=== PATIENT | male | born 1975 | race Caucasian/White ===

== ENCOUNTER 2019-04-21 10:05 | Inpatient (IN) | payer BC, OTHER ==
[~2019-04-21] VITALS: Ht 190.5 cm; Wt 83.3 kg
[2019-04-21] MEDS ORDERED: OLANZapine 5 MG ODT (ZyPREXA ZYDIS) PO ONE (11:30)
--- NOTE | 2019-04-21 11:30 | ED General ---
General Stated Complaint: ANXIETY;PSYCH EVAL Source of Information: Patient Exam Limitations: No Limitations History of Present Illness Date Seen by Provider: Apr 21, 2019 Time Seen by Provider: 11:28 Initial Comments To ER reports of anxiety. He states that he's only slept about 2 or 3 hours in the past 3 days. He is currently living in [place] staying with his mother. Primary care is Dr. Sheldon. He has been having dreams at night that are very real, he sees people, and he holds up his bilateral and crossed until them to go away and they vanish. He also saw a missed coming from the ceiling and landed only on him and did not land on his mother. History of ADHD, takes Prozac and Keppra for a seizure disorder. Denies drug use. States he feels very anxious right now. Timing/Duration: 1-2 Days Severity: Moderate Associated Systoms: Denies Symptoms Allergies and Home Medications Allergies Coded Allergies: No Known Drug Allergies (Unverified , 04/21/19) Patient Home Medication List Home Medication List Reviewed: Yes Review of Systems Review of Systems Constitutional: see HPI EENTM: see HPI Respiratory: no symptoms reported Cardiovascular: no symptoms reported Genitourinary: no symptoms reported Musculoskeletal: no symptoms reported Psychiatric/Neurological: See HPI, Anxiety Hematologic/Lymphatic: No Symptoms Reported Immunological/Allergic: no symptoms reported Past Nwvwvqj-Vadzap-Rtyqza Hx Patient Social History Recent Foreign Travel: No Contact w/Someone Who Travel: No Physical Exam Vital Signs Vital Signs - First Documented 04/21/19 11:11 Temp 37.1 Pulse 114 Resp 18 B/P (MAP) 168/98 (121) Pulse Ox 100 O2 Delivery Room Air Capillary Refill : Height, Weight, BMI Height: '" Weight: lbs. oz. kg; BMI Method: General Appearance: No Apparent Distress, WD/WN, Anxious, Other (hyperactive, high rate of speech) Eyes: Bilateral Eye Normal Inspection, Bilateral Eye PERRL, Bilateral Eye EOMI HEENT: PERRL/EOMI, TMs Normal Neck: Full Range of Motion, Normal Inspection Respiratory: No Accessory Muscle Use, No Respiratory Distress Gastrointestinal: Normal Bowel Sounds, Non Tender, Soft Extremity: Normal Capillary Refill, Normal Inspection Neurologic/Psychiatric: Alert, Oriented x3 Skin: Normal Color, Warm/Dry Progress/Results/Core Measures Suspected Sepsis SIRS Temperature: Pulse: Respiratory Rate: Laboratory Tests 3/11/20 11:30: White Blood Count 9.6 Blood Pressure / Mean: Laboratory Tests 04/21/19 11:30: Creatinine 0.83, Platelet Count 105L, Total Bilirubin 1.4H Results/Orders Lab Results Laboratory Tests Test 04/21/19 11:30 04/21/19 11:35 Range/Units White Blood Count 9.6 4.3-11.0 10^3/uL Red Blood Count 4.82 4.35-5.85 10^6/uL Hemoglobin 14.8 13.3-17.7 G/DL Hematocrit 44 40-54 % Mean Corpuscular Volume 92 80-99 FL Mean Corpuscular Hemoglobin 31 25-34 PG Mean Corpuscular Hemoglobin Concent 34 32-36 G/DL Red Cell Distribution Width 12.8 10.0-14.5 % Platelet Count 105 L 130-400 10^3/uL Mean Platelet Volume 12.5 H 7.4-10.4 FL Neutrophils (%) (Auto) 81 H 42-75 % Lymphocytes (%) (Auto) 12 12-44 % Monocytes (%) (Auto) 7 0-12 % Eosinophils (%) (Auto) 0 0-10 % Basophils (%) (Auto) 0 0-10 % Neutrophils # (Auto) 7.8 1.8-7.8 X 10^3 Lymphocytes # (Auto) 1.2 1.0-4.0 X 10^3 Monocytes # (Auto) 0.6 0.0-1.0 X 10^3 Eosinophils # (Auto) 0.0 0.0-0.3 10^3/uL Basophils # (Auto) 0.0 0.0-0.1 10^3/uL Sodium Level 134 L 135-145 MMOL/L Potassium Level 3.6 3.6-5.0 MMOL/L Chloride Level 99 98-107 MMOL/L Carbon Dioxide Level 22 21-32 MMOL/L Anion Gap 13 5-14 MMOL/L Blood Urea Nitrogen 11 7-18 MG/DL Creatinine 0.83 0.60-1.30 MG/DL Estimat Glomerular Filtration Rate > 60 BUN/Creatinine Ratio 13 Glucose Level 112 H 70-105 MG/DL Calcium Level 10.3 H 8.5-10.1 MG/DL Corrected Calcium 9.9 8.5-10.1 MG/DL Total Bilirubin 1.4 H 0.1-1.0 MG/DL Aspartate Amino Transf (AST/SGOT) 82 H 5-34 U/L Alanine Aminotransferase (ALT/SGPT) 36 0-55 U/L Alkaline Phosphatase 186 H 40-136 U/L Total Protein 8.2 6.4-8.2 GM/DL Albumin 4.5 3.2-4.5 GM/DL Salicylates Level < 5.0 L 5.0-20.0 MG/DL Acetaminophen Level < 10 L 10-30 UG/ML Serum Alcohol < 10 <10 MG/DL Urine Color YELLOW Urine Clarity CLEAR Urine pH 6.0 5-9 Urine Specific [place] 1.015 L 1.016-1.022 Urine Protein NEGATIVE NEGATIVE Urine Glucose (UA) NEGATIVE NEGATIVE Urine Ketones NEGATIVE NEGATIVE Urine Nitrite NEGATIVE NEGATIVE Urine Bilirubin 1+ H NEGATIVE Urine Urobilinogen 4.0 < = 1.0 MG/DL Urine Leukocyte Esterase NEGATIVE NEGATIVE Urine RBC (Auto) NEGATIVE NEGATIVE Urine RBC NONE /HPF Urine WBC NONE /HPF Urine Squamous Epithelial Cells NONE /HPF Urine Crystals NONE /LPF Urine Bacteria TRACE /HPF Urine Casts NONE /LPF Urine Mucus SMALL H /LPF Urine Culture Indicated NO Urine Opiates Screen NEGATIVE NEGATIVE Urine Oxycodone Screen NEGATIVE NEGATIVE Urine Methadone Screen NEGATIVE NEGATIVE Urine Propoxyphene Screen NEGATIVE NEGATIVE Urine Barbiturates Screen NEGATIVE NEGATIVE Ur Tricyclic Antidepressants Screen POSITIVE H NEGATIVE Urine Phencyclidine Screen NEGATIVE NEGATIVE Urine Amphetamines Screen NEGATIVE NEGATIVE Urine Methamphetamines Screen NEGATIVE NEGATIVE Urine Benzodiazepines Screen POSITIVE H NEGATIVE Urine Cocaine Screen NEGATIVE NEGATIVE Urine Cannabinoids Screen NEGATIVE NEGATIVE My Orders Orders - SCOTT LAGUNA APRN Olanzapine Orally Dissolve Tab (Zyprexa (04/21/19 11:30) Cbc With Automated Diff (04/21/19 11:27) Comprehensive Metabolic Panel (04/21/19 11:27) Ua Culture If Indicated (04/21/19 11:27) Drug Screen Stat (Urine) (04/21/19 11:27) Salicylate (04/21/19 11:27) Acetaminophen (04/21/19 11:27) Alcohol (04/21/19 11:27) Ekg Tracing (04/21/19 11:55) Alprazolam Tablet (Xanax Tablet) (04/21/19 12:15) Lorazepam Injection (Ativan Injection) (04/21/19 13:00) Medications Given in ED Current Medications Medications Dose Ordered Sig/Eduard Route Start Time Stop Time Status Last Admin Dose Admin Lorazepam 1 mg ONCE ONCE IVP 04/21/19 13:00 04/21/19 13:01 DC 04/21/19 13:05 1 MG Olanzapine 10 mg ONCE ONCE PO 04/21/19 11:30 04/21/19 11:31 DC 04/21/19 11:40 10 MG Vital Signs/I&O 04/21/19 11:11 Temp 37.1 Pulse 114 Resp 18 B/P (MAP) 168/98 (121) Pulse Ox 100 O2 Delivery Room Air Capillary Refill : Departure Communication (Admissions) Time/Spoke to Admitting Phy: 13:[address] Sanchez, will admit [facility] has no inpatient psychiatric beds, [facility] no inpatient psychiatric beds. Mother informs me that he is an alcoholic, he was treated at a facility inpatient towards the end of March, he came home to live with her after discharge at the end of March, resumed drinking heavily vodka again and stopped that on Friday the . Since then he's been unable to sleep with increasing hallucination, she states "he's just running around the house chasing ghosts". This may be more of an alcohol withdrawal delirium given this i nformation. 0.5 mg of Xanax has been given, this fails to improve symptoms we'll give IV lorazepam. I did get an appointment for him with [facility] for May 02 at 1 PM. [facility] mental health side cannot see him until middle of May. Impression Primary Impression: Alcohol withdrawal delirium Disposition: HOME, SELF-CARE Condition: Stable Admissions Decision to Admit Reason: Admit from ER (General) Decision to Admit/Date: Apr 21, 2019 Time/Decision to Admit Time: 12:23 Departure-Patient Inst. Referrals: NO,LOCAL PHYSICIAN (PCP) Primary Care Physician SCOTT LAGUNA APRN Apr 21, 2019 11:30
[2019-04-21 11:38] LABS: CLARITY,URINE CLEAR; COLOR,URINE YELLOW; GLUCOSE, URINE (UA) NEGATIVE (NEGATIVE); KETONES,URINE NEGATIVE (NEGATIVE); LEUKOCYTE ESTERASE ,URINE NEGATIVE (NEGATIVE); NITRITE,URINE NEGATIVE (NEGATIVE); PROTEIN,URINE NEGATIVE (NEGATIVE)
[2019-04-21 11:41] LABS: BASOPHILS % (AUTO) 0 % (0-10); EOSINOPHILS % (AUTO) 0 % (0-10); HEMATOCRIT 44 % (40-54); HEMOGLOBIN 14.8 G/DL (13.3-17.7); LYMPHOCYTES # (AUTO) 1.2 X 10^3 (1.0-4.0); LYMPHOCYTES % (AUTO) 12 % (12-44); MEAN CORPUSCULAR HEMOGLOBIN 31 PG (25-34); MEAN CORPUSCULAR HGB CONC 34 G/DL (32-36); MEAN CORPUSCULAR VOLUME 92 FL (80-99); MEAN PLATELET VOLUME 12.5 FL (7.4-10.4); MONOCYTES # (AUTO) 0.6 X 10^3 (0.0-1.0); MONOCYTES % (AUTO) 7 % (0-12); NEUTROPHILS # (AUTO) 7.8 X 10^3 (1.8-7.8); NEUTROPHILS % (AUTO) 81 % (42-75); PLATELET COUNT 105 10^3/uL (130-400); RED CELL DISTRIBUTION WIDTH 12.8 % (10.0-14.5); WHITE BLOOD COUNT 9.6 10^3/uL (4.3-11.0)
[2019-04-21 11:47] LABS: BACTERIA,URINE TRACE /HPF; BILIRUBIN,URINE 1+ (NEGATIVE)
[2019-04-21 11:50] LABS: AMPHETAMINE SCREEN, URINE NEGATIVE (NEGATIVE); BARBITURATE SCREEN URINE NEGATIVE (NEGATIVE); BENZODIAZEPINES SCREEN URINE POSITIVE (NEGATIVE); CANNABINOID SCREEN, URINE NEGATIVE (NEGATIVE); COCAINE SCREEN URINE NEGATIVE (NEGATIVE); METHADONE STAT NEGATIVE (NEGATIVE); METHAMPHETAMINE SCREEN URINE S NEGATIVE (NEGATIVE); OPIATE SCREEN URINE NEGATIVE (NEGATIVE); OXYCODONE STAT NEGATIVE (NEGATIVE); PROPOXYPHENE STAT NEGATIVE (NEGATIVE); TRICYCLIC ANTIDEPRESSANTS SCRE POSITIVE (NEGATIVE)
[2019-04-21 11:58] LABS: ALANINE AMINOTRANSFERASE 36 U/L (0-55); ALBUMIN 4.5 GM/DL (3.2-4.5); ALKALINE PHOSPHATASE 186 U/L (40-136); BILIRUBIN,TOTAL 1.4 MG/DL (0.1-1.0); BUN/CREATININE RATIO 13; CALCIUM 10.3 MG/DL (8.5-10.1); CARBON DIOXIDE 22 MMOL/L (21-32); CHLORIDE 99 MMOL/L (98-107); CREATININE SERUM 0.83 MG/DL (0.60-1.30); GFR ESTIMATED > 60; GLUCOSE 112 MG/DL (70-105); POTASSIUM 3.6 MMOL/L (3.6-5.0); SALICYLATE < 5.0 MG/DL (5.0-20.0); SODIUM 134 MMOL/L (135-145); TOTAL PROTEIN 8.2 GM/DL (6.4-8.2)
[2019-04-21 11:59] LABS: ACETAMINOPHEN < 10 UG/ML (10-30)
[2019-04-21] MEDS ORDERED: ALPRAZolam 0.5 MG (XANAX) TAB PO SCH (12:15)
[2019-04-21] MEDS ORDERED: LORazepam INJ 2 MG/ML (ATIVAN) VIAL IVP ONE (13:00)
--- NOTE | 2019-04-21 14:10 | NUR ---
GIULIANA VACA admitted to room 405-1, with an admitting diagnosis of ETOH WITHDRAWAL, DELIRIUM, on 04/21/19 from ED via WHEELCHAIR, accompanied by MOTHER, AUNT AND ED STAFF. LIOGIULIANA Marilyn introduced to surroundings, call light, bed controls, phone, TV, temperature control, lights, meal times, smoking policy, visitor policy, side rail policy, bathrooms and showers. Patient Rights given to patient in the handbook. GIULIANA VACA Marilyn verbalizes understanding that [facility] is not responsible for the loss or damage to any personal effects or valuables that are kept in the patients possession during their hospitalization. The following Patient Care Plans were discussed with the PATIENT: Discharge Planning, SUBSTANCE ABUSE, ALCOHOL WITHDRAWAL, and KNOWLEDGE DEFICIT. GIULIANA VACA Marilyn verbalizes understanding of Interdisciplinary Patient Education. Patient and/or family were informed about the Rapid Response Team and its purpose.
[2019-04-21 14:12] VITALS: BP 133/84
[2019-04-21] MEDS ORDERED: THIAMINE INJECTION 100 MG, FOLIC ACID INJECTION 1 MG, MAGNESIUM SULFATE 2 GM, VITAMIN M... IV SCH ×5 (14:36)
[2019-04-21] MEDS ORDERED: ONDANSETRON 4 MG/2 ML (SDV) Z0FRAN IV PRN (14:45)
[2019-04-21] MEDS ORDERED: SENNA W/DOCUSATE (SENOKOT S) TABLET PO PRN (14:45)
[2019-04-21] MEDS ORDERED: ONDANSETRON 4 MG (ZOFRAN) ORAL DISSOLVE TAB SL PRN (14:45)
[2019-04-21] MEDS ORDERED: ANTACID SUSP 30 ML UDC (MYLANTA) PO PRN (14:45)
[2019-04-21] MEDS ORDERED: D5 1/2 NS 1000 ML IV SOLUTION 1,000 ML IV PRN (14:45)
[2019-04-21] MEDS ORDERED: LORazepam 1 MG (ATIVAN) TAB PO PRN (14:45)
[2019-04-21] MEDS ORDERED: FLU QUADRIvalent (5+ YOA) 2019-2020 (AFLURIA) 0.5 ML IM ONE (15:00)
[2019-04-21 15:14] LABS: ALANINE AMINOTRANSFERASE 33 U/L (0-55); ALBUMIN 4.3 GM/DL (3.2-4.5); ALKALINE PHOSPHATASE 169 U/L (40-136); BILIRUBIN,TOTAL 1.4 MG/DL (0.1-1.0); BUN/CREATININE RATIO 15; CARBON DIOXIDE 21 MMOL/L (21-32); CHLORIDE 101 MMOL/L (98-107); CREATININE SERUM 0.75 MG/DL (0.60-1.30); GFR ESTIMATED > 60; GLUCOSE 100 MG/DL (70-105); POTASSIUM 3.7 MMOL/L (3.6-5.0); PROTHROMBIN TIME PATIENT 13.8 SEC (12.2-14.7); SODIUM 134 MMOL/L (135-145); TOTAL PROTEIN 7.7 GM/DL (6.4-8.2)
[2019-04-21] MEDS: D5 1/2 NS W/KCL 20 MEQ/L 1,000 ML IV SCH (15:15)
--- NOTE | 2019-04-21 15:33 | NUR ---
SPOKE WITH PT- HE IS UNSURE OF THE MEDS AND HIS MOTHER WAS GOING BACK HOME TO GET THEM IN [place]. I WILL UPDATE THE MED REC AND NOTES WHEN I GET TO SPEAK WITH HER
[2019-04-21] MEDS: THIAMINE INJECTION 100 MG, FOLIC ACID INJECTION 1 MG, MAGNESIUM SULFATE 2 GM, VITAMIN M... IV SCH ×5 (15:50)
--- NOTE | 2019-04-21 16:08 | History & Physical-Hospitalist ---
History of Present Illness HPI/Chief Complaint Pt is a 43yoCM with a PMH of alcohol abuse who presented the ER due to hallucinations. He gives a varied history about dreams vs reality and I am unsure the exact details but it seems that sometime over the past 5 days he started hallucinating. At first it was that there were bikes everywhere he thought that he was dreaming. He then said that his dreams/hallucinations became more erotic. He tells a story of walking from his kitchen through glass panel and ending up in his mother's kitchen. He also thought that he was about had a seizure. He is unsure of what day that occurred. Today he states that he saw people in his house again and the only way to make them go away was to hold up his Cross and his bible. He reports that he drinks 5-6 PB per day and that his last drink was last night. This varies from the history that his mother gave to the emergency room stating that he was in rehabilitation for alcohol at the end of March but relapsed shortly after discharge. She reported to the ER that his last drink was on April 16. Source: patient Date Seen 04/21/19 Time Seen by a Provider: 16:03 Attending Physician Michelle García MD PCP Alanis Sheldon MD Referring Physician Date of Admission Apr 21, 2019 at 12:36 Home Medications & Allergies Home Medications Reviewed patient Home Medication Reconciliation performed by pharmacy medication reconciliations civilian technician and/or nursing. Patients Allergies have been reviewed. Allergies Allergies Coded Allergies No Known Drug Allergies (Unverified04/21/19) Past Launzhf-Qxegkj-Mhzsos Hx Past Med/Social Hx: Reviewed Nursing Past Med/Soc Hx Patient Social History Alcohol Use: Regular Use Number of Drinks Today: 0 Alcohol Beverage of Choice: Beer, Whiskey Recreational Drug Use: No Type Used: Smokeless Tobacco 2nd Hand Smoke Exposure: No Recent Foreign Travel: Yes Contact w/other who traveled: Yes Recent Infectious Disease Expo: No Past Medical History Surgeries: Eye Surgery Neurological: Seizure Disorder Psychosocial: ADD/ADHD, Anxiety, Depression Family History Reviewed Nursing Family Hx Patient reports no known family medical history. Review of Systems ROS-Unable to Obtain: limited by AMS Constitutional: see HPI Physical Exam Physical Exam Vital Signs Vital Signs - First Documented 04/21/19 11:11 Temp 37.1 Pulse 114 Resp 18 B/P (MAP) 168/98 (121) Pulse Ox 100 O2 Delivery Room Air Capillary Refill : Less Than 3 Seconds Height, Weight, BMI Height: '" Weight: lbs. oz. kg; 23.72 BMI Method: General Appearance: No Apparent Distress, WD/WN, Thin HEENT: PERRL/EOMI, Moist Mucous Membranes; No Scleral Icterus (L), No Scleral Icterus (R) Neck: Normal Inspection, Supple Respiratory: Lungs Clear, No Respiratory Distress Cardiovascular: Regular Rate, Rhythm, No Murmur Gastrointestinal: Normal Bowel Sounds, Non Tender, Soft Extremity: No Calf Tenderness, No Pedal Edema, Other (3+ DTRS) Neurologic/Psychiatric: Alert, Other (oriented to person and place and denies hallucinations but unable to provide any other accurate details) Results Results/Procedures Labs Laboratory Tests 04/21/19 11:30 04/21/19 14:30 Patient resulted labs reviewed. 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
[2019-04-21 16:10] VITALS: BP 114/66
[2019-04-21] MEDS: SINEMET 25/100 (CARBIDOPA/LEVODOPA) TAB PO SCH (17:46)
--- NOTE | 2019-04-21 19:20 | NUR ---
HOME MEDICATIONS LOCKED IN PLASTIC STRAIGHTENING ROLL OPERATOR ROOM
[2019-04-21 20:30] VITALS: BP 117/75
[2019-04-21] MEDS: traZODone 50 MG (DESYREL) TAB PO SCH (20:56)
[2019-04-21] MEDS ORDERED: LEVETIRACETAM 500 MG (KEPPRA) TAB PO SCH (21:00)
[2019-04-21] MEDS: LORazepam INJ 2 MG/ML (ATIVAN) VIAL IV PRN ×3 (21:03→23:55)
[2019-04-22] VITALS (27 sets, daily range): BP systolic 100–142; BP diastolic 74–104
[2019-04-22] MEDS: LORazepam INJ 2 MG/ML (ATIVAN) VIAL IV PRN ×5 (00:57→11:34)
[2019-04-22] MEDS ORDERED: DexMEDEtomidine 250 ML DRIP 250 ML IV ONE (01:27)
--- NOTE | 2019-04-22 01:34 | NUR ---
2048 - CIWA score 9 - received 1mg of Ativan per protocol. Recheck in 1 hour 2209 - CIWA score 18 - received 2mg of Ativan per protocol. Ordered End tidal CO2 per protocol and recheck in 1 hour 0 - Pt was walking down the hallway while this RN was attending another pt in distress. Pt's IV was out and pt was anxious and confused. Got pt back in room and IV was restarted by GASTON [place]. Notified house sup that pt is showing signs of withdrawal and may need to be moved to ICU per protocol. 2344 - CIWA score 20 - received 2mg of Ativan per protocol. Recheck in 1 hour 0030 - House sup informed this RN that there is a bed available for the pt should he be transferred. 0040 - Notified Dr. Paige of plan to move to ICU since pt is starting to get aggressive and scoring greater than 20 on CIWA scale. 0055 - CIWA score 26 - ordered 4mg of Ativan per protocol. Gave 2mg and will give additional 2mg once patient is ready to be transferred to ICU. 0133 - Administered 2mg of Ativan 0140 - Transferring pt to ICU 11
--- NOTE | 2019-04-22 01:59 | NUR ---
PT ARRIVES TO ICU 11 WITH HEAD AT FOOT OF BED. PT MUMBLING AND ATTEMPTING TO GET OUT OF BED. PT COMBATIVE TOWARDS STAFF. E-ICU NOTIFIED. SEE ORDER HISTORY
[2019-04-22] MEDS: DexMEDEtomidine 250 ML DRIP 250 ML IV SCH ×3 (02:16→23:30)
[2019-04-22] MEDS: D5 1/2 NS W/KCL 20 MEQ/L 1,000 ML IV SCH ×2 (03:29→05:42)
[2019-04-22] MEDS ORDERED: PROPOFOL DRIP (ICU) 100 ML IV ONE (04:29)
[2019-04-22] MEDS ORDERED: NS IV 1000 ML 1,000 ML ONE (04:31)
--- NOTE | 2019-04-22 04:56 | Pulmonary Procedures ---
Pulmonary Procedures Date of Procedure Date of Service: Apr 22, 2019 Reason for Intubation: Acute respiratory failure Time of Intubation: 04:52 Intubation Method: orotracheal Tube Size: 8 Medications: Propofol Positive End Tide CO2: Yes Breath Sounds after Intubation: bilateral-equal Intubation Complications: no complications Post Intubation Xray: Yes KATHLEEN COLEMAN DO Apr 22, 2019 04:56
--- NOTE | 2019-04-22 05:02 | Pulmonary Consultation ---
History of Present Illness History of Present Illness Date Seen by Provider: Apr 22, 2019 Time Seen by Provider: 04:57 Date of Admission History of Present Illness 43yo with hx of alcohol dependance presented to ED with hallucinations. He was admitted to 4th floor however transferred up to ICU secondary to withdrawal symptoms. Pt was combative and agitated. Since admission he has received around 21mg of Ativan. This morning pt is unresponsive to sternal rub. Allergies and Home Medications Allergies Coded Allergies: No Known Drug Allergies (Unverified , 04/21/19) Past Xpksbsq-Ofrtrh-Fmispr Hx Past Med/Social Hx: Reviewed Nursing Past Med/Soc Hx Patient Social History Alcohol Use: Regular Use Number of Drinks Today: 0 Alcohol Beverage of Choice: Beer, Whiskey Recreational Drug Use: No Type Used: Smokeless Tobacco 2nd Hand Smoke Exposure: No Recent Foreign Travel: Yes Contact w/Someone Who Travel: Yes Recent Infectious Disease Expo: No Physical Abuse: No Sexual Abuse: No Past Medical History Surgeries: No (Denies surgical hx. ) Eye Surgery Neurological: Yes (Dystonia ) Seizure Disorder Psychosocial: Yes ADD/ADHD, Anxiety, Depression Family Medical History Reviewed Nursing Family Hx Patient reports no known family medical history. Sepsis Event Evaluation Height, Weight, BMI Height: '" Weight: lbs. oz. kg; 23.72 BMI Method: Exam Exam Vital Signs Date Time Temp Pulse Resp B/P (MAP) Pulse Ox O2 Delivery O2 Flow Rate FiO2 04/22/19 04:00 Nasal Cannula 2.00 04/22/19 03:00 62 04/22/19 02:45 Nasal Cannula 2.00 04/22/19 02:16 87 04/22/19 02:00 Room Air 04/22/19 01:59 93 20 123/83 (96) 98 Room Air 04/22/19 00:00 37.1 99 17 119/77 (91) 99 Room Air 04/21/19 23:04 95 Room Air 04/21/19 20:30 36.4 96 20 117/75 (89) 100 Room Air 04/21/19 20:00 Room Air 04/21/19 19:00 100 04/21/19 16:24 89 04/21/19 16:10 36.5 86 20 114/66 (82) 95 Room Air 04/21/19 14:31 Room Air 04/21/19 14:12 36.8 94 18 133/84 98 Room Air 04/21/19 14:05 36.6 106 18 116/93 (121) 98 Room Air 04/21/19 11:11 37.1 114 18 168/98 (121) 100 Room Air I & O 04/22/19 07:00 Intake Total 1855.2 ml Balance 1855.2 ml Height & Weight Height: '" Weight: lbs. oz. kg; 23.72 BMI Method: General Appearance: No Apparent Distress, WD/WN, Thin HEENT: PERRL/EOMI, Moist Mucous Membranes; No Scleral Icterus (L), No Scleral Icterus (R) Neck: Normal Inspection, Supple Respiratory: Lungs Clear, No Respiratory Distress Cardiovascular: Regular Rate, Rhythm, No Murmur Capillary Refill: Less Than 3 Seconds Extremity: No Calf Tenderness, No Pedal Edema, Other (3+ DTRS) Neurologic/Psychiatric: Alert, Other (oriented to person and place and denies hallucinations but unable to provide any other accurate details) Skin: Normal Color, Warm/Dry Results Lab Laboratory Tests 04/21/19 11:30 04/21/19 14:30 Assessment/Plan Assessment/Plan Alcohol withdrawal -Pt is unresponsive to sternal rub secondary to Ativan -will proceed with intubation -Continue CIID protocol Alcoholic liver disease Thrombocytopenia Hyperbilirubinemia No baseline available trend Hyponatremia likely beer potomania IVF KATHLEEN COLEMAN DO Apr 22, 2019 05:02
[2019-04-22 05:07] LABS: BASOPHILS % (AUTO) 0 % (0-10); EOSINOPHILS # (AUTO) 0.1 10^3/uL (0.0-0.3); EOSINOPHILS % (AUTO) 1 % (0-10); HEMATOCRIT 39 % (40-54); HEMOGLOBIN 12.9 G/DL (13.3-17.7); LYMPHOCYTES % (AUTO) 17 % (12-44); MEAN CORPUSCULAR HEMOGLOBIN 31 PG (25-34); MEAN CORPUSCULAR HGB CONC 33 G/DL (32-36); MEAN CORPUSCULAR VOLUME 93 FL (80-99); MEAN PLATELET VOLUME 12.3 FL (7.4-10.4); MONOCYTES # (AUTO) 0.5 X 10^3 (0.0-1.0); MONOCYTES % (AUTO) 8 % (0-12); NEUTROPHILS % (AUTO) 73 % (42-75); PLATELET COUNT 85 10^3/uL (130-400); RED CELL DISTRIBUTION WIDTH 12.9 % (10.0-14.5); WHITE BLOOD COUNT 5.5 10^3/uL (4.3-11.0)
[2019-04-22] MEDS ORDERED: LACTATED RINGERS 2,000 ML IV ONE (05:21)
[2019-04-22] MEDS: PROPOFOL DRIP (ICU) 100 ML IV SCH ×3 (05:25→23:31)
[2019-04-22 05:27] LABS: BUN/CREATININE RATIO 10; CALCIUM 8.6 MG/DL (8.5-10.1); CARBON DIOXIDE 21 MMOL/L (21-32); CHLORIDE 106 MMOL/L (98-107); CREATININE SERUM 0.79 MG/DL (0.60-1.30); GFR ESTIMATED > 60; GLUCOSE 172 MG/DL (70-105); MAGNESIUM 1.9 MG/DL (1.6-2.4); PHOSPHORUS 3.6 MG/DL (2.3-4.7); POTASSIUM 3.9 MMOL/L (3.6-5.0); SODIUM 135 MMOL/L (135-145)
[2019-04-22] MEDS ORDERED: LORazepam INJ 2 MG/ML (ATIVAN) VIAL IVP ONE (05:30)
[2019-04-22] MEDS ORDERED: LACTATED RINGERS 1,000 ML IV SCH (05:45)
[2019-04-22] MEDS ORDERED: NS IV 1000 ML 1,000 ML IV SCH (05:45)
--- NOTE | 2019-04-22 05:45 | Diagnostic Imaging Report ---
Indication: Shortness of breath Portable chest 4:06 AM Heart size and pulmonary vascularity are normal. There may be some interstitial infiltrate in the right upper lobe. Left lung is clear. There are no effusions or pneumothoraces. IMPRESSION: Possible right upper lobe interstitial infiltrate. Dictated by: Dictated on workstation # [id number]
[2019-04-22] MEDS: LACTATED RINGERS 1,000 ML IV SCH ×3 (05:53→23:31)
[2019-04-22] MEDS: POTASSIUM CL 10MEQ/50ML IVPB 50 ML IV SCH (05:58)
[2019-04-22] MEDS: KCL 20 MEQ TAB (K-DUR) PO SCH (05:58)
[2019-04-22] MEDS: MAGNESIUM 1 GM/100 ML IVPB 100 ML IV SCH (05:58)
[2019-04-22 07:10] LABS: ABG BASE EXCESS -3.7 MMOL/L (-2.5-2.5); ABG OXYGEN SATURATION 98 % (94-100); ABG PCO2 34 MMHG (35-45); ABG PH 7.39 (7.37-7.43); ABG PO2 90 MMHG (79-93); ABG TCO2 21.7 MMOL/L (21.0-31.0)
[2019-04-22 07:14] LABS: ALLENS TEST YES-POS; PATIENT TEMP 35.8; VENTILATOR YES
--- NOTE | 2019-04-22 07:19 | NUR ---
TIMELINE NOTE 0435-DR COLEMAN AT BEDSIDE-FLUID BOLUS STARTED PER [place] 0443-5CC PROPOFOL ADMIN PER DR COLEMAN 0445-50 OF DARIN ADMIN PER DR COLEMAN 0457-PT INTUBATED WITH SIZE 8 ETT, 24 AT THE LIP COLOR CHANGE, BILAT BREATH SOUNDS AUSCULTATED. VENT SETTINGS ARE-TV 450, PEEP 5, RR 22, FIO2 25 0500-LR BOLUS STARTED, 0521-[place] TO PLACE CENTRAL LINE-PT BEGINS TO SEIZE, 4MG ATIVAN GIVEN PER DR COLEMAN, 100 MCG OF FENTANYL ADMIN 0600-UPDATED PT MOTHER
--- NOTE | 2019-04-22 07:32 | Diagnostic Imaging Report ---
INDICATION: Status post intubation, central line placement EXAMINATION: Single view chest dated 04/22/2019 Comparison to the same day at 4:04 a.m. FINDINGS: There has been interval placement of an ET tube with the tip unremarkable in appearance. A right jugular line tip is in the SVC. The heart is prominent. Pulmonary vasculature is congested. Findings of edema throughout both lungs. No effusions, no pneumothorax. IMPRESSION: 1. Tubes and lines as described. 2. Worsening pulmonary edema. Dictated by: Dictated on workstation # [id number]
[2019-04-22] MEDS: ENOXAPARIN 40 MG/0.4 ML (LOVENOX) SYR SC SCH (08:11)
[2019-04-22] MEDS ORDERED: LEVETIRACETAM INJECTION 1,000 MG in NS (IVPB) 100 ML IV ONE (08:15)
[2019-04-22] MEDS: THIAMINE INJECTION 100 MG, FOLIC ACID INJECTION 1 MG, MAGNESIUM SULFATE 2 GM, VITAMIN M... IV SCH ×5 (08:16)
[2019-04-22] MEDS: PANTOPRAZOLE 40 MG (PROTONIX) VIAL IV SCH (08:17)
[2019-04-22] MEDS: FLUoxetine HCL 20 MG (PROzac) CAP PO SCH (08:17)
[2019-04-22] MEDS ORDERED: ROCURONIUM 10 MG/ML 5 ML SYRINGE IV ONE (08:25)
[2019-04-22] MEDS ORDERED: fentaNYL INJECTION 100 MCG/2 ML AMP INJ ONE (08:25)
--- NOTE | 2019-04-22 09:37 | Physical Therapy Progress Note ---
Therapy Progress Note Patient currently sedated on ventilator. PT will continue to monitor patient status and initiate treatment when patient is medically stable and able to actively participate with skilled therapy. BISI DAILEY PT Apr 22, 2019 09:37
[2019-04-22] MEDS: SINEMET 25/100 (CARBIDOPA/LEVODOPA) TAB PO SCH ×3 (09:53→18:26)
--- NOTE | 2019-04-22 10:05 | Progress Note - Hospitalist ---
Subjective HPI/CC On Admission Date Seen by Provider: Apr 22, 2019 Time Seen by Provider: 09:59 Pt is a 43yoCM with a PMH of alcohol abuse who presented the ER due to hallucinations. He gives a varied history about dreams vs reality and I am unsure the exact details but it seems that sometime over the past 5 days he started hallucinating. At first it was that there were bikes everywhere he thought that he was dreaming. He then said that his dreams/hallucinations became more erotic. He tells a story of walking from his kitchen through glass panel and ending up in his mother's kitchen. He also thought that he was about had a seizure. He is unsure of what day that occurred. Today he states that he saw people in his house again and the only way to make them go away was to hold up his Cross and his bible. He reports that he drinks 5-6 PB per day and that his last drink was last night. This varies from the history that his mother gave to the emergency room stating that he was in rehabilitation for alcohol at the end of March but relapsed shortly after discharge. She reported to the ER that his last drink was on April 16. Subjective/Events-last exam Pt acutely worsened overnight. Was intubated this AM due to agitation. Objective Exam Vital Signs Vital Signs Date Time Temp Pulse Resp B/P (MAP) Pulse Ox O2 Delivery O2 Flow Rate FiO2 04/22/19 08:00 46 21 104/83 (90) 99 Mechanical Ventilator 25.00 04/22/19 08:00 36.0 04/22/19 05:49 25 Capillary Refill : Less Than 3 Seconds General Appearance: Other (sedated and intubated) Respiratory: Lungs Clear, No Accessory Muscle Use, No Respiratory Distress Cardiovascular: No Murmur, Bradycardia Gastrointestinal: Normal Bowel Sounds, Soft Extremity: No Calf Tenderness, No Pedal Edema Neurologic/Psychiatric: Other (sedated, appears comfortable) Skin: Tattoos/Piercings, Other (abrasion on left nation) Results/Procedures Lab Laboratory Tests 04/21/19 11:30 04/21/19 14:30 04/22/19 04:18 Patient resulted labs reviewed. Assessment/Plan Assessment and Plan Assess & Plan/Chief Complaint Alcohol withdrawal Acute Respiratory Failure Intubated 04/21 Sedation with propofol and precedex CIWA protocol Banana bag Seizure Keppra load and then IV keppra scheduled Alcoholic liver disease Thrombocytopenia Hyperbilirubinemia Plts 85 today Trend Hyponatremia Improved DVT ppx: Lovenox Diagnosis/Problems Diagnosis/Problems (1) Alcohol withdrawal delirium Status: Acute (2) Acute respiratory failure Status: Acute Qualifiers: Respiratory failure complication: unspecified whether with hypoxia or hypercapnia Qualified Codes: J96.00 - Acute respiratory failure, unspecified whether with hypoxia or hypercapnia (3) Alcoholic liver disease Status: Chronic (4) Thrombocytopenia Status: Chronic (5) Hyponatremia Status: Resolved Resolution Date/Time: 04/22/19 @ 10:05 Clinical Quality Measures DVT/VTE Risk/Contraindication: Risk Factor Score Per Nursin RFS Level Per Nursing on Admit: 1=Low/No VTE PPX MICHELLE DRAKE MD Apr 22, 2019 10:05
--- NOTE | 2019-04-22 10:17 | Pulmonary Procedures ---
Pulmonary Procedures Date of Procedure Date of Service: Apr 22, 2019 Lumen: triple Central Line Procedure: betadine prep, sterile drapes applied, sterile dressing applied Position: internal jugular (R) Anesthesia: Lidocaine Volume Anesthetic (ccs): 5 Complications: none Post Position: sutured, good blood return, position confirmed w/ CXR KATHLEEN COLEMAN DO Apr 22, 2019 10:17
--- NOTE | 2019-04-22 10:23 | Occ Therapy Progress Note ---
Therapy Progress Note Pt is currently sedated and on the ventilator. OT will continue to monitor pt and initiate tx when pt is more medically stable and able to actively participate in skilled therapies. MIKE LU OT Apr 22, 2019 10:23
--- NOTE | 2019-04-22 12:00 | NUR ---
"Received dietary consult regarding pt's vent status. Est. kcal needs: 8808-2112 kcal | 25-30 kcal/kg Est. Pro needs: 86-103 g Pro | 1.0-1.2 g Pro/kg If pt is to remain NPO more than 3d, would recommend the following TF: Jevity 1.5 at goal rate of 60ml/hr. Begin at 10ml/hr and increase by 10ml q6h as tolerated. Monitor gastric residuals for tolerance. At goal rate, provides 2160 kcal (25 kcal/kg); 91 g Pro (1.1 g Pro/kg); and 1094ml free water. Flush with 75ml H2O q4h for hydration status. With flushes, provides 1544ml free water. Will continue to follow and reassess as pt needs, intake, and status change. Ly Cedillo, MS, RD, LD"
[2019-04-22] MEDS ORDERED: MIDAZOLAM INJECTION FOR DRIPS 50 MG in NS (IVPB) 90 ML IV SCH (14:45)
[2019-04-22] MEDS ORDERED: FUROSEMIDE 40 MG/4 ML INJ (LASIX) IVP ONE (16:45)
[2019-04-22] MEDS ORDERED: hydrALAZINE (APESOLINE) 20 MG/ML VIAL IV PRN (16:45)
[2019-04-22] MEDS: traZODone 50 MG (DESYREL) TAB PO SCH (20:48)
[2019-04-22] MEDS ORDERED: LEVETIRACETAM INJECTION 500 MG in NS (IVPB) 100 ML IV SCH (21:00)
[2019-04-22] MEDS: LORazepam INJ 2 MG/ML (ATIVAN) VIAL IM/IV PRN (22:51)
[2019-04-23] VITALS (30 sets, daily range): BP systolic 88–122; BP diastolic 55–86
[2019-04-23] MEDS: LORazepam INJ 2 MG/ML (ATIVAN) VIAL IM/IV PRN ×2 (00:58→06:59)
[2019-04-23 03:26] LABS: ABG BASE EXCESS -0.8 MMOL/L (-2.5-2.5); ABG OXYGEN SATURATION 94 % (94-100); ABG PCO2 33 MMHG (35-45); ABG PH 7.46 (7.37-7.43); ABG PO2 63 MMHG (79-93); ABG TCO2 23.4 MMOL/L (21.0-31.0)
[2019-04-23 03:26] LABS: BASOPHILS % (AUTO) 0 % (0-10); EOSINOPHILS # (AUTO) 0.1 10^3/uL (0.0-0.3); EOSINOPHILS % (AUTO) 1 % (0-10); HEMATOCRIT 40 % (40-54); HEMOGLOBIN 13.7 G/DL (13.3-17.7); LYMPHOCYTES # (AUTO) 0.5 X 10^3 (1.0-4.0); LYMPHOCYTES % (AUTO) 7 % (12-44); MEAN CORPUSCULAR HEMOGLOBIN 31 PG (25-34); MEAN CORPUSCULAR HGB CONC 34 G/DL (32-36); MEAN CORPUSCULAR VOLUME 92 FL (80-99); MEAN PLATELET VOLUME 12.6 FL (7.4-10.4); MONOCYTES # (AUTO) 0.4 X 10^3 (0.0-1.0); MONOCYTES % (AUTO) 5 % (0-12); NEUTROPHILS % (AUTO) 87 % (42-75); PLATELET COUNT 89 10^3/uL (130-400); RED CELL DISTRIBUTION WIDTH 12.9 % (10.0-14.5)
[2019-04-23 03:27] LABS: ALLENS TEST POSITIVE; INSPIRED O2 25; PATIENT TEMP 37.8; VENTILATOR YES
--- NOTE | 2019-04-23 03:40 | Pulmonary Progress Note ---
Subjective Time Seen by a Provider: 03:33 Subjective/Events-last exam Sedated on vent Sepsis Event Evaluation Height, Weight, BMI Height: '" Weight: lbs. oz. kg; 23.72 BMI Method: Exam Exam Vital Signs Date Time Temp Pulse Resp B/P (MAP) Pulse Ox O2 Delivery O2 Flow Rate FiO2 04/23/19 02:37 70 25 92 21 04/23/19 01:00 68 04/22/19 23:59 Mechanical Ventilator 21.00 04/22/19 23:31 64 99/71 04/22/19 23:30 64 04/22/19 23:00 35.9 63 22 100/74 (83) 92 Mechanical Ventilator 21.00 04/22/19 22:44 65 22 92 21 04/22/19 22:00 35.1 60 21 102/79 (87) 96 Mechanical Ventilator 21.00 04/22/19 21:00 34.6 56 22 106/81 (89) 94 Mechanical Ventilator 21.00 04/22/19 21:00 Mechanical Ventilator 21.00 04/22/19 20:47 34.5 04/22/19 20:00 34.4 51 21 112/85 (94) 94 Mechanical Ventilator 25.00 04/22/19 20:00 Mechanical Ventilator 21.00 04/22/19 19:09 48 22 96 21 04/22/19 19:08 34.4 04/22/19 19:00 50 04/22/19 19:00 51 21 117/87 (97) 96 Mechanical Ventilator 25.00 04/22/19 18:27 50 109/84 04/22/19 18:00 52 21 109/84 (92) 97 Mechanical Ventilator 25.00 04/22/19 17:00 48 22 110/84 (93) 100 Mechanical Ventilator 25.00 04/22/19 16:00 Mechanical Ventilator 25.00 04/22/19 16:00 47 22 133/99 (110) 100 Mechanical Ventilator 25.00 04/22/19 15:17 46 142/102 04/22/19 15:16 47 22 100 21 04/22/19 15:12 35.4 04/22/19 15:09 47 21 143/101 04/22/19 15:00 47 22 141/102 (115) 100 Mechanical Ventilator 25.00 04/22/19 14:00 48 21 141/103 (116) 100 Mechanical Ventilator 25.00 04/22/19 13:00 51 21 135/101 (112) 100 Mechanical Ventilator 25.00 04/22/19 12:49 54 04/22/19 12:13 35.5 04/22/19 12:00 54 21 119/91 (100) 100 Mechanical Ventilator 25.00 04/22/19 12:00 Mechanical Ventilator 25.00 04/22/19 11:00 56 21 141/98 (112) 100 Mechanical Ventilator 25.00 04/22/19 10:15 47 22 100 25 04/22/19 10:00 43 21 138/104 (115) 100 Mechanical Ventilator 25.00 04/22/19 09:00 48 21 134/94 (107) 100 Mechanical Ventilator 25.00 04/22/19 08:00 Mechanical Ventilator 25.00 04/22/19 08:00 46 21 104/83 (90) 99 Mechanical Ventilator 25.00 04/22/19 08:00 36.0 04/22/19 07:00 48 04/22/19 07:00 53 21 121/91 (101) 99 Mechanical Ventilator 25.00 04/22/19 06:00 80 25 112/93 (99) 96 Mechanical Ventilator 25.00 04/22/19 05:49 88 22 96 25 04/22/19 05:25 57 04/22/19 05:00 85 21 131/97 (108) 100 Mechanical Ventilator 25.00 04/22/19 04:00 Nasal Cannula 2.00 04/22/19 04:00 57 15 116/88 (97) 98 Nasal Cannula 2.00 I & O 04/23/19 07:00 Intake Total 3405.2 ml Output Total 4850 ml Balance -1444.8 ml Height & Weight Height: '" Weight: lbs. oz. kg; 23.72 BMI Method: General Appearance: Other (sedated and intubated) HEENT: PERRL/EOMI, Moist Mucous Membranes; No Scleral Icterus (L), No Scleral Icterus (R) Neck: Normal Inspection, Supple Respiratory: Lungs Clear, No Accessory Muscle Use, No Respiratory Distress Cardiovascular: No Murmur, Bradycardia Capillary Refill: Less Than 3 Seconds Extremity: No Calf Tenderness, No Pedal Edema Neurologic/Psychiatric: Other (sedated, appears comfortable) Skin: Tattoos/Piercings, Other (abrasion on left nation) Results Lab Laboratory Tests 04/21/19 11:30 04/21/19 14:30 04/22/19 04:18 04/23/19 03:12 Assessment/Plan Assessment/Plan Acute respiratory failure -Continue vent therapy -Continue precedex propofol Alcohol withdrawal -Change Versed gtt to Ativan gtt. -Continue CIWA protocol Seizures -Ativan gtt -Keppra -- increase to 1000mg BID Alcoholic liver disease Thrombocytopenia Hyperbilirubinemia No baseline available trend Hyponatremia likely beer potomania IVF KATHLEEN COLEMAN DO Apr 23, 2019 03:40
[2019-04-23 03:43] LABS: BUN/CREATININE RATIO 8; CALCIUM 8.5 MG/DL (8.5-10.1); CARBON DIOXIDE 20 MMOL/L (21-32); CHLORIDE 104 MMOL/L (98-107); CREATININE SERUM 0.65 MG/DL (0.60-1.30); EOSINOPHILS % (MANUAL) 2 %; GFR ESTIMATED > 60; GLUCOSE 112 MG/DL (70-105); LYMPHOCYTES % (MANUAL) 9 %; MAGNESIUM 1.5 MG/DL (1.6-2.4); MONOCYTES % (MANUAL) 4 %; NEUTROPHILS % (MANUAL) 85 %; POTASSIUM 3.5 MMOL/L (3.6-5.0); RBC MORPH NORMAL; SODIUM 135 MMOL/L (135-145)
[2019-04-23] MEDS: MAGNESIUM 1 GM/100 ML IVPB 100 ML IV SCH ×3 (04:07→05:45)
[2019-04-23] MEDS: POTASSIUM CL 10MEQ/50ML IVPB 50 ML IV SCH ×3 (04:07→05:45)
[2019-04-23] MEDS: KCL 20 MEQ TAB (K-DUR) PO SCH (04:07)
[2019-04-23] MEDS ORDERED: LACTATED RINGERS 1,000 ML IV SCH (04:15)
[2019-04-23] MEDS ORDERED: LORazepam INJ 2 MG/ML (ATIVAN) VIAL IVP ONE (04:15)
[2019-04-23] MEDS: PROPOFOL DRIP (ICU) 100 ML IV SCH ×4 (06:30→20:54)
[2019-04-23] MEDS: DexMEDEtomidine 250 ML DRIP 250 ML IV SCH ×3 (07:04→22:06)
--- NOTE | 2019-04-23 07:21 | Diagnostic Imaging Report ---
INDICATION: Mechanical ventilation. TECHNIQUE: Single view chest 3:59 AM. CORRELATION STUDY: 04/22/2019 FINDINGS: Endotracheal tube, gastric tube and right IJ central line all remain in place. Heart size and mediastinum stable. Vasculature is improved. Minimal infiltrate at the right lung base with remaining lung smith otherwise improved in aeration. IMPRESSION: 1. Stable support lines and tubes. 2. Generalized improvement aeration of lung smith. Some residual infiltrate at the right lung base does persist. Dictated by: Dictated on workstation # [id number]
[2019-04-23] MEDS: LORazepam INJECTION FOR DRIP 20 MG in D5W 100 ML IVPB 90 ML IV SCH ×3 (07:26→23:25)
--- NOTE | 2019-04-23 07:56 | NUR ---
PT WAKING UP, BECOMING AGGITATED, ATTEMPTING TO GET OUT OF BED AND PULL AT TUBES. O2 SATS 88-89% ON 30%FIO2, INCREASED TO 40% (SATS NOW 90-92%). DR COLEMAN NOTIFIED OF THE ABOVE, NEW ORDERS RECEIVED.
[2019-04-23] MEDS: LEVETIRACETAM INJECTION 1,000 MG in NS (IVPB) 100 ML IV SCH ×2 (07:57→20:53)
[2019-04-23] MEDS: PANTOPRAZOLE 40 MG (PROTONIX) VIAL IV SCH (07:57)
[2019-04-23] MEDS: SINEMET 25/100 (CARBIDOPA/LEVODOPA) TAB PO SCH ×3 (07:58→17:24)
[2019-04-23] MEDS: FLUoxetine HCL 20 MG (PROzac) CAP PO SCH (07:58)
[2019-04-23] MEDS: ENOXAPARIN 40 MG/0.4 ML (LOVENOX) SYR SC SCH (07:58)
--- NOTE | 2019-04-23 07:58 | NUR ---
CHEPE MEDS HELD PER DR DRAKE R/T POSS ASPIRATION EARLY THIS AM. CHEPE TO [facility].
--- NOTE | 2019-04-23 08:01 | Progress Note - Hospitalist ---
Subjective HPI/CC On Admission Date Seen by Provider: Apr 23, 2019 Time Seen by Provider: 07:54 Pt is a 43yoCM with a PMH of alcohol abuse who presented the ER due to hallucinations. He gives a varied history about dreams vs reality and I am unsure the exact details but it seems that sometime over the past 5 days he started hallucinating. At first it was that there were bikes everywhere he thought that he was dreaming. He then said that his dreams/hallucinations became more erotic. He tells a story of walking from his kitchen through glass panel and ending up in his mother's kitchen. He also thought that he was about had a seizure. He is unsure of what day that occurred. Today he states that he saw people in his house again and the only way to make them go away was to hold up his Cross and his bible. He reports that he drinks 5-6 PB per day and that his last drink was last night. This varies from the history that his mother gave to the emergency room stating that he was in rehabilitation for alcohol at the end of March but relapsed shortly after discharge. She reported to the ER that his last drink was on April 16. Subjective/Events-last exam Pt remains intubated and sedated. Discussed with RN. Was very agitated on the vent so ativan added. Resting comfortably now. Objective Exam Vital Signs Vital Signs Date Time Temp Pulse Resp B/P (MAP) Pulse Ox O2 Delivery O2 Flow Rate FiO2 04/23/19 07:26 77 111/80 04/23/19 07:00 37.5 24 95 Mechanical Ventilator 30.00 04/23/19 02:37 21 Capillary Refill : Less Than 3 Seconds General Appearance: No Apparent Distress, Other (sedated, intubated) Respiratory: Other (decreased breath sounds, crackles in bases, ) Cardiovascular: Regular Rate, Rhythm, No Murmur Gastrointestinal: Normal Bowel Sounds, Soft Neurologic/Psychiatric: Other (sedated) Results/Procedures Lab Laboratory Tests 04/23/19 03:12 Patient resulted labs reviewed. Assessment/Plan Assessment and Plan Assess & Plan/Chief Complaint Alcohol withdrawal Acute Respiratory Failure Intubated 04/21 Sedation with propofol and precedex- ativan added this AM [facility] protocol Banana bag ?Aspiration RN concerned overnight that patient aspirated On 30% FiO2 and PEEP of 5 CXR shows improved aeration Seizure Continue Keppra Alcoholic liver disease Thrombocytopenia Hyperbilirubinemia Plts 89 today Trend Hyponatremia Resolved DVT ppx: Lovenox Diagnosis/Problems Diagnosis/Problems (1) Alcohol withdrawal delirium Status: Acute (2) Acute respiratory failure Status: Acute Qualifiers: Respiratory failure complication: unspecified whether with hypoxia or hypercapnia Qualified Codes: J96.00 - Acute respiratory failure, unspecified whether with hypoxia or hypercapnia (3) Alcoholic liver disease Status: Chronic (4) Thrombocytopenia Status: Chronic (5) Hyponatremia Status: Resolved Resolution Date/Time: 04/22/19 @ 10:05 Clinical Quality Measures DVT/VTE Risk/Contraindication: Risk Factor Score Per Nursin RFS Level Per Nursing on Admit: 1=Low/No VTE PPX MICHELLE DRAKE MD Apr 23, 2019 08:00
--- NOTE | 2019-04-23 08:02 | Occ Therapy Progress Note ---
Therapy Progress Note Pt continues on mechanical ventilation, OT to hold tx on this date and eval/ treat when medically stable and able to participate in skilled therapy sessions. NADIR GUTIERRES OTR Apr 23, 2019 08:02
--- NOTE | 2019-04-23 08:10 | Physical Therapy Progress Note ---
Therapy Progress Note Patient is currently sedated and on ventilator. PT will continue to monitor patient status and initiate treatment when patient is medically stable and able to actively participate with skilled therapy. BISI DAILEY PT Apr 23, 2019 08:10
[2019-04-23] MEDS: morphine INJ 4 MG/ML 1 ML (VIAL/SYRINGE) IVP PRN (08:33)
[2019-04-23] MEDS: LACTATED RINGERS 1,000 ML IV SCH ×3 (09:08→22:07)
[2019-04-23] MEDS: THIAMINE INJECTION 100 MG, FOLIC ACID INJECTION 1 MG, MAGNESIUM SULFATE 2 GM, VITAMIN M... IV SCH ×5 (09:17)
[2019-04-23] MEDS ORDERED: CARB1TAB41 PO (11:52)
[2019-04-23] MEDS ORDERED: OMEP20CA18 PO (11:52)
[2019-04-23] MEDS ORDERED: CYCL10TA9 PO (11:52)
[2019-04-23] MEDS ORDERED: TRZ50T PO (11:52)
[2019-04-23] MEDS ORDERED: LEVE500T6 PO (11:52)
[2019-04-23] MEDS ORDERED: NALT50TA PO (11:52)
[2019-04-23] MEDS ORDERED: FLUO20CA46 PO (11:52)
--- NOTE | 2019-04-23 12:24 | NUR ---
UNABLE TO SPEAK WITH THE PT AT THIS TIME- HE DOES HAVE HOME MEDS LOCKED IN THE CABINET OUTSIDE HIS ROOM AND I USED THOSE ALONG WITH THE EXT MED HISTORY TO COMPLETE THE MED REC. SOME BOTTLE STILL HAD QUITE A FEW TABS STILL LEFT IN THEM AND THEY ARE DUE FOR REFILLS- NALOXONE LAST FILLED ON 03-25-2019 #30 AND THERE ARE BETWEEN 15-20 TABS STILL LEFT IN THE BOTTLE. FLUOXETINE LAST FILLED 03-20-2019 #30 HAS APPROXIMATELY 10 TABS LEFT.
[2019-04-23] MEDS: traZODone 50 MG (DESYREL) TAB PO SCH (21:01)
[2019-04-24] VITALS (28 sets, daily range): BP systolic 98–138; BP diastolic 65–94
[2019-04-24 03:23] LABS: ABG BASE EXCESS -0.8 MMOL/L (-2.5-2.5); ABG OXYGEN SATURATION 92 % (94-100); ABG PCO2 34 MMHG (35-45); ABG PH 7.45 (7.37-7.43); ABG PO2 54 MMHG (79-93); ABG TCO2 23.7 MMOL/L (21.0-31.0); BASOPHILS % (AUTO) 0 % (0-10); EOSINOPHILS # (AUTO) 0.1 10^3/uL (0.0-0.3); EOSINOPHILS % (AUTO) 1 % (0-10); HEMATOCRIT 39 % (40-54); HEMOGLOBIN 12.9 G/DL (13.3-17.7); LYMPHOCYTES # (AUTO) 1.1 X 10^3 (1.0-4.0); LYMPHOCYTES % (AUTO) 15 % (12-44); MEAN CORPUSCULAR HEMOGLOBIN 31 PG (25-34); MEAN CORPUSCULAR HGB CONC 33 G/DL (32-36); MEAN CORPUSCULAR VOLUME 94 FL (80-99); MEAN PLATELET VOLUME 12.6 FL (7.4-10.4); MONOCYTES # (AUTO) 0.7 X 10^3 (0.0-1.0); MONOCYTES % (AUTO) 9 % (0-12); NEUTROPHILS # (AUTO) 5.6 X 10^3 (1.8-7.8); NEUTROPHILS % (AUTO) 75 % (42-75); PLATELET COUNT 83 10^3/uL (130-400); RED CELL DISTRIBUTION WIDTH 12.9 % (10.0-14.5); WHITE BLOOD COUNT 7.5 10^3/uL (4.3-11.0)
[2019-04-24 03:26] LABS: ALLENS TEST POSITIVE; INSPIRED O2 25; PATIENT TEMP 37.6; VENTILATOR YES
[2019-04-24 03:45] LABS: BUN/CREATININE RATIO 4; CALCIUM 8.3 MG/DL (8.5-10.1); CARBON DIOXIDE 21 MMOL/L (21-32); CHLORIDE 103 MMOL/L (98-107); CREATININE SERUM 0.67 MG/DL (0.60-1.30); GFR ESTIMATED > 60; GLUCOSE 117 MG/DL (70-105); MAGNESIUM 1.7 MG/DL (1.6-2.4); PHOSPHORUS 2.6 MG/DL (2.3-4.7); POTASSIUM 3.6 MMOL/L (3.6-5.0); SODIUM 132 MMOL/L (135-145); TRIGLYCERIDES 87 MG/DL (<150)
[2019-04-24] MEDS: POTASSIUM CL 10MEQ/50ML IVPB 50 ML IV SCH ×3 (03:59→04:30)
[2019-04-24] MEDS: KCL 20 MEQ TAB (K-DUR) PO SCH (04:00)
[2019-04-24] MEDS: MAGNESIUM 1 GM/100 ML IVPB 100 ML IV SCH ×3 (04:00→04:30)
[2019-04-24] MEDS: LACTATED RINGERS 1,000 ML IV SCH ×3 (04:28→17:55)
[2019-04-24] MEDS: PROPOFOL DRIP (ICU) 100 ML IV SCH ×5 (04:29→21:44)
--- NOTE | 2019-04-24 05:04 | Pulmonary Progress Note ---
Subjective Time Seen by a Provider: 04:59 Subjective/Events-last exam Pt is sedated on vent. Sepsis Event Evaluation Height, Weight, BMI Height: '" Weight: lbs. oz. kg; 23.72 BMI Method: Exam Exam Vital Signs Date Time Temp Pulse Resp B/P (MAP) Pulse Ox O2 Delivery O2 Flow Rate FiO2 04/24/19 04:29 61 04/24/19 04:00 37.6 61 26 116/76 (89) 94 Mechanical Ventilator 30.00 04/24/19 03:00 37.6 61 24 108/79 (89) 93 Mechanical Ventilator 30.00 04/24/19 02:00 37.8 61 25 109/78 (88) 94 Mechanical Ventilator 30.00 04/24/19 01:00 37.9 61 22 109/80 (90) 95 Mechanical Ventilator 30.00 04/24/19 01:00 62 04/24/19 00:00 38.0 63 25 109/77 (88) 94 Mechanical Ventilator 30.00 04/23/19 23:59 Mechanical Ventilator 30.00 04/23/19 23:25 66 107/74 04/23/19 23:00 37.9 64 25 106/74 (85) 93 Mechanical Ventilator 30.00 04/23/19 22:19 64 25 94 30 04/23/19 22:06 63 107/74 04/23/19 22:00 37.8 63 20 107/74 (85) 94 Mechanical Ventilator 30.00 04/23/19 21:00 37.7 63 13 104/72 (83) 94 Mechanical Ventilator 30.00 04/23/19 20:54 62 104/69 04/23/19 20:00 37.6 64 14 102/68 (79) 93 Mechanical Ventilator 30.00 04/23/19 20:00 Mechanical Ventilator 30.00 04/23/19 19:03 63 26 94 30 04/23/19 19:00 37.6 63 25 101/70 (80) 94 Mechanical Ventilator 30.00 04/23/19 19:00 63 04/23/19 18:00 37.5 62 24 99/66 (77) 95 Mechanical Ventilator 30.00 04/23/19 17:00 37.4 61 24 96/65 (75) 94 Mechanical Ventilator 30.00 04/23/19 16:00 37.2 61 34 88/55 (66) 95 Mechanical Ventilator 30.00 04/23/19 15:11 Mechanical Ventilator 30.00 04/23/19 15:00 37.3 61 92/56 (68) 94 Mechanical Ventilator 30.00 04/23/19 14:46 61 91/55 04/23/19 14:46 61 91/55 04/23/19 14:31 62 22 94 40 04/23/19 14:00 37.2 60 22 91/55 (67) 95 Mechanical Ventilator 30.00 04/23/19 13:48 61 23 103/66 04/23/19 13:00 37.3 61 22 103/66 (78) 95 Mechanical Ventilator 30.00 04/23/19 13:00 59 04/23/19 12:35 Mechanical Ventilator 30.00 04/23/19 12:27 Mechanical Ventilator 40.00 04/23/19 12:00 37.3 63 31 100/62 (75) 98 Mechanical Ventilator 40.00 04/23/19 11:06 62 104/70 04/23/19 11:00 37.3 63 24 103/66 (78) 98 Mechanical Ventilator 40.00 04/23/19 10:24 63 22 97 40 04/23/19 10:00 37.4 64 22 103/70 (81) 96 Mechanical Ventilator 40.00 04/23/19 09:00 37.4 64 25 107/71 (83) 96 Mechanical Ventilator 40.00 04/23/19 08:24 Mechanical Ventilator 40.00 04/23/19 08:18 64 27 93 40 04/23/19 08:00 37.5 68 29 106/75 (85) 91 Mechanical Ventilator 30.00 04/23/19 08:00 Mechanical Ventilator 40.00 04/23/19 07:26 77 111/80 04/23/19 07:04 66 04/23/19 07:00 37.5 65 24 109/81 (90) 95 Mechanical Ventilator 30.00 04/23/19 07:00 80 04/23/19 06:30 122/86 04/23/19 06:00 37.7 66 25 122/86 (98) 95 Mechanical Ventilator 30.00 04/23/19 05:21 Mechanical Ventilator 30.00 04/23/19 05:00 38.1 69 27 115/77 (90) 96 Mechanical Ventilator 50.00 I & O 04/24/19 06:59 Intake Total 4290.2 ml Output Total 2325 ml Balance 1965.2 ml Height & Weight Height: '" Weight: lbs. oz. kg; 23.72 BMI Method: General Appearance: No Apparent Distress, Other (sedated, intubated) HEENT: PERRL/EOMI, Moist Mucous Membranes; No Scleral Icterus (L), No Scleral Icterus (R) Neck: Normal Inspection, Supple Respiratory: Other (decreased breath sounds, crackles in bases, ) Cardiovascular: Regular Rate, Rhythm, No Murmur Capillary Refill: Less Than 3 Seconds Extremity: No Calf Tenderness, No Pedal Edema Neurologic/Psychiatric: Other (sedated) Skin: Tattoos/Piercings, Other (abrasion on left nation) Results Lab Laboratory Tests 04/23/19 03:12 04/24/19 03:15 Assessment/Plan Assessment/Plan Acute respiratory failure -Continue vent therapy -Continue precedex propofol Alcohol withdrawal -Ativan gtt. -Continue CIWA protocol Seizures -Ativan gtt -Kecinthiara -- increase to 1000mg BID Alcoholic liver disease Thrombocytopenia Hyponatremia KATHLEEN COLEMAN DO Apr 24, 2019 05:04
--- NOTE | 2019-04-24 05:30 | NUR ---
RT CALLED TO ROOM, SPO2 IN LOW 80'S, FOUND PT ON RR 16, LAVALGE AND SUCTION X 3 PINK SALINE BULLETS, DR COLEMAN CALLED BACK TO ROOM, HE INCRESED FIO2 TO 70%, PEEP TO 10. Addendum: 04/24/19 at 0532 by BISI DAVIS RT Amended: Links added.
[2019-04-24] MEDS: DexMEDEtomidine 250 ML DRIP 250 ML IV SCH ×3 (05:53→21:44)
[2019-04-24] MEDS: LORazepam INJECTION FOR DRIP 20 MG in D5W 100 ML IVPB 90 ML IV SCH ×3 (06:16→19:59)
--- NOTE | 2019-04-24 06:45 | Diagnostic Imaging Report ---
INDICATION: Dyspnea. COMPARISON: Earlier same day. DISCUSSION: Single portable upright view of the chest was obtained. Endotracheal tube remains in good position within the mid trachea. Enteric tube is present. Right IJ central venous catheter is stable. Infiltrates within the right mid to lower lung are stable. No pleural fluid or pneumothorax. Normal heart size. No osseous abnormality. IMPRESSION: 1. Stable chest. Dictated by: Dictated on workstation # [id number]
--- NOTE | 2019-04-24 07:30 | Diagnostic Imaging Report ---
Portable erect AP chest at 330 hours. INDICATION: Respiratory distress. FINDINGS: There is shallow inspiration when compared to the prior exam of 04/23/2019. Allowing for this technical factor, the heart is stable in size. However, since the prior study, the density in the right lung base has increased. This does suggest greater involvement of this portion lung by pneumonia/atelectasis. The right upper lung and left lung are generally clear. The mediastinum is not widened. The osseous structures are intact. The long-standing deformity of the distal left clavicle seen previously is again evident. The supportive tubes and lines seem unchanged in position. IMPRESSION: The appearance of the chest has worsened since the prior study as there is greater involvement of the right lung base by pneumonia/atelectasis. Dictated by: Dictated on workstation # [id number]
[2019-04-24] MEDS: RT-ALBUTEROL/IPRATROPIUM 3 ML (DUONEB) VIAL INH SCH ×5 (07:43→22:21)
[2019-04-24] MEDS: LORazepam INJ 2 MG/ML (ATIVAN) VIAL IV PRN (08:38)
--- NOTE | 2019-04-24 08:44 | Progress Note - Hospitalist ---
Subjective HPI/CC On Admission Date Seen by Provider: Apr 24, 2019 Time Seen by Provider: 08:42 Pt is a 43yoCM with a PMH of alcohol abuse who presented the ER due to hallucinations. He gives a varied history about dreams vs reality and I am unsure the exact details but it seems that sometime over the past 5 days he started hallucinating. At first it was that there were bikes everywhere he thought that he was dreaming. He then said that his dreams/hallucinations became more erotic. He tells a story of walking from his kitchen through glass panel and ending up in his mother's kitchen. He also thought that he was about had a seizure. He is unsure of what day that occurred. Today he states that he saw people in his house again and the only way to make them go away was to hold up his Cross and his bible. He reports that he drinks 5-6 PB per day and that his last drink was last night. This varies from the history that his mother gave to the emergency room stating that he was in rehabilitation for alcohol at the end of March but relapsed shortly after discharge. She reported to the ER that his last drink was on April 16. Subjective/Events-last exam Pt remains intubated and sedated. No ROS possible. No family at bedside. Objective Exam Vital Signs Vital Signs Date Time Temp Pulse Resp B/P (MAP) Pulse Ox O2 Delivery O2 Flow Rate FiO2 04/24/19 08:19 Mechanical Ventilator 50.00 04/24/19 08:00 36.9 73 24 103/70 (81) 98 04/24/19 07:46 70 Capillary Refill : Less Than 3 Seconds General Appearance: Other (sedated on vent) Respiratory: Decreased Breath Sounds, Other (on vent) Cardiovascular: Regular Rate, Rhythm, No Murmur Gastrointestinal: Normal Bowel Sounds, Non Tender, Soft Genital/Rectal: Other (thacker in place) Neurologic/Psychiatric: Other (sedated, appears comfortable) Results/Procedures Lab Laboratory Tests 04/24/19 03:15 Patient resulted labs reviewed. Assessment/Plan Assessment and Plan Assess & Plan/Chief Complaint Alcohol withdrawal Acute Respiratory Failure Intubated 04/21 [facility] protocol Banana bag Ativan gtt ?Aspiration RN concerned overnight that patient aspirated On 50% FiO2 and PEEP of 10 Hold tube feeds for now Seizure Continue Keppra Alcoholic liver disease Thrombocytopenia Hyperbilirubinemia Plts stable Trend HIV negative Hyponatremia Resolved DVT ppx: Lovenox Diagnosis/Problems Diagnosis/Problems (1) Alcohol withdrawal delirium Status: Acute (2) Acute respiratory failure Status: Acute Qualifiers: Respiratory failure complication: unspecified whether with hypoxia or hypercapnia Qualified Codes: J96.00 - Acute respiratory failure, unspecified whether with hypoxia or hypercapnia (3) Alcoholic liver disease Status: Chronic (4) Thrombocytopenia Status: Chronic (5) Hyponatremia Status: Resolved Resolution Date/Time: 04/22/19 @ 10:05 Clinical Quality Measures DVT/VTE Risk/Contraindication: Risk Factor Score Per Nursin RFS Level Per Nursing on Admit: 1=Low/No VTE PPX MICHELLE DRAKE MD Apr 24, 2019 08:44
[2019-04-24] MEDS: ENOXAPARIN 40 MG/0.4 ML (LOVENOX) SYR SC SCH (08:46)
[2019-04-24] MEDS: PANTOPRAZOLE 40 MG (PROTONIX) VIAL IV SCH (08:46)
[2019-04-24] MEDS: FLUoxetine HCL 20 MG (PROzac) CAP PO SCH (08:47)
[2019-04-24] MEDS: SINEMET 25/100 (CARBIDOPA/LEVODOPA) TAB PO SCH ×3 (08:47→17:56)
[2019-04-24] MEDS: LEVETIRACETAM INJECTION 1,000 MG in NS (IVPB) 100 ML IV SCH ×2 (09:00→21:44)
--- NOTE | 2019-04-24 10:55 | Physical Therapy Progress Note ---
Therapy Progress Note Pt. continues to be intubated and sedated, we will re-check patient status 04/26/19. MARYANNE HARDEN PT Apr 24, 2019 10:55
[2019-04-24] MEDS: traZODone 50 MG (DESYREL) TAB PO SCH (21:44)
[2019-04-25] VITALS (31 sets, daily range): BP systolic 82–134; BP diastolic 42–92
[2019-04-25] MEDS: LACTATED RINGERS 1,000 ML IV SCH ×4 (00:22→18:48)
[2019-04-25] MEDS: PROPOFOL DRIP (ICU) 100 ML IV SCH ×5 (01:40→18:48)
[2019-04-25] MEDS: RT-ALBUTEROL/IPRATROPIUM 3 ML (DUONEB) VIAL INH SCH ×6 (02:17→22:26)
[2019-04-25] MEDS: LORazepam INJECTION FOR DRIP 20 MG in D5W 100 ML IVPB 90 ML IV SCH ×5 (02:44→20:46)
[2019-04-25 04:16] LABS: ABG BASE EXCESS -1.2 MMOL/L (-2.5-2.5); ABG OXYGEN SATURATION 94 % (94-100); ABG PCO2 37 MMHG (35-45); ABG PH 7.41 (7.37-7.43); ABG PO2 68 MMHG (79-93)
[2019-04-25 04:17] LABS: BASOPHILS % (AUTO) 0 % (0-10); EOSINOPHILS % (AUTO) 0 % (0-10); HEMATOCRIT 40 % (40-54); HEMOGLOBIN 13.1 G/DL (13.3-17.7); LYMPHOCYTES # (AUTO) 0.5 X 10^3 (1.0-4.0); LYMPHOCYTES % (AUTO) 7 % (12-44); MEAN CORPUSCULAR HEMOGLOBIN 31 PG (25-34); MEAN CORPUSCULAR HGB CONC 33 G/DL (32-36); MEAN CORPUSCULAR VOLUME 93 FL (80-99); MEAN PLATELET VOLUME 12.9 FL (7.4-10.4); MONOCYTES # (AUTO) 0.9 X 10^3 (0.0-1.0); MONOCYTES % (AUTO) 14 % (0-12); NEUTROPHILS # (AUTO) 5.2 X 10^3 (1.8-7.8); NEUTROPHILS % (AUTO) 78 % (42-75); PLATELET COUNT 96 10^3/uL (130-400); RED CELL DISTRIBUTION WIDTH 12.9 % (10.0-14.5); WHITE BLOOD COUNT 6.6 10^3/uL (4.3-11.0)
[2019-04-25 04:17] LABS: ALLENS TEST POSITIVE; INSPIRED O2 20; PATIENT TEMP 36.8; VENTILATOR YES
[2019-04-25 04:36] LABS: BUN/CREATININE RATIO 4; CALCIUM 8.7 MG/DL (8.5-10.1); CARBON DIOXIDE 21 MMOL/L (21-32); CHLORIDE 104 MMOL/L (98-107); CREATININE SERUM 0.67 MG/DL (0.60-1.30); GFR ESTIMATED > 60; GLUCOSE 113 MG/DL (70-105); MAGNESIUM 1.6 MG/DL (1.6-2.4); PHOSPHORUS 3.9 MG/DL (2.3-4.7); POTASSIUM 3.8 MMOL/L (3.6-5.0); SODIUM 137 MMOL/L (135-145)
--- NOTE | 2019-04-25 05:11 | Pulmonary Progress Note ---
Subjective Time Seen by a Provider: 05:09 Subjective/Events-last exam Sedated on vent Sepsis Event Evaluation Height, Weight, BMI Height: '" Weight: lbs. oz. kg; 23.72 BMI Method: Exam Exam Vital Signs Date Time Temp Pulse Resp B/P (MAP) Pulse Ox O2 Delivery O2 Flow Rate FiO2 04/25/19 04:00 86 26 114/78 (90) 92 Mechanical Ventilator 30.00 04/25/19 04:00 36.8 04/25/19 04:00 Mechanical Ventilator 30.00 04/25/19 03:00 91 23 115/73 (87) 93 Mechanical Ventilator 30.00 04/25/19 02:44 92 120/80 04/25/19 02:21 93 Mechanical Ventilator 30 04/25/19 02:21 84 23 93 30 04/25/19 02:00 84 25 117/82 (94) 94 Mechanical Ventilator 30.00 04/25/19 01:40 80 119/85 04/25/19 01:00 79 04/25/19 01:00 78 21 120/84 (96) 95 Mechanical Ventilator 30.00 04/25/19 00:00 77 22 121/85 (97) 95 Mechanical Ventilator 30.00 04/25/19 00:00 36.1 04/24/19 23:59 Mechanical Ventilator 30.00 04/24/19 23:00 80 20 117/77 (90) 93 Mechanical Ventilator 30.00 04/24/19 22:22 91 Mechanical Ventilator 30 04/24/19 22:22 70 21 91 30 04/24/19 22:00 71 22 123/85 (98) 90 Mechanical Ventilator 30.00 04/24/19 21:44 70 128/88 04/24/19 21:44 72 04/24/19 21:00 70 21 124/89 (101) 91 Mechanical Ventilator 30.00 04/24/19 20:00 70 22 128/92 (104) 93 Mechanical Ventilator 30.00 04/24/19 20:00 Mechanical Ventilator 30.00 04/24/19 19:59 69 128/90 04/24/19 19:45 36.2 04/24/19 19:00 60 21 128/86 (100) 94 Mechanical Ventilator 30.00 04/24/19 19:00 60 04/24/19 18:52 58 21 95 30 04/24/19 18:52 95 Mechanical Ventilator 30 04/24/19 18:00 58 23 138/94 (109) 92 Mechanical Ventilator 30.00 04/24/19 17:55 59 133/86 04/24/19 17:00 57 20 132/88 (103) 92 Mechanical Ventilator 21.00 04/24/19 16:28 Mechanical Ventilator 30.00 04/24/19 16:00 59 20 124/91 (102) 93 Mechanical Ventilator 21.00 04/24/19 15:57 34.0 04/24/19 15:00 66 21 125/86 (99) 94 Mechanical Ventilator 21.00 04/24/19 14:55 Mechanical Ventilator 21.00 04/24/19 14:23 66 26 95 21 04/24/19 14:00 59 15 115/85 (95) 97 Mechanical Ventilator 70.00 04/24/19 13:44 58 04/24/19 13:44 58 111/81 04/24/19 13:43 58 20 111/81 04/24/19 13:00 59 21 113/82 (92) 96 Mechanical Ventilator 70.00 04/24/19 12:43 59 04/24/19 12:00 36.2 60 22 114/82 (93) 95 Mechanical Ventilator 70.00 04/24/19 12:00 Mechanical Ventilator 30.00 04/24/19 11:45 36.2 04/24/19 11:00 36.2 61 22 120/83 (95) 98 Mechanical Ventilator 70.00 04/24/19 10:00 36.3 65 22 112/78 (89) 97 Mechanical Ventilator 70.00 04/24/19 09:00 36.5 73 24 114/79 (91) 98 Mechanical Ventilator 70.00 04/24/19 08:46 75 112/80 04/24/19 08:19 Mechanical Ventilator 50.00 04/24/19 08:00 36.9 73 24 103/70 (81) 98 Mechanical Ventilator 70.00 04/24/19 07:46 59 24 98 70 04/24/19 07:37 37.1 04/24/19 07:00 37.0 58 24 102/73 (83) 97 Mechanical Ventilator 70.00 04/24/19 07:00 58 04/24/19 06:16 63 04/24/19 06:00 37.2 62 26 98/65 (76) 95 Mechanical Ventilator 70.00 04/24/19 05:53 63 04/24/19 05:29 Mechanical Ventilator 70.00 I & O 04/25/19 07:00 Intake Total 2060 ml Output Total 4745 ml Balance -2685 ml Height & Weight Height: '" Weight: lbs. oz. kg; 23.72 BMI Method: General Appearance: Other (sedated on vent) HEENT: PERRL/EOMI, Moist Mucous Membranes; No Scleral Icterus (L), No Scleral Icterus (R) Neck: Normal Inspection, Supple Respiratory: Decreased Breath Sounds, Other (on vent) Cardiovascular: Regular Rate, Rhythm, No Murmur Capillary Refill: Less Than 3 Seconds Extremity: No Calf Tenderness, No Pedal Edema Neurologic/Psychiatric: Other (sedated, appears comfortable) Skin: Tattoos/Piercings, Other (abrasion on left nation) Results Lab Laboratory Tests 04/24/19 03:15 04/25/19 03:45 Assessment/Plan Assessment/Plan Acute respiratory failure -Continue vent therapy -Continue precedex propofol, ativan -Start jevity at 15cc/hr advance to 30cc/hr RLL atelectasis vs pneumonia -Add mucomyst to duoneb -Check procalcitonin -Start zosyn for now Alcohol withdrawal -Ativan gtt. -Continue CIWA protocol Seizures -Ativan gtt -Keppra -- increase to 1000mg BID Alcoholic liver disease Thrombocytopenia Hyponatremia KATHLEEN COLEMAN DO Apr 25, 2019 05:11
[2019-04-25] MEDS ORDERED: PIPERACILLIN/TAZO 4.5 GM VIAL (ZOSYN) IV ONE (05:13)
[2019-04-25] MEDS ORDERED: NS (IVPB) 100 ML ONE (05:13)
[2019-04-25] MEDS: DexMEDEtomidine 250 ML DRIP 250 ML IV SCH ×3 (06:12→22:27)
[2019-04-25] MEDS: MAGNESIUM 1 GM/100 ML IVPB 100 ML IV SCH ×3 (06:13→06:50)
[2019-04-25] MEDS: PIPERACILLIN/TAZOBACTAM (BULK) 4.5 GM in NS (IVPB) 100 ML IV SCH ×3 (06:16→20:07)
[2019-04-25] MEDS: POTASSIUM CL 10MEQ/50ML IVPB 50 ML IV SCH (06:50)
[2019-04-25] MEDS: KCL 20 MEQ TAB (K-DUR) PO SCH (06:50)
[2019-04-25] MEDS: aCETylcysteine 20% (MUCOMYST) 30ML SOLN VIAL INH SCH ×3 (07:13→18:58)
--- NOTE | 2019-04-25 07:23 | Diagnostic Imaging Report ---
INDICATION: Ventilator support and dyspnea. TIME OF EXAM: 3:34 AM CORRELATION is made with prior chest one day earlier. ET tube, NG tube and right-sided line remain in place. There continues to be some atelectasis or infiltrate in the right base and, to lesser degree, the left base. Mid and upper lung smith are clear. No effusion or pneumothorax. IMPRESSION: Bibasilar infiltrates or atelectasis, similar to examination one day earlier. Dictated by: Dictated on workstation # [id number]
[2019-04-25] MEDS: FLUoxetine HCL 20 MG (PROzac) CAP PO SCH (08:14)
[2019-04-25] MEDS: LEVETIRACETAM INJECTION 1,000 MG in NS (IVPB) 100 ML IV SCH ×2 (08:14→20:07)
[2019-04-25] MEDS: ENOXAPARIN 40 MG/0.4 ML (LOVENOX) SYR SC SCH (08:14)
[2019-04-25] MEDS: SINEMET 25/100 (CARBIDOPA/LEVODOPA) TAB PO SCH ×3 (08:14→17:21)
[2019-04-25] MEDS: PANTOPRAZOLE 40 MG (PROTONIX) VIAL IV SCH (08:15)
--- NOTE | 2019-04-25 08:29 | Progress Note - Hospitalist ---
Subjective HPI/CC On Admission Date Seen by Provider: Apr 25, 2019 Time Seen by Provider: 08:27 Pt is a 43yoCM with a PMH of alcohol abuse who presented the ER due to hallucinations. He gives a varied history about dreams vs reality and I am unsure the exact details but it seems that sometime over the past 5 days he started hallucinating. At first it was that there were bikes everywhere he thought that he was dreaming. He then said that his dreams/hallucinations became more erotic. He tells a story of walking from his kitchen through glass panel and ending up in his mother's kitchen. He also thought that he was about had a seizure. He is unsure of what day that occurred. Today he states that he saw people in his house again and the only way to make them go away was to hold up his Cross and his bible. He reports that he drinks 5-6 PB per day and that his last drink was last night. This varies from the history that his mother gave to the emergency room stating that he was in rehabilitation for alcohol at the end of March but relapsed shortly after discharge. She reported to the ER that his last drink was on April 16. Subjective/Events-last exam Remains intubated and sedated. No ROS possible. No family at bedside. No concerns per RN. Discussed with Dr Gama, will attempt to wean tomorrow. Objective Exam Vital Signs Vital Signs Date Time Temp Pulse Resp B/P (MAP) Pulse Ox O2 Delivery O2 Flow Rate FiO2 04/25/19 08:15 83 25 127/82 04/25/19 07:13 94 30 04/25/19 06:00 Mechanical Ventilator 30.00 04/25/19 04:00 36.8 Capillary Refill : Less Than 3 Seconds General Appearance: Other (intubated, sedated) Respiratory: Decreased Breath Sounds, Other (on vent) Cardiovascular: Regular Rate, Rhythm, No Murmur Gastrointestinal: Normal Bowel Sounds, Soft Extremity: No Calf Tenderness, No Pedal Edema Neurologic/Psychiatric: Other (sedated, appear comfortable) Results/Procedures Lab Laboratory Tests 04/25/19 03:45 Patient resulted labs reviewed. Assessment/Plan Assessment and Plan Assess & Plan/Chief Complaint Alcohol withdrawal Acute Respiratory Failure Intubated 04/21 [facility] protocol Banana bag Ativan gtt Plan to attempt wean tomorrow ?Aspiration RN concerned overnight that patient aspirated On 30% FiO2 and PEEP of 10 still Seizure Continue Keppra Alcoholic liver disease Thrombocytopenia Hyperbilirubinemia Plts stable Trend HIV negative Hyponatremia Resolved DVT ppx: Lovenox Diagnosis/Problems Diagnosis/Problems (1) Alcohol withdrawal delirium Status: Acute (2) Acute respiratory failure Status: Acute Qualifiers: Respiratory failure complication: unspecified whether with hypoxia or hypercapnia Qualified Codes: J96.00 - Acute respiratory failure, unspecified whether with hypoxia or hypercapnia (3) Alcoholic liver disease Status: Chronic (4) Thrombocytopenia Status: Chronic (5) Hyponatremia Status: Resolved Resolution Date/Time: 04/22/19 @ 10:05 Clinical Quality Measures DVT/VTE Risk/Contraindication: Risk Factor Score Per Nursin RFS Level Per Nursing on Admit: 1=Low/No VTE PPX MICHELLE DRAKE MD Apr 25, 2019 08:29
[2019-04-25] MEDS: traZODone 50 MG (DESYREL) TAB PO SCH (20:07)
[2019-04-25] MEDS: LORazepam INJ 2 MG/ML (ATIVAN) VIAL IM/IV PRN (22:50)
[2019-04-25] MEDS ORDERED: LACTATED RINGERS 1,000 ML IV ONE (23:30)
[2019-04-25 23:32] LABS: BASOPHILS % (AUTO) 0 % (0-10); EOSINOPHILS # (AUTO) 0.1 10^3/uL (0.0-0.3); EOSINOPHILS % (AUTO) 2 % (0-10); HEMATOCRIT 37 % (40-54); HEMOGLOBIN 12.1 G/DL (13.3-17.7); LYMPHOCYTES % (AUTO) 27 % (12-44); MEAN CORPUSCULAR HEMOGLOBIN 30 PG (25-34); MEAN CORPUSCULAR HGB CONC 32 G/DL (32-36); MEAN CORPUSCULAR VOLUME 94 FL (80-99); MEAN PLATELET VOLUME 12.3 FL (7.4-10.4); MONOCYTES # (AUTO) 1.3 X 10^3 (0.0-1.0); MONOCYTES % (AUTO) 18 % (0-12); NEUTROPHILS # (AUTO) 4.1 X 10^3 (1.8-7.8); NEUTROPHILS % (AUTO) 54 % (42-75); PLATELET COUNT 156 10^3/uL (130-400); RED CELL DISTRIBUTION WIDTH 12.9 % (10.0-14.5); WHITE BLOOD COUNT 7.6 10^3/uL (4.3-11.0)
[2019-04-25 23:39] LABS: ABG BASE EXCESS -2.5 MMOL/L (-2.5-2.5); ABG OXYGEN SATURATION 97 % (94-100); ABG PCO2 46 MMHG (35-45); ABG PO2 99 MMHG (79-93); ABG TCO2 23.8 MMOL/L (21.0-31.0)
[2019-04-25 23:40] LABS: ABG PH 7.32 (7.37-7.43); ALLENS TEST POSITIVE; INSPIRED O2 37; PATIENT TEMP 38.3; VENTILATOR YES
--- NOTE | 2019-04-25 23:59 | NUR ---
TIMELINE NOTE 2250-PT OVERBREATHING VENT. RR 35-40'S IRREGULAR, HEART RATE 140'S, BP 80S/40S. SPO2 89%ON 100% FIO2. ETCO2 39 1MG ATIVAN ADMIN. EICU NOTIFIED 2306-CHEST XRAY TAKEN 2315-ABG, CMP, CBC, LA,AMMONIA, MAG, PHOS AND PT/INR DRAWN 2320-E-ICU SAAVEDRA'D IN -LR BOLUS ADMIN PER E-ICU 2334 INCREASE TV TO 500 2336-FI02 DECREASED TO 60%. 2340-E-ICU NOTIFIED OF CRITICAL LA
[2019-04-26] VITALS (32 sets, daily range): BP systolic 102–151; BP diastolic 57–112
[2019-04-26] LABS: ALANINE AMINOTRANSFERASE 10 U/L (0-55); ALBUMIN 2.7 GM/DL (3.2-4.5); ALKALINE PHOSPHATASE 139 U/L (40-136); AMMONIA 35 UMOL/L (11-32); BILIRUBIN,TOTAL 1.1 MG/DL (0.1-1.0); BUN/CREATININE RATIO 5; CALCIUM 8.3 MG/DL (8.5-10.1); CARBON DIOXIDE 21 MMOL/L (21-32); CHLORIDE 102 MMOL/L (98-107); CREATININE SERUM 0.91 MG/DL (0.60-1.30); GFR ESTIMATED > 60; GLUCOSE 137 MG/DL (70-105); MAGNESIUM 1.6 MG/DL (1.6-2.4); PHOSPHORUS 3.5 MG/DL (2.3-4.7); POTASSIUM 3.3 MMOL/L (3.6-5.0); SODIUM 134 MMOL/L (135-145); TOTAL PROTEIN 5.5 GM/DL (6.4-8.2)
[2019-04-26] MEDS ORDERED: fentaNYL INJECTION 100 MCG/2 ML AMP ONE (00:09)
[2019-04-26] MEDS: LORazepam INJ 2 MG/ML (ATIVAN) VIAL IV PRN (00:11)
[2019-04-26] MEDS ORDERED: LACTATED RINGERS 1,000 ML IV SCH ×2 (00:15→06:00)
[2019-04-26 00:16] LABS: INR 1.1 (0.8-1.4)
[2019-04-26] MEDS ORDERED: fentaNYL INJECTION 100 MCG/2 ML AMP IVP ONE (00:17)
[2019-04-26] MEDS: PROPOFOL DRIP (ICU) 100 ML IV SCH ×7 (00:18→23:48)
[2019-04-26] MEDS: LORazepam INJECTION FOR DRIP 20 MG in D5W 100 ML IVPB 90 ML IV SCH ×7 (00:28→21:56)
[2019-04-26 02:30] LABS: BASOPHILS % (AUTO) 0 % (0-10); EOSINOPHILS # (AUTO) 0.1 10^3/uL (0.0-0.3); EOSINOPHILS % (AUTO) 1 % (0-10); HEMATOCRIT 37 % (40-54); HEMOGLOBIN 12.3 G/DL (13.3-17.7); LYMPHOCYTES # (AUTO) 0.7 X 10^3 (1.0-4.0); LYMPHOCYTES % (AUTO) 8 % (12-44); MEAN CORPUSCULAR HEMOGLOBIN 31 PG (25-34); MEAN CORPUSCULAR HGB CONC 33 G/DL (32-36); MEAN CORPUSCULAR VOLUME 94 FL (80-99); MEAN PLATELET VOLUME 12.4 FL (7.4-10.4); MONOCYTES # (AUTO) 1.6 X 10^3 (0.0-1.0); MONOCYTES % (AUTO) 18 % (0-12); NEUTROPHILS # (AUTO) 6.7 X 10^3 (1.8-7.8); NEUTROPHILS % (AUTO) 74 % (42-75); PLATELET COUNT 161 10^3/uL (130-400); WHITE BLOOD COUNT 9.1 10^3/uL (4.3-11.0)
[2019-04-26] MEDS: RT-ALBUTEROL/IPRATROPIUM 3 ML (DUONEB) VIAL INH SCH ×6 (02:33→22:13)
[2019-04-26] MEDS: aCETylcysteine 20% (MUCOMYST) 30ML SOLN VIAL INH SCH ×4 (02:33→22:13)
[2019-04-26 02:41] LABS: BUN/CREATININE RATIO 7; CALCIUM 8.3 MG/DL (8.5-10.1); CARBON DIOXIDE 21 MMOL/L (21-32); CHLORIDE 100 MMOL/L (98-107); CREATININE SERUM 0.83 MG/DL (0.60-1.30); GFR ESTIMATED > 60; GLUCOSE 135 MG/DL (70-105); MAGNESIUM 1.6 MG/DL (1.6-2.4); PHOSPHORUS 3.8 MG/DL (2.3-4.7); POTASSIUM 3.4 MMOL/L (3.6-5.0); SODIUM 133 MMOL/L (135-145); TRIGLYCERIDES 75 MG/DL (<150)
[2019-04-26] MEDS: LACTATED RINGERS 1,000 ML IV SCH ×4 (03:12→20:28)
[2019-04-26] MEDS: POTASSIUM CL 10MEQ/50ML IVPB 50 ML IV SCH ×7 (03:13→06:00)
[2019-04-26] MEDS: MAGNESIUM 1 GM/100 ML IVPB 100 ML IV SCH ×3 (03:13→04:10)
[2019-04-26 03:18] LABS: ABG BASE EXCESS -1.1 MMOL/L (-2.5-2.5); ABG OXYGEN SATURATION 97 % (94-100); ABG PCO2 44 MMHG (35-45); ABG PH 7.35 (7.37-7.43); ABG PO2 92 MMHG (79-93); ABG TCO2 24.9 MMOL/L (21.0-31.0)
[2019-04-26 03:22] LABS: ALLENS TEST POSITIVE; INSPIRED O2 21; PATIENT TEMP 37.7; VENTILATOR YES
[2019-04-26] MEDS: fentaNYL INJECTION 100 MCG/2 ML AMP IVP PRN ×2 (03:59→16:36)
[2019-04-26] MEDS: KCL 20 MEQ TAB (K-DUR) PO SCH (04:01)
--- NOTE | 2019-04-26 04:28 | Pulmonary Progress Note ---
Subjective Time Seen by a Provider: 04:24 Sepsis Event Evaluation Height, Weight, BMI Height: '" Weight: lbs. oz. kg; 23.72 BMI Method: Focused Exam Lactate Level 04/25/19 23:16: Lactic Acid Level 5.15*H 04/26/19 02:08: Lactic Acid Level 3.74*H Lactic Acid Level Laboratory Tests Test 04/26/19 02:08 Lactic Acid Level 3.74 MMOL/L (0.50-2.00) *H Exam Exam Vital Signs Date Time Temp Pulse Resp B/P (MAP) Pulse Ox O2 Delivery O2 Flow Rate FiO2 04/26/19 04:12 37.7 04/26/19 04:10 103/63 04/26/19 04:00 95 Mechanical Ventilator 35.00 04/26/19 03:59 108/68 04/26/19 03:00 96 21 117/70 (86) 95 Mechanical Ventilator 30.00 04/26/19 02:33 93 21 95 30 04/26/19 02:00 93 24 122/61 (81) 93 Mechanical Ventilator 30.00 04/26/19 01:15 101 24 115/61 (79) 96 Mechanical Ventilator 30.00 04/26/19 01:00 103 24 115/73 (87) 96 Mechanical Ventilator 30.00 04/26/19 01:00 103 04/26/19 00:28 96/61 04/26/19 00:18 100/56 04/26/19 00:00 37.4 04/26/19 00:00 117 32 102/57 (72) 94 Mechanical Ventilator 30.00 04/25/19 23:59 95 Mechanical Ventilator 35.00 04/25/19 23:00 138 82/42 (55) 90 Mechanical Ventilator 30.00 04/25/19 23:00 88 Mechanical Ventilator 100.00 04/25/19 22:58 137 36 93/51 (65) 91 Mechanical Ventilator 30.00 04/25/19 22:28 92 30 95 30 04/25/19 22:27 80 04/25/19 22:00 79 25 122/78 (93) 96 Mechanical Ventilator 30.00 04/25/19 21:00 84 24 116/72 (87) 96 Mechanical Ventilator 30.00 04/25/19 20:46 110/73 04/25/19 20:00 87 25 122/73 (89) 96 Mechanical Ventilator 30.00 04/25/19 19:47 95 Mechanical Ventilator 30.00 04/25/19 19:00 37.4 85 26 119/71 (87) 95 Mechanical Ventilator 30.00 04/25/19 19:00 82 04/25/19 18:58 82 26 97 30 04/25/19 18:48 81 119/77 04/25/19 18:00 82 25 110/67 (81) 96 Mechanical Ventilator 30.00 04/25/19 17:21 85 26 97/56 04/25/19 17:00 86 28 101/66 (78) 94 Mechanical Ventilator 30.00 04/25/19 17:00 Mechanical Ventilator 30.00 04/25/19 16:00 86 24 111/73 (86) 95 Mechanical Ventilator 30.00 04/25/19 15:00 92 27 111/73 (86) 94 Mechanical Ventilator 30.00 04/25/19 14:22 95 109/70 04/25/19 14:00 90 26 112/73 (86) 96 Mechanical Ventilator 30.00 04/25/19 13:36 100 29 93 30 04/25/19 13:00 86 23 115/78 (90) 95 Mechanical Ventilator 30.00 04/25/19 12:54 86 04/25/19 12:52 87 24 112/72 04/25/19 12:42 88 04/25/19 12:00 Mechanical Ventilator 30.00 04/25/19 12:00 90 26 111/71 (84) 97 Mechanical Ventilator 30.00 04/25/19 11:40 36.6 04/25/19 11:00 98 25 101/62 (75) 94 Mechanical Ventilator 30.00 04/25/19 10:44 100 100/59 04/25/19 10:00 101 30 93/56 (68) 93 Mechanical Ventilator 30.00 04/25/19 09:58 100 29 93 30 04/25/19 09:00 82 23 124/85 (98) 96 Mechanical Ventilator 30.00 04/25/19 08:15 83 25 127/82 04/25/19 08:00 87 25 127/82 (97) 95 Mechanical Ventilator 30.00 04/25/19 07:45 Mechanical Ventilator 30.00 04/25/19 07:13 85 27 94 30 04/25/19 07:00 85 22 131/90 (104) 93 Mechanical Ventilator 30.00 04/25/19 06:44 84 04/25/19 06:12 86 134/90 04/25/19 06:12 85 134/90 04/25/19 06:00 85 23 134/90 (105) 93 Mechanical Ventilator 30.00 04/25/19 05:00 86 23 134/92 (106) 92 Mechanical Ventilator 30.00 I & O 04/26/19 07:00 Intake Total 5550 ml Output Total 3100 ml Balance 2450 ml Height & Weight Height: '" Weight: lbs. oz. kg; 23.72 BMI Method: General Appearance: Other (intubated, sedated) HEENT: PERRL/EOMI, Moist Mucous Membranes; No Scleral Icterus (L), No Scleral Icterus (R) Neck: Normal Inspection, Supple Respiratory: Decreased Breath Sounds, Other (on vent) Cardiovascular: Regular Rate, Rhythm, No Murmur Capillary Refill: Less Than 3 Seconds Extremity: No Calf Tenderness, No Pedal Edema Neurologic/Psychiatric: Other (sedated, appear comfortable) Skin: Tattoos/Piercings, Other (abrasion on left nation) Results Lab Laboratory Tests 04/25/19 03:45 04/25/19 23:16 04/26/19 02:08 Assessment/Plan Assessment/Plan Acute respiratory failure -Continue vent therapy -Continue precedex propofol, ativan -Start jevity at 15cc/hr advance to 30cc/hr RLL atelectasis vs pneumonia -mucomyst to duoneb -Check procalcitonin -Start zosyn for now Alcohol withdrawal -Ativan gtt. -Continue CIWA protocol Seizures -Ativan gtt -Keppra -- increase to 1000mg BID Alcoholic liver disease Thrombocytopenia Hyponatremia KATHLEEN COLEMAN DO Apr 26, 2019 04:28
[2019-04-26] MEDS: DexMEDEtomidine 250 ML DRIP 250 ML IV SCH ×3 (05:56→22:28)
[2019-04-26] MEDS: PIPERACILLIN/TAZOBACTAM (BULK) 4.5 GM in NS (IVPB) 100 ML IV SCH ×3 (05:56→20:21)
--- NOTE | 2019-04-26 07:10 | Diagnostic Imaging Report ---
EXAM: CHEST 1 VIEW, AP/PA ONLY INDICATION: Respiratory failure. COMPARISON: 04/25/2019 at 3:29 AM. FINDINGS: ETT tip at the level of the clavicles. NG tube tip within the stomach. Right IJ CVC tip mid SVC. Persistent airspace consolidation in the right lung base. No definite pleural effusion or pneumothorax. No acute osseous findings. IMPRESSION: 1. Support lines in the expected positions. 2. Persistent airspace consolidation in the right lung base. Dictated by: Dictated on workstation # [id number]
--- NOTE | 2019-04-26 07:35 | Diagnostic Imaging Report ---
EXAM: CHEST 1 VIEW, AP/PA ONLY INDICATION: Respiratory failure. COMPARISON: 04/25/2019. FINDINGS: ETT tip at the level of clavicles. NG tube tip below the [id number]-mlav. Right IJ CVC tip mid SVC. Persistent interstitial and airspace opacities scattered throughout both lungs, greatest in the right lung base. No pleural effusion or pneumothorax. No acute osseous findings. IMPRESSION: 1. Persistent diffuse infiltrates, greatest in the right lung base. 2. Support lines in the expected positions. Dictated by: Dictated on workstation # [id number]
--- NOTE | 2019-04-26 07:58 | Occ Therapy Progress Note ---
Therapy Progress Note Pt intubated/ sedated. OT to hold eval/ treat on this date and check tomorrow, will check tomorrow and treat when medically stable and able to participate. NADIR GUTIERRES OTR Apr 26, 2019 07:58
--- NOTE | 2019-04-26 08:16 | Physical Therapy Progress Note ---
Therapy Progress Note Patient currently sedated and on mechanical ventilator. PT will continue to monitor patient status and initiate treatment when patient is medically stable and able to actively participate with skilled therapy. BISI DAILEY PT Apr 26, 2019 08:16
--- NOTE | 2019-04-26 08:30 | NUR ---
NEW ORDER RECEIVED FROM DR COLEMAN TO RECHECK LACTIC ACID IN 6 HRS.
[2019-04-26] MEDS: SINEMET 25/100 (CARBIDOPA/LEVODOPA) TAB PO SCH ×3 (08:43→18:12)
[2019-04-26] MEDS: PANTOPRAZOLE 40 MG (PROTONIX) VIAL IV SCH (08:43)
[2019-04-26] MEDS: FLUoxetine HCL 20 MG (PROzac) CAP PO SCH (08:43)
[2019-04-26] MEDS: ENOXAPARIN 40 MG/0.4 ML (LOVENOX) SYR SC SCH (08:43)
[2019-04-26] MEDS: LEVETIRACETAM INJECTION 1,000 MG in NS (IVPB) 100 ML IV SCH ×2 (08:57→20:21)
--- NOTE | 2019-04-26 11:33 | NUR ---
"RD FOLLOW-UP Est. kcal needs: 5091-5719 kcal | 25-30 kcal/kg Est. Pro needs: 86-103 g Pro | 1.0-1.2 g Pro/kg Pt is currently NPO for 4day, per chart review. Pt currently receiving following TF: Jevity 1.5 at rate of 30ml/hr, flush with 100ml q6h. Pt appears to be tolerating TF. Would recommend the following changes: Continue to increase by 10ml q6h as tolerated. Monitor gastric residuals for tolerance. Flush with 75ml H2O q4h for hydration status. Goal rate is 60ml/hr. At goal rate, provides 2160 kcal (25 kcal/kg); 91 g Pro (1.1 g Pro/kg); and 1094ml free water. With flushes, provides 1544ml free water. Will continue to follow and reassess as pt needs, intake, and status change. Ly Cedillo, MS, RD, LD"
--- NOTE | 2019-04-26 14:34 | Progress Note - Hospitalist ---
Subjective HPI/CC On Admission Date Seen by Provider: Apr 26, 2019 Time Seen by Provider: 09:05 Pt is a 43yoCM with a PMH of alcohol abuse who presented the ER due to hallucinations. He gives a varied history about dreams vs reality and I am unsure the exact details but it seems that sometime over the past 5 days he started hallucinating. At first it was that there were bikes everywhere he thought that he was dreaming. He then said that his dreams/hallucinations became more erotic. He tells a story of walking from his kitchen through glass panel and ending up in his mother's kitchen. He also thought that he was about had a seizure. He is unsure of what day that occurred. Today he states that he saw people in his house again and the only way to make them go away was to hold up his Cross and his bible. He reports that he drinks 5-6 PB per day and that his last drink was last night. This varies from the history that his mother gave to the emergency room stating that he was in rehabilitation for alcohol at the end of March but relapsed shortly after discharge. She reported to the ER that his last drink was on April 16. Subjective/Events-last exam he remains intubated and sedated. There is no family at the bedside. Focused Exam Lactate Level 04/26/19 04:45: Lactic Acid Level 4.21*H 04/26/19 07:30: Lactic Acid Level 3.60*H 04/26/19 13:00: Lactic Acid Level 4.04*H Lactic Acid Level Laboratory Tests Test 04/26/19 13:00 Lactic Acid Level 4.04 MMOL/L (0.50-2.00) *H Objective Exam Vital Signs Vital Signs Date Time Temp Pulse Resp B/P (MAP) Pulse Ox O2 Delivery O2 Flow Rate FiO2 04/26/19 14:00 88 15 128/80 (96) 95 Mechanical Ventilator 25.00 04/26/19 11:46 30 04/26/19 11:11 36.0 Capillary Refill : Less Than 3 Seconds General Appearance: No Apparent Distress, Other (intubated and sedated) HEENT: PERRL/EOMI, Pharynx Normal Respiratory: Lungs Clear, Normal Breath Sounds, No Respiratory Distress, Other (intubated and mechanically ventilated) Cardiovascular: Regular Rate, Rhythm, No Edema, No Murmur Gastrointestinal: Normal Bowel Sounds, Soft Extremity: Normal Inspection, No Pedal Edema Neurologic/Psychiatric: Other (and sedated) Skin: Normal Color, Warm/Dry Results/Procedures Lab Laboratory Tests 04/25/19 23:16 04/26/19 02:08 Patient resulted labs reviewed. Assessment/Plan Assessment and Plan Assess & Plan/Chief Complaint Alcohol withdrawal Acute Respiratory Failure with hypoxia likely Aspiration Intubated 04/21 [facility] protocol Banana bag Ativan gtt Pulmonology following, appreciate assistance lactic acidosis Continue IV fluids Seizure Continue Keppra Alcoholic liver disease Hyperbilirubinemia continue to monitor DVT prophylaxis: Lovenox Thrombocytopenia, resolved Hyponatremia, resolved Diagnosis/Problems Diagnosis/Problems (1) Alcohol withdrawal delirium Status: Acute (2) Acute respiratory failure Status: Acute Qualifiers: Respiratory failure complication: unspecified whether with hypoxia or hypercapnia Qualified Codes: J96.00 - Acute respiratory failure, unspecified whether with hypoxia or hypercapnia Clinical Quality Measures DVT/VTE Risk/Contraindication: Risk Factor Score Per Nursin RFS Level Per Nursing on Admit: 1=Low/No VTE PPX AMBAR LAY MD Apr 26, 2019 14:34
[2019-04-26] MEDS ORDERED: LACTATED RINGERS 1,000 ML IV ONE ×2 (15:15→17:45)
[2019-04-26] MEDS: traZODone 50 MG (DESYREL) TAB PO SCH (20:21)
[2019-04-27] VITALS (31 sets, daily range): BP systolic 115–153; BP diastolic 68–100
--- NOTE | 2019-04-27 00:20 | NUR ---
TUBE FEEDING RESIDUAL FOUND TO BE 325ML. TUBE FEEDING HELD AT THIS TIME.
[2019-04-27] MEDS: LACTATED RINGERS 1,000 ML IV SCH ×7 (00:29→23:59)
[2019-04-27] MEDS: fentaNYL INJECTION 100 MCG/2 ML AMP IVP PRN ×2 (00:33→05:37)
[2019-04-27] MEDS: LORazepam INJECTION FOR DRIP 20 MG in D5W 100 ML IVPB 90 ML IV SCH ×7 (01:34→22:10)
[2019-04-27] MEDS: RT-ALBUTEROL/IPRATROPIUM 3 ML (DUONEB) VIAL INH SCH ×6 (02:13→21:33)
[2019-04-27] MEDS: aCETylcysteine 20% (MUCOMYST) 30ML SOLN VIAL INH SCH ×6 (02:13→21:33)
[2019-04-27 03:57] LABS: ABG BASE EXCESS 4.1 MMOL/L (-2.5-2.5); ABG OXYGEN SATURATION 98 % (94-100); ABG PCO2 43 MMHG (35-45); ABG PH 7.43 (7.37-7.43); ABG PO2 90 MMHG (79-93); ABG TCO2 29.6 MMOL/L (21.0-31.0)
[2019-04-27 04:02] LABS: ALLENS TEST POS; INSPIRED O2 30; VENTILATOR YES
[2019-04-27 04:03] LABS: PATIENT TEMP 36.6
[2019-04-27 04:32] LABS: BASOPHILS % (AUTO) 0 % (0-10); EOSINOPHILS # (AUTO) 0.2 10^3/uL (0.0-0.3); EOSINOPHILS % (AUTO) 2 % (0-10); HEMATOCRIT 37 % (40-54); HEMOGLOBIN 11.9 G/DL (13.3-17.7); LYMPHOCYTES # (AUTO) 0.8 X 10^3 (1.0-4.0); LYMPHOCYTES % (AUTO) 11 % (12-44); MEAN CORPUSCULAR HEMOGLOBIN 31 PG (25-34); MEAN CORPUSCULAR HGB CONC 33 G/DL (32-36); MEAN CORPUSCULAR VOLUME 95 FL (80-99); MEAN PLATELET VOLUME 11.3 FL (7.4-10.4); MONOCYTES # (AUTO) 1.4 X 10^3 (0.0-1.0); MONOCYTES % (AUTO) 18 % (0-12); NEUTROPHILS # (AUTO) 5.4 X 10^3 (1.8-7.8); NEUTROPHILS % (AUTO) 69 % (42-75); PLATELET COUNT 197 10^3/uL (130-400); RED CELL DISTRIBUTION WIDTH 13.5 % (10.0-14.5); WHITE BLOOD COUNT 7.8 10^3/uL (4.3-11.0)
[2019-04-27 04:39] LABS: BUN/CREATININE RATIO 6; CALCIUM 8.6 MG/DL (8.5-10.1); CARBON DIOXIDE 25 MMOL/L (21-32); CHLORIDE 104 MMOL/L (98-107); CREATININE SERUM 0.65 MG/DL (0.60-1.30); GFR ESTIMATED > 60; GLUCOSE 122 MG/DL (70-105); MAGNESIUM 1.6 MG/DL (1.6-2.4); PHOSPHORUS 3.3 MG/DL (2.3-4.7); POTASSIUM 3.4 MMOL/L (3.6-5.0); SODIUM 139 MMOL/L (135-145)
[2019-04-27] MEDS: POTASSIUM CL 10MEQ/50ML IVPB 50 ML IV SCH ×7 (04:43→10:15)
[2019-04-27] MEDS: MAGNESIUM 1 GM/100 ML IVPB 100 ML IV SCH ×3 (04:43→07:18)
[2019-04-27] MEDS: KCL 20 MEQ TAB (K-DUR) PO SCH (04:43)
[2019-04-27] MEDS: PIPERACILLIN/TAZOBACTAM (BULK) 4.5 GM in NS (IVPB) 100 ML IV SCH ×3 (05:17→21:21)
--- NOTE | 2019-04-27 05:53 | Diagnostic Imaging Report ---
Indication: Shortness of breath Portable chest 5:07 AM ET tube projects over the trachea. NG tube appears to enter the stomach. Right IJ central line tip projects over the SVC. There is dense consolidation at the right lung base. There is minimal left basilar atelectasis or infiltrate. IMPRESSION: Bilateral basilar infiltrates worse on the right than on the left. There is diminished lung volume compared to the previous day. Dictated by: Dictated on workstation # [id number]
--- NOTE | 2019-04-27 06:23 | Pulmonary Progress Note ---
Subjective Time Seen by a Provider: 06:18 Subjective/Events-last exam Sedated on vent Sepsis Event Evaluation Height, Weight, BMI Height: '" Weight: lbs. oz. kg; 23.72 BMI Method: Focused Exam Lactate Level 04/26/19 16:55: Lactic Acid Level 4.10*H 04/27/19 03:25: Lactic Acid Level 2.05*H 04/27/19 05:45: Lactic Acid Level Laboratory Tests Test 04/27/19 03:25 04/27/19 05:45 Lactic Acid Level 2.05 MMOL/L (0.50-2.00) *H Exam Exam Vital Signs Date Time Temp Pulse Resp B/P (MAP) Pulse Ox O2 Delivery O2 Flow Rate FiO2 04/27/19 05:16 107 20 125/65 04/27/19 05:00 71 15 153/100 (117) 98 Mechanical Ventilator 30.00 04/27/19 04:00 76 15 150/99 (116) 98 Mechanical Ventilator 30.00 04/27/19 04:00 98 Mechanical Ventilator 30.00 04/27/19 03:00 81 16 150/97 (114) 97 Mechanical Ventilator 30.00 04/27/19 02:27 83 142/113 04/27/19 02:14 88 19 96 30 04/27/19 02:00 91 17 140/92 (108) 96 Mechanical Ventilator 30.00 04/27/19 01:34 96 20 139/75 04/27/19 01:09 103 115/72 04/27/19 01:00 103 04/27/19 01:00 103 16 115/72 (86) 93 Mechanical Ventilator 30.00 04/27/19 00:00 36.4 04/27/19 00:00 75 16 143/94 (110) 98 Mechanical Ventilator 30.00 04/26/19 23:59 Mechanical Ventilator 30.00 04/26/19 23:48 76 144/92 04/26/19 23:00 81 15 140/92 (108) 97 Mechanical Ventilator 30.00 04/26/19 22:28 81 140/97 04/26/19 22:14 79 16 98 30 04/26/19 22:00 79 16 145/99 (114) 98 Mechanical Ventilator 30.00 04/26/19 21:56 80 14 147/97 04/26/19 21:00 85 16 144/94 (111) 97 Mechanical Ventilator 30.00 04/26/19 20:25 86 151/97 04/26/19 20:23 86 16 151/97 (115) 97 Mechanical Ventilator 30.00 04/26/19 20:00 88 14 143/112 (122) 97 Mechanical Ventilator 30.00 04/26/19 20:00 Mechanical Ventilator 30.00 04/26/19 20:00 36.2 04/26/19 19:00 92 04/26/19 19:00 92 15 144/94 (111) 96 Mechanical Ventilator 30.00 04/26/19 18:32 85 18 97 30 04/26/19 18:09 88 16 136/94 04/26/19 18:00 90 17 140/92 (108) 96 Mechanical Ventilator 25.00 04/26/19 17:00 101 20 110/68 (82) 93 Mechanical Ventilator 25.00 04/26/19 16:16 82 18 95 30 04/26/19 16:00 36.2 04/26/19 16:00 77 16 145/96 (112) 96 Mechanical Ventilator 25.00 04/26/19 15:35 Mechanical Ventilator 30.00 04/26/19 15:00 84 15 136/91 (106) 96 Mechanical Ventilator 25.00 04/26/19 14:59 84 16 129/89 04/26/19 14:31 86 129/86 04/26/19 14:31 86 129/86 04/26/19 14:00 88 15 128/80 (96) 95 Mechanical Ventilator 25.00 04/26/19 13:00 92 16 131/85 (100) 95 Mechanical Ventilator 25.00 04/26/19 12:06 84 04/26/19 12:00 86 16 127/83 (98) 95 Mechanical Ventilator 25.00 04/26/19 12:00 Mechanical Ventilator 30.00 04/26/19 11:52 Mechanical Ventilator 25.00 04/26/19 11:46 83 16 97 30 04/26/19 11:31 84 127/83 04/26/19 11:27 85 16 122/80 04/26/19 11:11 36.0 04/26/19 11:00 87 17 122/83 (96) 96 Mechanical Ventilator 30.00 04/26/19 10:00 95 17 118/73 (88) 95 Mechanical Ventilator 30.00 04/26/19 09:00 98 21 118/76 (90) 95 Mechanical Ventilator 30.00 04/26/19 08:00 96 21 123/76 (92) 94 Mechanical Ventilator 30.00 04/26/19 08:00 Mechanical Ventilator 30.00 04/26/19 07:48 92 21 115/79 04/26/19 07:48 92 115/79 04/26/19 07:08 36.6 04/26/19 07:05 90 26 95 30 04/26/19 07:00 91 04/26/19 07:00 90 22 125/82 (96) 95 Mechanical Ventilator 30.00 I & O 04/27/19 07:00 Intake Total 9541 ml Output Total 7000 ml Balance 2541 ml Height & Weight Height: '" Weight: lbs. oz. kg; 23.72 BMI Method: General Appearance: No Apparent Distress, Other (intubated and sedated) HEENT: PERRL/EOMI, Pharynx Normal Neck: Normal Inspection, Supple Respiratory: Lungs Clear, Normal Breath Sounds, No Respiratory Distress, Other (intubated and mechanically ventilated) Cardiovascular: Regular Rate, Rhythm, No Edema, No Murmur Capillary Refill: Less Than 3 Seconds Extremity: Normal Inspection, No Pedal Edema Neurologic/Psychiatric: Other (and sedated) Skin: Normal Color, Warm/Dry Results Lab Laboratory Tests 04/25/19 23:16 04/26/19 02:08 04/27/19 03:25 Assessment/Plan Assessment/Plan Acute respiratory failure -Continue vent therapy -d/c Tube feeds. I suspect pt has aspirated on TF. -CXR appears worse. Will plan for bronchoscopy tomorrow morning -Check BNP -Continue precedex propofol, ativan RLL atelectasis vs pneumonia -mucomyst to duoneb -Repeat procalcitonin -zosyn Alcohol withdrawal -Ativan gtt. -Continue CIWA protocol Seizures -Ativan gtt -Keppra -- increase to 1000mg BID Alcoholic liver disease Thrombocytopenia Hyponatremia KATHLEEN COLEMAN DO Apr 27, 2019 06:23
[2019-04-27] MEDS: DexMEDEtomidine 250 ML DRIP 250 ML IV SCH ×3 (06:50→23:20)
--- NOTE | 2019-04-27 07:54 | Physical Therapy Progress Note ---
Therapy Progress Note Patient is currently sedated and on ventilator. PT will continue to monitor patient medical status and initiate treatment when medically stable and able to actively participate with skilled therapy. BISI DAILEY PT Apr 27, 2019 07:53
--- NOTE | 2019-04-27 07:57 | Occ Therapy Progress Note ---
Therapy Progress Note Pt currently under sedation/ on mechanical ventilation. OT to hold on this date and initiate eval/ treat when pt medically stable and able to participate in skilled treatment. NADIR GUTIERRES OTR Apr 27, 2019 07:57
[2019-04-27] MEDS ORDERED: LACTATED RINGERS 1,000 ML IV ONE (08:15)
[2019-04-27] MEDS: ENOXAPARIN 40 MG/0.4 ML (LOVENOX) SYR SC SCH (08:32)
[2019-04-27] MEDS: FLUoxetine HCL 20 MG (PROzac) CAP PO SCH (08:32)
[2019-04-27] MEDS: SINEMET 25/100 (CARBIDOPA/LEVODOPA) TAB PO SCH ×3 (08:32→17:48)
[2019-04-27] MEDS: PANTOPRAZOLE 40 MG (PROTONIX) VIAL IV SCH (08:32)
[2019-04-27] MEDS: LEVETIRACETAM INJECTION 1,000 MG in NS (IVPB) 100 ML IV SCH ×2 (09:12→21:21)
--- NOTE | 2019-04-27 09:23 | Progress Note - Hospitalist ---
Subjective HPI/CC On Admission Date Seen by Provider: Apr 27, 2019 Time Seen by Provider: 08:10 Pt is a 43yoCM with a PMH of alcohol abuse who presented the ER due to hallucinations. He gives a varied history about dreams vs reality and I am unsure the exact details but it seems that sometime over the past 5 days he started hallucinating. At first it was that there were bikes everywhere he thought that he was dreaming. He then said that his dreams/hallucinations became more erotic. He tells a story of walking from his kitchen through glass panel and ending up in his mother's kitchen. He also thought that he was about had a seizure. He is unsure of what day that occurred. Today he states that he saw people in his house again and the only way to make them go away was to hold up his Cross and his bible. He reports that he drinks 5-6 PB per day and that his last drink was last night. This varies from the history that his mother gave to the emergency room stating that he was in rehabilitation for alcohol at the end of March but relapsed shortly after discharge. She reported to the ER that his last drink was on April 16. Subjective/Events-last exam He remains intubated and sedated. There is no family at the bedside. Focused Exam Lactate Level 04/27/19 03:25: Lactic Acid Level 2.05*H 04/27/19 05:45: Lactic Acid Level 2.73*H 04/27/19 06:55: Lactic Acid Level 2.87*H Lactic Acid Level Laboratory Tests Test 04/27/19 05:45 04/27/19 06:55 Lactic Acid Level 2.73 MMOL/L (0.50-2.00) *H 2.87 MMOL/L (0.50-2.00) *H Objective Exam Vital Signs Vital Signs Date Time Temp Pulse Resp B/P (MAP) Pulse Ox O2 Delivery O2 Flow Rate FiO2 04/27/19 08:58 142/96 04/27/19 08:20 Mechanical Ventilator 35.00 04/27/19 08:00 99 17 95 04/27/19 07:33 35 04/27/19 00:00 36.4 Capillary Refill : Less Than 3 Seconds General Appearance: No Apparent Distress, Other (Intubated and sedated) Respiratory: Lungs Clear, Normal Breath Sounds, No Respiratory Distress, Other (And intubated and mechanically ventilated) Cardiovascular: Regular Rate, Rhythm, No Edema, No Murmur Gastrointestinal: Normal Bowel Sounds, Soft Extremity: Normal Inspection, No Pedal Edema Neurologic/Psychiatric: Other (And sedated) Skin: Normal Color, Warm/Dry Results/Procedures Lab Laboratory Tests 04/27/19 03:25 Patient resulted labs reviewed. Imaging: Reviewed Imaging Report Assessment/Plan Assessment and Plan Assess & Plan/Chief Complaint Alcohol withdrawal Seizures Acute Respiratory Failure with hypoxia likely Aspiration Intubated 04/21 [facility] Pulmonology following, appreciate assistance Planning for bronchoscopy tomorrow Continue Zosyn for possible aspiration pneumonia lactic acidosis Continue IV fluids Seizure Continue Keppra Alcoholic liver disease Hyperbilirubinemia continue to monitor DVT prophylaxis: Lovenox Thrombocytopenia, resolved Hyponatremia, resolved Diagnosis/Problems Diagnosis/Problems (1) Alcohol withdrawal delirium Status: Acute (2) Acute respiratory failure Status: Acute Qualifiers: Respiratory failure complication: unspecified whether with hypoxia or hypercapnia Qualified Codes: J96.00 - Acute respiratory failure, unspecified whether with hypoxia or hypercapnia (3) Aspiration pneumonia Status: Acute Clinical Quality Measures DVT/VTE Risk/Contraindication: Risk Factor Score Per Nursin RFS Level Per Nursing on Admit: 1=Low/No VTE PPX AMBAR LAY MD Apr 27, 2019 09:23
[2019-04-27] MEDS: PROPOFOL DRIP (ICU) 100 ML IV SCH ×4 (10:14→23:07)
[2019-04-27] MEDS: traZODone 50 MG (DESYREL) TAB PO SCH (21:21)
[2019-04-28] VITALS (30 sets, daily range): BP systolic 73–151; BP diastolic 43–104
[2019-04-28] MEDS: LORazepam INJECTION FOR DRIP 20 MG in D5W 100 ML IVPB 90 ML IV SCH ×2 (01:35→05:03)
[2019-04-28] MEDS: aCETylcysteine 20% (MUCOMYST) 30ML SOLN VIAL INH SCH ×6 (01:57→22:33)
[2019-04-28] MEDS: RT-ALBUTEROL/IPRATROPIUM 3 ML (DUONEB) VIAL INH SCH ×6 (01:57→22:33)
[2019-04-28 03:38] LABS: ABG BASE EXCESS 7.1 MMOL/L (-2.5-2.5); ABG OXYGEN SATURATION 98 % (94-100); ABG PCO2 49 MMHG (35-45); ABG PH 7.43 (7.37-7.43); ABG PO2 85 MMHG (79-93); ABG TCO2 32.9 MMOL/L (21.0-31.0)
[2019-04-28 03:39] LABS: BASOPHILS % (AUTO) 0 % (0-10); EOSINOPHILS # (AUTO) 0.3 10^3/uL (0.0-0.3); EOSINOPHILS % (AUTO) 3 % (0-10); HEMATOCRIT 37 % (40-54); HEMOGLOBIN 11.9 G/DL (13.3-17.7); LYMPHOCYTES # (AUTO) 1.1 X 10^3 (1.0-4.0); LYMPHOCYTES % (AUTO) 12 % (12-44); MEAN CORPUSCULAR HEMOGLOBIN 30 PG (25-34); MEAN CORPUSCULAR HGB CONC 32 G/DL (32-36); MEAN CORPUSCULAR VOLUME 95 FL (80-99); MEAN PLATELET VOLUME 10.9 FL (7.4-10.4); MONOCYTES # (AUTO) 1.4 X 10^3 (0.0-1.0); MONOCYTES % (AUTO) 15 % (0-12); NEUTROPHILS # (AUTO) 6.5 X 10^3 (1.8-7.8); NEUTROPHILS % (AUTO) 70 % (42-75); PLATELET COUNT 250 10^3/uL (130-400); RED CELL DISTRIBUTION WIDTH 13.8 % (10.0-14.5); WHITE BLOOD COUNT 9.3 10^3/uL (4.3-11.0)
[2019-04-28 03:43] LABS: ALLENS TEST POSITIVE; INSPIRED O2 35; PATIENT TEMP 37.5; VENTILATOR YES
[2019-04-28 03:48] LABS: BUN/CREATININE RATIO 3; CALCIUM 8.9 MG/DL (8.5-10.1); CARBON DIOXIDE 28 MMOL/L (21-32); CHLORIDE 99 MMOL/L (98-107); CREATININE SERUM 0.78 MG/DL (0.60-1.30); GFR ESTIMATED > 60; GLUCOSE 113 MG/DL (70-105); MAGNESIUM 1.6 MG/DL (1.6-2.4); PHOSPHORUS 5.3 MG/DL (2.3-4.7); POTASSIUM 4.1 MMOL/L (3.6-5.0); SODIUM 138 MMOL/L (135-145); TRIGLYCERIDES 154 MG/DL (<150)
[2019-04-28] MEDS: LACTATED RINGERS 1,000 ML IV SCH ×3 (03:52→23:05)
[2019-04-28] MEDS: PROPOFOL DRIP (ICU) 100 ML IV SCH (03:53)
[2019-04-28] MEDS: MAGNESIUM 1 GM/100 ML IVPB 100 ML IV SCH ×2 (04:42→06:11)
[2019-04-28] MEDS: PIPERACILLIN/TAZOBACTAM (BULK) 4.5 GM in NS (IVPB) 100 ML IV SCH ×3 (05:05→20:07)
[2019-04-28] MEDS ORDERED: FUROSEMIDE 40 MG/4 ML INJ (LASIX) IVP ONE (05:30)
[2019-04-28] MEDS ORDERED: FUROSEMIDE 40 MG/4 ML INJ (LASIX) ONE (05:32)
--- NOTE | 2019-04-28 05:33 | Pulmonary Progress Note ---
Subjective Time Seen by a Provider: 05:28 Subjective/Events-last exam Pt is sedated on vent Sepsis Event Evaluation Height, Weight, BMI Height: '" Weight: lbs. oz. kg; 23.72 BMI Method: Focused Exam Lactate Level 04/27/19 05:45: Lactic Acid Level 2.73*H 04/27/19 06:55: Lactic Acid Level 2.87*H 04/27/19 13:57: Lactic Acid Level 1.88 Exam Exam Vital Signs Date Time Temp Pulse Resp B/P (MAP) Pulse Ox O2 Delivery O2 Flow Rate FiO2 04/28/19 05:03 89 04/28/19 04:00 95 15 132/91 (105) 94 Mechanical Ventilator 35.00 04/28/19 04:00 37.5 04/28/19 04:00 Mechanical Ventilator 35.00 04/28/19 03:53 95 04/28/19 03:00 82 16 137/90 (106) 98 Mechanical Ventilator 35.00 04/28/19 02:00 82 15 138/91 (107) 98 Mechanical Ventilator 35.00 04/28/19 01:58 82 16 98 35 04/28/19 01:35 82 04/28/19 01:00 82 16 146/100 (115) 98 Mechanical Ventilator 35.00 04/28/19 01:00 82 04/28/19 00:00 89 17 130/104 (113) 97 Mechanical Ventilator 35.00 04/27/19 23:59 Mechanical Ventilator 35.00 04/27/19 23:45 37.2 04/27/19 23:20 97 04/27/19 23:07 98 04/27/19 23:00 99 18 137/89 (105) 95 Mechanical Ventilator 35.00 04/27/19 22:10 106 04/27/19 22:00 109 17 119/68 (85) 93 Mechanical Ventilator 35.00 04/27/19 21:34 83 16 95 35 04/27/19 21:33 101 16 116/70 (85) 91 Mechanical Ventilator 35.00 04/27/19 21:00 79 16 137/93 (108) 95 Mechanical Ventilator 25.00 04/27/19 20:00 36.6 04/27/19 20:00 Mechanical Ventilator 30.00 04/27/19 20:00 81 16 135/90 (105) 95 Mechanical Ventilator 25.00 04/27/19 19:00 85 04/27/19 19:00 85 16 135/88 (104) 95 Mechanical Ventilator 25.00 04/27/19 18:35 130/93 04/27/19 18:34 130/93 04/27/19 18:29 83 16 95 25 04/27/19 18:00 84 15 141/93 (109) 95 Mechanical Ventilator 25.00 04/27/19 17:00 89 17 132/91 (105) 94 Mechanical Ventilator 25.00 04/27/19 16:00 Mechanical Ventilator 30.00 04/27/19 16:00 36.5 04/27/19 16:00 93 17 136/91 (106) 93 Mechanical Ventilator 25.00 04/27/19 15:44 92 125/84 04/27/19 15:43 125/84 04/27/19 15:25 93 17 94 25 04/27/19 15:00 88 24 132/93 (106) 95 Mechanical Ventilator 25.00 04/27/19 14:21 138/89 04/27/19 14:00 88 16 136/91 (106) 94 Mechanical Ventilator 25.00 04/27/19 13:32 Mechanical Ventilator 25.00 04/27/19 13:00 89 17 139/84 (102) 96 Mechanical Ventilator 30.00 04/27/19 12:13 93 04/27/19 12:05 130/80 04/27/19 12:00 94 16 131/85 (100) 97 Mechanical Ventilator 30.00 04/27/19 12:00 Mechanical Ventilator 30.00 04/27/19 11:49 Mechanical Ventilator 30.00 04/27/19 11:38 93 17 95 30 04/27/19 11:00 96 16 136/86 (103) 97 Mechanical Ventilator 35.00 04/27/19 10:14 140/88 04/27/19 10:00 98 17 140/88 (105) 96 Mechanical Ventilator 35.00 04/27/19 09:00 90 17 143/99 (114) 98 Mechanical Ventilator 35.00 04/27/19 08:58 142/96 04/27/19 08:20 Mechanical Ventilator 35.00 04/27/19 08:00 Mechanical Ventilator 40.00 04/27/19 08:00 99 17 140/84 (102) 95 Mechanical Ventilator 40.00 04/27/19 08:00 37.1 04/27/19 07:33 99 19 95 35 04/27/19 07:00 100 04/27/19 07:00 103 19 127/79 (95) 95 Mechanical Ventilator 40.00 04/27/19 06:50 105 116/77 04/27/19 06:00 116 21 128/68 (88) 93 Mechanical Ventilator 40.00 I & O 04/28/19 07:00 Intake Total 1250 ml Output Total 9850 ml Balance -8600 ml Height & Weight Height: '" Weight: lbs. oz. kg; 23.72 BMI Method: General Appearance: No Apparent Distress, Other (Intubated and sedated) HEENT: PERRL/EOMI, Pharynx Normal Neck: Normal Inspection, Supple Respiratory: Lungs Clear, Normal Breath Sounds, No Respiratory Distress, Other (And intubated and mechanically ventilated) Cardiovascular: Regular Rate, Rhythm, No Edema, No Murmur Capillary Refill: Less Than 3 Seconds Extremity: Normal Inspection, No Pedal Edema Neurologic/Psychiatric: Other (And sedated) Skin: Normal Color, Warm/Dry Results Lab Laboratory Tests 04/27/19 03:25 04/28/19 03:15 Assessment/Plan Assessment/Plan Acute respiratory failure -Continue vent therapy -d/c Tube feeds. I suspect pt has aspirated on TF. -Will do bronchoscopy this AM -Will plan on weaning vent after bronchoscopy -CXR appears better this AM c/w yesterday. -D/C IVF - -Continue precedex propofol, ativan RLL atelectasis vs pneumonia -mucomyst to duoneb -Repeat procalcitonin -zosyn Alcohol withdrawal -Ativan gtt. -Continue CIWA protocol Metabolic lactic acidosis -Now resolved Seizures -Ativan gtt -Keppra -- increase to 1000mg BID Alcoholic liver disease Thrombocytopenia Hyponatremia KATHLEEN COLEMAN DO Apr 28, 2019 05:33
[2019-04-28] MEDS: POTASSIUM CL 10MEQ/50ML IVPB 50 ML IV SCH ×4 (05:56→09:26)
[2019-04-28 05:57] LABS: AMYLASE 33 U/L (25-125); LIPASE 32 U/L (8-78)
[2019-04-28] MEDS: KCL 20 MEQ TAB (K-DUR) PO SCH (06:12)
--- NOTE | 2019-04-28 06:35 | Pulmonary Procedures ---
Pulmonary Procedures Date of Procedure Date of Service: Apr 28, 2019 Bronch Bronchoscopy with bilateral bronchial washes. Preop DX PNA Postop DX: same No endobronchial mass Complications: none After informed consent obtained and formal time out pt was sedated using propofol and Ativan . Bronchoscope was advanced through the ET tube. 1% lidocaine was used to anesthetize alejandra, and left/right main stem bronchus. An anatomical tour was undertaken down to the segmental bronchi bilaterally. No endobronchial lesions noted. Bilateral bronchial washes were obtained. Pt tolerated procedure well. No complications noted. Stat CXR is pending. KATHLEEN COLEMAN DO Apr 28, 2019 06:35
--- NOTE | 2019-04-28 07:22 | Diagnostic Imaging Report ---
INDICATION: Ventilator followup for respiratory distress. COMPARISON: 04/27/2019. FINDINGS: ET tube, NG tube and right central line remain in good position. There continues to be dense infiltrate and/or atelectasis right lung base. Left lung shows a minimal infiltrate.. Heart is not enlarged. No pneumothorax. IMPRESSION: Persistent infiltrate quite dense right lung base with overall appearance unchanged. Dictated by: Dictated on workstation # [id number]
[2019-04-28] MEDS: DexMEDEtomidine 250 ML DRIP 250 ML IV SCH ×2 (07:36→22:31)
--- NOTE | 2019-04-28 07:48 | Physical Therapy Progress Note ---
Therapy Progress Note Patient currently sedated and intubated. PT will continue to monitor patient status and initiate treatment when medically stable and able to actively participate with skilled therapy. BISI DAILEY PT Apr 28, 2019 07:48
[2019-04-28] MEDS ORDERED: LIDOCAINE PF 1% 2 ML VIAL IJ ONE (07:50)
[2019-04-28] MEDS ORDERED: LIDOCAINE PF 2% 5 ML (XYLOCAINE) VIAL INJ ONE (07:50)
[2019-04-28] MEDS: PANTOPRAZOLE 40 MG (PROTONIX) VIAL IV SCH (08:08)
[2019-04-28] MEDS: FLUoxetine HCL 20 MG (PROzac) CAP PO SCH (08:08)
[2019-04-28] MEDS: ENOXAPARIN 40 MG/0.4 ML (LOVENOX) SYR SC SCH (08:08)
[2019-04-28] MEDS: SINEMET 25/100 (CARBIDOPA/LEVODOPA) TAB PO SCH ×3 (08:08→17:54)
--- NOTE | 2019-04-28 08:15 | Diagnostic Imaging Report ---
EXAM: CHEST 1 VIEW, AP/PA ONLY INDICATION: Post bronchoscopy. COMPARISON: 04/28/2019. FINDINGS: ETT tip between the level of the clavicles and alejandra. Right IJ CVC tip upper SVC. NG tube tip and side-port in the stomach. Persistent dense consolidation in the right lung base. Cardiomegaly. Mild pulmonary vascular congestion. Left costophrenic angle was not included on the [id number]. No pneumothorax is identified. IMPRESSION: 1. Support lines in the expected positions. 2. Dense consolidation in the right lung base is stable. Dictated by: Dictated on workstation # [id number]
[2019-04-28] MEDS: LEVETIRACETAM INJECTION 1,000 MG in NS (IVPB) 100 ML IV SCH ×2 (09:25→20:06)
--- NOTE | 2019-04-28 10:59 | NUR ---
CM/SS visited the patients room. The patient is currently on vent, family or visitors were not present in the room at that time. Will continue to follow for discharge planning needs.
--- NOTE | 2019-04-28 11:47 | Progress Note - Hospitalist ---
Subjective HPI/CC On Admission Date Seen by Provider: Apr 28, 2019 Time Seen by Provider: 08:20 Pt is a 43yoCM with a PMH of alcohol abuse who presented the ER due to hallucinations. He gives a varied history about dreams vs reality and I am unsure the exact details but it seems that sometime over the past 5 days he started hallucinating. At first it was that there were bikes everywhere he thought that he was dreaming. He then said that his dreams/hallucinations became more erotic. He tells a story of walking from his kitchen through glass panel and ending up in his mother's kitchen. He also thought that he was about had a seizure. He is unsure of what day that occurred. Today he states that he saw people in his house again and the only way to make them go away was to hold up his Cross and his bible. He reports that he drinks 5-6 PB per day and that his last drink was last night. This varies from the history that his mother gave to the emergency room stating that he was in rehabilitation for alcohol at the end of March but relapsed shortly after discharge. She reported to the ER that his last drink was on April 16. Subjective/Events-last exam He remains intubated and sedated. There is no family at the bedside. Focused Exam Lactate Level 04/27/19 05:45: Lactic Acid Level 2.73*H 04/27/19 06:55: Lactic Acid Level 2.87*H 04/27/19 13:57: Lactic Acid Level 1.88 Objective Exam Vital Signs Vital Signs Date Time Temp Pulse Resp B/P (MAP) Pulse Ox O2 Delivery O2 Flow Rate FiO2 04/28/19 10:40 90 28 93 30 04/28/19 08:30 111/78 (89) Mechanical Ventilator 35.00 04/28/19 04:00 37.5 Capillary Refill : Less Than 3 Seconds General Appearance: No Apparent Distress, Other (Intubated and sedated) Respiratory: Lungs Clear, Normal Breath Sounds, No Respiratory Distress, Other Cardiovascular: Regular Rate, Rhythm, No Murmur Gastrointestinal: Normal Bowel Sounds, Non Tender, Soft Extremity: Normal Inspection, Non Tender, Pedal Edema Neurologic/Psychiatric: Alert, Oriented x3, No Motor/Sensory Deficits, Normal Mood/Affect Skin: Normal Color, Warm/Dry Results/Procedures Lab Laboratory Tests 04/28/19 03:15 Patient resulted labs reviewed. Imaging: Reviewed Imaging Report Assessment/Plan Assessment and Plan Assess & Plan/Chief Complaint Alcohol withdrawal Seizures Acute Respiratory Failure with hypoxia Aspiration pneumonia Intubated 04/21 [facility] Pulmonology following, appreciate assistance Continue Zosyn for likely aspiration pneumonia Underwent bronchoscopy this morning Planning to attempt extubation today Stop IV fluids Continue Keppra Alcoholic liver disease Hyperbilirubinemia continue to monitor DVT prophylaxis: Lovenox Thrombocytopenia, resolved Hyponatremia, resolved Lactic acidosis, resolved Diagnosis/Problems Diagnosis/Problems (1) Alcohol withdrawal delirium Status: Acute (2) Acute respiratory failure Status: Acute Qualifiers: Respiratory failure complication: unspecified whether with hypoxia or hypercapnia Qualified Codes: J96.00 - Acute respiratory failure, unspecified whether with hypoxia or hypercapnia (3) Aspiration pneumonia Status: Acute Clinical Quality Measures DVT/VTE Risk/Contraindication: Risk Factor Score Per Nursin RFS Level Per Nursing on Admit: 1=Low/No VTE PPX AMBAR LAY MD Apr 28, 2019 11:47
[2019-04-28] MEDS ORDERED: LACTATED RINGERS 1,000 ML IV ONE (11:56)
[2019-04-28] MEDS ORDERED: LACTATED RINGERS 1,000 ML IV SCH (12:00)
--- NOTE | 2019-04-28 12:53 | Occ Therapy Progress Note ---
Therapy Progress Note Patient currently sedated/ intubated. OT will continue to monitor patient and initiate treatment when medically stable and able participate with skilled therapy treatments. NADIR GUTIERRES OTR Apr 28, 2019 12:53
[2019-04-28] MEDS ORDERED: ACETAMINOPHEN 325 MG TABLET PO PRN (13:00)
[2019-04-28] MEDS: IBUPROFEN 600 MG (MOTRIN) TAB PO PRN (14:22)
[2019-04-28] MEDS: LORazepam INJ 2 MG/ML (ATIVAN) VIAL IM/IV PRN (17:54)
[2019-04-28] MEDS ORDERED: IBUPROFEN 600 MG (MOTRIN) TAB PO SCH (18:00)
[2019-04-28] MEDS: traZODone 50 MG (DESYREL) TAB PO SCH (20:07)
[2019-04-28] MEDS: LORazepam INJ 2 MG/ML (ATIVAN) VIAL IVP PRN (21:05)
[2019-04-28] MEDS: morphine INJ 4 MG/ML 1 ML (VIAL/SYRINGE) IVP PRN (22:39)
[2019-04-29] VITALS (27 sets, daily range): BP systolic 101–162; BP diastolic 43–105
[2019-04-29] MEDS: LORazepam INJ 2 MG/ML (ATIVAN) VIAL IVP PRN (00:03)
[2019-04-29] MEDS: aCETylcysteine 20% (MUCOMYST) 30ML SOLN VIAL INH SCH ×6 (02:17→22:24)
[2019-04-29] MEDS: RT-ALBUTEROL/IPRATROPIUM 3 ML (DUONEB) VIAL INH SCH ×6 (02:17→22:23)
[2019-04-29 03:18] LABS: ABG BASE EXCESS 6.1 MMOL/L (-2.5-2.5); ABG OXYGEN SATURATION 99 % (94-100); ABG PCO2 38 MMHG (35-45); ABG PO2 103 MMHG (79-93)
[2019-04-29 03:18] LABS: BASOPHILS # (AUTO) 0.1 10^3/uL (0.0-0.1); BASOPHILS % (AUTO) 0 % (0-10); EOSINOPHILS # (AUTO) 0.2 10^3/uL (0.0-0.3); EOSINOPHILS % (AUTO) 2 % (0-10); HEMATOCRIT 36 % (40-54); HEMOGLOBIN 11.9 G/DL (13.3-17.7); LYMPHOCYTES # (AUTO) 1.8 X 10^3 (1.0-4.0); LYMPHOCYTES % (AUTO) 16 % (12-44); MEAN CORPUSCULAR HEMOGLOBIN 31 PG (25-34); MEAN CORPUSCULAR HGB CONC 33 G/DL (32-36); MEAN CORPUSCULAR VOLUME 93 FL (80-99); MEAN PLATELET VOLUME 10.3 FL (7.4-10.4); MONOCYTES # (AUTO) 1.3 X 10^3 (0.0-1.0); MONOCYTES % (AUTO) 11 % (0-12); NEUTROPHILS % (AUTO) 71 % (42-75); PLATELET COUNT 286 10^3/uL (130-400); WHITE BLOOD COUNT 11.4 10^3/uL (4.3-11.0)
[2019-04-29 03:19] LABS: ALLENS TEST POSITIVE; INSPIRED O2 35; PATIENT TEMP 36.1; VENTILATOR YES
[2019-04-29 03:42] LABS: BUN/CREATININE RATIO 12; CALCIUM 8.6 MG/DL (8.5-10.1); CARBON DIOXIDE 28 MMOL/L (21-32); CHLORIDE 99 MMOL/L (98-107); CREATININE SERUM 0.75 MG/DL (0.60-1.30); GFR ESTIMATED > 60; GLUCOSE 101 MG/DL (70-105); MAGNESIUM 1.8 MG/DL (1.6-2.4); PHOSPHORUS 3.7 MG/DL (2.3-4.7); POTASSIUM 3.4 MMOL/L (3.6-5.0); SODIUM 137 MMOL/L (135-145)
--- NOTE | 2019-04-29 05:32 | Pulmonary Progress Note ---
Subjective Time Seen by a Provider: 05:31 Sepsis Event Evaluation Height, Weight, BMI Height: '" Weight: lbs. oz. kg; 23.72 BMI Method: Focused Exam Lactate Level 04/27/19 05:45: Lactic Acid Level 2.73*H 04/27/19 06:55: Lactic Acid Level 2.87*H 04/27/19 13:57: Lactic Acid Level 1.88 Exam Exam Vital Signs Date Time Temp Pulse Resp B/P (MAP) Pulse Ox O2 Delivery O2 Flow Rate FiO2 04/29/19 05:00 81 26 142/90 (107) 96 Mechanical Ventilator 35.00 04/29/19 04:00 36.7 04/29/19 04:00 Mechanical Ventilator 35.00 04/29/19 04:00 62 15 148/97 (114) 98 Mechanical Ventilator 35.00 04/29/19 03:00 53 16 162/105 (124) 97 Mechanical Ventilator 35.00 04/29/19 02:18 79 20 97 35 04/29/19 02:00 53 15 159/102 (121) 98 Mechanical Ventilator 35.00 04/29/19 01:00 60 04/29/19 01:00 59 15 154/102 (119) 97 Mechanical Ventilator 35.00 04/29/19 00:02 36.4 04/29/19 00:00 71 16 154/101 (118) 97 Mechanical Ventilator 35.00 04/28/19 23:59 Mechanical Ventilator 35.00 04/28/19 23:00 75 14 151/97 (115) 97 Mechanical Ventilator 35.00 04/28/19 22:34 85 24 97 35 04/28/19 22:31 77 04/28/19 22:00 81 19 145/94 (111) 95 Mechanical Ventilator 35.00 04/28/19 21:00 67 16 133/85 (101) 96 Mechanical Ventilator 35.00 04/28/19 20:00 Mechanical Ventilator 35.00 04/28/19 20:00 89 27 132/88 (103) 97 Mechanical Ventilator 35.00 04/28/19 20:00 36.7 04/28/19 19:00 81 22 144/93 (110) 95 Mechanical Ventilator 35.00 04/28/19 19:00 81 04/28/19 18:32 81 22 95 35 04/28/19 18:32 95 Mechanical Ventilator 35 04/28/19 18:00 85 21 112/78 (89) 97 Mechanical Ventilator 35.00 04/28/19 17:00 98 24 121/75 (90) 98 Mechanical Ventilator 35.00 04/28/19 16:00 105 28 109/87 (94) 97 Mechanical Ventilator 35.00 04/28/19 16:00 Mechanical Ventilator 30.00 04/28/19 16:00 38.0 04/28/19 15:00 105 27 85/66 (72) 98 Mechanical Ventilator 35.00 04/28/19 14:22 38.0 04/28/19 14:08 102 27 96 30 04/28/19 14:00 102 25 108/68 (81) 95 Mechanical Ventilator 35.00 04/28/19 13:45 38.0 04/28/19 13:15 38.6 04/28/19 13:00 106 26 99/66 (77) 100 Mechanical Ventilator 35.00 04/28/19 12:43 109 04/28/19 12:22 04/28/19 12:00 104 29 96/63 (74) 91 Mechanical Ventilator 35.00 04/28/19 12:00 Mechanical Ventilator 30.00 04/28/19 12:00 37.9 04/28/19 11:00 98 26 73/43 (53) 92 Mechanical Ventilator 35.00 04/28/19 10:40 90 28 93 30 04/28/19 10:00 87 25 109/68 (82) 92 Mechanical Ventilator 35.00 04/28/19 08:30 92 22 111/78 (89) 93 Mechanical Ventilator 35.00 04/28/19 08:00 Mechanical Ventilator 30.00 04/28/19 07:52 90 18 93 30 04/28/19 07:36 107/69 04/28/19 07:30 92 18 107/69 (82) 93 Mechanical Ventilator 35.00 04/28/19 06:43 97 20 103/59 (74) Mechanical Ventilator 35.00 04/28/19 06:40 97 04/28/19 06:30 90 21 103/59 (74) 100 Mechanical Ventilator 35.00 04/28/19 06:20 18 04/28/19 05:49 96 Mechanical Ventilator 35 04/28/19 05:43 89 18 136/91 (106) 96 Mechanical Ventilator 35.00 I & O 04/29/19 07:00 Intake Total 200 ml Output Total 6275 ml Balance -6075 ml Height & Weight Height: '" Weight: lbs. oz. kg; 23.72 BMI Method: General Appearance: No Apparent Distress, Other (Intubated and sedated) HEENT: PERRL/EOMI, Pharynx Normal Neck: Normal Inspection, Supple Respiratory: Lungs Clear, Normal Breath Sounds, No Respiratory Distress, Other Cardiovascular: Regular Rate, Rhythm, No Murmur Capillary Refill: Less Than 3 Seconds Extremity: Normal Inspection, Non Tender, Pedal Edema Neurologic/Psychiatric: Alert, Oriented x3, No Motor/Sensory Deficits, Normal Mood/Affect Skin: Normal Color, Warm/Dry Results Lab Laboratory Tests 04/28/19 03:15 04/29/19 03:08 Assessment/Plan Assessment/Plan Acute respiratory failure -Continue vent therapy -Wake pt up and extubate once pt is awake/alert. -d/c Tube feeds. I suspect pt has aspirated on TF. -s/p bronchoscopy -CXR appears better this AM c/w yesterday. -Give Lasix 40mg x 1 -D/C IVF -Continue precedex propofol, ativan RLL atelectasis vs pneumonia -mucomyst to duoneb -Repeat procalcitonin -zosyn Alcohol withdrawal -Ativan gtt. -Continue CIWA protocol Metabolic lactic acidosis -Now resolved Seizures -Ativan gtt -Keppra -- increase to 1000mg BID Alcoholic liver disease Thrombocytopenia Hyponatremia KATHLEEN COLEMAN DO Apr 29, 2019 05:32
[2019-04-29] MEDS ORDERED: FUROSEMIDE 40 MG/4 ML INJ (LASIX) ONE (05:38)
[2019-04-29] MEDS ORDERED: FUROSEMIDE 40 MG/4 ML INJ (LASIX) IVP ONE (05:45)
--- NOTE | 2019-04-29 05:52 | NUR ---
PT EXTUBATED TO VAPOTHERM, 30L 45%. O2 SATS 95%
[2019-04-29] MEDS: PIPERACILLIN/TAZOBACTAM (BULK) 4.5 GM in NS (IVPB) 100 ML IV SCH ×3 (06:07→20:34)
[2019-04-29] MEDS: POTASSIUM CL 10MEQ/50ML IVPB 50 ML IV SCH ×9 (06:07→11:16)
[2019-04-29] MEDS: KCL 20 MEQ TAB (K-DUR) PO SCH (06:08)
[2019-04-29] MEDS: MAGNESIUM 1 GM/100 ML IVPB 100 ML IV SCH (06:08)
--- NOTE | 2019-04-29 07:49 | Diagnostic Imaging Report ---
INDICATION: Dyspnea. COMPARISON: 04/28/2019. TECHNIQUE: Single radiograph of the chest dated 04/29/2019. FINDINGS: Azygos lobe fissure is incidentally noted. Endotracheal tube, right IJ central venous catheter, and enteric catheter are again identified. The cardiac silhouette is stable. Low lung volumes with persistent though improved focal consolidation within the right lung base. Focal 1.6 cm rounded nodular density is identified overlying the left lung base with central lucency. No significant pleural effusion. No pneumothorax. No acute osseous abnormality. IMPRESSION: Improving though persistent right basilar consolidation. Rounded nodular density with central lucency within the left lung base. This could relate to a developing cavitary lesion/pulmonary nodule. A CT of the chest is recommended for further evaluation. Unchanged lines and tubes. Dictated by: Dictated on workstation # [id number]
[2019-04-29] MEDS: SINEMET 25/100 (CARBIDOPA/LEVODOPA) TAB PO SCH ×2 (08:33→13:25)
[2019-04-29] MEDS: LEVETIRACETAM INJECTION 1,000 MG in NS (IVPB) 100 ML IV SCH ×2 (08:44→20:35)
[2019-04-29] MEDS: PANTOPRAZOLE 40 MG (PROTONIX) VIAL IV SCH (08:44)
[2019-04-29] MEDS: ENOXAPARIN 40 MG/0.4 ML (LOVENOX) SYR SC SCH (08:44)
[2019-04-29] MEDS: FLUoxetine HCL 20 MG (PROzac) CAP PO SCH (08:44)
--- NOTE | 2019-04-29 10:13 | Progress Note - Hospitalist ---
Subjective HPI/CC On Admission Date Seen by Provider: Apr 29, 2019 Time Seen by Provider: 09:15 Pt is a 43yoCM with a PMH of alcohol abuse who presented the ER due to hallucinations. He gives a varied history about dreams vs reality and I am unsure the exact details but it seems that sometime over the past 5 days he started hallucinating. At first it was that there were bikes everywhere he thought that he was dreaming. He then said that his dreams/hallucinations became more erotic. He tells a story of walking from his kitchen through glass panel and ending up in his mother's kitchen. He also thought that he was about had a seizure. He is unsure of what day that occurred. Today he states that he saw people in his house again and the only way to make them go away was to hold up his Cross and his bible. He reports that he drinks 5-6 PB per day and that his last drink was last night. This varies from the history that his mother gave to the emergency room stating that he was in rehabilitation for alcohol at the end of March but relapsed shortly after discharge. She reported to the ER that his last drink was on April 16. Subjective/Events-last exam He was extubated this morning. He is unable to speak clearly. He appears disoriented. Focused Exam Lactate Level 04/27/19 05:45: Lactic Acid Level 2.73*H 04/27/19 06:55: Lactic Acid Level 2.87*H 04/27/19 13:57: Lactic Acid Level 1.88 Objective Exam Vital Signs Vital Signs Date Time Temp Pulse Resp B/P (MAP) Pulse Ox O2 Delivery O2 Flow Rate FiO2 04/29/19 09:00 98 10 158/90 (112) 98 Vapotherm 30.00 45.00 04/29/19 07:17 45 04/29/19 04:00 36.7 Capillary Refill : Less Than 3 Seconds General Appearance: Anxious, Mild Distress, Thin Respiratory: Crackles, Respiratory Distress (mild, tachypnea) Cardiovascular: Regular Rate, Rhythm, Systolic Murmur Gastrointestinal: Normal Bowel Sounds, Non Tender, Soft Extremity: Normal Inspection, Non Tender, Pedal Edema Neurologic/Psychiatric: Alert, Disoriented Skin: Normal Color, Diaphoresis Results/Procedures Lab Laboratory Tests 04/29/19 03:08 Patient resulted labs reviewed. Imaging: Reviewed Imaging Report Assessment/Plan Assessment and Plan Assess & Plan/Chief Complaint Alcohol withdrawal Seizures Acute Respiratory Failure with hypoxia Aspiration pneumonia Intubated 04/21, extubated 04/28 Pulmonology following, appreciate assistance Continue Zosyn for likely aspiration pneumonia Continue Keppra Monitor closely, may require reintubation today Alcoholic liver disease clinically significant, no acute management needs DVT prophylaxis: Lovenox Hyperbilirubinemia, resolved Thrombocytopenia, resolved Hyponatremia, resolved Lactic acidosis, resolved Diagnosis/Problems Diagnosis/Problems (1) Alcohol withdrawal delirium Status: Acute (2) Acute respiratory failure Status: Acute Qualifiers: Respiratory failure complication: unspecified whether with hypoxia or hypercapnia Qualified Codes: J96.00 - Acute respiratory failure, unspecified whether with hypoxia or hypercapnia (3) Aspiration pneumonia Status: Acute Clinical Quality Measures DVT/VTE Risk/Contraindication: Risk Factor Score Per Nursin RFS Level Per Nursing on Admit: 1=Low/No VTE PPX AMBAR LAY MD Apr 29, 2019 10:13
[2019-04-29 10:35] LABS: ALBUMIN 2.6 GM/DL (3.2-4.5); BILIRUBIN,DIRECT 0.5 MG/DL (0.0-0.3); BILIRUBIN,INDIRECT 0.3 MG/DL; BILIRUBIN,TOTAL 0.8 MG/DL (0.1-1.0); TOTAL PROTEIN 5.8 GM/DL (6.4-8.2)
[2019-04-29] MEDS ORDERED: PROPOFOL DRIP (ICU) 0 ML IV ONE (10:49)
[2019-04-29] MEDS ORDERED: PROPOFOL DRIP (ICU) 100 ML IV ONE ×2 (10:52→16:02)
[2019-04-29] MEDS ORDERED: NS IV 1000 ML 1,000 ML ONE ×3 (10:53→22:33)
--- NOTE | 2019-04-29 10:54 | NUR ---
1054 Order received for Intubation from . 1108 said to hold off on intubation for now, will evaluate further after ABG
--- NOTE | 2019-04-29 11:18 | NUR ---
1028 this nurse attempted to call 1032 Donna patients mother called this nurse asking for an update on patient. Donna stated the patients password. This nurse updated Donna about patients oxygen requirements att. I also updated Donna that patient is confused and he is mumbling. Donna stated to this nurse that she is ok with patient being re-intubated if it is needed. I let Donna know that I will be speaking with a physician and that I will keep her updated. Donna verbalized that she is appreciative of the care her son has been receiving. 1038. this nurse spoke with on the phone updating him on patients oxygen requirements of 40 liters at 100% on vapotherm, sat is 87%, patient is drowsy and weak. 1050 this nurse phoned in [facility]. I spoke with on the phone updating her. 1108 Telephone order received from to obtain an ABG.
[2019-04-29 11:32] LABS: ABG BASE EXCESS 2.8 MMOL/L (-2.5-2.5); ABG OXYGEN SATURATION 97 % (94-100); ABG PCO2 32 MMHG (35-45); ABG PH 7.52 (7.37-7.43); ABG PO2 83 MMHG (79-93); ABG TCO2 26.6 MMOL/L (21.0-31.0)
[2019-04-29 11:34] LABS: ALLENS TEST YES-POS
[2019-04-29 11:35] LABS: INSPIRED O2 40; PATIENT TEMP 37.4; VENTILATOR NO
--- NOTE | 2019-04-29 11:49 | NUR ---
This nurse spoke with on the phone and updated him on 's progress note and her recommendations.
--- NOTE | 2019-04-29 11:52 | Physical Therapy Progress Note ---
Therapy Progress Note Patient on hold per RN due to declined in respiratory status. PT will attempt in BISI Romano PT Apr 29, 2019 11:52
--- NOTE | 2019-04-29 12:01 | Occ Therapy Progress Note ---
Therapy Progress Note Nursing questioned on pt's condition. Per nursing, OT to hold therapy on this day due to medical complexity. OT to check on pt tomorrow and initiate treatments if medically stable and able to participate in skilled therapy. NADIR GUTIERRES OTR Apr 29, 2019 12:01
--- NOTE | 2019-04-29 12:30 | NUR ---
Telephone order received from to give patient 1mg Ativan IV Q4H scheduled.
[2019-04-29] MEDS: LACTATED RINGERS 1,000 ML IV SCH (13:55)
[2019-04-29] MEDS ORDERED: LORazepam INJ 2 MG/ML (ATIVAN) VIAL IVP SCH (14:00)
--- NOTE | 2019-04-29 14:58 | NUR ---
This nurse notified about patients heart rate sustaining 130bpm, b/p 143/91. telephone order received to give patient 1mg Ativan IV now and to continue with Ativan as it is scheduled.
[2019-04-29] MEDS ORDERED: LORazepam INJ 2 MG/ML (ATIVAN) VIAL IVP NR (15:00)
--- NOTE | 2019-04-29 15:12 | NUR ---
CM/SS contacted the patients mother Donna to discuss discharge planning. Patient is not coherent enough for conversation. The patients mother Donna ([phone]) stated that she was concerned about the discharge plan because they need to get something figured out and they don't yet. Donna stated that the patient has had trouble with alcohol for many years and multiple other mental health issues such as anxiety and depression. Donna believes that his symptoms of hallucinations, aggression, manipulative/ attention seeking behavior. He used to see a psychiatrist who prescribed him Klonopin. Donna stated this really seemed to help him. The patient is currently living at home unemployed with his mother who reports she is paying for all of his bills, rent, and food at this time. She states she is going to stop this because she feels she is enabling him. The patient was released from [facility] about one month ago. He was there for about 20 days but insurance only covered 20 days. The patients mother did state she called [facility] in [place] and thought that might be a good option. CM/SS discussed that discharge planning will be dependent on the patients functioning levels. Will continue to follow.
--- NOTE | 2019-04-29 15:57 | NUR ---
1557 This nurse updated on patients increased labored breathing and he is tachypneic, HR remains elevated 120's-130's, patient O2 sat 86% on 40L O2 at 100% vapotherm. asked me to have teleICU Lisa camera in. This nurse pressed the button on the wall to have teleICU camera in. with teleICU called this nurse at 1602, she was watching patient via camera. This nurse updated on patients status. order received to intubate patient. This nurse notified steam locomotive firer/fireman and housekeeping department worker about intubation order housekeeping department worker, Michelle, called anesthesia to notify them of intubation.
--- NOTE | 2019-04-29 16:09 | NUR ---
this nurse notified RT about order to intubate
--- NOTE | 2019-04-29 16:40 | NUR ---
Anesthesia in room, [facility] Pacheco. 1645 anesthesia administered 5mg versed, 200mg propofol and 20mg succ. b/p 145/103, HR 116 1647 color change, equal rise and fall, 95% o2, HR 124, BP 165/102 8ETT 24 @ lip 1649- vent set at rate of 16, TV 500, PEEP 8 fio2 100% 1652- OG inserted. placement checked. Art line placed to right radial by anesthesia. verbal order for art line received from . monitored intubation.
--- NOTE | 2019-04-29 16:57 | Anesthesia-Procedure Note ---
Procedures/Interventions Procedure Start/Stop/Diagnosis Date of Procedure: Apr 29, 2019 Start Time: 16:45 Stop Time: 17:00 Intubation RSI: Yes 100% pre-Ox, [id number]: Yes Intubation Method: orotracheal Videoscope used: Yes Grade View: 1 Medications: Propofol (200 mg), Succinylcholine (100 mg), Versed (5mg) Mask Ventilation: positive Positive End Tide CO2: Yes Breath Sounds after Intubation: bilateral-equal ETT Securred @ (cm): 24 Intubated with ease: Yes Intubation Complications: no complications Arterial Line Arterial Line Catheter: 20G Type: Radial Location: Right Procedure: prepped, draped in sterile fashion, good wave-form was obtained, patient tolerated procedure well, no immediate complications, post procedure area cleaned, post procedure dressing applied HARMONY CASEY CRNA Apr 29, 2019 16:57
--- NOTE | 2019-04-29 17:05 | NUR ---
called this nurse to update me on his conversation with , stated that he would like to transfer patient to . gave this nurse fax number and documents requested. Will continue to closely monitor patient and keep in touch with physician. This nurse called Radiology and asked them to please cloud their information to .
--- NOTE | 2019-04-29 17:30 | NUR ---
called this nurse, telephone order received to d/c propofol and to start patient on precedex per protocol and fentanyl PRN to keep patient comfortable on ventilator, entered these orders.
--- NOTE | 2019-04-29 17:35 | Diagnostic Imaging Report ---
EXAM: CHEST 1 VIEW, AP/PA ONLY INDICATION: Intubation. COMPARISON: 04/29/2019. FINDINGS: ETT tip between the level of the clavicles and alejandra. NG tube tip and side-port within the stomach. Right IJ CVC tip in mid SVC. Normal heart size and central pulmonary vascularity. Persistent consolidation in the right lung base. No pleural effusion or pneumothorax. No acute osseous findings. IMPRESSION: 1. Support lines in the expected positions. 2. Stable consolidation in the right lung base. Dictated by: Dictated on workstation # [id number]
[2019-04-29] MEDS: DexMEDEtomidine 250 ML DRIP 250 ML IV SCH (18:01)
[2019-04-29] MEDS ORDERED: PROPOFOL DRIP (ICU) 100 ML IV SCH (18:15)
[2019-04-29] MEDS ORDERED: fentaNYL INJECTION 100 MCG/2 ML AMP INJ ONE (19:30)
[2019-04-29] MEDS ORDERED: MIDAZOLAM 5 MG/5 ML (VERSED) VIAL IJ ONE (19:30)
[2019-04-29] MEDS ORDERED: SUCCINYLCHOLINE INJ 100 MG/5 ML SYR INJ ONE (19:30)
--- NOTE | 2019-04-29 19:48 | NUR ---
RECEIVED CALL FROM ASKING FOR POST-INTUBATION ABG. ABG OBTAINED. 2013-RECEIVED CALL FROM TRANSFER TO INFORM THIS NURSE THAT THEY HAD DISCUSSED WITH THE DR. PINTO FROM E-ICU THAT THEY WOULD HOLD OFF ON TRANSFER TONIGHT AND RE-EVALUATE TOMORROW. 2029-SPOKE WITH DR. PINTO WHO GAVE ORDERS FOR AMMONIA LEVEL, RESTART PROPOFOL, AND CT-HEAD 2100-CALLED PT'S SISTER, CRISPIN, AND GAVE UPDATE ON TRANSFER AND PLAN OF CARE AT THIS TIME.
[2019-04-29 20:10] LABS: ABG BASE EXCESS 1.9 MMOL/L (-2.5-2.5); ABG OXYGEN SATURATION 99 % (94-100); ABG PCO2 33 MMHG (35-45); ABG PH 7.49 (7.37-7.43); ABG PO2 129 MMHG (79-93); ALLENS TEST ART LINE
[2019-04-29 20:11] LABS: INSPIRED O2 98%; PATIENT TEMP 37.2; VENTILATOR YES
--- NOTE | 2019-04-29 21:41 | Diagnostic Imaging Report ---
INDICATION: Intubation. EXAMINATION: Portable chest was obtained. FINDINGS: Normal heart size and vascularity. There is some right basilar atelectasis and infiltrate. An ET tube is present with the tip below the thoracic inlet and approximately 4 cm above the alejandra. IJ line tip is in the SVC. An OG tube is in the stomach. IMPRESSION: Support lines and tubes as described. There remains some right basilar atelectasis and/or infiltrate. Dictated by: Dictated on workstation # [id number]
--- NOTE | 2019-04-29 21:46 | Diagnostic Imaging Report ---
PROCEDURE: CT head without contrast. TECHNIQUE: Multiple contiguous axial images were obtained through the brain without the use of intravenous contrast. Auto Exposure Controls were utilized during the CT exam to meet ALARA standards for radiation dose reduction. INDICATION: Change in mental status. EtOH withdrawal. FINDINGS: There is some motion artifact and true axial was not obtained but no acute parenchymal hemorrhage, edema or mass is evident. There is no extra-axial mass or hemorrhage seen. Ventricles do not appear to be dilated. IMPRESSION: No acute abnormality is seen. Dictated by: Dictated on workstation # [id number]
[2019-04-29] MEDS: NS IV 500 ML 500 ML IV SCH (22:00)
--- NOTE | 2019-04-29 22:00 | NUR ---
CALLED E-ICU AND INFORMED THEM THAT PATIENT HAD JUST GOTTEN BACK FROM CT AND PATIENT WAS HYPOTENSIVE-70s/30s. PROPOFOL PLACED ON HOLD UNTIL PRESSURES RETURN TO ABOVE 100/50 AND ORDER RECEIVED FOR 500ML BOLUS OF NORMAL SALINE. 2229-PATIENT NO LONGER HYPOTENSIVE 110/52
--- NOTE | 2019-04-29 22:00 | NUR ---
ASKED E-ICU TO REVIEW ABG RESULTS TO DETERMINE ANY VENT CHANGES.
[2019-04-29] MEDS: traZODone 50 MG (DESYREL) TAB PO SCH (22:40)
[2019-04-29] MEDS: PROPOFOL DRIP (ICU) 100 ML IV SCH (22:50)
[2019-04-30] VITALS (31 sets, daily range): BP systolic 97–162; BP diastolic 44–99
[2019-04-30] MEDS: RT-ALBUTEROL/IPRATROPIUM 3 ML (DUONEB) VIAL INH SCH ×6 (02:17→22:43)
[2019-04-30] MEDS: aCETylcysteine 20% (MUCOMYST) 30ML SOLN VIAL INH SCH ×6 (02:17→22:43)
[2019-04-30 03:19] LABS: ABG BASE EXCESS 1.5 MMOL/L (-2.5-2.5); ABG OXYGEN SATURATION 98 % (94-100); ABG PCO2 33 MMHG (35-45); ABG PH 7.49 (7.37-7.43); ABG PO2 97 MMHG (79-93); ABG TCO2 25.6 MMOL/L (21.0-31.0)
[2019-04-30 03:20] LABS: ALLENS TEST YES-POS; INSPIRED O2 45%; PATIENT TEMP 37.2; VENTILATOR YES
[2019-04-30 03:25] LABS: BASOPHILS % (AUTO) 0 % (0-10); EOSINOPHILS % (AUTO) 0 % (0-10); HEMATOCRIT 36 % (40-54); HEMOGLOBIN 11.4 G/DL (13.3-17.7); LYMPHOCYTES # (AUTO) 1.9 X 10^3 (1.0-4.0); LYMPHOCYTES % (AUTO) 10 % (12-44); MEAN CORPUSCULAR HEMOGLOBIN 30 PG (25-34); MEAN CORPUSCULAR HGB CONC 32 G/DL (32-36); MEAN CORPUSCULAR VOLUME 95 FL (80-99); MEAN PLATELET VOLUME 10.7 FL (7.4-10.4); MONOCYTES # (AUTO) 1.3 X 10^3 (0.0-1.0); MONOCYTES % (AUTO) 7 % (0-12); NEUTROPHILS # (AUTO) 15.8 X 10^3 (1.8-7.8); NEUTROPHILS % (AUTO) 83 % (42-75); PLATELET COUNT 359 10^3/uL (130-400); RED CELL DISTRIBUTION WIDTH 14.1 % (10.0-14.5); WHITE BLOOD COUNT 19.1 10^3/uL (4.3-11.0)
[2019-04-30 03:44] LABS: BAND NEUTROPHILS 3 %; EOSINOPHILS % (MANUAL) 1 %; LYMPHOCYTES % (MANUAL) 13 %; MONOCYTES % (MANUAL) 7 %; NEUTROPHILS % (MANUAL) 76 %; RBC MORPH NORMAL
[2019-04-30 03:46] LABS: ALANINE AMINOTRANSFERASE 20 U/L (0-55); ALBUMIN 2.7 GM/DL (3.2-4.5); ALKALINE PHOSPHATASE 150 U/L (40-136); BILIRUBIN,DIRECT 0.6 MG/DL (0.0-0.3); BILIRUBIN,INDIRECT 0.3 MG/DL; BILIRUBIN,TOTAL 0.9 MG/DL (0.1-1.0); BUN/CREATININE RATIO 18; CALCIUM 8.1 MG/DL (8.5-10.1); CARBON DIOXIDE 22 MMOL/L (21-32); CHLORIDE 102 MMOL/L (98-107); CREATINE KINASE 375 U/L (30-200); CREATININE SERUM 0.77 MG/DL (0.60-1.30); GFR ESTIMATED > 60; GLUCOSE 103 MG/DL (70-105); MAGNESIUM 1.9 MG/DL (1.6-2.4); PHOSPHORUS 2.8 MG/DL (2.3-4.7); POTASSIUM 3.7 MMOL/L (3.6-5.0); SODIUM 139 MMOL/L (135-145); TRIGLYCERIDES 181 MG/DL (<150)
[2019-04-30] MEDS: MAGNESIUM 1 GM/100 ML IVPB 100 ML IV SCH (04:01)
[2019-04-30] MEDS: POTASSIUM CL 10MEQ/50ML IVPB 50 ML IV SCH (04:01)
[2019-04-30] MEDS: KCL 20 MEQ TAB (K-DUR) PO SCH (04:02)
[2019-04-30 04:10] LABS: FREE T4 (FREE THYROXINE) 0.84 NG/DL (0.70-1.48)
[2019-04-30] MEDS: morphine INJ 4 MG/ML 1 ML (VIAL/SYRINGE) IVP PRN (04:33)
--- NOTE | 2019-04-30 07:13 | Diagnostic Imaging Report ---
EXAMINATION: Portable erect AP chest at 212h. INDICATION: Dyspnea This exam is less than optimal as the patient is rotated. The right apex is also obscured by the patient's chin. The appearance of the chest however does seem somewhat better than noted on the prior exam of 04/29/2019. Specifically both lungs do seem better aerated and the heart is less prominent. There is still persistent involvement of the right lower lobe by pneumonia/atelectasis however. There may be a small amount of pneumonia/atelectasis in the left perihilar region as well. The mediastinum is not widened. The osseous structures are intact. The supportive tubes and lines seem to be in good position. IMPRESSION: The appearance of the chest has improved somewhat as the lungs do seem better aerated and the heart has decreased in size. A follow-up study would be recommended for continued evaluation. Dictated by: Dictated on workstation # [id number]
--- NOTE | 2019-04-30 07:43 | Physical Therapy Progress Note ---
Therapy Progress Note Patient currently sedated and intubates. PT will continue to monitor patient medical status and initiate treatment when patient is medically stable and able to actively participate with skilled therapy. BISI DAILEY PT Apr 30, 2019 07:43
--- NOTE | 2019-04-30 07:55 | Occ Therapy Progress Note ---
Therapy Progress Note Pt on mechanical ventilation/ sedated. OT to continue monitoring and eval/ treat when medically stable and able to participate in skilled therapy. NADIR GUTIERRES OTR Apr 30, 2019 07:55
--- NOTE | 2019-04-30 08:00 | NUR ---
This nurse spoke with on the telephone, I updated her on patients restlessness and coughing over the vent. stated that she would place orders for Robitussin and tylenol.
[2019-04-30] MEDS ORDERED: APAP 325 MG/10.15 ML LIQ (TYLENOL) UDC NG PRN (08:15)
[2019-04-30] MEDS: LEVETIRACETAM INJECTION 1,000 MG in NS (IVPB) 100 ML IV SCH ×2 (08:34→20:34)
[2019-04-30] MEDS: ENOXAPARIN 40 MG/0.4 ML (LOVENOX) SYR SC SCH (08:34)
[2019-04-30] MEDS: guaiFENesin/DM (ROBITUSSIN DM) 10 ML UDC PO PRN (08:34)
[2019-04-30] MEDS: PANTOPRAZOLE 40 MG (PROTONIX) VIAL IV SCH (08:34)
[2019-04-30] MEDS: DexMEDEtomidine 250 ML DRIP 250 ML IV SCH ×2 (08:45→18:48)
[2019-04-30] MEDS: LACTATED RINGERS 1,000 ML IV SCH (08:45)
[2019-04-30 09:38] LABS: ABG BASE EXCESS 2.4 MMOL/L (-2.5-2.5); ABG OXYGEN SATURATION 99 % (94-100); ABG PCO2 36 MMHG (35-45); ABG PH 7.47 (7.37-7.43); ABG PO2 111 MMHG (79-93); ABG TCO2 26.9 MMOL/L (21.0-31.0)
[2019-04-30 09:39] LABS: INSPIRED O2 80%; PATIENT TEMP 37.5; VENTILATOR NO
--- NOTE | 2019-04-30 09:42 | NUR ---
This nurse called updating her on patient being aggitated and restless. order received for 2mg Ativan. We discussed the plan for today and stated that she was going to put some other orders in. Will continue to closely monitor patient.
--- NOTE | 2019-04-30 09:42 | NUR ---
This nurse notified of patients ABG results and asked her to please review them. No new order received for Vent setting changes. told me to increase precedex to 1.5mcg/kg/hr.
[2019-04-30] MEDS ORDERED: LORazepam INJ 2 MG/ML (ATIVAN) VIAL IVP ONE (10:20)
--- NOTE | 2019-04-30 13:02 | NUR ---
"Received dietary consult regarding pt's vent status. Est. kcal needs: [id number] kcal | 20-25 kcal/kg Est. Pro needs: 73-92 g Pro | 0.8-1.0 g Pro/kg Given pt's current status, would recommend initiation of the following TF: Jevity 1.5 at goal rate of 60ml/hr. Begin at 20ml/hr and increase by 10ml q6h as tolerated. Monitor gastric residuals for tolerance. At goal rate, provides 2160 kcal (24 kcal/kg); 91 g Pro (1.0 g Pro/kg); and 1094ml free water. Flush with 75ml H2O q4h for hydration status. With flushes, provides 1544ml free water. Will continue to follow and reassess as pt needs, intake, and status change. Ly Cedillo, MS, RD, LD [phone]"
--- NOTE | 2019-04-30 13:14 | Progress Note - Hospitalist ---
Subjective HPI/CC On Admission Date Seen by Provider: Apr 30, 2019 Time Seen by Provider: 08:55 Pt is a 43yoCM with a PMH of alcohol abuse who presented the ER due to hallucinations. He gives a varied history about dreams vs reality and I am unsure the exact details but it seems that sometime over the past 5 days he started hallucinating. At first it was that there were bikes everywhere he thought that he was dreaming. He then said that his dreams/hallucinations became more erotic. He tells a story of walking from his kitchen through glass panel and ending up in his mother's kitchen. He also thought that he was about had a seizure. He is unsure of what day that occurred. Today he states that he saw people in his house again and the only way to make them go away was to hold up his Cross and his bible. He reports that he drinks 5-6 PB per day and that his last drink was last night. This varies from the history that his mother gave to the emergency room stating that he was in rehabilitation for alcohol at the end of March but relapsed shortly after discharge. She reported to the ER that his last drink was on April 16. Subjective/Events-last exam He remains intubated and sedated. There is no family at the bedside. Focused Exam Lactate Level 04/27/19 13:57: Lactic Acid Level 1.88 Objective Exam Vital Signs Vital Signs Date Time Temp Pulse Resp B/P (MAP) Pulse Ox O2 Delivery O2 Flow Rate FiO2 04/30/19 12:00 102 27 106/46 (66) 97 Mechanical Ventilator 60.00 04/30/19 11:01 60 04/30/19 10:47 37.7 Capillary Refill : Less Than 3 Seconds General Appearance: Anxious, Mild Distress (Restless), Other (Intubated and sedated) Respiratory: Crackles, Rhonci, Other (Intubated and mechanically ventilated) Cardiovascular: Regular Rate, Rhythm, No Murmur Gastrointestinal: Normal Bowel Sounds, Soft Extremity: Normal Inspection, Pedal Edema Neurologic/Psychiatric: Other (Sedated, restless) Skin: Normal Color, Warm/Dry Results/Procedures Lab Laboratory Tests 04/30/19 03:15 Patient resulted labs reviewed. Imaging: Reviewed Imaging Report Assessment/Plan Assessment and Plan Assess & Plan/Chief Complaint Alcohol withdrawal Seizures Acute Respiratory Failure with hypoxia Aspiration pneumonia Critical illness myopathy Intubated 04/21, extubated 04/28 then reintubated eICU following, appreciate assistance Continue Zosyn for likely aspiration pneumonia Continue Keppra Alcoholic liver disease clinically significant, no acute management needs DVT prophylaxis: Lovenox Hyperbilirubinemia, resolved Thrombocytopenia, resolved Hyponatremia, resolved Lactic acidosis, resolved Diagnosis/Problems Diagnosis/Problems (1) Alcohol withdrawal delirium Status: Acute (2) Acute respiratory failure Status: Acute Qualifiers: Respiratory failure complication: unspecified whether with hypoxia or hy percapnia Qualified Codes: J96.00 - Acute respiratory failure, unspecified wh ether with hypoxia or hypercapnia (3) Aspiration pneumonia Status: Acute Clinical Quality Measures DVT/VTE Risk/Contraindication: Risk Factor Score Per Nursin RFS Level Per Nursing on Admit: 1=Low/No VTE PPX AMBAR LAY MD Apr 30, 2019 13:14
[2019-04-30] MEDS ORDERED: PIPERACILLIN/TAZO 4.5 GM/NS 100 ML IV NR ×2 (13:30)
--- NOTE | 2019-04-30 13:40 | NUR ---
The patient is intubated and sedated. Could be a possible [place] referral if speaks with family and they agree. Will continue to follow.
[2019-04-30] MEDS ORDERED: GABAPENTIN 300 MG (NEURONTIN) CAP NG ONE (14:00)
--- NOTE | 2019-04-30 15:30 | NUR ---
TeleICU button pressed. patient is agitated. Order received from to do a CPAP trial and obtain an ABG after 30 minutes. CPAP trial done. This nurse called back at 1600 to update her on patients ABG and how he did on his CPAP trial. gave orders to keep patient on the ventilator att and change patient back to the vent settings he was on. Will continue to closely monitor.
[2019-04-30 15:56] LABS: ABG BASE EXCESS 2.2 MMOL/L (-2.5-2.5); ABG OXYGEN SATURATION 98 % (94-100); ABG PCO2 38 MMHG (35-45); ABG PH 7.45 (7.37-7.43); ABG PO2 104 MMHG (79-93)
[2019-04-30 15:58] LABS: ALLENS TEST POSITIVE; INSPIRED O2 60%; PATIENT TEMP 37.4; VENTILATOR YES
--- NOTE | 2019-04-30 17:04 | NUR ---
This nurse spoke with teleICU, we discussed that patient is not receiving nutrition att. stated that if patient does not get extubated tomorrow that feedings will be started.
[2019-04-30] MEDS: PROPOFOL DRIP (ICU) 100 ML IV SCH ×2 (18:47→23:28)
[2019-04-30] MEDS: NS IV 500 ML 500 ML IV SCH (19:46)
[2019-04-30] MEDS: PIPERACILLIN/TAZOBACTAM (BULK) 4.5 GM in NS (IVPB) 100 ML IV SCH (20:34)
[2019-04-30] MEDS: traZODone 50 MG (DESYREL) TAB PO SCH (20:34)
[2019-05-01] VITALS (30 sets, daily range): BP systolic 115–152; BP diastolic 58–95
[2019-05-01] MEDS: DexMEDEtomidine 250 ML DRIP 250 ML IV SCH ×4 (00:34→23:53)
[2019-05-01] MEDS: RT-ALBUTEROL/IPRATROPIUM 3 ML (DUONEB) VIAL INH SCH ×6 (02:02→21:29)
[2019-05-01] MEDS: KCL 20 MEQ TAB (K-DUR) PO SCH ×2 (02:41→23:21)
[2019-05-01] MEDS: POTASSIUM CL 10MEQ/50ML IVPB 50 ML IV SCH ×4 (02:41→23:21)
[2019-05-01] MEDS: MAGNESIUM 1 GM/100 ML IVPB 100 ML IV SCH ×2 (02:41→23:21)
[2019-05-01 03:58] LABS: BASOPHILS # (AUTO) 0.1 10^3/uL (0.0-0.1); BASOPHILS % (AUTO) 1 % (0-10); EOSINOPHILS # (AUTO) 0.2 10^3/uL (0.0-0.3); EOSINOPHILS % (AUTO) 2 % (0-10); HEMATOCRIT 35 % (40-54); HEMOGLOBIN 11.1 G/DL (13.3-17.7); LYMPHOCYTES # (AUTO) 1.8 X 10^3 (1.0-4.0); LYMPHOCYTES % (AUTO) 17 % (12-44); MEAN CORPUSCULAR HGB CONC 32 G/DL (32-36); MEAN CORPUSCULAR VOLUME 95 FL (80-99); MEAN PLATELET VOLUME 10.1 FL (7.4-10.4); MONOCYTES # (AUTO) 0.7 X 10^3 (0.0-1.0); MONOCYTES % (AUTO) 7 % (0-12); NEUTROPHILS # (AUTO) 7.7 X 10^3 (1.8-7.8); NEUTROPHILS % (AUTO) 74 % (42-75); PLATELET COUNT 309 10^3/uL (130-400); WHITE BLOOD COUNT 10.4 10^3/uL (4.3-11.0)
[2019-05-01] MEDS: PROPOFOL DRIP (ICU) 100 ML IV SCH ×6 (03:58→23:53)
[2019-05-01 03:59] LABS: ABG BASE EXCESS 3.3 MMOL/L (-2.5-2.5); ABG OXYGEN SATURATION 96 % (94-100); ABG PCO2 36 MMHG (35-45); ABG PH 7.48 (7.37-7.43); ABG PO2 70 MMHG (79-93)
[2019-05-01 04:00] LABS: ALLENS TEST ART LINE; INSPIRED O2 40%; VENTILATOR YES
[2019-05-01 04:01] LABS: PATIENT TEMP 36.1
[2019-05-01 04:01] LABS: MEAN CORPUSCULAR HEMOGLOBIN 30 PG (25-34)
[2019-05-01 04:23] LABS: AMYLASE 48 U/L (25-125); BUN/CREATININE RATIO 15; CALCIUM 8.4 MG/DL (8.5-10.1); CARBON DIOXIDE 24 MMOL/L (21-32); CHLORIDE 104 MMOL/L (98-107); CREATINE KINASE 202 U/L (30-200); CREATININE SERUM 0.68 MG/DL (0.60-1.30); GFR ESTIMATED > 60; GLUCOSE 111 MG/DL (70-105); MAGNESIUM 1.9 MG/DL (1.6-2.4); POTASSIUM 3.3 MMOL/L (3.6-5.0); SODIUM 140 MMOL/L (135-145); TRIGLYCERIDES 227 MG/DL (<150)
[2019-05-01] MEDS: PIPERACILLIN/TAZOBACTAM (BULK) 4.5 GM in NS (IVPB) 100 ML IV SCH ×3 (05:29→21:44)
[2019-05-01] MEDS: aCETylcysteine 20% (MUCOMYST) 30ML SOLN VIAL INH SCH ×6 (07:13→21:29)
[2019-05-01] MEDS: NS IV 500 ML 500 ML IV SCH ×2 (07:44→16:19)
--- NOTE | 2019-05-01 07:45 | Diagnostic Imaging Report ---
HISTORY: Dyspnea TECHNIQUE: Single frontal view of the chest COMPARISON: 04/30/2019 FINDINGS: The endotracheal tube is approximately 4.5 cm from the alejandra. An enteric tube tip projects over the stomach. Lung volumes are low. There are airspace opacities in the lung bases, right greater than left. The right jugular line tip projects over the SVC. No pleural effusion or pneumothorax is seen. IMPRESSION: 1. Bibasilar airspace opacities may represent atelectasis or infiltrate. Aeration appears mildly improved compared to the prior study. 2. Stable endotracheal tube. Dictated by: Dictated on workstation # [id number]
[2019-05-01] MEDS: LEVETIRACETAM INJECTION 1,000 MG in NS (IVPB) 100 ML IV SCH ×2 (07:46→21:44)
[2019-05-01] MEDS: PANTOPRAZOLE 40 MG (PROTONIX) VIAL IV SCH (07:47)
[2019-05-01] MEDS: ENOXAPARIN 40 MG/0.4 ML (LOVENOX) SYR SC SCH (07:47)
--- NOTE | 2019-05-01 11:03 | Progress Note - Hospitalist ---
Subjective HPI/CC On Admission Date Seen by Provider: May 01, 2019 Time Seen by Provider: 08:50 Pt is a 43yoCM with a PMH of alcohol abuse who presented the ER due to hallucinations. He gives a varied history about dreams vs reality and I am unsure the exact details but it seems that sometime over the past 5 days he started hallucinating. At first it was that there were bikes everywhere he thought that he was dreaming. He then said that his dreams/hallucinations became more erotic. He tells a story of walking from his kitchen through glass panel and ending up in his mother's kitchen. He also thought that he was about had a seizure. He is unsure of what day that occurred. Today he states that he saw people in his house again and the only way to make them go away was to hold up his Cross and his bible. He reports that he drinks 5-6 PB per day and that his last drink was last night. This varies from the history that his mother gave to the emergency room stating that he was in rehabilitation for alcohol at the end of March but relapsed shortly after discharge. She reported to the ER that his last drink was on April 16. Subjective/Events-last exam he remains intubated and sedated. There is no family at the bedside. Objective Exam Vital Signs Vital Signs Date Time Temp Pulse Resp B/P (MAP) Pulse Ox O2 Delivery O2 Flow Rate FiO2 05/01/19 10:45 Mechanical Ventilator 35.00 05/01/19 10:38 60 16 99 35 05/01/19 10:00 128/60 (82) 05/01/19 07:49 36.4 Capillary Refill : Less Than 3 Seconds General Appearance: No Apparent Distress, WD/WN, Other (intubated and sedated) Respiratory: Lungs Clear, Normal Breath Sounds, No Respiratory Distress, Other (intubated and mechanically ventilated) Cardiovascular: Regular Rate, Rhythm, No Murmur Gastrointestinal: Normal Bowel Sounds, Non Tender, Soft Extremity: Normal Inspection, Non Tender, Pedal Edema Neurologic/Psychiatric: Other (sedated) Skin: Normal Color, Warm/Dry Results/Procedures Lab Laboratory Tests 05/01/19 03:50 Patient resulted labs reviewed. Imaging: Reviewed Imaging Report Assessment/Plan Assessment and Plan Assess & Plan/Chief Complaint Alcohol withdrawal Seizures Acute Respiratory Failure with hypoxia Aspiration pneumonia Critical illness myopathy Intubated 04/21, extubated 04/28 then reintubated eICU following, appreciate assistance with ventilator management and weaning Continue Zosyn for likely aspiration pneumonia Continue Keppra Alcoholic liver disease clinically significant, no acute management needs DVT prophylaxis: Lovenox Hyperbilirubinemia, resolved Thrombocytopenia, resolved Hyponatremia, resolved Lactic acidosis, resolved Diagnosis/Problems Diagnosis/Problems (1) Alcohol withdrawal delirium Status: Acute (2) Acute respiratory failure Status: Acute Qualifiers: Respiratory failure complication: unspecified whether with hypoxia or hypercapnia Qualified Codes: J96.00 - Acute respiratory failure, unspecified whether with hypoxia or hypercapnia (3) Aspiration pneumonia Status: Acute Clinical Quality Measures DVT/VTE Risk/Contraindication: Risk Factor Score Per Nursin RFS Level Per Nursing on Admit: 1=Low/No VTE PPX AMBAR LAY MD May 01, 2019 11:03
--- NOTE | 2019-05-01 12:15 | Progress Note - Hospitalist ---
Subjective HPI/CC On Admission Date Seen by Provider: May 01, 2019 Time Seen by Provider: 10:30 Pt is a 43yoCM with a PMH of alcohol abuse who presented the ER due to hallucinations. He gives a varied history about dreams vs reality and I am unsure the exact details but it seems that sometime over the past 5 days he started hallucinating. At first it was that there were bikes everywhere he thought that he was dreaming. He then said that his dreams/hallucinations became more erotic. He tells a story of walking from his kitchen through glass panel and ending up in his mother's kitchen. He also thought that he was about had a seizure. He is unsure of what day that occurred. Today he states that he saw people in his house again and the only way to make them go away was to hold up his Cross and his bible. He reports that he drinks 5-6 PB per day and that his last drink was last night. This varies from the history that his mother gave to the emergency room stating that he was in rehabilitation for alcohol at the end of March but relapsed shortly after discharge. She reported to the ER that his last drink was on April 16. Subjective/Events-last exam Patient sedated on ventilator. Propofol was added last night as Precedex was not preventing intermittent patient agitation. Nursing staff report that at times even sternal rub does not arouse some then he was becoming quite agitated without any change in sedation medication. EICU initiated propofol and the patient has not been agitated since. He did undergo diagnostic and therapeutic bronchoscopy per Dr. Denney who suctioned a lot of thick nonpurulent nonbloody mucus washings for culture were obtained. Patient did not appear to be in acute distress with no response to verbal stimulation. Objective Exam Vital Signs Vital Signs Date Time Temp Pulse Resp B/P (MAP) Pulse Ox O2 Delivery O2 Flow Rate FiO2 05/01/19 11:31 Mechanical Ventilator 40 05/01/19 11:00 53 15 132/62 (85) 98 35.00 05/01/19 07:49 36.4 Capillary Refill : Less Than 3 Seconds General Appearance: No Apparent Distress Respiratory: Other (Patient vented scattered rhonchi noted diminished breath sounds in both bases no rhonchi appreciated mild expiratory wheeze bilaterally) Cardiovascular: Regular Rate, Rhythm, Other (Heart sounds difficult to appreciate over ventilator sounds no murmur noted) Extremity: Other (Extremities are warm all extremities have 3+ edema no erythema or sores are noted.) Skin: Normal Color Results/Procedures Lab Laboratory Tests 05/01/19 03:50 Patient resulted labs reviewed. Imaging: Reviewed Imaging Report Assessment/Plan Assessment and Plan Assess & Plan/Chief Complaint A/P 1. Severe alcohol withdrawal with delirium tremens refractory to benzodiazepine therapy requiring Precedex as well as Diprovan for patient safety as well as mechanical ventilation for airway protection. The patient's abdomen is soft but slightly distended and no bowel sounds were noted. Despite just 10 mL/h of tube feeding the nurse was still getting anywhere from 70-100 mL of what just look like tube feeding will hold for now. Risk of aspiration greater than any potential nutritional benefit at this point 2. Mild hypernatremia today IV fluids of been slightly increased if worse tomorrow despite edema we'll switch to quarter or half normal saline. 3. Prognosis poor definite potential for irreversible brain injury is a concern despite negative MRI. Critical Care Critically Ill Patient Clinical Quality Measures DVT/VTE Risk/Contraindication: Risk Factor Score Per Nursin RFS Level Per Nursing on Admit: 1=Low/No VTE PPX ANDREI JOSEPH MD May 01, 2019 12:15
[2019-05-01] MEDS: LORazepam INJ 2 MG/ML (ATIVAN) VIAL IVP PRN ×2 (13:07→22:03)
--- NOTE | 2019-05-01 13:47 | Physical Therapy Progress Note ---
Therapy Progress Note Patient remains sedated and intubated. PT will continue to monitor patient medical status and initiate treatment when patient is medically stable and able to actively participate with skilled therapy. NAYELY MCNULTY PT May 01, 2019 13:47
[2019-05-01] MEDS: LACTATED RINGERS 1,000 ML IV SCH (16:21)
[2019-05-01] MEDS: traZODone 50 MG (DESYREL) TAB PO SCH (19:57)
[2019-05-02] VITALS (28 sets, daily range): BP systolic 91–150; BP diastolic 64–109
[2019-05-02] MEDS: NS IV 500 ML 500 ML IV SCH (00:32)
[2019-05-02] MEDS: LORazepam INJ 2 MG/ML (ATIVAN) VIAL IVP PRN ×3 (01:25→12:27)
[2019-05-02] MEDS: aCETylcysteine 20% (MUCOMYST) 30ML SOLN VIAL INH SCH ×6 (02:45→22:40)
[2019-05-02] MEDS: RT-ALBUTEROL/IPRATROPIUM 3 ML (DUONEB) VIAL INH SCH ×6 (02:45→22:40)
[2019-05-02 03:29] LABS: BASOPHILS # (AUTO) 0.1 10^3/uL (0.0-0.1); BASOPHILS % (AUTO) 0 % (0-10); EOSINOPHILS # (AUTO) 0.2 10^3/uL (0.0-0.3); EOSINOPHILS % (AUTO) 2 % (0-10); HEMATOCRIT 35 % (40-54); HEMOGLOBIN 11.4 G/DL (13.3-17.7); LYMPHOCYTES # (AUTO) 1.5 X 10^3 (1.0-4.0); LYMPHOCYTES % (AUTO) 12 % (12-44); MEAN CORPUSCULAR HEMOGLOBIN 30 PG (25-34); MEAN CORPUSCULAR HGB CONC 32 G/DL (32-36); MEAN CORPUSCULAR VOLUME 94 FL (80-99); MEAN PLATELET VOLUME 10.7 FL (7.4-10.4); MONOCYTES # (AUTO) 0.5 X 10^3 (0.0-1.0); MONOCYTES % (AUTO) 4 % (0-12); NEUTROPHILS # (AUTO) 10.1 X 10^3 (1.8-7.8); NEUTROPHILS % (AUTO) 82 % (42-75); PLATELET COUNT 298 10^3/uL (130-400); RED CELL DISTRIBUTION WIDTH 13.6 % (10.0-14.5); WHITE BLOOD COUNT 12.3 10^3/uL (4.3-11.0)
[2019-05-02 03:30] LABS: ABG BASE EXCESS 1.7 MMOL/L (-2.5-2.5); ABG OXYGEN SATURATION 98 % (94-100); ABG PCO2 35 MMHG (35-45); ABG PH 7.47 (7.37-7.43); ABG PO2 74 MMHG (79-93); ABG TCO2 26.3 MMOL/L (21.0-31.0)
[2019-05-02] MEDS: PROPOFOL DRIP (ICU) 100 ML IV SCH (03:32)
[2019-05-02 03:35] LABS: ALLENS TEST ART LINE; INSPIRED O2 35%; PATIENT TEMP 36.1; VENTILATOR YES
[2019-05-02 03:45] LABS: BUN/CREATININE RATIO 13; CALCIUM 7.9 MG/DL (8.5-10.1); CARBON DIOXIDE 21 MMOL/L (21-32); CHLORIDE 103 MMOL/L (98-107); CREATININE SERUM 0.62 MG/DL (0.60-1.30); GFR ESTIMATED > 60; GLUCOSE 108 MG/DL (70-105); MAGNESIUM 1.6 MG/DL (1.6-2.4); PHOSPHORUS 3.6 MG/DL (2.3-4.7); POTASSIUM 3.2 MMOL/L (3.6-5.0); SODIUM 136 MMOL/L (135-145); TRIGLYCERIDES 230 MG/DL (<150)
[2019-05-02] MEDS: PIPERACILLIN/TAZOBACTAM (BULK) 4.5 GM in NS (IVPB) 100 ML IV SCH ×3 (05:20→20:21)
[2019-05-02] MEDS: ENOXAPARIN 40 MG/0.4 ML (LOVENOX) SYR SC SCH (07:50)
[2019-05-02] MEDS: PANTOPRAZOLE 40 MG (PROTONIX) VIAL IV SCH (07:50)
[2019-05-02] MEDS: LEVETIRACETAM INJECTION 1,000 MG in NS (IVPB) 100 ML IV SCH ×2 (07:50→20:25)
[2019-05-02] MEDS: POTASSIUM CL 10MEQ/50ML IVPB 50 ML IV SCH ×2 (07:51→09:49)
--- NOTE | 2019-05-02 07:55 | NUR ---
This RN talked to EICU who stated to turn down propofol and leave Precedex on at the current rate for the cpap trials that RT is about to perform. This RN ended up turning off propofol and pt sandy weaning trials well.
--- NOTE | 2019-05-02 07:55 | Diagnostic Imaging Report ---
INDICATION: Dyspnea AP view of the chest is obtained. Since examination of one day earlier, support tubes and catheter remain in stable position. Overall heart size and pulmonary vascularity are within normal limits with slight overall increase in right basilar atelectasis and/or pneumonitis. Minimal left basilar atelectasis has not changed. IMPRESSION: Bilateral basilar atelectasis and/or pneumonitis which is somewhat greater on the right compared to previous study. No new abnormality is detected. Dictated by: Dictated on workstation # [id number]
[2019-05-02 08:24] LABS: ABG BASE EXCESS 1.8 MMOL/L (-2.5-2.5); ABG OXYGEN SATURATION 94 % (94-100); ABG PCO2 35 MMHG (35-45); ABG PH 7.47 (7.37-7.43); ABG PO2 74 MMHG (79-93); ABG TCO2 26.2 MMOL/L (21.0-31.0)
--- NOTE | 2019-05-02 08:25 | NUR ---
Dr. Hector in room and gave verbal order to extubate pt after seeing ABG. RT and RN at bedside to perform extubation at this time.
[2019-05-02 08:30] LABS: ALLENS TEST YES-POS
[2019-05-02 08:31] LABS: INSPIRED O2 30% CPAP; PATIENT TEMP 37.7; VENTILATOR NO
--- NOTE | 2019-05-02 08:38 | NUR ---
Pt extubated and placed on Vapotherm via RT. Pt confused and hallucinating. Dr. Hector notified.
--- NOTE | 2019-05-02 09:15 | NUR ---
Pt trying to climb out of bed, this RN one on one with pt at this time for pt safety. Pt aware of year, president and where he is but continues to hallucinate.
--- NOTE | 2019-05-02 10:50 | NUR ---
Pt still extremely agitated and trying pull at lines, continuing to try to climb out of bed. This RN called Dr. Hector who gave this RN new orders for medication.
[2019-05-02] MEDS ORDERED: WATER (STERILE) FOR INJECTION 10 ML ONE (10:56)
--- NOTE | 2019-05-02 11:00 | NUR ---
Aide as a sitter at pt bedside.
[2019-05-02] MEDS: ZIPRASIDONE 20 MG INJ (GEODON) VIAL IM PRN ×2 (11:09→15:00)
--- NOTE | 2019-05-02 12:12 | Progress Note - Hospitalist ---
Subjective HPI/CC On Admission Date Seen by Provider: May 02, 2019 Time Seen by Provider: 08:40 Pt is a 43yoCM with a PMH of alcohol abuse who presented the ER due to hallucinations. He gives a varied history about dreams vs reality and I am unsure the exact details but it seems that sometime over the past 5 days he started hallucinating. At first it was that there were bikes everywhere he thought that he was dreaming. He then said that his dreams/hallucinations became more erotic. He tells a story of walking from his kitchen through glass panel and ending up in his mother's kitchen. He also thought that he was about had a seizure. He is unsure of what day that occurred. Today he states that he saw people in his house again and the only way to make them go away was to hold up his Cross and his bible. He reports that he drinks 5-6 PB per day and that his last drink was last night. This varies from the history that his mother gave to the emergency room stating that he was in rehabilitation for alcohol at the end of March but relapsed shortly after discharge. She reported to the ER that his last drink was on April 16. Subjective/Events-last exam His sedation has been weaned this morning and he was awake and alert. He was extubated. He denies any pain. He denies any shortness of breath. He reports acid reflux. He has agitated. Objective Exam Vital Signs Vital Signs Date Time Temp Pulse Resp B/P (MAP) Pulse Ox O2 Delivery O2 Flow Rate FiO2 05/02/19 11:05 93 Vapotherm 5.00 40 05/02/19 11:00 63 34 150/109 (123) 05/01/19 20:00 36.6 Capillary Refill : Less Than 3 Seconds General Appearance: WD/WN, Anxious Respiratory: Lungs Clear, Normal Breath Sounds, No Respiratory Distress Cardiovascular: Regular Rate, Rhythm, No Murmur Gastrointestinal: Normal Bowel Sounds, Non Tender, Soft Extremity: Normal Inspection, Non Tender, Pedal Edema Neurologic/Psychiatric: Alert, Other (agitated, disoriented) Skin: Normal Color, Warm/Dry Results/Procedures Lab Laboratory Tests 05/02/19 03:20 Patient resulted labs reviewed. Imaging: Reviewed Imaging Report Assessment/Plan Assessment and Plan Assess & Plan/Chief Complaint Alcohol withdrawal Seizures Acute Respiratory Failure with hypoxia Aspiration pneumonia Critical illness myopathy Intubated 3/12, extubated 04/28 then reintubated eICU following, appreciate assistance with ventilator management and weaning extubated this morning continue Precedex Ativan as needed for anxiety Geodon as needed for agitation Continue Zosyn for likely aspiration pneumonia Continue Keppra consult PT/OT give one-time Lasix dose hypertension Begin scheduled hydralazine IV hydralazine as needed hypokalemia Continue to monitor and replace as needed Alcoholic liver disease clinically significant, no acute management needs DVT prophylaxis: Lovenox Hyperbilirubinemia, resolved Thrombocytopenia, resolved Hyponatremia, resolved Lactic acidosis, resolved Critical Care Critically Ill Patient Diagnosis/Problems Diagnosis/Problems (1) Alcohol withdrawal delirium Status: Acute (2) Acute respiratory failure Status: Acute Qualifiers: Respiratory failure complication: unspecified whether with hypoxia or hypercapnia Qualified Codes: J96.00 - Acute respiratory failure, unspecified whether with hypoxia or hypercapnia (3) Aspiration pneumonia Status: Acute Clinical Quality Measures DVT/VTE Risk/Contraindication: Risk Factor Score Per Nursin RFS Level Per Nursing on Admit: 1=Low/No VTE PPX AMBAR LAY MD May 02, 2019 12:12
[2019-05-02] MEDS ORDERED: FUROSEMIDE 40 MG/4 ML INJ (LASIX) IVP ONE (12:15)
[2019-05-02] MEDS: hydrALAZINE (APRESOLINE) 25 MG TAB PO SCH ×2 (12:15→20:23)
[2019-05-02] MEDS: DexMEDEtomidine 250 ML DRIP 250 ML IV SCH (15:02)
[2019-05-02] MEDS: traZODone 50 MG (DESYREL) TAB PO SCH (20:24)
[2019-05-03] VITALS (22 sets, daily range): BP systolic 101–159; BP diastolic 69–107
[2019-05-03] MEDS: DexMEDEtomidine 250 ML DRIP 250 ML IV SCH (00:27)
[2019-05-03] MEDS: aCETylcysteine 20% (MUCOMYST) 30ML SOLN VIAL INH SCH ×2 (01:57→08:00)
[2019-05-03] MEDS: RT-ALBUTEROL/IPRATROPIUM 3 ML (DUONEB) VIAL INH SCH ×6 (01:57→22:08)
[2019-05-03 03:26] LABS: BASOPHILS # (AUTO) 0.1 10^3/uL (0.0-0.1); BASOPHILS % (AUTO) 1 % (0-10); EOSINOPHILS # (AUTO) 0.1 10^3/uL (0.0-0.3); EOSINOPHILS % (AUTO) 1 % (0-10); HEMATOCRIT 37 % (40-54); HEMOGLOBIN 12.3 G/DL (13.3-17.7); LYMPHOCYTES # (AUTO) 1.6 X 10^3 (1.0-4.0); LYMPHOCYTES % (AUTO) 11 % (12-44); MEAN CORPUSCULAR HEMOGLOBIN 31 PG (25-34); MEAN CORPUSCULAR HGB CONC 34 G/DL (32-36); MEAN CORPUSCULAR VOLUME 91 FL (80-99); MEAN PLATELET VOLUME 10.8 FL (7.4-10.4); MONOCYTES # (AUTO) 0.9 X 10^3 (0.0-1.0); MONOCYTES % (AUTO) 6 % (0-12); NEUTROPHILS # (AUTO) 11.4 X 10^3 (1.8-7.8); NEUTROPHILS % (AUTO) 81 % (42-75); PLATELET COUNT 469 10^3/uL (130-400); RED CELL DISTRIBUTION WIDTH 13.5 % (10.0-14.5); WHITE BLOOD COUNT 14.1 10^3/uL (4.3-11.0)
[2019-05-03 03:42] LABS: BUN/CREATININE RATIO 13; CALCIUM 8.7 MG/DL (8.5-10.1); CARBON DIOXIDE 20 MMOL/L (21-32); CHLORIDE 99 MMOL/L (98-107); CREATININE SERUM 0.75 MG/DL (0.60-1.30); GFR ESTIMATED > 60; GLUCOSE 84 MG/DL (70-105); MAGNESIUM 1.7 MG/DL (1.6-2.4); POTASSIUM 3.1 MMOL/L (3.6-5.0); SODIUM 137 MMOL/L (135-145)
[2019-05-03] MEDS: PIPERACILLIN/TAZOBACTAM (BULK) 4.5 GM in NS (IVPB) 100 ML IV SCH (04:15)
[2019-05-03] MEDS: MAGNESIUM 1 GM/100 ML IVPB 100 ML IV SCH ×3 (04:15→04:59)
[2019-05-03] MEDS: hydrALAZINE (APRESOLINE) 25 MG TAB PO SCH ×3 (04:15→20:58)
[2019-05-03] MEDS: POTASSIUM CL 10MEQ/50ML IVPB 50 ML IV SCH ×5 (04:16→07:07)
[2019-05-03] MEDS: KCL 20 MEQ TAB (K-DUR) PO SCH (04:21)
--- NOTE | 2019-05-03 06:13 | Diagnostic Imaging Report ---
INDICATION: Dyspnea. Single AP view of the chest is obtained. FINDINGS: Since the examination of one day earlier, endotracheal tube and nasogastric tube have been discontinued. Right jugular central venous catheter remains in stable position. There is unchanged right basilar airspace disease. There has been mild increase in left perihilar density. No pneumothorax is identified. IMPRESSION: Continued right basilar infiltrate with developing mild left perihilar atelectasis and/or pneumonitis. Dictated by: Dictated on workstation # [id number]
[2019-05-03] MEDS: IBUPROFEN 600 MG (MOTRIN) TAB PO PRN (06:30)
--- NOTE | 2019-05-03 09:38 | Progress Note - Hospitalist ---
Subjective HPI/CC On Admission Date Seen by Provider: May 03, 2019 Time Seen by Provider: 09:34 Pt is a 43yoCM with a PMH of alcohol abuse who presented the ER due to hallucinations. He gives a varied history about dreams vs reality and I am unsure the exact details but it seems that sometime over the past 5 days he started hallucinating. At first it was that there were bikes everywhere he thought that he was dreaming. He then said that his dreams/hallucinations became more erotic. He tells a story of walking from his kitchen through glass panel and ending up in his mother's kitchen. He also thought that he was about had a seizure. He is unsure of what day that occurred. Today he states that he saw people in his house again and the only way to make them go away was to hold up his Cross and his bible. He reports that he drinks 5-6 PB per day and that his last drink was last night. This varies from the history that his mother gave to the emergency room stating that he was in rehabilitation for alcohol at the end of March but relapsed shortly after discharge. She reported to the ER that his last drink was on April 16. Subjective/Events-last exam Pt reports doing well. Was extubated yesterday. Believes he has been here for 3 months though. I informed him that this likely was due to alcohol withdrawal and he states he wants to quit drinking completely now. Objective Exam Vital Signs Vital Signs Date Time Temp Pulse Resp B/P (MAP) Pulse Ox O2 Delivery O2 Flow Rate FiO2 05/03/19 08:00 93 Room Air 05/03/19 07:24 36.8 05/03/19 06:42 119 05/03/19 06:00 26 141/107 (118) 5.00 05/02/19 23:15 35 Capillary Refill : Less Than 3 Seconds General Appearance: No Apparent Distress, WD/WN Neck: Other (central line in place) Respiratory: Lungs Clear, No Respiratory Distress Cardiovascular: No Murmur, Tachycardia Gastrointestinal: Normal Bowel Sounds, Soft Genital/Rectal: Other (thacker in place) Extremity: No Calf Tenderness, No Pedal Edema Neurologic/Psychiatric: Other (alert and oriented to major details (person and place)) Results/Procedures Lab Laboratory Tests 05/03/19 03:10 Patient resulted labs reviewed. Imaging: Reviewed Imaging Report Assessment/Plan Assessment and Plan Assess & Plan/Chief Complaint Alcohol withdrawal Seizures Acute Respiratory Failure with hypoxia Aspiration pneumonia Critical illness myopathy Intubated 04/21, extubated 04/28 then reintubated, now extubated on 05/01 eICU following continue Precedex Ativan as needed for anxiety Geodon as needed for agitation Completed Zosyn for likely aspiration pneumonia Continue Keppra consult PT/OT - Mother would like referral sent to [facility], discussed with social work who will assist with this as is medically stable now hypertension Continue hydralazine hypokalemia Continue to monitor and replace as needed Alcoholic liver disease clinically significant, no acute management needs DVT prophylaxis: Lovenox Hyperbilirubinemia, resolved Thrombocytopenia, resolved Hyponatremia, resolved Lactic acidosis, resolved Critical Care Critically Ill Patient Diagnosis/Problems Diagnosis/Problems (1) Alcohol withdrawal delirium Status: Acute (2) Acute respiratory failure Status: Acute Qualifiers: Respiratory failure complication: unspecified whether with hypoxia or hyper capnia Qualified Codes: J96.00 - Acute respiratory failure, unspecified wheth er with hypoxia or hypercapnia (3) Alcoholic liver disease Status: Chronic (4) Thrombocytopenia Status: Chronic (5) Hyponatremia Status: Resolved Resolution Date/Time: 04/22/19 @ 10:05 Clinical Quality Measures DVT/VTE Risk/Contraindication: Risk Factor Score Per Nursin RFS Level Per Nursing on Admit: 1=Low/No VTE PPX MICHELLE DRAKE MD May 03, 2019 09:38
[2019-05-03] MEDS: LEVETIRACETAM INJECTION 1,000 MG in NS (IVPB) 100 ML IV SCH ×2 (11:02→20:58)
[2019-05-03] MEDS: ENOXAPARIN 40 MG/0.4 ML (LOVENOX) SYR SC SCH (11:02)
[2019-05-03] MEDS: guaiFENesin/DM (ROBITUSSIN DM) 10 ML UDC PO PRN ×4 (11:02→23:57)
[2019-05-03] MEDS: PANTOPRAZOLE 40 MG (PROTONIX) VIAL IV SCH (11:02)
[2019-05-03] MEDS ORDERED: meTOprolol 5 MG/5 ML (LOPRESSOR) VIAL ONE (11:42)
[2019-05-03] MEDS ORDERED: meTOprolol 5 MG/5 ML (LOPRESSOR) VIAL IV ONE (11:45)
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
--- NOTE | 2019-05-03 12:06 | Physical Therapy Evaluation ---
PT Evaluation-General Medical Diagnosis Admission Date Apr 21, 2019 at 12:36 Medical Diagnosis: ETOH withdrawl, delerium Onset Date: Apr 21, 2019 Therapy Diagnosis Therapy Diagnosis: impaired mobility Precautions Precautions/Isolations: Seizure, Fall Prevention, Standard Precautions, Pressure Ulcer Weight Bear Status Right Lower Extremity: Right Weight Bearing/Tolerated Left Lower Extremity: Left Weight Bearing/Tolerated Referral Physician: Raquel Reason for Referral: Evaluation/Treatment Medical History Pertinent Medical History: Parkinson's Additional Medical History Dystonia, add/adhd, anxiety, depression Current History Pt admitted for ETOH detox. Placed on vent and extubated this morning. Reviewed History: Yes Social History Home: Single Level Current Living Status: Other Family Entry Into Home: Stairs Without Railing Prior Prior Level of Function SCALE: Activities may be completed with or without assistive devices. 8-Uftnkgmepu-huunawa completes the activity by him/herself with no assistance from a helper. 5-Set-up or Clean-up Assistance-helper sets up or cleans up; patient completes activity. Bath assists only prior to or following the activity. 4-Supervision or Touching Assistance-helper provides verbal cues and/or touching/steadying and/or contact guard assistance as patient completes activity. Assistance may be provided throughout the activity or intermittently. 3-Partial/Moderate Assistance-helper does LESS THAN HALF the effort. Bath lifts, holds or supports trunk or limbs, but provides less than half the effort. 2-Substantial/Maximal Assistance-helper does MORE THAN HALF the effort. Bath lifts or holds trunk or limbs and provides more than half the effort. 4-Uxtuqigwt-zeimns does ALL the effort. Patient does none of the effort to complete the activity. Or, the assistance of 2 or more helpers is required for the patient to complete the activity. If activity was not attempted, code reason: 7-Patient Refused. 9-Not Applicable-not attempted and the patient did not perform the activity before the current illness, exacerbation or injury. 10-Not Attempted due to Environmental Limitations-(lack of equipment, weather restraints, etc.). 88-Not Attempted due to Medical Conditions or Safety Concerns. Bed Mobility: 6 Transfers (B,C,W/C): 6 Gait: 6 Stairs: 6 Indoor Mobility (Ambulation): Independent Stairs: Independent Prior Devices Use: None PT Evaluation-Current Subjective Pt is alert and oriented. He is eager to get up and return to normal function. Pt/Family Goals Return home. Objective Patient Orientation: Person, Place, Time, Situation Attachments: IV ROM/Strength ROM Upper Extremities WFL ROM Lower Extremities WFL Strength Upper Extremities WFL Strength Lower Extremities WFL Integumentary/Posture Bowel Incontinence: No Bladder Incontinence: No Neuromuscular (Tone, Coordination, Reflexes) Sensation and reflexes are intact for (B) UEs and LEs. Sensory Vision: Functional Hearing: Functional Sensation Right Upper Extremit: Intact Sensation Left Upper Extremity: Intact Sensation Right Lower Extremit: Intact Sensation Left Lower Extremity: Intact Transfers Roll Left to Right (QC): 6 Sit to Lying (QC): 6 Lying to Sitting/Side of Bed(Q: 6 Sit to Stand (QC): 5 Chair/Lqi-ol-Lnuli Xfer(QC): 88 Toilet Transfer (QC): 5 Car Transfer (QC): 88 Gait Does the Patient Walk?: Yes Mode of Locomotion: Walk Anticipated Mode of Locomotion: Walk Walk 10 feet (QC): 88 Walk 50 ft with 2 Turns(QC): 88 Walk 150 ft (QC): 88 Walking 10ft/uneven surface-QC: 88 Distance: 3ft Gait Assistive Device: Handheld Assist Comments/Gait Description Limited gait due to current attachments. Wheelchair Training Does the Pt Use a Wheelchair?: No Stairs 1 Step (curb) (QC): 88 4 Steps (QC): 88 12 Steps (QC): 88 Balance Sitting Static: Normal Sitting Dynamic: Good Standing Static: Good Standing Dynamic: Fair Special Test Comments Pt was unsteady and felt weak when standing. Pt has an underlying issue with dystonia/parkinson's which results in tremors. Assessment/Needs Pt to benefit from PT to improve his mobility and allow him to return to his prior level of independence. Rehab Potential: Good PT Short Term Goals Short Term Goals Time Frame: May 10, 2019 Roll Left & Right: 6 Sit to lyin Lying to sitting on side of be: 6 Sit to stand: 6 Chair/bit-dw-rudig transfer: 6 Toilet transfer: 6 Car transfer: 6 Walk 10 feet: 6 Walk 50 feet with two turns: 6 Walk 150 feet: 6 Walking 10ft on uneven surface: 6 1 step (curb): 6 4 steps: 6 12 steps: 6 Picking up objects: 6 Does pt use a wc or scooter: No PT Plan Problem List Problem List: Activity Tolerance, Functional Strength, Safety, Balance, Gait Treatment/Plan Treatment Plan: Continue Plan of Care Treatment Plan: Functional Activity Vaibhav, Functional Strength, Gait, Safety, Therapeutic Exercise, Transfers Treatment Duration: May 10, 2019 Frequency: 6 times per week Estimated Hrs Per Day: .25 hour per day Patient and/or Family Agrees t: Yes Time/GCodes Time In: 1115 Time Out: 1200 Total Billed Treatment Time: 45 Total Billed Treatment 1, [facility] 45 NAYELY MCNULTY PT May 03, 2019 12:06
--- NOTE | 2019-05-03 12:51 | ST Dysphagia Evaluation ---
Speech Evaluation-General Medical Diagnosis callie Arriaga Onset Date: Apr 21, 2019 Therapy Diagnosis Therapy Diagnosis: Oropharyngeal Dysphagia Referral Referring Physician: Dr. Navarrete Medical History Pertinent Medical History: Parkinson's Reviewed History: Yes Social History Current Living Status: Other Family Speech PLF/Current-Dysphagia Prior Level of Function Patient lived at home with family where he was able to eat what he wanted without difficulty. Subjective Patient was pleasant and cooperative with the BDE. Cognitive Status Patient Orientation: Person, Place Patient appears to be confused with some of his medical details. Oral Motor Skills Dentition: Natural Ability to Follow Directions: Good Patient was NPO pending BDE Oral Expression Ability: Mild Impairment Voice Voice Phonatory-Based Quality: Normal Voice Pitch: Normal Voice Loudness: Mildly Soft/Quiet Face Facial Symmetry: Symmetrical Oral-Facial Assessment Oral-Facial Dentition: Normal Labial Seal Description: Normal Puff Cheeks: Normal Lingual Protrusion: Normal Lingual ROM: Normal Lingual Strength: Normal Pharynx Velopharyngeal Move.: Normal Volitional Dry Swallow: Yes Voluntary Cough: Yes Can Clear Throat Volitionally: Yes Dysphagia Evaluation Consistencies Presented: Regular, Thin Liquid, Mechanical Soft, Pureed Oral phase is within normal functional range. Pharyngeal phase is within normal functional range. Dietary Recommendations: Regular Liquid Recommendations: Thin Swallowing Precautions: Alternate Liquids/Solids, Decreased Bolus 1/2 Tsp, Decreased Rate of Oral Intake, Liquids from Straw, Small Bites and Sips, Sitting Upright 90 Degrees, Sitting 90 Degrees 30 Post Intake Dysphagia Evaluation Summary Patient was pleasant and cooperative with the BDE. Patient was given small sips via straw and 1/2 tsp of water x2 without difficulty. Patient was also given puree, mechanical soft and regular at 1/2 bite size of each without difficulty. Patient is recommended for regular diet level and thin liquids. This information was provided for his nurse and written on the white board in his room. Barriers to Learning Patient's medical history Speech-Plan Patient/Family Goals Patient/Family Goals: Patient plans on returning to his prior level of function upon discharge. Treatment Plan Speech Therapy Treatment Plan: Discontinue ST Treatment Duration: May 03, 2019 Frequency: 1 time per week Estimated Hrs Per Day: .25 hour per day Rehab Potential: Good Barriers to Learning: Patient's medical history Pt/Family Agrees to Plan: Yes Safety Risks/Education Teaching Recipient: Patient Teaching Methods: Demonstration, Discussion Response to Teaching: Verbalize Understanding, Return Demonstration Education Topics Provided: Safety of oral intake and diet level Time Speech Therapy Time In: 09:45 Speech Therapy Time Out: 10:00 Total Billed Time: 15 Billed Treatment Time [address] May 03, 2019 12:51
--- NOTE | 2019-05-03 14:16 | Physical Therapy Daily Note ---
PT Daily Note-Current Subjective Patient in recliner pre tx, agrees to PT, has no complaints of pain. Patient doesn't want to ambulate at this time, refuses to do it. Patient does agree to stand and then perform seated exercises Appearance Patient in recliner post tx with nurse call, phone, tray, all needs met, sitter in room. Mental Status Patient Orientation: Person, Confused Transfers SCALE: Activities may be completed with or without assistive devices. 1-Otlbzorikw-bvkmxig completes the activity by him/herself with no assistance from a helper. 5-Set-up or Clean-up Assistance-helper sets up or cleans up; patient completes activity. [place] assists only prior to or following the activity. 4-Supervision or Touching Assistance-helper provides verbal cues and/or touching/steadying and/or contact guard assistance as patient completes activity. Assistance may be provided throughout the activity or intermittently. 3-Partial/Moderate Assistance-helper does LESS THAN HALF the effort. Dal[place] lifts, holds or supports trunk or limbs, but provides less than half the effort. 2-Substantial/Maximal Assistance-helper does MORE THAN HALF the effort. [place] lifts or holds trunk or limbs and provides more than half the effort. 5-Fdlrolruk-kobmcd does ALL the effort. Patient does none of the effort to complete the activity. Or, the assistance of 2 or more helpers is required for the patient to complete the activity. If activity was not attempted, code reason: 7-Patient Refused. 9-Not Applicable-not attempted and the patient did not perform the activity before the current illness, exacerbation or injury. 10-Not Attempted due to Environmental Limitations-(lack of equipment, weather restraints, etc.). 88-Not Attempted due to Medical Conditions or Safety Concerns. Sit to Stand (QC): 3 Min assist with STOCK TRACER, slightly retropulsive, patient performed sit to stand x3 Weight Bearing Right Lower Extremity: Right Weight Bearing/Tolerated Left Lower Extremity: Left Weight Bearing/Tolerated Exercises Seated Therapy Exercises: Ankle pumps, Long arc quads Seated Reps: 20 Treatments standing, LE exercise Assessment Current Status: Fair Progress Patient confused, refused ambulation PT Short Term Goals Short Term Goals Time Frame: May 10, 2019 Roll Left & Right: 6 Sit to lyin Lying to sitting on side of be: 6 Sit to stand: 6 Chair/rck-te-srdse transfer: 6 Toilet transfer: 6 Car transfer: 6 Walk 10 feet: 6 Walk 50 feet with two turns: 6 Walk 150 feet: 6 Walking 10ft on uneven surface: 6 1 step (curb): 6 4 steps: 6 12 steps: 6 Picking up objects: 6 Does pt use a wc or scooter: No PT Plan Problem List Problem List: Activity Tolerance, Functional Strength, Safety, Balance, Gait, Transfer Treatment/Plan Treatment Plan: Continue Plan of Care Treatment Plan: Education, Functional Activity Vaibhav, Functional Strength, Gait, Safety, Therapeutic Exercise, Transfers Treatment Duration: May 10, 2019 Frequency: 6 times per week Estimated Hrs Per Day: .25 hour per day Patient and/or Family Agrees t: Yes Safety Risks/Education Patient Education: Transfer Techniques, Correct Positioning, Safety Issues Teaching Recipient: Patient Teaching Methods: Demonstration, Discussion Response to Teaching: Reinforcement Needed Time/GCodes Time In: 1405 Time Out: 1415 Total Billed Treatment Time: 10 Total Billed Treatment 1 visit EX EVANGELINA PRUETT PT May 03, 2019 14:16
--- NOTE | 2019-05-03 14:28 | Occupational Therapy Eval ---
OT Evaluation-General/PLF Medical Diagnosis Admission Date Apr 21, 2019 at 12:36 Medical Diagnosis: ETOH withdrawl, delerium Onset Date: Apr 21, 2019 Therapy Diagnosis Therapy Diagnosis: Decreased ADL skills Precautions Precautions/Isolations: Seizure, Fall Prevention, Standard Precautions Safety Interventions: Bed Exit Alarm, Diversional Activity, Reorient-PRN Weight Bear Status Weight Bearing Restriction: Weight Bearing/Tolerated Referral Physician: Raquel Referral Reason: Activity Tolerance, Self Care, Evaluation/Treatment, Strengthening/ROM Medical History Pertinent Medical History: Parkinson's Additional Medical History ADD/ ADHD, anx/depression, seizure disorder, liver disease Current History Pt intubated 04/21 due to alcohol withdrawal, extubated 04/28 and reintubated, then extubated 05/02/19. Reviewed History: Yes Social History Home: Single Level Current Living Status: Other Family Entry Into Home: Stairs Without Railing Pt lived alone in 2 level home alone with walk in shower and steps to enter Pt plans to return to mother's home, has 3-4 steps to enter and tub/ shower. ADL-Prior Level of Function SCALE: Activities may be completed with or without assistive devices. 5-Upnzspzgvy-rdbjuyg completes the activity by him/herself with no assistance from a helper. 5-Set-up or Clean-up Assistance-helper sets up or cleans up; patient completes activity. Erwinna assists only prior to or following the activity. 4-Supervision or Touching Assistance-helper provides verbal cues and/or touching/steadying and/or contact guard assistance as patient completes activity. Assistance may be provided throughout the activity or intermittently. 3-Partial/Moderate Assistance-helper does LESS THAN HALF the effort. Erwinna lifts, holds or supports trunk or limbs, but provides less than half the effort. 2-Substantial/Maximal Assistance-helper does MORE THAN HALF the effort. Erwinna lifts or holds trunk or limbs and provides more than half the effort. 7-Dhqjdsdfr-qdhnva does ALL the effort. Patient does none of the effort to complete the activity. Or, the assistance of 2 or more helpers is required for the patient to complete the activity. If activity was not attempted, code reason: 7-Patient Refused. 9-Not Applicable-not attempted and the patient did not perform the activity before the current illness, exacerbation or injury. 10-Not Attempted due to Environmental Limitations-(lack of equipment, weather restraints, etc.). 88-Not Attempted due to Medical Conditions or Safety Concerns. 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 Pt agreeable to OT eval/ treat, requesting bathroom. basket hand braider present through session. Nursing notified of pt position and desire to utilize bathroom. Mental Status/Objective Patient Orientation: Person, Place, Situation Attachments: Telemetry Current Glasses/Contacts: Yes Hearing Aids: No Dentures/Partials: No Hand Dominance: Left Upper Extremity ROM WFL AROM/ PROM Upper Extremity Coordination WFL BUE Upper Extremity Sensation WFL per pt Upper Extremity Strength Decreased (3+/5) ADL-Treatment Eating (QC): 6 Oral Hygiene (QC): 6 On/Off Footwear (QC): 4 (CGA in sit/ bending over due to decreased sitting balance. ) Toileting Hygiene (QC): 3 (Pt able to wipe on toilet, requires assist in stance for thoroughness) Other Treatments Pt seen in bed. Pt agrees to OT, states need for bathroom. Pt oriented x3. basket hand braider present through session. Pt bed mob with SUP. Sits EOB with good balance. Pt sit to stand with HHAx2, ambulates to toilet. Pt completes BM/ urination with SBA, dons/ doffs sock. Pt expresses hx and his/ mother's environment at home. Pt sit to stand from toilet with min A x2 on either side, sits in recliner chair with all needs met, call light in reach, nursing educator present. Pt and OT discuss further tx, pt agreeable. Education OT Patient Education: Correct positioning, Modified ADL techniques, Safety issues, Transfer techniques Teaching Recipient: Patient Teaching Methods: Demonstration, Discussion Response to Teaching: Verbalize Understanding, Return Demonstration OT Mcc Goals Mcc Goals Time Frame: May 17, 2019 Eating (QC): 6 Oral Hygiene (QC): 6 Toileting Hygiene (QC): 6 Shower/Bathe Self (QC): 6 Upper Body Dressing (QC): 6 Lower Body Dressing (QC): 6 On/Off Footwear (QC): 6 Additional Goals: 1-Demonstrate ADL Tasks, 2-Verbalize Understanding, 3- ImproveStrength/Vaibhav 1=Demonstrate adherence to instructed precautions during ADL tasks. 2=Patient will verbalize/demonstrate understanding of assistive devices/modifications for ADL. 3=Patient will improve strength/tolerance for activity to enable patient to perform ADL's. OT Education/Plan Problem List/Assessment Assessment: Decreased Activ Tolerance, Decreased UE Strength, Dependent Transfers, Impaired Funct Balance, Impaired I ADL's, Impaired Self-Care Skills Discharge Recommendations Plan/Recommendations: Continue POC Therapy Discharge Recommendati: Home & Family Equpiment Recommendations-D/C: Rails on Tub/Shower, Bath Chair Comment in mother's home: Treatment Plan/Plan of Care Treatment,Training & Education: Yes Patient would benefit from OT for education, treatment and training to promote independence in ADL's, mobility, safety and/or upper extremity function for ADL's. Plan of Care: ADL Retraining, Caregiver Training, Functional Mobility, UE Funct Exercise/Act Treatment Duration: May 17, 2019 Frequency: 5 times per week Estimated Hrs Per Day: .25 hour per day Agreement: Yes Rehab Potential: Good Time/GCodes Start Time: 13:22 Stop Time: 13:53 Total Time Billed (hr/min): 31 Billed Treatment Time 1, KIMBERLY, JAZMYNE (31) NADIR GUTIERRES OTR May 03, 2019 14:28
[2019-05-03] MEDS: SINEMET 25/250 (CARBIDOPA/LEVODOPA) TAB PO SCH (20:57)
[2019-05-03] MEDS: traZODone 50 MG (DESYREL) TAB PO SCH (20:58)
[2019-05-04] VITALS (23 sets, daily range): BP systolic 116–148; BP diastolic 60–86
[2019-05-04] MEDS: RT-ALBUTEROL/IPRATROPIUM 3 ML (DUONEB) VIAL INH SCH ×2 (02:10→07:21)
[2019-05-04 03:52] LABS: BASOPHILS # (AUTO) 0.1 10^3/uL (0.0-0.1); BASOPHILS % (AUTO) 0 % (0-10); EOSINOPHILS # (AUTO) 0.3 10^3/uL (0.0-0.3); EOSINOPHILS % (AUTO) 2 % (0-10); HEMATOCRIT 37 % (40-54); HEMOGLOBIN 12.6 G/DL (13.3-17.7); LYMPHOCYTES # (AUTO) 1.6 X 10^3 (1.0-4.0); LYMPHOCYTES % (AUTO) 11 % (12-44); MEAN CORPUSCULAR HEMOGLOBIN 31 PG (25-34); MEAN CORPUSCULAR HGB CONC 34 G/DL (32-36); MEAN CORPUSCULAR VOLUME 92 FL (80-99); MONOCYTES % (AUTO) 6 % (0-12); NEUTROPHILS # (AUTO) 12.6 X 10^3 (1.8-7.8); NEUTROPHILS % (AUTO) 81 % (42-75); PLATELET COUNT 578 10^3/uL (130-400); RED CELL DISTRIBUTION WIDTH 14.1 % (10.0-14.5); WHITE BLOOD COUNT 15.6 10^3/uL (4.3-11.0)
[2019-05-04 04:07] LABS: CARBON DIOXIDE 18 MMOL/L (21-32); CHLORIDE 102 MMOL/L (98-107); POTASSIUM 2.7 MMOL/L (3.6-5.0); SODIUM 136 MMOL/L (135-145)
[2019-05-04 04:08] LABS: BUN/CREATININE RATIO 12; CALCIUM 8.7 MG/DL (8.5-10.1); CREATININE SERUM 0.68 MG/DL (0.60-1.30); GFR ESTIMATED > 60; GLUCOSE 103 MG/DL (70-105); MAGNESIUM 1.7 MG/DL (1.6-2.4); PHOSPHORUS 2.3 MG/DL (2.3-4.7)
[2019-05-04 04:22] LABS: BAND NEUTROPHILS 5 %; EOSINOPHILS % (MANUAL) 4 %; LYMPHOCYTES % (MANUAL) 22 %; MONOCYTES % (MANUAL) 6 %; NEUTROPHILS % (MANUAL) 63 %; RBC MORPH NORMAL
[2019-05-04] MEDS: hydrALAZINE (APRESOLINE) 25 MG TAB PO SCH (04:54)
[2019-05-04] MEDS: POTASSIUM CL 10MEQ/50ML IVPB 50 ML IV SCH (06:44)
[2019-05-04] MEDS: MAGNESIUM 1 GM/100 ML IVPB 100 ML IV SCH ×2 (06:44→12:14)
[2019-05-04] MEDS: KCL 20 MEQ TAB (K-DUR) PO SCH ×4 (06:44→12:09)
--- NOTE | 2019-05-04 06:51 | Diagnostic Imaging Report ---
INDICATION: Dyspnea. TECHNIQUE: Single view chest 3:14 AM. CORRELATION STUDY: 05/03/2019 FINDINGS: The heart size, mediastinal configuration and pulmonary vascularity are within normal limits. Minimal right basilar infiltrate and/or atelectasis does persist. Some improved aeration with resolution left basilar perihilar atelectasis. IMPRESSION: 1. Minimal atelectasis or infiltrate at the right lung base. Dictated by: Dictated on workstation # [id number]
--- NOTE | 2019-05-04 09:23 | Progress Note - Hospitalist ---
Subjective HPI/CC On Admission Date Seen by Provider: May 04, 2019 Time Seen by Provider: 09:16 Pt is a 43yoCM with a PMH of alcohol abuse who presented the ER due to hallucinations. He gives a varied history about dreams vs reality and I am unsure the exact details but it seems that sometime over the past 5 days he started hallucinating. At first it was that there were bikes everywhere he thought that he was dreaming. He then said that his dreams/hallucinations became more erotic. He tells a story of walking from his kitchen through glass panel and ending up in his mother's kitchen. He also thought that he was about had a seizure. He is unsure of what day that occurred. Today he states that he saw people in his house again and the only way to make them go away was to hold up his Cross and his bible. He reports that he drinks 5-6 PB per day and that his last drink was last night. This varies from the history that his mother gave to the emergency room stating that he was in rehabilitation for alcohol at the end of March but relapsed shortly after discharge. She reported to the ER that his last drink was on April 16. Subjective/Events-last exam Pt reports doing well. Currently shaving with OT at bedside. Requesting to restart his Prozac. Objective Exam Vital Signs Vital Signs Date Time Temp Pulse Resp B/P (MAP) Pulse Ox O2 Delivery O2 Flow Rate FiO2 05/04/19 08:09 98 Room Air 05/04/19 07:00 84 17 133/85 (101) 05/04/19 04:00 5.00 05/04/19 04:00 37.1 05/02/19 23:15 35 Capillary Refill : Less Than 3 Seconds General Appearance: No Apparent Distress, WD/WN Respiratory: Lungs Clear, No Respiratory Distress Cardiovascular: No Murmur, Tachycardia Gastrointestinal: Normal Bowel Sounds, Non Tender, Soft Neurologic/Psychiatric: Alert, Oriented x3 Results/Procedures Lab Laboratory Tests 05/04/19 03:25 Patient resulted labs reviewed. Imaging: Reviewed Imaging Report Assessment/Plan Assessment and Plan Assess & Plan/Chief Complaint Alcohol withdrawal Seizures Acute Respiratory Failure with hypoxia Aspiration pneumonia Critical illness myopathy Intubated 04/21, extubated 04/28 then reintubated, now extubated on 05/01 eICU following Ativan as needed for anxiety Geodon as needed for agitation Completed Zosyn for likely aspiration pneumonia Continue Keppra orally consult PT/OT - Mother would like referral sent to [facility], discussed with social work who will assist with this as is medically stable now hypertension Metoprolol started hypokalemia Replaced per protocol - Replace mag as well Alcoholic liver disease clinically significant, no acute management needs DVT prophylaxis: Lovenox Hyperbilirubinemia, resolved Thrombocytopenia, resolved Hyponatremia, resolved Lactic acidosis, resolved Critical Care Critically Ill Patient Diagnosis/Problems Diagnosis/Problems (1) Alcohol withdrawal delirium Status: Acute (2) Acute respiratory failure Status: Resolved Qualifiers: Respiratory failure complication: unspecified whether with hypoxia or hypercapnia Qualified Codes: J96.00 - Acute respiratory failure, unspecified whether with hypoxia or hypercapnia Resolution Date/Time: 05/04/19 @ 09:32 (3) Alcoholic liver disease Status: Chronic (4) Thrombocytopenia Status: Resolved Resolution Date/Time: 05/04/19 @ 09:32 (5) Hyponatremia Status: Resolved Resolution Date/Time: 04/22/19 @ 10:05 Clinical Quality Measures DVT/VTE Risk/Contraindication: Risk Factor Score Per Nursin RFS Level Per Nursing on Admit: 1=Low/No VTE PPX MICHELLE DRAKE MD May 04, 2019 09:23
--- NOTE | 2019-05-04 09:33 | Occupational Ther Daily Note ---
OT Current Status-Daily Note Subjective Pt seen in bed, nursing present. Pt expresses desire to get up/ shave this am. Nursing agrees shaving okay. Pt denies pain, states did not sleep well and desires sleeping aide. ADL-Treatment Therapy Code Descriptions/Definitions Functional [place] Measure: 0=Not Assessed/NA 4=Minimal Assistance 1=Total Assistance 5=Supervision or Setup 2=Maximal Assistance 6=Modified [place] 3=Moderate Assistance 7=Complete IndependenceSCALE: Activities may be completed with or without assistive devices. 4-Nwvamjmemm-yghhxji completes the activity by him/herself with no assistance fr om a helper. 5-Set-up or Clean-up Assistance-helper sets up or cleans up; patient completes activity. Pax assists only prior to or following the activity. 4-Supervision or Touching Assistance-helper provides verbal cues and/or touching/steadying and/or contact guard assistance as patient completes activity. Assistance may be provided throughout the activity or intermittently. 3-Partial/Moderate Assistance-helper does LESS THAN HALF the effort. Pax lifts, holds or supports trunk or limbs, but provides less than half the effort. 2-Substantial/Maximal Assistance-helper does MORE THAN HALF the effort. Pax lifts or holds trunk or limbs and provides more than half the effort. 6-Cmpxnixge-xpvgzd does ALL the effort. Patient does none of the effort to complete the activity. Or, the assistance of 2 or more helpers is required for the patient to complete the activity. If activity was not attempted, code reason: 7-Patient Refused. 9-Not Applicable-not attempted and the patient did not perform the activity before the current illness, exacerbation or injury. 10-Not Attempted due to Environmental Limitations-(lack of equipment, weather restraints, etc.). 88-Not Attempted due to Medical Conditions or Safety Concerns. Eating (QC): 6 Oral Hygiene (QC): 7 Bathing Location: L Arm, R Arm, L Upper Leg, R Upper Leg, Chest, Abdomen, Buttocks, Perineal Area Shower/Bathe Self (QC): 4 (SBA/ CGA in stance.) Upper Body Dressing (QC): 5 (s/u) Other Treatment Pt completes bed mob with SBA. Sit to stand without AE with CGA, ambulates 2 steps to recliner chair. Pt sits to complete bathing. pt s/u for shaving (nursing states okay). Pt converses throughout, jumping from subject to subject without full connections. Pt able to shave with s/u and min A for continuation of task as pt's UE/ abdominal endurance fair. Pt requires cues for relaxation techniques/ diaphragmatic breathing as pt's heart rate increases with activity throughout. Pt educated of OT exit in ~10 min prior to exit. Pt agrees to finish shaving tasks with clinical nursing instructor when transferred to 4th. Pt left in bed (bed mob SBA) with call light in reach, all needs met, pt states will take nap. Upon OT exit, OT order for treatment was cancelled. Nursing questioned. Nursing states will place new order in for continuation of services for 4th floor, OT to plan to see pt tomorrow. Education OT Patient Education: Correct positioning, Modified ADL techniques, Purpose of tx/functional activities, Safety issues Teaching Recipient: Patient Teaching Methods: Demonstration, Discussion Response to Teaching: Verbalize Understanding, Return Demonstration, Reinforcement Needed OT Fpc Goals Fpc Goals Time Frame: May 17, 2019 Eating (QC): 6 Oral Hygiene (QC): 6 Toileting Hygiene (QC): 6 Shower/Bathe Self (QC): 6 Upper Body Dressing (QC): 6 Lower Body Dressing (QC): 6 On/Off Footwear (QC): 6 Additional Goals: 1-Demonstrate ADL Tasks, 2-Verbalize Understanding, 3- ImproveStrength/Vaibhav 1=Demonstrate adherence to instructed precautions during ADL tasks. 2=Patient will verbalize/demonstrate understanding of assistive devices/modifications for ADL. 3=Patient will improve strength/tolerance for activity to enable patient to perform ADL's. OT Education/Plan Problem List/Assessment Assessment: Decreased Activ Tolerance, Decreased UE Strength, Dependent Transfers, Impaired I ADL's, Impaired Self-Care Skills Discharge Recommendations Plan/Recommendations: Continue POC Therapy Discharge Recommendati: Intermittent Supervision, Home & Family, Post Acute OT Treatment Plan/Plan of Care Treatment,Training & Education: Yes Patient would benefit from OT for education, treatment and training to promote independence in ADL's, mobility, safety and/or upper extremity function for ADL's. Plan of Care: ADL Retraining, Caregiver Training, Functional Mobility, UE Funct Exercise/Act Treatment Duration: May 17, 2019 Frequency: 5 times per week Estimated Hrs Per Day: .25 hour per day Agreement: Yes Rehab Potential: Good Time/GCodes Start Time: 08:08 Stop Time: 09:00 Total Time Billed (hr/min): 52 Billed Treatment Time 1, ADL 3 (52) NADIR GUTIERRES OTR May 04, 2019 09:33
[2019-05-04] MEDS: SINEMET 25/250 (CARBIDOPA/LEVODOPA) TAB PO SCH ×2 (09:53→20:07)
[2019-05-04] MEDS: PANTOPRAZOLE 20 MG TABLET (PROTONIX) PO SCH (09:54)
[2019-05-04] MEDS: LEVETIRACETAM 500 MG (KEPPRA) TAB PO SCH ×2 (09:54→20:07)
[2019-05-04] MEDS: FLUoxetine HCL 20 MG (PROzac) CAP PO SCH (09:55)
[2019-05-04] MEDS: ENOXAPARIN 40 MG/0.4 ML (LOVENOX) SYR SC SCH (09:56)
--- NOTE | 2019-05-04 09:56 | Physical Therapy Daily Note ---
PT Daily Note-Current Subjective Pt is in bed and ready to get up. Pain Numeric Pain Scale: 0-No Pain Mental Status Patient Orientation: Person, Place, Time, Situation Transfers SCALE: Activities may be completed with or without assistive devices. 1-Jojfmgpkvc-bwniesc completes the activity by him/herself with no assistance from a helper. 5-Set-up or Clean-up Assistance-helper sets up or cleans up; patient completes activity. Maple assists only prior to or following the activity. 4-Supervision or Touching Assistance-helper provides verbal cues and/or touching/steadying and/or contact guard assistance as patient completes activity. Assistance may be provided throughout the activity or intermittently. 3-Partial/Moderate Assistance-helper does LESS THAN HALF the effort. Maple lifts, holds or supports trunk or limbs, but provides less than half the effort. 2-Substantial/Maximal Assistance-helper does MORE THAN HALF the effort. Maple lifts or holds trunk or limbs and provides more than half the effort. 9-Qeyrdbqri-ohruql does ALL the effort. Patient does none of the effort to complete the activity. Or, the assistance of 2 or more helpers is required for the patient to complete the activity. If activity was not attempted, code reason: 7-Patient Refused. 9-Not Applicable-not attempted and the patient did not perform the activity before the current illness, exacerbation or injury. 10-Not Attempted due to Environmental Limitations-(lack of equipment, weather restraints, etc.). 88-Not Attempted due to Medical Conditions or Safety Concerns. Roll Left & Right (QC): 6 Sit to Lying (QC): 6 Lying to Sitting/Side of Bed(Q: 6 Sit to Stand (QC): 5 Chair/Pyp-dp-Pvgzm Xfer(QC): 5 Weight Bearing Right Lower Extremity: Right Weight Bearing/Tolerated Left Lower Extremity: Left Weight Bearing/Tolerated Gait Training Does the Patient Walk?: Yes Distance: 100ft Walk 10 feet (QC): 5 Walk 50 ft with 2 Turns(QC): 5 Gait Persons Needed: 1 Gait Assistive Device: Handheld Assist Wheelchair Training Does the Pt Use a Wheelchair?: No Exercises Supine Ex: LE Protocol Supine Reps: [address] Ex=Flex, Abd, Ext, Marching Standing Reps: 15 Assessment Current Status: Good Progress Pt fatigued rapidly with standing exercises and had to stop between sets to rest. He was moderately confused by the end of treatment and noted seeing Dr Inman in his room. PT Short Term Goals Short Term Goals Time Frame: May 10, 2019 Roll Left & Right: 6 Sit to lyin Lying to sitting on side of be: 6 Sit to stand: 6 Chair/rgp-vh-odkuo transfer: 6 Toilet transfer: 6 Car transfer: 6 Walk 10 feet: 6 Walk 50 feet with two turns: 6 Walk 150 feet: 6 Walking 10ft on uneven surface: 6 1 step (curb): 6 4 steps: 6 12 steps: 6 Picking up objects: 6 Does pt use a wc or scooter: No PT Plan Treatment/Plan Treatment Plan: Continue Plan of Care Treatment Plan: Education, Functional Activity Vaibhav, Functional Strength, Gait, Safety, Therapeutic Exercise, Transfers Treatment Duration: May 10, 2019 Frequency: 6 times per week Estimated Hrs Per Day: .25 hour per day Patient and/or Family Agrees t: Yes Time/GCodes Time In: 909 Time Out: 934 Total Billed Treatment Time: 25 Total Billed Treatment 1, gt 10, ex 15 NAYELY MCNULTY PT May 04, 2019 09:56
--- NOTE | 2019-05-04 10:56 | NUR ---
"RD ASSESSMENT PMHx: seizure disorder; ETOH use/abuse; HTN PT INTERACTION: Pt was awake and pleasant during nutrition assessment. Pt states current appetite is good. Note avg PO intake 50-75% x2meal, per chart review. Pt states following regular diet at home, and has no issues with chewing/swallowing food. Pt states no recent issues with nausea or diarrhea. Pt states some issues with constipation. Note last BM was 05/06, and pt not currently on bowel regimen per chart review. Pt states no recent wt changes. Note unable to determine recent wt hx, per chart review. ABNORMAL NUTRITION-RELATED LAB VALUES LOW: K 2.7 HIGH: Est. kcal needs: [id number] kcal | 20-25 kcal/kg Est. Pro needs: 73-91 g Pro | 0.8-1.0 g Pro/kg PES STATEMENT: Inadequate oral intake (NI-2.1) related to pt recently extubated | constipation | loss of appetite as evidenced by pt interview | chart review | avg PO intake 50-75% x2meal INTERVENTION: Continue with current diet order of Regular diet. Pt may benefit from nutrition supplementation if PO intake declines. Will continue to follow and reassess as pt needs, intake, and status change. MONITOR/EVALUATE: PO Intake; Plan of Care; Hydration Status; Weight Status; Lab Values Ly Cedillo, MS, RD, LD"
--- NOTE | 2019-05-04 11:36 | NUR ---
CM/SS follow up with the patient. CM/SS visited with the patient. He was sitting up in bed an appeared bright/alert. The patient appeared to understand and hold a conversation well today. He states he remembers our visit from yesterday and his confusion has improved a lot. This CM/SS talked with the patient about possible options for discharge. CM/SS asked if the patient was willing to go into an inpatient psych facility. The patient verbalized, yes. CM/SS also discussed with the patient that inpatient rehab was assessing him as well. He understands this is not an addictions rehab. CM/SS discussed with the patient if he wanted to go into an addictions treatment or inpatient psych. He verbalized he would be willing to go into inpatient psych. He did not want to go for alcohol treatment. He reports he has been to [facility] before and did not feel they were helpful. CM/SS called and faxed a referral to [facility] ([phone]) in [place]. They report they do not have any beds currently open but will look over referral pack to see if he is an appropriate candidate. Zaira from [facility], contacted this SS and stated he is not an appropriate candidate for them based on medical acuity. CM/SS faxed to ([phone]). CM/SS called and faxed a referral to [facility] ([phone]). They verbalized they have open beds currently. CM/SS faxed to ([phone]). They contacted this SS and confirmed they received fax and will inform me of the decision when available. CM/SS contacted [facility] who stated they are currently full but have 5 discharges today. However, Vickie stated he does not meet their criteria for admission. CM/SS contacted [facility] who verbalized they do not have any beds available. Will continue to follow. Addendum: 05/04/19 at 1350 by MEAGHAN KEARNS SSS [facility] denied patient based on "capability". CM/SS informed the patient. He verbalized understanding. CM/SS discussed with the patient that he may have to have outpatient follow up. He verbalized understanding.
--- NOTE | 2019-05-04 16:04 | NUR ---
IRF Evaluation Order received to evaluate patient for the ARU. 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 CM/SS notified. Will assess patient's progress with therapy, tomorrow. Thank you for this referral.
--- NOTE | 2019-05-04 16:56 | NUR ---
CM/SS visited with the patient's mother. She verbalized that she is frustrated due to the denials from inpatient psych placements. She does not understand the denials. The patients mother is going to call [facility] and get further information on why they denied. The patients mother also doesn't understand why he isn't accepted based on past suicidal ideation. She asked if [facility] would send a referral to [facility] in [place]. CM/SS called and faxed referral. CM/SS asked referral line if he would qualify based on past suicidal history. They stated no. The referral line stated he doesn't sound like he will meet criteria but they will look it over. MARY/SS spoke with high school social studies teacher at [facility] [employer] Jaz Hodges. She will attempt to help schedule a behavioral health appointment on the same day as discharge. He already has an appointment on May 26 at 2 p.m. for Medication Management. Tomorrow the available time at [facility] is 3:00 p.m. with
--- NOTE | 2019-05-04 17:42 | NUR ---
PT SEEN BY DR DRAKE THIS AM. ORDERS RECEIVED. THROUGHOUT DAY PT HAS BECOME INCREASINGLY CONFUSED WELL INCREASED HALLUCINATIONS. DR DRAKE NOTIFIED. PT CURRENTLY SITTING UP IN CHAIR WITH CHAIR ALARM IN PLACE. NO ACUTE CHANGES. NO NEW COMPLAINTS. VITALS HAVE REMAINED STABLE. WILL CONTINUE TO MONITOR.
[2019-05-04] MEDS ORDERED: RT-ALBUTEROL/IPRATROPIUM 3 ML (DUONEB) VIAL ONE (18:04)
[2019-05-04] MEDS: MELATONIN 3 MG TABLET PO SCH (20:07)
[2019-05-04] MEDS: traZODone 50 MG (DESYREL) TAB PO SCH (20:07)
[2019-05-04] MEDS ORDERED: KCL 20 MEQ TAB (K-DUR) PO ONE ×2 (21:15→23:15)
[2019-05-04] MEDS: LORazepam INJ 2 MG/ML (ATIVAN) VIAL IVP PRN (22:18)
[2019-05-05] VITALS (16 sets, daily range): BP systolic 100–150; BP diastolic 62–94
[2019-05-05] MEDS ORDERED: KCL 20 MEQ TAB (K-DUR) PO ONE ×2 (01:15→07:00)
[2019-05-05 03:25] LABS: BASOPHILS # (AUTO) 0.1 10^3/uL (0.0-0.1); BASOPHILS % (AUTO) 1 % (0-10); EOSINOPHILS # (AUTO) 0.4 10^3/uL (0.0-0.3); EOSINOPHILS % (AUTO) 3 % (0-10); HEMATOCRIT 37 % (40-54); HEMOGLOBIN 12.1 G/DL (13.3-17.7); LYMPHOCYTES # (AUTO) 1.9 X 10^3 (1.0-4.0); LYMPHOCYTES % (AUTO) 17 % (12-44); MEAN CORPUSCULAR HEMOGLOBIN 30 PG (25-34); MEAN CORPUSCULAR HGB CONC 33 G/DL (32-36); MEAN CORPUSCULAR VOLUME 91 FL (80-99); MEAN PLATELET VOLUME 10.5 FL (7.4-10.4); MONOCYTES # (AUTO) 0.9 X 10^3 (0.0-1.0); MONOCYTES % (AUTO) 8 % (0-12); NEUTROPHILS # (AUTO) 8.1 X 10^3 (1.8-7.8); NEUTROPHILS % (AUTO) 72 % (42-75); PLATELET COUNT 544 10^3/uL (130-400); RED CELL DISTRIBUTION WIDTH 14.3 % (10.0-14.5); WHITE BLOOD COUNT 11.4 10^3/uL (4.3-11.0)
[2019-05-05 03:46] LABS: BUN/CREATININE RATIO 14; CALCIUM 8.9 MG/DL (8.5-10.1); CARBON DIOXIDE 19 MMOL/L (21-32); CHLORIDE 105 MMOL/L (98-107); CREATININE SERUM 0.65 MG/DL (0.60-1.30); GFR ESTIMATED > 60; GLUCOSE 98 MG/DL (70-105); MAGNESIUM 1.7 MG/DL (1.6-2.4); PHOSPHORUS 2.6 MG/DL (2.3-4.7); POTASSIUM 3.6 MMOL/L (3.6-5.0); SODIUM 137 MMOL/L (135-145)
[2019-05-05] MEDS: POTASSIUM CL 10MEQ/50ML IVPB 50 ML IV SCH (03:55)
[2019-05-05] MEDS: MAGNESIUM 1 GM/100 ML IVPB 100 ML IV SCH ×3 (03:56→04:23)
[2019-05-05] MEDS: KCL 20 MEQ TAB (K-DUR) PO SCH (03:56)
[2019-05-05] MEDS: LORazepam INJ 2 MG/ML (ATIVAN) VIAL IVP PRN ×3 (05:19→18:25)
[2019-05-05] MEDS: RT-ALBUTEROL/IPRATROPIUM 3 ML (DUONEB) VIAL INH SCH ×3 (06:59→21:07)
[2019-05-05] MEDS ORDERED: WATER (STERILE) FOR INJECTION 10 ML ONE ×2 (07:28→15:32)
[2019-05-05] MEDS: ZIPRASIDONE 20 MG INJ (GEODON) VIAL IM PRN ×3 (07:38→21:52)
[2019-05-05] MEDS: LEVETIRACETAM 500 MG (KEPPRA) TAB PO SCH ×2 (07:39→20:42)
[2019-05-05] MEDS: PANTOPRAZOLE 20 MG TABLET (PROTONIX) PO SCH (07:39)
[2019-05-05] MEDS: FLUoxetine HCL 20 MG (PROzac) CAP PO SCH (07:39)
[2019-05-05] MEDS: SINEMET 25/250 (CARBIDOPA/LEVODOPA) TAB PO SCH ×2 (07:39→20:43)
[2019-05-05] MEDS: ENOXAPARIN 40 MG/0.4 ML (LOVENOX) SYR SC SCH (07:40)
--- NOTE | 2019-05-05 07:42 | Diagnostic Imaging Report ---
INDICATION: Alcohol withdrawal. Comparison with 05/04/2019. FINDINGS: Portable chest. Lungs are well-aerated. There has been clearing of basilar atelectasis. The heart is not enlarged. There are no infiltrates. No pulmonary edema. No pneumothorax or pleural effusion. IMPRESSION: Normal portable chest. Dictated by: Dictated on workstation # [id number]
--- NOTE | 2019-05-05 08:46 | Physical Therapy Daily Note ---
PT Daily Note-Current Subjective Patient in recliner pre tx, sitter in room, agrees to PT, has no complaints of pain. Appearance Patient in recliner post tx with nurse call, phone, tray, chair alarm on, sitter in room. Mental Status Patient Orientation: Person, Confused Transfers SCALE: Activities may be completed with or without assistive devices. 6-Vlhtbgvudv-fnvixsf completes the activity by him/herself with no assistance from a helper. 5-Set-up or Clean-up Assistance-helper sets up or cleans up; patient completes activity. [place] assists only prior to or following the activity. 4-Supervision or Touching Assistance-helper provides verbal cues and/or touching/steadying and/or contact guard assistance as patient completes activity. Assistance may be provided throughout the activity or intermittently. 3-Partial/Moderate Assistance-helper does LESS THAN HALF the effort. [place] lifts, holds or supports trunk or limbs, but provides less than half the effort. 2-Substantial/Maximal Assistance-helper does MORE THAN HALF the effort. [place] lifts or holds trunk or limbs and provides more than half the effort. 8-Moekqcmge-rencsl does ALL the effort. Patient does none of the effort to complete the activity. Or, the assistance of 2 or more helpers is required for the patient to complete the activity. If activity was not attempted, code reason: 7-Patient Refused. 9-Not Applicable-not attempted and the patient did not perform the activity before the current illness, exacerbation or injury. 10-Not Attempted due to Environmental Limitations-(lack of equipment, weather restraints, etc.). 88-Not Attempted due to Medical Conditions or Safety Concerns. Sit to Stand (QC): 3 Chair/Qir-uu-Huhal Xfer(QC): 3 Patient very unsteady with sit to stand, needs assist to maintain balance. Weight Bearing Right Lower Extremity: Right Weight Bearing/Tolerated Left Lower Extremity: Left Weight Bearing/Tolerated Gait Training Distance: 100' Walk 10 feet (QC): 3 Walk 50 ft with 2 Turns(QC): 3 Gait Persons Needed: 1 Gait Assistive Device: Handheld Assist Unsteady, slow ambulation, short steps, narrow CAROLNY, needs to try walker next time. Exercises Seated Therapy Exercises: Ankle pumps, Long arc quads Seated Reps: 20 Treatments transfers, ambulation, LE exercise Assessment Current Status: Poor Progress unsteady with transfers and ambulation PT Short Term Goals Short Term Goals Time Frame: May 10, 2019 Roll Left & Right: 6 Sit to lyin Lying to sitting on side of be: 6 Sit to stand: 6 Chair/pcp-nw-lurfx transfer: 6 Toilet transfer: 6 Car transfer: 6 Walk 10 feet: 6 Walk 50 feet with two turns: 6 Walk 150 feet: 6 Walking 10ft on uneven surface: 6 1 step (curb): 6 4 steps: 6 12 steps: 6 Picking up objects: 6 Does pt use a wc or scooter: No PT Plan Problem List Problem List: Activity Tolerance, Functional Strength, Safety, Balance, Gait, Transfer Treatment/Plan Treatment Plan: Continue Plan of Care Treatment Plan: Education, Functional Activity Vaibhav, Functional Strength, Gait, Safety, Therapeutic Exercise, Transfers Treatment Duration: May 10, 2019 Frequency: 6 times per week Estimated Hrs Per Day: .25 hour per day Patient and/or Family Agrees t: Yes Safety Risks/Education Patient Education: Gait Training, Transfer Techniques, Correct Positioning, Safety Issues Teaching Recipient: Patient Teaching Methods: Demonstration, Discussion Response to Teaching: Reinforcement Needed Time/GCodes Time In: 829 Time Out: 0843 Total Billed Treatment Time: 13 Total Billed Treatment 1 visit FA EVANGELINA POSADA PT May 05, 2019 08:46
--- NOTE | 2019-05-05 09:12 | Occupational Ther Daily Note ---
OT Current Status-Daily Note Subjective Pt sitting upright in recliner, sitter present. He was agreeable to OT tx on this date. He did not verbalize any pain. Nursing had cancelled pt's OT orders from 04/22/2019 due to transfer but pt was still supposed to be seen by OT. OT checked order history and there are still active OT orders from 05/03/2019. OT will continue to see pt for skilled OT services. ADL-Treatment Therapy Code Descriptions/Definitions Functional [place] Measure: 0=Not Assessed/NA 4=Minimal Assistance 1=Total Assistance 5=Supervision or Setup 2=Maximal Assistance 6=Modified [place] 3=Moderate Assistance 7=Complete IndependenceSCALE: Activities may be completed with or without assistive devices. 1-Fbnmiqlfgn-jjeusap completes the activity by him/herself with no assistance from a helper. 5-Set-up or Clean-up Assistance-helper sets up or cleans up; patient completes activity. [place] assists only prior to or following the activity. 4-Supervision or Touching Assistance-helper provides verbal cues and/or touching/steadying and/or contact guard assistance as patient completes activity. Assistance may be provided throughout the activity or intermittently. 3-Partial/Moderate Assistance-helper does LESS THAN HALF the effort. [place] lifts, holds or supports trunk or limbs, but provides less than half the effort. 2-Substantial/Maximal Assistance-helper does MORE THAN HALF the effort. [place] lifts or holds trunk or limbs and provides more than half the effort. 5-Girufcszk-zlnqkd does ALL the effort. Patient does none of the effort to complete the activity. Or, the assistance of 2 or more helpers is required for the patient to complete the activity. If activity was not attempted, code reason: 7-Patient Refused. 9-Not Applicable-not attempted and the patient did not perform the activity before the current illness, exacerbation or injury. 10-Not Attempted due to Environmental Limitations-(lack of equipment, weather restraints, etc.). 88-Not Attempted due to Medical Conditions or Safety Concerns. Other Treatment Pt seated in recliner with sitter present and chair alarm on. Pt given option between ADLs or UE exercises, and he chose UE exercises. OT educated pt on the purpose and benefits of UE exercises in order to increase strength and functional endurance. Pt completed x10 reps each of the following BUE exercises: shoulder flexion, elbow flexion/extension, and finger flexion/extension. Noted pt completed movements at a slow pace, requiring demo with each rep. Pt requires cues for relaxation techniques & diaphragmatic breathing as pt's heart rate increases with activity throughout session. Post OT session, pt seated in recliner, call light in reach and all needs met. Chair alarm on and sitter present. Education OT Patient Education: Correct positioning, Energy conservation, Exercise program, Progress toward Goal/Update tx plan, Purpose of tx/functional activities, Safety issues Teaching Recipient: Patient Teaching Methods: Discussion Response to Teaching: Verbalize Understanding, Reinforcement Needed OT Longterm Goals Longterm Goals Time Frame: May 17, 2019 Eating (QC): 6 Oral Hygiene (QC): 6 Toileting Hygiene (QC): 6 Shower/Bathe Self (QC): 6 Upper Body Dressing (QC): 6 Lower Body Dressing (QC): 6 On/Off Footwear (QC): 6 Additional Goals: 1-Demonstrate ADL Tasks, 2-Verbalize Understanding, 3- ImproveStrength/Vaibhav 1=Demonstrate adherence to instructed precautions during ADL tasks. 2=Patient will verbalize/demonstrate understanding of assistive devices/modifications for ADL. 3=Patient will improve strength/tolerance for activity to enable patient to perform ADL's. OT Education/Plan Problem List/Assessment Assessment: Decreased Activ Tolerance, Decreased Safety Aware, Decreased UE Strength, Impaired I ADL's, Impaired Self-Care Skills Discharge Recommendations Plan/Recommendations: Continue POC Treatment Plan/Plan of Care Patient would benefit from OT for education, treatment and training to promote independence in ADL's, mobility, safety and/or upper extremity function for ADL's. Plan of Care: ADL Retraining, Caregiver Training, Functional Mobility, UE Funct Exercise/Act Treatment Duration: May 17, 2019 Frequency: 5 times per week Estimated Hrs Per Day: .25 hour per day Agreement: Yes Rehab Potential: Good Time/GCodes Start Time: 08:45 Stop Time: 08:53 Total Time Billed (hr/min): 8 Billed Treatment Time 1, EX MIKE LU OT May 05, 2019 09:12
[2019-05-05] MEDS: busPIRone 5 MG (BUSPAR) TAB PO SCH ×2 (09:19→20:43)
--- NOTE | 2019-05-05 10:41 | NUR ---
Spoke to RN last evening about pt's declining PO intake. Added Ensure Enlive (vary) to meals BID to increase kcal intake. Provides 350 kcal and 13 g Pro per serving. Will continue to follow and reassess as pt needs, intake, and status change. Ly Cedillo, MS, RD, LD
--- NOTE | 2019-05-05 11:37 | Progress Note - Hospitalist ---
Subjective HPI/CC On Admission Date Seen by Provider: May 05, 2019 Time Seen by Provider: 11:31 Pt is a 43yoCM with a PMH of alcohol abuse who presented the ER due to hallucinations. He gives a varied history about dreams vs reality and I am unsure the exact details but it seems that sometime over the past 5 days he started hallucinating. At first it was that there were bikes everywhere he thought that he was dreaming. He then said that his dreams/hallucinations became more erotic. He tells a story of walking from his kitchen through glass panel and ending up in his mother's kitchen. He also thought that he was about had a seizure. He is unsure of what day that occurred. Today he states that he saw people in his house again and the only way to make them go away was to hold up his Cross and his bible. He reports that he drinks 5-6 PB per day and that his last drink was last night. This varies from the history that his mother gave to the emergency room stating that he was in rehabilitation for alcohol at the end of March but relapsed shortly after discharge. She reported to the ER that his last drink was on April 16. Subjective/Events-last exam Pt reports doing well today. No complaints. Objective Exam Vital Signs Vital Signs Date Time Temp Pulse Resp B/P (MAP) Pulse Ox O2 Delivery O2 Flow Rate FiO2 05/05/19 11:00 101 116/75 (89) Room Air 05/05/19 08:00 96 05/05/19 07:00 36.4 20 05/04/19 04:00 5.00 05/02/19 23:15 35 Capillary Refill : NONELess Than 3 Seconds General Appearance: No Apparent Distress, WD/WN Respiratory: Lungs Clear, No Respiratory Distress Cardiovascular: No Murmur, Tachycardia Gastrointestinal: Normal Bowel Sounds, Non Tender, Soft Neurologic/Psychiatric: Alert, Oriented x3, Normal Mood/Affect Results/Procedures Lab Laboratory Tests 05/04/19 19:41 05/05/19 03:14 Patient resulted labs reviewed. Imaging: Reviewed Imaging Report Assessment/Plan Assessment and Plan Assess & Plan/Chief Complaint Alcohol withdrawal Seizures Acute Respiratory Failure with hypoxia Aspiration pneumonia Critical illness myopathy Intubated 04/21, extubated 04/28 then reintubated, now extubated on 05/01 eICU following Ativan as needed for anxiety, but try to limit Geodon as needed for agitation Completed Zosyn for likely aspiration pneumonia Continue Keppra orally consult PT/OT - Pt declined at [facility]. Du contacted and full. Awaiting response from [facility] in [place] and [facility] - Discussed with mother than likely only option will be to discharge him with outpatient follow up but will exhaust measures first hypertension Metoprolol hypokalemia Replaced per protocol - Replace mag as well Alcoholic liver disease clinically significant, no acute management needs DVT prophylaxis: Lovenox Hyperbilirubinemia, resolved Thrombocytopenia, resolved Hyponatremia, resolved Lactic acidosis, resolved Critical Care Critically Ill Patient Diagnosis/Problems Diagnosis/Problems (1) Alcohol withdrawal delirium Status: Acute (2) Acute respiratory failure Status: Resolved Qualifiers: Respiratory failure complication: unspecified whether with hypoxia or hypercapnia Qualified Codes: J96.00 - Acute respiratory failure, unspecified whether with hypoxia or hypercapnia Resolution Date/Time: 05/04/19 @ 09:32 (3) Alcoholic liver disease Status: Chronic (4) Thrombocytopenia Status: Resolved Resolution Date/Time: 05/04/19 @ 09:32 (5) Hyponatremia Status: Resolved Resolution Date/Time: 04/22/19 @ 10:05 Clinical Quality Measures DVT/VTE Risk/Contraindication: Risk Factor Score Per Nursin RFS Level Per Nursing on Admit: 1=Low/No VTE PPX MICHELLE DRAKE MD May 05, 2019 11:37
--- NOTE | 2019-05-05 11:40 | NUR ---
pt ambulates with this nurse to room 410 introduced to room and call system. sitter present. bedside report given to Leroy FELDMAN.
--- NOTE | 2019-05-05 11:40 | NUR ---
PT ARRIVED TO UNIT (410) REPORT RECEIVED AT BEDSIDE FROM BISI FELDMAN. NIOCLA WALSH PRESENT, PT DENIES NEEDS AT THIS TIME, WILL CONTINUE TO MONITOR
--- NOTE | 2019-05-05 12:36 | NUR ---
[facility] Upon further review of today's therapy progress notes, it has been determined patient would benefit from further PT/OT. Insurance authorization process initiated and clinical information submitted to [facility]. Dr. García notified. Will continue to follow. Addendum: 05/05/19 at 1418 by MAY Xochitl ARIAS Received insurance authorization for patient to admit to [facility], 05/05. MARY/JUANA notified.
--- NOTE | 2019-05-05 12:41 | NUR ---
CM/SS follow up. CM/SS received a call back this morning from [facility] in [place], [place] they declined the referral based on not meeting criteria (not suicidal). They suggested an alcohol treatment facility for the patient. CM/SS called and sent a referral to [facility] in [place], [place]. They called this SS back and stated that they are declining the referral based on medical complexity. CM/SS called and sent a referral to Tess Bajwa who called this SS and stated that the patient did not meet criteria (not suicidal). CM/SS contacted Angel from [facility] to discuss the patients case and he verbalized that the patient would not be appropriate if he was not actively suicidal. CM/SS spoke with the patient and asked if he wanted to kill himself today. He stated "no". He also verbalized that anytime he made comments about killing himself was when he was "heavily" intoxicated. CM/SS contacted the patients mother Donna to give an update. She verbalized understanding; however, she stated if he doesn't get accepted for IRF then she would like this SS to continue sending inpatient psych referrals. May, from IRF verbalized to this SS that he was accepted for inpatient rehab for the duration of a week. May attempted to contact Donna and left a message about acceptance. The plan is to move down to second floor around 10-11 a.m. on .
--- NOTE | 2019-05-05 13:47 | Physical Therapy Daily Note ---
PT Daily Note-Current Subjective Patient in recliner pre tx, agrees to PT, no complaints of pain. Sitter in room. Appearance Patient in recliner post tx with nurse call, phone, tray, sitter in room, chair alarm on. Mental Status Patient Orientation: Person, Confused Transfers SCALE: Activities may be completed with or without assistive devices. 6-Pgpilsmyws-zfevdey completes the activity by him/herself with no assistance from a helper. 5-Set-up or Clean-up Assistance-helper sets up or cleans up; patient completes activity. [place] assists only prior to or following the activity. 4-Supervision or Touching Assistance-helper provides verbal cues and/or touching/steadying and/or contact guard assistance as patient completes activity. Assistance may be provided throughout the activity or intermittently. 3-Partial/Moderate Assistance-helper does LESS THAN HALF the effort. [place] li fts, holds or supports trunk or limbs, but provides less than half the effort. 2-Substantial/Maximal Assistance-helper does MORE THAN HALF the effort. [place] lifts or holds trunk or limbs and provides more than half the effort. 1-Bvqblhbyw-blwtlf does ALL the effort. Patient does none of the effort to complete the activity. Or, the assistance of 2 or more helpers is required for the patient to complete the activity. If activity was not attempted, code reason: 7-Patient Refused. 9-Not Applicable-not attempted and the patient did not perform the activity before the current illness, exacerbation or injury. 10-Not Attempted due to Environmental Limitations-(lack of equipment, weather restraints, etc.). 88-Not Attempted due to Medical Conditions or Safety Concerns. Sit to Stand (QC): 4 CGA Weight Bearing Right Lower Extremity: Right Weight Bearing/Tolerated Left Lower Extremity: Left Weight Bearing/Tolerated Gait Training Distance: 400' Walk 10 feet (QC): 4 Walk 50 ft with 2 Turns(QC): 4 Walk 150 ft (QC): 4 Gait Persons Needed: 1 Gait Assistive Device: FWW CGA, much more steady, used a rolling walker, ambulates with a slumped forward head, cues to keep head up. Treatments transfers, ambulation Assessment Current Status: Fair Progress much better ambulation using a rolling walker PT Short Term Goals Short Term Goals Time Frame: May 10, 2019 Roll Left & Right: 6 Sit to lyin Lying to sitting on side of be: 6 Sit to stand: 6 Chair/wgo-tu-ekkqs transfer: 6 Toilet transfer: 6 Car transfer: 6 Walk 10 feet: 6 Walk 50 feet with two turns: 6 Walk 150 feet: 6 Walking 10ft on uneven surface: 6 1 step (curb): 6 4 steps: 6 12 steps: 6 Picking up objects: 6 Does pt use a wc or scooter: No PT Plan Problem List Problem List: Activity Tolerance, Functional Strength, Safety, Balance, Gait, Transfer Treatment/Plan Treatment Plan: Continue Plan of Care Treatment Plan: Education, Functional Activity Vaibhav, Functional Strength, Gait, Safety, Therapeutic Exercise, Transfers Treatment Duration: May 10, 2019 Frequency: 6 times per week Estimated Hrs Per Day: .25 hour per day Patient and/or Family Agrees t: Yes Safety Risks/Education Patient Education: Gait Training, Transfer Techniques, Correct Positioning, Safety Issues Teaching Recipient: Patient Teaching Methods: Demonstration, Discussion Response to Teaching: Reinforcement Needed Time/GCodes Time In: 1330 Time Out: 1341 Total Billed Treatment Time: 11 Total Billed Treatment 1 visit GT 11' EVANGELINA DAVILA PT May 05, 2019 13:47
[2019-05-05] MEDS: MELATONIN 3 MG TABLET PO SCH (20:43)
[2019-05-05] MEDS: traZODone 50 MG (DESYREL) TAB PO SCH (20:43)
[2019-05-05] MEDS ORDERED: NALTREXONE 50 MG TABLET PO SCH (21:00)
[2019-05-06] MEDS: RT-ALBUTEROL/IPRATROPIUM 3 ML (DUONEB) VIAL INH SCH ×2 (02:39→08:05)
[2019-05-06 04:10] VITALS: BP 145/89
[2019-05-06 05:05] LABS: BASOPHILS # (AUTO) 0.1 10^3/uL (0.0-0.1); BASOPHILS % (AUTO) 1 % (0-10); EOSINOPHILS # (AUTO) 0.3 10^3/uL (0.0-0.3); EOSINOPHILS % (AUTO) 3 % (0-10); HEMATOCRIT 40 % (40-54); HEMOGLOBIN 13.1 G/DL (13.3-17.7); LYMPHOCYTES # (AUTO) 2.1 X 10^3 (1.0-4.0); LYMPHOCYTES % (AUTO) 21 % (12-44); MEAN CORPUSCULAR HEMOGLOBIN 30 PG (25-34); MEAN CORPUSCULAR HGB CONC 32 G/DL (32-36); MEAN CORPUSCULAR VOLUME 92 FL (80-99); MEAN PLATELET VOLUME 11.3 FL (7.4-10.4); MONOCYTES % (AUTO) 10 % (0-12); NEUTROPHILS # (AUTO) 6.5 X 10^3 (1.8-7.8); NEUTROPHILS % (AUTO) 66 % (42-75); PLATELET COUNT 686 10^3/uL (130-400); RED CELL DISTRIBUTION WIDTH 14.8 % (10.0-14.5); WHITE BLOOD COUNT 9.8 10^3/uL (4.3-11.0)
[2019-05-06 05:26] LABS: BUN/CREATININE RATIO 14; CALCIUM 9.4 MG/DL (8.5-10.1); CARBON DIOXIDE 21 MMOL/L (21-32); CHLORIDE 105 MMOL/L (98-107); CREATININE SERUM 0.74 MG/DL (0.60-1.30); GFR ESTIMATED > 60; GLUCOSE 105 MG/DL (70-105); MAGNESIUM 1.9 MG/DL (1.6-2.4); PHOSPHORUS 2.9 MG/DL (2.3-4.7); POTASSIUM 3.5 MMOL/L (3.6-5.0); SODIUM 139 MMOL/L (135-145)
[2019-05-06] MEDS: POTASSIUM CL 10MEQ/50ML IVPB 50 ML IV SCH ×3 (05:28→09:47)
[2019-05-06] MEDS: KCL 20 MEQ TAB (K-DUR) PO SCH (05:28)
[2019-05-06] MEDS: MAGNESIUM 1 GM/100 ML IVPB 100 ML IV SCH (05:28)
[2019-05-06] MEDS ORDERED: KCL 20 MEQ TAB (K-DUR) PO ONE (06:00)
[2019-05-06] MEDS ORDERED: NS IV 500 ML 500 ML ONE (07:52)
[2019-05-06 07:56] VITALS: BP 150/92
--- NOTE | 2019-05-06 08:05 | NUR ---
JUNIOR RAE REQUESTED FROM PHARMACY
[2019-05-06] MEDS: LEVETIRACETAM 500 MG (KEPPRA) TAB PO SCH (08:17)
[2019-05-06] MEDS: PANTOPRAZOLE 20 MG TABLET (PROTONIX) PO SCH (08:17)
[2019-05-06] MEDS: busPIRone 5 MG (BUSPAR) TAB PO SCH (08:17)
[2019-05-06] MEDS: FLUoxetine HCL 20 MG (PROzac) CAP PO SCH (08:17)
[2019-05-06] MEDS: ENOXAPARIN 40 MG/0.4 ML (LOVENOX) SYR SC SCH (08:18)
--- NOTE | 2019-05-06 08:29 | Discharge Summary ---
Diagnosis/Chief Complaint Date of Admission Apr 21, 2019 at 12:36 Date of Discharge Primary Care Alanis Sheldon MD Discharge Diagnosis (1) Alcohol withdrawal delirium Status: Acute (2) Acute respiratory failure Status: Resolved (3) Aspiration pneumonia Status: Acute Discharge Summary Procedures/Consulations Pulm- Dr Gama Discharge Physical Exam Allergies: Coded Allergies: No Known Drug Allergies (Unverified , 04/21/19) Vitals & I&Os Vital Signs Date Time Temp Pulse Resp B/P (MAP) Pulse Ox O2 Delivery O2 Flow Rate FiO2 05/06/19 08:05 94 Room Air 05/06/19 07:56 37.0 103 18 150/92 (111) 05/04/19 04:00 5.00 05/02/19 23:15 35 General Appearance: No Apparent Distress, WD/WN Respiratory: Lungs Clear, No Respiratory Distress Cardiovascular: Regular Rate, Rhythm, No Murmur Hospital Course Pt was admitted for alcohol withdrawal that ultimately required mechanical ventilation for airway protection. He recovered well but had significant debility following intubation. He was seen by PT/OT and was deemed an appropriate candidate for IRU. He was discharged there in stable condition to continue to work on strengthening. Labs (last 24 hrs) Laboratory Tests 05/06/19 04:40: White Blood Count 9.8, Red Blood Count 4.39, Hemoglobin 13.1L, Hematocrit 40, Mean Corpuscular Volume 92, Mean Corpuscular Hemoglobin 30, Mean Corpuscular Hemoglobin Concent 32, Red Cell Distribution Width 14.8H, Platelet Count 686H, Mean Platelet Volume 11.3H, Neutrophils (%) (Auto) 66, Lymphocytes (%) (Auto) 21, Monocytes (%) (Auto) 10, Eosinophils (%) (Auto) 3, Basophils (%) (Auto) 1, Neutrophils # (Auto) 6.5, Lymphocytes # (Auto) 2.1, Monocytes # (Auto) 1.0, Eosinophils # (Auto) 0.3, Basophils # (Auto) 0.1, Sodium Level 139, Potassium Level 3.5L, Chloride Level 105, Carbon Dioxide Level 21, Anion Gap 13, Blood Urea Nitrogen 10, Creatinine 0.74, Estimat Glomerular Filtration Rate > 60, BUN/Creatinine Ratio 14, Glucose Level 105, Calcium Level 9.4, Phosphorus Level 2.9, Magnesium Level 1.9 Microbiology 05/03/19 Catheter Tip Culture - Final, Complete Staphylococcus epidermidis 04/29/19 Gram Stain - Final, Complete 04/29/19 Sputum Culture - Final, Complete Usual upper respiratory katharine 04/28/19 Urine Culture - Final, Complete NO GROWTH Patient resulted labs reviewed. Pending Labs Imaging: Reviewed Imaging Report Discussion & Recommendations Discharge Planning: <30 minutes discharge planning Discharge Home Medications: Active Scripts Active Reported Carbidopa-Levo ER 50-200 Tab (Carbidopa/Levodopa) 1 Each Tablet.er 1 Each PO DAILY PRN Cyclobenzaprine HCl 10 Mg Tablet 5-10 Mg PO Q6H PRN Omeprazole 20 Mg Capsule.dr 20 Mg PO DAILY PRN Naltrexone HCl 50 Mg Tablet 50 Mg PO HS Fluoxetine HCl 20 Mg Capsule 20 Mg PO DAILY Trazodone HCl 50 Mg Tablet 50-100 Mg PO HS PRN Carbidopa-Levo ER 50-200 Tab (Carbidopa/Levodopa) 1 Each Tablet.er 1 Each PO BID Levetiracetam 500 Mg Tablet 500 Mg PO BID Instructions to patient/family Please see electronic discharge instructions given to patient. Clinical Quality Measures DVT/VTE Risk/Contraindication: Risk Factor Score Per Nursin RFS Level Per Nursing on Admit: 1=Low/No VTE PPX Problem Qualifiers (1) Acute respiratory failure: Respiratory failure complication: unspecified whether with hypoxia or hypercapnia Qualified Codes: J96.00 - Acute respiratory failure, unspecified whether with hypoxia or hypercapnia MICHELLE DRAKE MD May 06, 2019 08:29
[2019-05-06] MEDS: SINEMET 25/250 (CARBIDOPA/LEVODOPA) TAB PO SCH (08:37)
--- NOTE | 2019-05-06 10:10 | NUR ---
REPORT CALLED ALEKSANDR FELDMAN (IR[facility])
[2019-05-06] MEDS ORDERED: CARB1TAB41 PO (12:30)
== END 2019-05-06 10:15 | DRG 896 ==
LOC: ER 10:07 → 4TH 12:36 → ICU 04-22 01:43 → 4TH 05-05 11:40
PROVIDERS: ADMIT Family Medicine; ATTEND Family Medicine
PROC: 5A1955Z Respiratory Ventilation, Greater than 96 Consecutive Hours (ICD-10-PCS; principal; 2019-04-22)
PROC: 0BH17EZ Insertion of Endotracheal Airway into Trachea, Via Natural or Artificial Opening (ICD-10-PCS; 2019-04-22)
PROC: 0B938ZX Drainage of Right Main Bronchus, Via Natural or Artificial Opening Endoscopic, Diagnostic (ICD-10-PCS; 2019-04-28)
PROC: 0B978ZX Drainage of Left Main Bronchus, Via Natural or Artificial Opening Endoscopic, Diagnostic (ICD-10-PCS; 2019-04-28)
DX: F10.231 Alcohol dependence with withdrawal delirium (principal); J96.01 Acute respiratory failure with hypoxia; J69.0 Pneumonitis due to inhalation of food and vomit; E87.2 Acidosis; E87.1 Hypo-osmolality and hyponatremia; G72.81 Critical illness myopathy; G40.909 Epilepsy, unspecified, not intractable, without status epilepticus; K70.9 Alcoholic liver disease, unspecified; I10 Essential (primary) hypertension; E87.6 Hypokalemia; D69.6 Thrombocytopenia, unspecified; G24.9 Dystonia, unspecified; F41.9 Anxiety disorder, unspecified; F32.9 Major depressive disorder, single episode, unspecified; F90.9 Attention-deficit hyperactivity disorder, unspecified type; Z77.29 Contact with and (suspected) exposure to other hazardous substances
CPT/HCPCS: 36415; 36600; 70450; 71045; 80048; 80053; 80076; 80306; 80320; 80329; 81000; 82140; 82150; 82550; 82805; 82962; 83605; 83690; 83735; 83880; 84100; 84132; 84145; 84439; 84443; 84478; 84481; 85007; 85025; 85027; 85610; 85730; 86703; 87015; 87040; 87070; 87077; 87081; 87088; 87101; 87116; 87205; 87206; 87804; 93005; 93306; 94002; 94003; 94640; 94664; 94760; 94799; 96374

== ENCOUNTER 2019-09-07 14:35 | Inpatient (IN) | payer BC ==
[~2019-09-07] VITALS: Ht 193 cm; Wt 88.6 kg
[~2019-09-07 14:35] MED LIST: CARB1TAB41 PO; CYCL10TA9 PO; FLUO20CA46 PO; LEVE500T6 PO; LORA-405 PO; MTP25TSR PO; NALT50TA PO; OMEP20CA18 PO; TRZ50T PO
[2019-09-07] MEDS ORDERED: NS IV 1000 ML 1,000 ML IV SCH (14:56)
[2019-09-07 15:23] LABS: BASOPHILS % (AUTO) 1 % (0-10); EOSINOPHILS # (AUTO) 0.1 10^3/uL (0.0-0.3); EOSINOPHILS % (AUTO) 1 % (0-10); HEMATOCRIT 44 % (40-54); HEMOGLOBIN 15.1 G/DL (13.3-17.7); LYMPHOCYTES # (AUTO) 2.8 X 10^3 (1.0-4.0); LYMPHOCYTES % (AUTO) 61 % (12-44); MEAN CORPUSCULAR HEMOGLOBIN 30 PG (25-34); MEAN CORPUSCULAR HGB CONC 35 G/DL (32-36); MEAN CORPUSCULAR VOLUME 87 FL (80-99); MONOCYTES # (AUTO) 0.7 X 10^3 (0.0-1.0); MONOCYTES % (AUTO) 16 % (0-12); NEUTROPHILS # (AUTO) 0.9 X 10^3 (1.8-7.8); NEUTROPHILS % (AUTO) 21 % (42-75); PLATELET COUNT 254 10^3/uL (130-400); RED CELL DISTRIBUTION WIDTH 14.3 % (10.0-14.5); WHITE BLOOD COUNT 4.5 10^3/uL (4.3-11.0)
[2019-09-07 15:40] LABS: ALBUMIN 4.4 GM/DL (3.2-4.5); CHLORIDE 107 MMOL/L (98-107); POTASSIUM 3.8 MMOL/L (3.6-5.0); SODIUM 143 MMOL/L (135-145)
[2019-09-07 15:42] LABS: AMYLASE 35 U/L (25-125); CALCIUM 8.8 MG/DL (8.5-10.1)
[2019-09-07 15:43] LABS: GLUCOSE 75 MG/DL (70-105); TOTAL PROTEIN 7.9 GM/DL (6.4-8.2)
[2019-09-07 15:44] LABS: BILIRUBIN,URINE NEGATIVE (NEGATIVE); CLARITY,URINE CLEAR; COLOR,URINE YELLOW; GLUCOSE, URINE (UA) NEGATIVE (NEGATIVE); KETONES,URINE NEGATIVE (NEGATIVE); LEUKOCYTE ESTERASE ,URINE NEGATIVE (NEGATIVE); NITRITE,URINE NEGATIVE (NEGATIVE); PH,URINE 6.5 (5-9); PROTEIN,URINE NEGATIVE (NEGATIVE)
[2019-09-07 15:44] LABS: CARBON DIOXIDE 21 MMOL/L (21-32)
[2019-09-07 15:45] LABS: BILIRUBIN,TOTAL 0.4 MG/DL (0.1-1.0)
[2019-09-07 15:47] LABS: ALKALINE PHOSPHATASE 136 U/L (40-136); CREATININE SERUM 0.91 MG/DL (0.60-1.30); GFR ESTIMATED > 60
[2019-09-07 15:48] LABS: ACETAMINOPHEN < 10 UG/ML (10-30); BUN/CREATININE RATIO 9
[2019-09-07 15:49] LABS: SALICYLATE < 5.0 MG/DL (5.0-20.0)
[2019-09-07 15:50] LABS: ALANINE AMINOTRANSFERASE 38 U/L (0-55)
[2019-09-07 15:51] LABS: LIPASE 39 U/L (8-78)
[2019-09-07 16:04] LABS: AMORPHOUS SEDIMENT,UR RARE AMOR URATES /LPF; BACTERIA,URINE NEGATIVE /HPF; HYALINE CASTS, URINE 0-2 /LPF; WBC,URINE RARE /HPF
[2019-09-07 16:12] LABS: AMPHETAMINE SCREEN, URINE NEGATIVE (NEGATIVE); BARBITURATE SCREEN URINE NEGATIVE (NEGATIVE); BENZODIAZEPINES SCREEN URINE NEGATIVE (NEGATIVE); CANNABINOID SCREEN, URINE NEGATIVE (NEGATIVE); COCAINE SCREEN URINE NEGATIVE (NEGATIVE); METHADONE STAT NEGATIVE (NEGATIVE); METHAMPHETAMINE SCREEN URINE S NEGATIVE (NEGATIVE); OPIATE SCREEN URINE NEGATIVE (NEGATIVE); OXYCODONE STAT NEGATIVE (NEGATIVE); PROPOXYPHENE STAT NEGATIVE (NEGATIVE); TRICYCLIC ANTIDEPRESSANTS SCRE NEGATIVE (NEGATIVE)
--- NOTE | 2019-09-07 16:48 | ED General ---
General Chief Complaint: Detox Stated Complaint: ALCOHOL DETOX;HEARING THINGS Nursing Triage Note: PT C/O HEARILNG PEOPLE HAMMERING IN THE ATTIC LAST HS. PT STATES HE IS DETOXING. Nursing Sepsis Screen: No Definite Risk Source of Information: Patient Exam Limitations: No Limitations History of Present Illness Date Seen by Provider: Sep 07, 2019 Time Seen by Provider: 14:58 Initial Comments 44-year-old male who presents to the emergency room for complaints of alcohol detox. He reports that appear people hammering in his attic last night while sleeping. He reports that he normally drinks a pint of vodka every day for at least the bottle of wine. He reports that he drinks reports of a bottle wine last night and a few beers throughout the day. He also reports drinking 2 mimosas for breakfast. He is alert and oriented on arrival to the emergency room. He reports that last night really scared him and he wants to stop drinking altogether. Allergies and Home Medications Allergies Coded Allergies: No Known Drug Allergies (Unverified , 04/21/19) Home Medications Carbidopa/Levodopa 1 Each Tablet.er, 1 EACH PO BID, (Reported) Carbidopa/Levodopa 1 Each Tablet.er, 1 EACH PO DAILY PRN for SHAKING, (Reported) Cyclobenzaprine HCl 10 Mg Tablet, 5-10 MG PO Q6H PRN for PAIN-BREAKTHROUGH, (Reported) Fluoxetine HCl 20 Mg Capsule, 20 MG PO DAILY, (Reported) Levetiracetam 500 Mg Tablet, 500 MG PO BID, (Reported) Lorazepam 1 Mg Tablet, 1 MG PO HS Prescribed by: JERRI WASHINGTON on 05/13/19 0836 Metoprolol Succinate 25 Mg Tab.er.24h, 25 MG PO DAILY Prescribed by: JERRI WASHINGTON on 05/12/19 1547 Naltrexone HCl 50 Mg Tablet, 50 MG PO HS, (Reported) Omeprazole 20 Mg Capsule.dr, 20 MG PO DAILY PRN for HEARTBURN, (Reported) Trazodone HCl 50 Mg Tablet, 50-100 MG PO HS PRN for SLEEP, (Reported) Patient Home Medication List Home Medication List Reviewed: Yes Review of Systems Review of Systems Constitutional: see HPI; No chills, No fever Psychiatric/Neurological: See HPI, Other (auditory hallucinations) All Other Systems Reviewed Negative Unless Noted: Yes Past Nxzhwgu-Spckfi-Lzqrtb Hx Past Med/Social Hx: Reviewed Nursing Past Med/Soc Hx Patient Social History Alcohol Use: Regular Use Alcohol Beverage of Choice: Vodka Recreational Drug Use: No Smoking Status: Never a Smoker Type Used: Smokeless Tobacco 2nd Hand Smoke Exposure: No Recent Foreign Travel: No Contact w/Someone Who Travel: No Recent Infectious Disease Expo: No Recent Hopitalizations: No Physical Abuse: No Sexual Abuse: No Mistreated: No Fear: No Immunizations Up To Date Date of Influenza Vaccine: Feb 10, 2019 Seasonal Allergies Seasonal Allergies: No Past Medical History Surgeries: No (Denies surgical hx. ) Eye Surgery Respiratory: No Cardiac: No Neurological: Yes (Dystonia ) Parkinson's Disease, Seizure Disorder Genitourinary: No Gastrointestinal: No Musculoskeletal: No Endocrine: No HEENT: No Cancer: No Psychosocial: Yes ADD/ADHD, Anxiety, Depression Integumentary: No Family Medical History Reviewed Nursing Family Hx Patient reports no known family medical history. Physical Exam Vital Signs Vital Signs - First Documented 09/07/19 14:45 Temp 37.4 Pulse 118 Resp 16 B/P (MAP) 142/111 (121) Pulse Ox 95 O2 Delivery Room Air Capillary Refill : Less Than 3 Seconds Height, Weight, BMI Height: '" Weight: lbs. oz. kg; 26.00 BMI Method: General Appearance: No Apparent Distress, WD/WN Respiratory: Chest Non Tender, Lungs Clear, Normal Breath Sounds, No Accessory Muscle Use, No Respiratory Distress Cardiovascular: Regular Rate, Rhythm, No Edema, No Gallop, No JVD, No Murmur, Normal Peripheral Pulses Gastrointestinal: Normal Bowel Sounds, No Organomegaly, No Pulsatile Mass, Non Tender, Soft Neurologic/Psychiatric: Alert, Oriented x3, Normal Mood/Affect Skin: Normal Color, Warm/Dry Procedures/Interventions Date of ETT Placement: Apr 29, 2019 Time of ETT Placement: 1647 Progress/Results/Core Measures Suspected Sepsis Recent Fever Within 48 Hours: No Infection Criteria Present: None New/Unexplained Altered Menta: No Sepsis Screen: No Definite Risk SIRS Temperature: Pulse: 118 Respiratory Rate: 16 Laboratory Tests 09/07/19 15:10: White Blood Count 4.5 Blood Pressure 142 /111 Mean: 121 Laboratory Tests 09/07/19 15:10: Creatinine 0.91, Platelet Count 254, Total Bilirubin 0.4 Results/Orders Lab Results Laboratory Tests Test 09/07/19 15:10 09/07/19 15:26 Range/Units White Blood Count 4.5 4.3-11.0 10^3/uL Red Blood Count 5.02 4.35-5.85 10^6/uL Hemoglobin 15.1 13.3-17.7 G/DL Hematocrit 44 40-54 % Mean Corpuscular Volume 87 80-99 FL Mean Corpuscular Hemoglobin 30 25-34 PG Mean Corpuscular Hemoglobin Concent 35 32-36 G/DL Red Cell Distribution Width 14.3 10.0-14.5 % Platelet Count 254 130-400 10^3/uL Mean Platelet Volume 10.0 7.4-10.4 FL Neutrophils (%) (Auto) 21 L 42-75 % Lymphocytes (%) (Auto) 61 H 12-44 % Monocytes (%) (Auto) 16 H 0-12 % Eosinophils (%) (Auto) 1 0-10 % Basophils (%) (Auto) 1 0-10 % Neutrophils # (Auto) 0.9 L 1.8-7.8 X 10^3 Lymphocytes # (Auto) 2.8 1.0-4.0 X 10^3 Monocytes # (Auto) 0.7 0.0-1.0 X 10^3 Eosinophils # (Auto) 0.1 0.0-0.3 10^3/uL Basophils # (Auto) 0.0 0.0-0.1 10^3/uL Sodium Level 143 135-145 MMOL/L Potassium Level 3.8 3.6-5.0 MMOL/L Chloride Level 107 98-107 MMOL/L Carbon Dioxide Level 21 21-32 MMOL/L Anion Gap 15 H 5-14 MMOL/L Blood Urea Nitrogen 8 7-18 MG/DL Creatinine 0.91 0.60-1.30 MG/DL Estimat Glomerular Filtration Rate > 60 BUN/Creatinine Ratio 9 Glucose Level 75 70-105 MG/DL Calcium Level 8.8 8.5-10.1 MG/DL Corrected Calcium 8.5 8.5-10.1 MG/DL Total Bilirubin 0.4 0.1-1.0 MG/DL Aspartate Amino Transf (AST/SGOT) 85 H 5-34 U/L Alanine Aminotransferase (ALT/SGPT) 38 0-55 U/L Alkaline Phosphatase 136 40-136 U/L Total Protein 7.9 6.4-8.2 GM/DL Albumin 4.4 3.2-4.5 GM/DL Amylase Level 35 25-125 U/L Lipase 39 8-78 U/L Salicylates Level < 5.0 L 5.0-20.0 MG/DL Acetaminophen Level < 10 L 10-30 UG/ML Serum Alcohol 408 *H <10 MG/DL Urine Color YELLOW Urine Clarity CLEAR Urine pH 6.5 5-9 Urine Specific [place] 1.010 L 1.016-1.022 Urine Protein NEGATIVE NEGATIVE Urine Glucose (UA) NEGATIVE NEGATIVE Urine Ketones NEGATIVE NEGATIVE Urine Nitrite NEGATIVE NEGATIVE Urine Bilirubin NEGATIVE NEGATIVE Urine Urobilinogen 0.2 < = 1.0 MG/DL Urine Leukocyte Esterase NEGATIVE NEGATIVE Urine RBC (Auto) NEGATIVE NEGATIVE Urine RBC NONE /HPF Urine WBC RARE /HPF Urine Crystals PRESENT H /LPF Urine Amorphous Sediment RARE MAREG URATES H /LPF Urine Bacteria NEGATIVE /HPF Urine Casts PRESENT /LPF Urine Hyaline Casts 0-2 H /LPF Urine Mucus MODERATE H /LPF Urine Culture Indicated NO Urine Opiates Screen NEGATIVE NEGATIVE Urine Oxycodone Screen NEGATIVE NEGATIVE Urine Methadone Screen NEGATIVE NEGATIVE Urine Propoxyphene Screen NEGATIVE NEGATIVE Urine Barbiturates Screen NEGATIVE NEGATIVE Ur Tricyclic Antidepressants Screen NEGATIVE NEGATIVE Urine Phencyclidine Screen NEGATIVE NEGATIVE Urine Amphetamines Screen NEGATIVE NEGATIVE Urine Methamphetamines Screen NEGATIVE NEGATIVE Urine Benzodiazepines Screen NEGATIVE NEGATIVE Urine Cocaine Screen NEGATIVE NEGATIVE Urine Cannabinoids Screen NEGATIVE NEGATIVE My Orders Orders - DOROTHY HERNANDEZ Ua Culture If Indicated (09/07/19 14:56) Cbc With Automated Diff (09/07/19 14:56) Comprehensive Metabolic Panel (09/07/19 14:56) Alcohol (09/07/19 14:56) Drug Screen Stat (Urine) (09/07/19 14:56) Acetaminophen (09/07/19 14:56) Salicylate (09/07/19 14:56) Ekg Tracing (09/07/19 14:56) Ed Iv/Invasive Line Start (09/07/19 14:56) Monitor-Rhythm Ecg Trace Only (09/07/19 14:56) Ed Iv/Invasive Line Start (09/07/19 14:56) Ns Iv 1000 Ml (Sodium Chloride 0.9%) (09/07/19 14:56) Lipase (09/07/19 14:56) Amylase (7/28/20 14:56) Lorazepam Injection (Ativan Injection) (09/07/19 17:30) Vital Signs/I&O 09/07/19 09/07/19 14:45 18:01 Temp 37.4 37.2 Pulse 118 91 Resp 16 16 B/P (MAP) 142/111 (121) 136/96 (109) Pulse Ox 95 96 O2 Delivery Room Air Room Air Capillary Refill : Less Than 3 Seconds Blood Pressure Mean: 121 Departure Communication (Admissions) Time/Spoke to Admitting Phy: 17:15 I discussed the case with Dr. Cary and he agrees to accept the patient to his services for admission. The patient agrees with plans for admission. The patient will be admitted to ICU on alcohol detox protocol. Impression Primary Impression: Alcohol intoxication Additional Impression: Alcohol withdrawal Disposition: ADMITTED INPATIENT Condition: Stable/Unchanged Admissions Decision to Admit Reason: Admit from ER (General) Decision to Admit/Date: Sep 07, 2019 Time/Decision to Admit Time: 18:05 Departure-Patient Inst. Referrals: HORTENCIA MARTINEZ MD (PCP/Family) Primary Care Physician DOROTHY HERNANDEZ Sep 07, 2019 16:48
[2019-09-07] MEDS ORDERED: LORazepam INJ 2 MG/ML (ATIVAN) VIAL IVP ONE (17:30)
[2019-09-07 18:01] VITALS: BP 136/96
[2019-09-07] MEDS ORDERED: 1/2 NS IV SOLUTION 1,000 ML IV PRN (18:04)
[2019-09-07] MEDS ORDERED: ANTACID SUSP 30 ML UDC (MYLANTA) PO PRN (18:15)
[2019-09-07] MEDS ORDERED: LORazepam INJ 2 MG/ML (ATIVAN) VIAL IM/IV PRN (18:15)
[2019-09-07] MEDS ORDERED: ONDANSETRON 4 MG (ZOFRAN) ORAL DISSOLVE TAB SL PRN (18:15)
[2019-09-07] MEDS ORDERED: LORazepam 1 MG (ATIVAN) TAB PO PRN (18:15)
[2019-09-07] MEDS ORDERED: D5 1/2 NS 1000 ML IV SOLUTION 1,000 ML IV PRN (18:15)
[2019-09-07] MEDS ORDERED: SENNA W/DOCUSATE (SENOKOT S) TABLET PO PRN (18:15)
[2019-09-07] MEDS ORDERED: ONDANSETRON 4 MG/2 ML (SDV) Z0FRAN IV PRN (18:15)
[2019-09-07] MEDS: NS IV 1000 ML 1,000 ML IV SCH (18:52)
[2019-09-07] MEDS: THIAMINE INJECTION 100 MG, FOLIC ACID INJECTION 1 MG, VITAMIN MULTI INJECTION 10 ML, MA... IV SCH ×5 (18:52)
[2019-09-07 19:00] VITALS: BP 136/98
[2019-09-07 19:01] LABS: ALBUMIN 4.1 GM/DL (3.2-4.5); CHLORIDE 105 MMOL/L (98-107); POTASSIUM 3.8 MMOL/L (3.6-5.0); SODIUM 142 MMOL/L (135-145)
[2019-09-07 19:02] LABS: CALCIUM 8.2 MG/DL (8.5-10.1)
[2019-09-07 19:03] LABS: GLUCOSE 99 MG/DL (70-105)
[2019-09-07 19:04] LABS: CARBON DIOXIDE 23 MMOL/L (21-32); TOTAL PROTEIN 7.2 GM/DL (6.4-8.2)
[2019-09-07 19:05] LABS: BILIRUBIN,TOTAL 0.4 MG/DL (0.1-1.0); PROTHROMBIN TIME PATIENT 13.1 SEC (12.2-14.7)
[2019-09-07 19:07] LABS: ALKALINE PHOSPHATASE 116 U/L (40-136); CREATININE SERUM 0.82 MG/DL (0.60-1.30); GFR ESTIMATED > 60
--- OUTSIDE RECORDS SUMMARY | 2019-09-07 19:07 | XMS REPORT | Continuity of Care Document ---
Author Organization Unknown Address Unknown Phone Unavailable Allergies Active Description Code Type Severity Reaction Onset Reported/Identified Relationship to Patient Clinical Status Yes NO KNOWN DRUG ALLERGIES NO KNOWN DRUG ALLERG UNKNOWN Yes NO KNOWN DRUG ALLERGIES UNKNOWN NO KNOWN DRUG ALLERG Yes NO KNOWN DRUG ALLERGIES UNKNOWN UNKNOWN Yes No Known Drug Allergies [id number] Drug Allergy Unknown N/A 04/21/2019 Medications Medication Packaging Start Date St op Date Route Dosage Sig ACETAMINOPHEN ORAL TABLET 325mg(Tylenol) MG 12/31/2015 01/06/2016 PRN EVERY 6 Hour THIAMINE VIAL 2CC INJ 100 MG /CC (VIT B1 2CC VIAL) MG 12/31/2015 01/07/2016 CONTINUOUSEVERY 0 Hour MULTIPLE VITAMIN INFUSION IN J 0 (MVI ADULT 2 VIAL KIT) VIALS 12/31/2015 12/31/2015 ONCE&0242 NORMAL SALINE 1000CC IV BAG INJ 0.9 % (NS 1000CC IV BAG) ml 12/31/2015 12/31/2015 ONCE&0242 LORAZEPAM per Detox Protocol B MG 12/31/2015 12/31/2015 PRN ONCE DIAZEPAM SYRINGE INJ 5 MG/CC (VALIUM SYRIN GE) MG 12/31/2015 12/31/2015 PRN ONCE LACTATED RINGERS 1000CC IV BAG INJ 0 ml 12/31/2015 12/31/2015 ONCE&0310 ONDANSETRON TAB 4 MG (ZOFRAN) MG 12/31/2015 01/07/2016 PRN Q4H PROMETHAZINE VIAL INJ 25 MG/CC (PHENERGAN VIAL) MG 12/31/2015 01/09/2016 PRN Q6H ALUM/MAG/SIMETH 30CC LIQ 0 (MYLANTA PLUS) cc 12/31/2015 01/09/2016 PRN TID CARBI/L-DOPA 50/200 CR TAB 0 (SINEMET CR 50/200) tab 12/31/2015 01/06/2016 TID&0800,1400,2000 ESCITALOPRAM TAB 10 MG (LEXAPRO) MG 12/31/2015 01/06/2016 Daily&0900 PANTOPRAZOLE TAB 40 MG (PROTONIX) MG 12/31/2015 01/06/2016 Daily&0900 THIAMINE TAB 100 MG (VITAMIN B1) MG 12/31/2015 01/02/2016 Daily&0900 MULTIPLE VITAMIN INFUSION IN J 0 (MVI ADULT 2 VIAL KIT) VIALS 12/31/2015 12/31/2015 ONCE&1052 MELATONIN TAB 3 MG (MELATONIN) MG 12/31/2015 01/06/2016 QHS&2100 LORAZEPAM TAB 0.5 MG (ATIVAN) MG 01/01/2016 01/08/2016 PRN Q12H THIAMINE TAB 100 MG (VITAMIN B1) MG 01/01/2016 01/02/2016 Daily&0900 ORPHENADRINE INJ 60 MG/2CC (NORFLEX) MG 01/03/2016 01/03/2016 ONCE&0055 KETOROLAC VIAL INJ 60 MG/2CC (TORADOL VIAL ) MG 01/03/2016 01/03/2016 ONCE&0055 ACETAMINOPHEN ORAL TABLET 325mg(Tylenol) MG 02/05/2016 02/12/2016 PRN EVERY 6 Hour MAGNESIUM SULFATE VIAL INJ 1 GM/2CC (MAG SULFATE 2CC VIAL) GM 02/05/2016 02/12/2016 CONTINUOUSEVERY 0 Hour THIAMINE VIAL 2CC INJ 100 MG /CC (VIT B1 2CC VIAL) MG 02/05/2016 02/12/2016 CONTINUOUSEVERY 0 Hour MULTIPLE VITAMIN INFUSION IN J 0 (MVI ADULT 2 VIAL KIT) VIALS 02/05/2016 02/05/2016 ONCE&2022 LORAZEPAM per Detox Protocol B MG 02/05/2016 02/05/2016 PRN ONCE DIAZEPAM SYRINGE INJ 5 MG/CC (VALIUM SYRIN GE) MG 02/05/2016 02/05/2016 PRN ONCE NORMAL SALINE 1000CC IV BAG INJ 0.9 % (NS 1000CC IV BAG) ml 02/05/2016 02/20/2016 CONTINUOUSEVERY 0 Hour CLONAZEPAM TAB 0.5 MG (KLONOPIN) MG 02/05/2016 02/11/2016 QHS&2100 MELATONIN TAB 3 MG (MELATONIN) MG 02/05/2016 02/11/2016 QHS&2100 ONDANSETRON TAB 4 MG (ZOFRAN) MG 02/05/2016 02/12/2016 PRN Q4H ALUM/MAG/SIMETH 30CC LIQ 0 (MYLANTA PLUS) cc 02/05/2016 02/15/2016 PRN Q4H HALOPERIDOL VIAL INJ 5 MG/CC (HALDOL 1CC V IAL) MG 02/05/2016 02/12/2016 PRN Q4H PROMETHAZINE VIAL INJ 25 MG/CC (PHENERGAN VIAL) MG 02/05/2016 02/15/2016 PRN Q6H ALUM/MAG/SIMETH 30CC LIQ 0 (MYLANTA PLUS) cc 02/06/2016 02/15/2016 PRN TID ESCITALOPRAM TAB 10 MG (LEXAPRO) MG 02/06/2016 02/12/2016 Daily&0900 PANTOPRAZOLE TAB 40 MG (PROTONIX) MG 02/06/2016 02/12/2016 Daily&0900 MULTI-VITAMIN TAB 0 (PRENATE) TAB 02/06/2016 02/12/2016 Daily&0900 THIAMINE TAB 100 MG (VITAMIN B1) MG 02/06/2016 02/08/2016 Daily&0900 NORMAL SALINE 1000CC IV BAG INJ 0.9 % (NS 1000CC IV BAG) ml 02/06/2016 02/21/2016 CONTINUOUSEVERY 0 Hour LORAZEPAM per Detox Protocol B MG 02/06/2016 02/06/2016 PRN ONCE CARBI/L-DOPA 50/200 CR TAB 0 (SINEMET CR 50/200) tab 02/07/2016 02/14/2016 TID&0800,1400,2000 CLONAZEPAM TAB 0.5 MG (KLONOPIN) MG 02/07/2016 02/17/2016 PRN BID POLY/BACI/MARSHA PLUS PAIN OINT (NEOSPORIN PL US) [place] 11/02/2018 11/02/2018 ONCE&1917 CLONAZEPAM TAB 0.5 MG (KLONOPIN) MG 08/02/2019 08/02/2019 ONCE&2017 TETANUS,DIPTH,PERT ADULT INJ 0 (ADACEL SYRINGE) ML 08/25/2019 08/25/2019 ONCE&2203 POLY/BACI/NEOM OINT OINT (NEOSPORIN) [place] 08/25/2019 08/25/2019 ONCE&2203 Problems Date Dx Coded Attending Type Code Diagnosis Diagnosed By 01/02/2016 Alanis Sheldon 291.81 ALCOHOL WITHDRAWAL 01/02/2016 Alanis Sheldon 296.20 MAJOR DEPRESSIVE DISORDER, SINGLE EPISODE, UNSPECIFIED DEGREE 01/02/2016 Alanis Sheldon W 313.89 OTHER EMOTIONAL DISTURBANCES OF CHILDHOOD OR ADOLESCENCE 01/02/2016 Alanis Sheldon 332.0 PARALYSIS AGITANS 01/02/2016 Alanis Sheldon F10.230 ALCOHOL DEPENDENCE WITH WITHDRAWAL, UNCOMPLICATED 01/02/2016 Alanis Sheldon F32.9 MAJOR DEPRESSIVE DISORDER, SINGLE EPISODE, UNSPECIFIED 01/02/2016 Alanis Sheldon F98.8 OTHER SPECIFIED BEHAVIORAL AND EMOTIONAL DISORDERS WITH ONSET USUALLY OCCURRING IN CHILDHOOD AND ADOLESCENCE 01/02/2016 Alanis Sheldon G20 PARKINSON'S DISEASE 01/02/2016 Alanis Sheldon Y90.8 BLOOD ALCOHOL LEVEL OF 240 MG/100 ML OR MORE 01/03/2016 Nori Howard 840.9 SPRAIN OF UNSPECIFIED SITE OF SHOULDER AND UPPER ARM 01/03/2016 Nori Howard 847.0 NECK SPRAIN 01/03/2016 Nori Howard S16.1XX A STRAIN OF MUSCLE, FASCIA AND TENDON AT NECK LEVEL, INITIAL ENCOUNTER 01/03/2016 Nori Howard S43.401 A UNSPECIFIED SPRAIN OF RIGHT SHOULDER JOINT, INITIAL ENCOUNTER 01/03/2016 Nori Howard S43.402 A UNSPECIFIED SPRAIN OF LEFT SHOULDER JOINT, INITIAL ENCOUNTER 02/05/2016 Martínez Perez F10.230 ALCOHOL DEPENDENCE WITH WITHDRAWAL, UNCOMPLICATED 02/05/2016 Martínez Perez G20 PARKINSON'S DISEASE 02/05/2016 Martínez Perez R45.851 SUICIDAL IDEATIONS 02/05/2016 PACO HERNANDEZ F10.2 30 ALCOHOL DEPENDENCE WITH WITHDRAWAL, UNCOMPLICATED 02/05/2016 PACO HERNANDEZ G20 PARKINSON'S DISEASE 02/05/2016 PACO HERNANDEZ R45.8 51 SUICIDAL IDEATIONS 02/05/2016 Alanis Sheldon A 291.81 02/05/2016 Alanis Sheldon 296.30 MAJOR DEPRESSIVE DISORDER, RECURRENT EPISODE, UNSPECIFIED DEGREE 02/05/2016 Alanis Sheldon W 303.00 ACUTE ALCOHOLIC INTOXICATION IN ALCOHOLISM, UNSPECIFIED DRINKING BEHAVIOR 02/05/2016 Alanis Sheldon 332.0 PARALYSIS AGITANS 02/05/2016 Alanis Sheldon W F10.229 ALCOHOL DEPENDENCE WITH INTOXICATION, UNSPECIFIED 02/05/2016 Alanis Sheldon A F10.230 ALCOHOL DEPENDENCE WITH WITHDRAWAL, UNCOMPLICATED 02/05/2016 Alanis Sheldon W F33.9 MAJOR DEPRESSIVE DISORDER, RECURRENT, UNSPECIFIED 02/05/2016 Alanis Sheldon W G20 PARKINSON'S DISEASE 02/05/2016 Alanis Sheldon W R45.851 SUICIDAL IDEATIONS 02/05/2016 Alanis Sheldon W V62.84 SUICIDAL IDEATION 02/05/2016 Martínez Perez W F10.230 ALCOHOL DEPENDENCE WITH WITHDRAWAL, UNCOMPLICATED 02/05/2016 Martínez Perez W F33.9 MAJOR DEPRESSIVE DISORDER, RECURRENT, UNSPECIFIED 02/05/2016 Chris Martínez W G20 PARKINSON'S DISEASE 02/05/2016 Chris Martínez Gabby R45.851 SUICIDAL IDEATIONS 02/07/2016 Alanis Sheldon W 296.31 02/07/2016 Alanis Sheldon W 300.02 02/07/2016 Alanis Sheldon W 300.22 02/07/2016 Pito, Alanis W F33.0 MAJOR DEPRESSIVE DISORDER, RECURRENT, MILD 02/07/2016 Pito, Alanis W F41.0 PANIC DISORDER WITHOUT AGORAPHOBIA 02/07/2016 Pito, Alanis W F41.1 GENERALIZED ANXIETY DISORDER 02/07/2016 Alanis Sheldon W Y90.8 BLOOD ALCOHOL LEVEL OF 240 MG/100 ML OR MORE 11/15/2016 W 300.01 GUERRA IC DISORDER WITHOUT AGORAPHOBIA 11/15/2016 A 314.01 ATT ENTION DEFICIT DISORDER OF CHILDHOOD WITH HYPERACTIVITY 11/15/2016 W F41.0 ROLY C DISORDER [EPISODIC PAROXYSMAL ANXIETY] WITHOUT AGORAPHOBIA 11/15/2016 A F90.9 ATTE NTION-DEFICIT HYPERACTIVITY DISORDER, UNSPECIFIED TYPE 02/24/2017 W 296.90 UNS PECIFIED EPISODIC MOOD DISORDER 02/24/2017 A 314.01 ATT ENTION DEFICIT DISORDER OF CHILDHOOD WITH HYPERACTIVITY 02/24/2017 W F39 UNSPEC IFIED MOOD [AFFECTIVE] DISORDER 02/24/2017 A F90.9 ATTE NTION-DEFICIT HYPERACTIVITY DISORDER, UNSPECIFIED TYPE 05/28/2017 W 266.2 OTHE R B-COMPLEX DEFICIENCIES 05/28/2017 W 296.90 UNS PECIFIED EPISODIC MOOD DISORDER 05/28/2017 A 314.01 ATT ENTION DEFICIT DISORDER OF CHILDHOOD WITH HYPERACTIVITY 05/28/2017 W 790.5 OTHE R NONSPECIFIC ABNORMAL SERUM ENZYME LEVELS 05/28/2017 W E53.8 DEFI CIENCY OF OTHER SPECIFIED B GROUP VITAMINS 05/28/2017 W F39 UNSPEC IFIED MOOD [AFFECTIVE] DISORDER 05/28/2017 A F90.9 ATTE NTION-DEFICIT HYPERACTIVITY DISORDER, UNSPECIFIED TYPE 05/28/2017 W R94.5 ABNO RMAL RESULTS OF LIVER FUNCTION STUDIES 09/03/2017 W 300.00 ANX IETY STATE, UNSPECIFIED 09/03/2017 A 314.01 ATT ENTION DEFICIT DISORDER OF CHILDHOOD WITH HYPERACTIVITY 09/03/2017 W F41.9 ANXI ETY DISORDER, UNSPECIFIED 09/03/2017 A F90.9 ATTE NTION-DEFICIT HYPERACTIVITY DISORDER, UNSPECIFIED TYPE 12/17/2017 W 300.00 ANX IETY STATE, UNSPECIFIED 12/17/2017 A 314.01 ATT ENTION DEFICIT DISORDER OF CHILDHOOD WITH HYPERACTIVITY 12/17/2017 W 709.9 UNSP ECIFIED DISORDER OF SKIN AND SUBCUTANEOUS TISSUE 12/17/2017 W F41.9 ANXI ETY DISORDER, UNSPECIFIED 12/17/2017 A F90.9 ATTE NTION-DEFICIT HYPERACTIVITY DISORDER, UNSPECIFIED TYPE 12/17/2017 W L98.9 DISO RDER OF THE SKIN AND SUBCUTANEOUS TISSUE, UNSPECIFIED 11/02/2018 Martínez Perez W 924.11 CONTUSION OF KNEE 11/02/2018 Martínez Perez W E53.8 DEFICIENCY OF OTHER SPECIFIED B GROUP VITAMINS 11/02/2018 Martínez Perez W F32.9 MAJOR DEPRESSIVE DISORDER, SINGLE EPISODE, UNSPECIFIED 11/02/2018 Martínez Perez F33.0 MAJOR DEPRESSIVE DISORDER, RECURRENT, MILD 11/02/2018 Martínez Perez W F39 UNSPECIFIED MOOD [AFFECTIVE] DISORDER 11/02/2018 Martínez Perez F41.0 PANIC DISORDER [EPISODIC PAROXYSMAL ANXIETY] 11/02/2018 Martínez Perez F41.1 GENERALIZED ANXIETY DISORDER 11/02/2018 Martínez Perez F41.9 ANXIETY DISORDER, UNSPECIFIED 11/02/2018 Martínez Perez F90.9 ATTENTION-DEFICIT HYPERACTIVITY DISORDER, UNSPECIFIED TYPE 11/02/2018 Martínez Perez G20 PARKINSON'S DISEASE 11/02/2018 Martínez Perez L98.9 DISORDER OF THE SKIN AND SUBCUTANEOUS TISSUE, UNSPECIFIED 11/02/2018 Martínez Perez R94.5 ABNORMAL RESULTS OF LIVER FUNCTION STUDIES 11/02/2018 Martínez Perez S16.1XXA STRAIN OF MUSCLE, FASCIA AND TENDON AT NECK LEVEL, INIT 11/02/2018 Martínez Perez S80.02XA CONTUSION OF LEFT KNEE, INITIAL ENCOUNTER 11/02/2018 Martínez Perez Y90.8 BLOOD ALCOHOL LEVEL OF 240 MG/100 ML OR MORE 01/15/2019 Martínez Perez J01.90 ACUTE SINUSITIS, UNSPECIFIED 01/15/2019 PACO HERNANDEZ J01.9 0 ACUTE SINUSITIS, UNSPECIFIED 04/27/2019 MICHELLE DRAKE MD Ot D69. 6 THROMBOCYTOPENIA, UNSPECIFIED 04/27/2019 MICHELLE DRAKE MD, Ot E87. 1 HYPO-OSMOLALITY AND HYPONATREMIA 04/27/2019 MICHELLE DRAKE MD Ot F10.231 ALCOHOL DEPENDENCE WITH WITHDRAWAL DELIR 04/27/2019 MICHELLE DRAKE MD Ot F32. 9 MAJOR DEPRESSIVE DISORDER, SINGLE EPISOD 04/27/2019 MICHELLE DRAKE MD Ot F41. 9 ANXIETY DISORDER, UNSPECIFIED 04/27/2019 MICHELLE DRAKE MD Ot F90. 9 ATTENTION-DEFICIT HYPERACTIVITY DISORDER 04/27/2019 MICHELLE DRAKE MD Ot G24. 9 DYSTONIA, UNSPECIFIED 04/27/2019 MICHELLE DRAKE MD Ot G40.909 EPILEPSY, UNSP, NOT INTRACTABLE, WITHOUT 04/27/2019 MICHELLE DRAKE MD Ot J96. 00 ACUTE RESPIRATORY FAILURE, UNSP W HYPOXI 04/27/2019 MICHELLE DRAKE MD Ot K70. 9 ALCOHOLIC LIVER DISEASE, UNSPECIFIED 04/27/2019 MICHELLE DRAKE MD Ot Z77. 29 CONTACT WITH AND EXPOSURE TO OTHER HAZAR 04/28/2019 MICHELLE DRAKE MD Ot D69. 6 THROMBOCYTOPENIA, UNSPECIFIED 04/28/2019 MICHELLE DRAKE MD Ot E87. 1 HYPO-OSMOLALITY AND HYPONATREMIA 04/28/2019 MICHELLE DRAKE MD Ot F10.231 ALCOHOL DEPENDENCE WITH WITHDRAWAL DELIR 04/28/2019 MICHELLE DRAKE MD Ot F32. 9 MAJOR DEPRESSIVE DISORDER, SINGLE EPISOD 04/28/2019 MICHELLE DRAKE MD Ot F41. 9 ANXIETY DISORDER, UNSPECIFIED 04/28/2019 MICHELLE DRAKE MD Ot F90. 9 ATTENTION-DEFICIT HYPERACTIVITY DISORDER 04/28/2019 MICHELLE DRAKE MD Ot G24. 9 DYSTONIA, UNSPECIFIED 04/28/2019 MICHELLE DRAKE MD Ot G40.909 EPILEPSY, UNSP, NOT INTRACTABLE, WITHOUT 04/28/2019 MICHELLE DRAKE MD Ot J96. 00 ACUTE RESPIRATORY FAILURE, UNSP W HYPOXI 04/28/2019 MICHELLE DRAKE MD Ot K70. 9 ALCOHOLIC LIVER DISEASE, UNSPECIFIED 04/28/2019 MICHELLE DRAKE MD Ot Z77. 29 CONTACT WITH AND EXPOSURE TO OTHER HAZAR 04/29/2019 MICHELLE DRAKE MD Ot D69. 6 THROMBOCYTOPENIA, UNSPECIFIED 04/29/2019 MICHELLE DRAKE MD Ot E87. 1 HYPO-OSMOLALITY AND HYPONATREMIA 04/29/2019 MICHELLE DRAKE MD Ot F10.231 ALCOHOL DEPENDENCE WITH WITHDRAWAL DELIR 04/29/2019 MICHELLE DRAKE MD Ot F32. 9 MAJOR DEPRESSIVE DISORDER, SINGLE EPISOD 04/29/2019 MICHELLE DRAKE MD Ot F41. 9 ANXIETY DISORDER, UNSPECIFIED 04/29/2019 MICHELLE DRAKE MD Ot F90. 9 ATTENTION-DEFICIT HYPERACTIVITY DISORDER 04/29/2019 MICHELLE DRAKE MD Ot G24. 9 DYSTONIA, UNSPECIFIED 04/29/2019 MICHELLE DRAKE MD Ot G40.909 EPILEPSY, UNSP, NOT INTRACTABLE, WITHOUT 04/29/2019 MICHELLE DRAKE MD Ot J96. 00 ACUTE RESPIRATORY FAILURE, UNSP W HYPOXI 04/29/2019 MICHELLE DRAKE MD Ot K70. 9 ALCOHOLIC LIVER DISEASE, UNSPECIFIED 04/29/2019 MICHELLE DRAKE MD Ot Z77. 29 CONTACT WITH AND EXPOSURE TO OTHER HAZAR 05/05/2019 MICHELLE DRAKE MD Ot D69. 6 THROMBOCYTOPENIA, UNSPECIFIED 05/05/2019 MICHELLE DRAKE MD Ot E87. 1 HYPO-OSMOLALITY AND HYPONATREMIA 05/05/2019 MICHELLE DRAKE MD Ot F10.231 ALCOHOL DEPENDENCE WITH WITHDRAWAL DELIR 05/05/2019 MICHELLE DRAKE MD Ot F32. 9 MAJOR DEPRESSIVE DISORDER, SINGLE EPISOD 05/05/2019 MICHELLE DRAKE MD Ot F41. 9 ANXIETY DISORDER, UNSPECIFIED 05/05/2019 MICHELLE DRAKE MD Ot F90. 9 ATTENTION-DEFICIT HYPERACTIVITY DISORDER 05/05/2019 MICHELLE DRAKE MD Ot G24. 9 DYSTONIA, UNSPECIFIED 05/05/2019 MICHELLE DRAKE MD Ot G40.909 EPILEPSY, UNSP, NOT INTRACTABLE, WITHOUT 05/05/2019 MICHELLE DRAKE MD Ot J96. 00 ACUTE RESPIRATORY FAILURE, UNSP W HYPOXI 05/05/2019 MICHELLE DRAKE MD Ot K70. 9 ALCOHOLIC LIVER DISEASE, UNSPECIFIED 05/05/2019 MICHELLE DRAKE MD Ot Z77. 29 CONTACT WITH AND EXPOSURE TO OTHER HAZAR 05/05/2019 MICHELLE DRAKE MD Ot D69. 6 THROMBOCYTOPENIA, UNSPECIFIED 05/05/2019 MICHELLE DRAKE MD Ot E87. 1 HYPO-OSMOLALITY AND HYPONATREMIA 05/05/2019 MICHELLE DRAKE MD Ot F10.231 ALCOHOL DEPENDENCE WITH WITHDRAWAL DELIR 05/05/2019 MICHELLE DRAKE MD Ot F32. 9 MAJOR DEPRESSIVE DISORDER, SINGLE EPISOD 05/05/2019 MICHELLE DRAKE MD Ot F41. 9 ANXIETY DISORDER, UNSPECIFIED 05/05/2019 MICHELLE DRAKE MD Ot F90. 9 ATTENTION-DEFICIT HYPERACTIVITY DISORDER 05/05/2019 MICHELLE DRAKE MD Ot G24. 9 DYSTONIA, UNSPECIFIED 05/05/2019 MICHELLE DRAKE MD Ot G40.909 EPILEPSY, UNSP, NOT INTRACTABLE, WITHOUT 05/05/2019 MICHELLE DRAKE MD Ot J96. 00 ACUTE RESPIRATORY FAILURE, UNSP W HYPOXI 05/05/2019 MICHELLE DRAKE MD Ot K70. 9 ALCOHOLIC LIVER DISEASE, UNSPECIFIED 05/05/2019 MICHELLE DRAKE MD Ot Z77. 29 CONTACT WITH AND EXPOSURE TO OTHER HAZAR 05/05/2019 MICHELLE DRAKE MD Ot D69. 6 THROMBOCYTOPENIA, UNSPECIFIED 05/05/2019 MICHELLE DRAKE MD Ot E87. 1 HYPO-OSMOLALITY AND HYPONATREMIA 05/05/2019 MICHELLE DRAKE MD Ot F10.231 ALCOHOL DEPENDENCE WITH WITHDRAWAL DELIR 05/05/2019 MICHELLE DRAKE MD Ot F32. 9 MAJOR DEPRESSIVE DISORDER, SINGLE EPISOD 05/05/2019 MICHELLE DRAKE MD Ot F41. 9 ANXIETY DISORDER, UNSPECIFIED 05/05/2019 MICHELLE DRAKE MD Ot F90. 9 ATTENTION-DEFICIT HYPERACTIVITY DISORDER 05/05/2019 MICHELLE DRAKE MD Ot G24. 9 DYSTONIA, UNSPECIFIED 05/05/2019 MICHELLE DRAKE MD Ot G40.909 EPILEPSY, UNSP, NOT INTRACTABLE, WITHOUT 05/05/2019 MICHELLE DRAKE MD Ot J96. 00 ACUTE RESPIRATORY FAILURE, UNSP W HYPOXI 05/05/2019 MICHELLE DRAKE MD Ot K70. 9 ALCOHOLIC LIVER DISEASE, UNSPECIFIED 05/05/2019 MICHELLE DRAKE MD Ot Z77. 29 CONTACT WITH AND EXPOSURE TO OTHER HAZAR 05/06/2019 MICHELLE DRAKE MD Ot D69. 6 THROMBOCYTOPENIA, UNSPECIFIED 05/06/2019 MICHELLE DRAKE MD Ot E87. 1 HYPO-OSMOLALITY AND HYPONATREMIA 05/06/2019 MICHELLE DRAKE MD Ot F10.231 ALCOHOL DEPENDENCE WITH WITHDRAWAL DELIR 05/06/2019 MICHELLE DRAKE MD Ot F32. 9 MAJOR DEPRESSIVE DISORDER, SINGLE EPISOD 05/06/2019 MICHELLE DRAKE MD Ot F41. 9 ANXIETY DISORDER, UNSPECIFIED 05/06/2019 MICHELLE DRAKE MD Ot F90. 9 ATTENTION-DEFICIT HYPERACTIVITY DISORDER 05/06/2019 MICHELLE DRAKE MD Ot G24. 9 DYSTONIA, UNSPECIFIED 05/06/2019 MICHELLE DRAKE MD Ot G40.909 EPILEPSY, UNSP, NOT INTRACTABLE, WITHOUT 05/06/2019 MICHELLE DRKAE MD Ot J96. 00 ACUTE RESPIRATORY FAILURE, UNSP W HYPOXI 05/06/2019 MICHELLE DRAKE MD Ot K70. 9 ALCOHOLIC LIVER DISEASE, UNSPECIFIED 05/06/2019 MICHELLE DRAKE MD Ot Z77. 29 CONTACT WITH AND EXPOSURE TO OTHER HAZAR 05/06/2019 MICHELLE DRAKE MD Ot D69. 6 THROMBOCYTOPENIA, UNSPECIFIED 05/06/2019 MICHELLE DRAKE MD Ot E87. 1 HYPO-OSMOLALITY AND HYPONATREMIA 05/06/2019 MICHELLE DRAKE MD Ot F10.231 ALCOHOL DEPENDENCE WITH WITHDRAWAL DELIR 05/06/2019 MICHELLE DRAKE MD Ot F32. 9 MAJOR DEPRESSIVE DISORDER, SINGLE EPISOD 05/06/2019 MICHELLE DRAKE MD Ot F41. 9 ANXIETY DISORDER, UNSPECIFIED 05/06/2019 MICHELLE DRAKE MD Ot F90. 9 ATTENTION-DEFICIT HYPERACTIVITY DISORDER 05/06/2019 MICHELLE DRAKE MD Ot G24. 9 DYSTONIA, UNSPECIFIED 05/06/2019 MICHELLE DRAKE MD Ot G40.909 EPILEPSY, UNSP, NOT INTRACTABLE, WITHOUT 05/06/2019 MIHCELLE DRAKE MD Ot J96. 00 ACUTE RESPIRATORY FAILURE, UNSP W HYPOXI 05/06/2019 MICHELLE DRAKE MD Ot K70. 9 ALCOHOLIC LIVER DISEASE, UNSPECIFIED 05/06/2019 MICHELLE DRAKE MD Ot Z77. 29 CONTACT WITH AND EXPOSURE TO OTHER HAZAR 05/06/2019 MICHELLE DRAKE MD Ot D69. 6 THROMBOCYTOPENIA, UNSPECIFIED 05/06/2019 MICHELLE DRAKE MD Ot E87. 1 HYPO-OSMOLALITY AND HYPONATREMIA 05/06/2019 MICHELLE DRAKE MD Ot E87. 2 ACIDOSIS 05/06/2019 MICHELLE DRAKE MD Ot E87. 6 HYPOKALEMIA 05/06/2019 MICHELLE DRAKE MD Ot F10.231 ALCOHOL DEPENDENCE WITH WITHDRAWAL DELIR 05/06/2019 MICHELLE DRAKE MD Ot F32. 9 MAJOR DEPRESSIVE DISORDER, SINGLE EPISOD 05/06/2019 MICHELLE DRAKE MD Ot F41. 9 ANXIETY DISORDER, UNSPECIFIED 05/06/2019 MICHELLE DRAKE MD Ot F90. 9 ATTENTION-DEFICIT HYPERACTIVITY DISORDER 05/06/2019 VIDAL BUSH, MICHELLE Nina Ot G24. 9 DYSTONIA, UNSPECIFIED 05/06/2019 VIDAL BUSH, MICHELLE Nina Ot G40.909 EPILEPSY, UNSP, NOT INTRACTABLE, WITHOUT 05/06/2019 VIDAL BUSH, MICHELLE Nina Ot G72. 81 CRITICAL ILLNESS MYOPATHY 05/06/2019 VIDAL BUSH, MICHELLE Nina Ot I10 ESSENTIAL (PRIMARY) HYPERTENSION 05/06/2019 VIDAL BUSH, MICHELLE Nina Ot J69. 0 PNEUMONITIS DUE TO INHALATION OF FOOD AN 05/06/2019 VIDAL BUSH, MICHELLE Nina Ot J96. 00 ACUTE RESPIRATORY FAILURE, UNSP W HYPOXI 05/06/2019 VIDAL BUSH, MICHELLE Nina Ot J96. 01 ACUTE RESPIRATORY FAILURE WITH HYPOXIA 05/06/2019 VIDAL BUSH, MICHELLE Nina Ot K70. 9 ALCOHOLIC LIVER DISEASE, UNSPECIFIED 05/06/2019 VIDAL BUSH, MICHELLE Nina Ot Z77. 29 CONTACT WITH AND EXPOSURE TO OTHER HAZAR 05/12/2019 [place] DO, JERRI Ot F10.20 ALCOHOL DEPENDENCE, UNCOMPLICATED 05/12/2019 [place] DO, JERRI Ot F32.9 MAJOR DEPRESSIVE DISORDER, SINGLE EPISOD 05/12/2019 [place] DO, JERRI Ot F41.9 ANXIETY DISORDER, UNSPECIFIED 05/12/2019 [place] DO, JERRI Ot F90.9 ATTENTION-DEFICIT HYPERACTIVITY DISORDER 05/12/2019 [place] DO, JERRI Ot G20 PARKINSON'S DISEASE 05/12/2019 [place] DO, JERRI Ot G40.90 9 EPILEPSY, UNSP, NOT INTRACTABLE, WITHOUT 05/12/2019 [place] DO, JERRI Ot G72.81 CRITICAL ILLNESS MYOPATHY 05/13/2019 [place] DO, JERRI Ot F10.20 ALCOHOL DEPENDENCE, UNCOMPLICATED 05/13/2019 [place] DO, JERRI Ot F32.9 MAJOR DEPRESSIVE DISORDER, SINGLE EPISOD 05/13/2019 [place] DO, JERRI Ot F41.9 ANXIETY DISORDER, UNSPECIFIED 05/13/2019 [place] DO, JERRI Ot F90.9 ATTENTION-DEFICIT HYPERACTIVITY DISORDER 05/13/2019 [place] DO, JERRI Ot G20 PARKINSON'S DISEASE 05/13/2019 [place] DO, JERRI Ot G40.90 9 EPILEPSY, UNSP, NOT INTRACTABLE, WITHOUT 05/13/2019 JERRI WASHINGTON DO Ot G72.81 CRITICAL ILLNESS MYOPATHY 05/13/2019 JERRI WASHINGTON DO Ot K70.9 ALCOHOLIC LIVER DISEASE, UNSPECIFIED 05/13/2019 JERRI WASHINGTON DO Ot R45.87 IMPULSIVENESS 08/02/2019 Martínez Perez E53.8 DEFICIENCY OF OTHER SPECIFIED B GROUP VITAMINS 08/02/2019 Martínez Perez F32.9 MAJOR DEPRESSIVE DISORDER, SINGLE EPISODE, UNSPECIFIED 08/02/2019 Martínez Perez F33.0 MAJOR DEPRESSIVE DISORDER, RECURRENT, MILD 08/02/2019 Martínez Perez F33.9 MAJOR DEPRESSIVE DISORDER, RECURRENT, 08/02/2019 Martínez Perez F39 UNSPECIFIED MOOD [AFFECTIVE] DISORDER 08/02/2019 Martínez Perez F41.0 PANIC DISORDER [EPISODIC PAROXYSMAL ANXIETY] 08/02/2019 Martínez Perez F41.1 GENERALIZED ANXIETY DISORDER 08/02/2019 Martínez Perez F41.9 ANXIETY DISORDER, UNSPECIFIED 08/02/2019 Martínez Perez F90.9 ATTENTION-DEFICIT HYPERACTIVITY DISORDER, UNSPECIFIED TYPE 08/02/2019 Martínez Perez G20 PARKINSON'S DISEASE 08/02/2019 Martínez Perez L98.9 DISORDER OF THE SKIN AND SUBCUTANEOUS TISSUE, UNSPECIFIED 08/02/2019 Martínez Perez R94.5 ABNORMAL RESULTS OF LIVER FUNCTION STUDIES 08/02/2019 Martínez Perez S16.1XXA STRAIN OF MUSCLE, FASCIA AND TENDON AT NECK LEVEL, INIT 08/02/2019 Martínez Perez S80.02XA CONTUSION OF LEFT KNEE, INITIAL ENCOUNTER 08/02/2019 Martínez Perez Y90.8 BLOOD ALCOHOL LEVEL OF 240 MG/100 ML OR MORE 08/25/2019 PACO HERNANDEZ E53.8 DEFICIENCY OF OTHER SPECIFIED B GROUP VITAMINS 08/25/2019 PACO HERNANDEZ F32.9 MAJOR DEPRESSIVE DISORDER, SINGLE EPISODE, UNSPECIFIED 08/25/2019 PACO HERNANDEZ F33.0 MAJOR DEPRESSIVE DISORDER, RECURRENT, MILD 08/25/2019 PACO HERNANDEZ F33.9 MAJOR DEPRESSIVE DISORDER, RECURRENT, 08/25/2019 BATTAGLER, PACO W F39 UNSPECIFIED MOOD [AFFECTIVE] DISORDER 08/25/2019 PACO HERNANDEZ F41.0 PANIC DISORDER [EPISODIC PAROXYSMAL ANXIETY] 08/25/2019 NEETUDAVINPACO BLEVINS Gabby F41.1 GENERALIZED ANXIETY DISORDER 08/25/2019 PACO HERNANDEZ Gabby F41.9 ANXIETY DISORDER, UNSPECIFIED 08/25/2019 PACO HERNANDEZ Gabby F90.9 ATTENTION-DEFICIT HYPERACTIVITY DISORDER, UNSPECIFIED TYPE 08/25/2019 NEETUDAVINPACO BLEVINS Gabby G20 PARKINSON'S DISEASE 08/25/2019 PACO HERNANDEZ Gabby L98.9 DISORDER OF THE SKIN AND SUBCUTANEOUS TISSUE, UNSPECIFIED 08/25/2019 PACO HERNANDEZ Gabby R94.5 ABNORMAL RESULTS OF LIVER FUNCTION STUDIES 08/25/2019 NEETUDAVINPACO BLEVINS Gabby S16.1 XXA STRAIN OF MUSCLE, FASCIA AND TENDON AT NECK LEVEL, INIT 08/25/2019 NEETUDAVINPACO BLEVINS Gabby S80.0 2XA CONTUSION OF LEFT KNEE, INITIAL ENCOUNTER 08/25/2019 NEETUDAVINPACO BLEVINS Gabby Y90.8 BLOOD ALCOHOL LEVEL OF 240 MG/100 ML OR MORE Procedures Code Description Performed By Per ryan On [id number] IN SERTION OF ENDOTRACHEAL AIRWAY INTO TR 04/22/2019 [id number] RE SPIRATORY VENTILATION, LESS THAN 24 CO 04/22/2019 [id number] RE SPIRATORY VENTILATION, GREATER THAN 96 04/22/[id number] CHANDLER OF RIGHT MAIN BRONCHUS, ENDO, D 04/28/[id number] CHANDLER OF LEFT MAIN BRONCH[place], ENDO, DI 04/28/2019 Results Test Result Range Rapid Drug Screen,Medical - 12/31/15 02: 11 Amphetamine POSITIVE NEGATIVE Barbiturates NEGATIVE NEGATIVE Benzodiazepines NEGATIVE NEGATIVE Cocaine NEGATIVE NEGATIVE Marijuana NEGATIVE NEGATIVE Methylenedioxymethamphetamine NEGATIVE NEGATIVE Opiates NEGATIVE NEGATIVE Oxycodone NEGATIVE NEGATIVE Phencyclidine NEGATIVE NEGATIVE Propoxyphene NEGATIVE NEGATIVE Tricyclic Antidepressant NEGATIVE NEGAT NED Magnesium - 12/31/15 02:11 Mg++ 2.5 mg/dL 1.6-2.6 Comprehensive Metabolic Panel - 12/31/15 02:11 Albumin 4.5 g/dL 3.6-5.1 ALP 76 U/L 35-130 ALT 80 U/L 6-45 Anion Gap 17 6-14 AST 91 U/L 2-40 BUN 13 mg/dL 5-25 Calcium 9.2 mg/dL 8.3-10.4 Chloride 107 mmol/L 95-114 CO2 24 mEq/L 22-33 Creat 0.88 mg/dL 0.50-1.50 eGFR 95 mL/min/1.73m2 >59 Globulin 2.7 g/dL 2.3-3.5 Glucose 80 mg/dL 70-110 Osmo 296 280-295 Potassium 4.0 mmol/L 3.5-5.3 Sodium 144 mmol/L 134-148 TBil 0.4 mg/dL 0.2-1.2 TP 7.2 g/dL 6.0-8.3 EKG - 12/31/15 02:11 EKG Complete Comprehensive Metabolic Panel - 01/01/16 06:40 Albumin 3.5 g/dL 3.6-5.1 ALP 59 U/L 35-130 ALT 18 U/L 6-45 Anion Gap 10 6-14 AST 43 U/L 2-40 BUN 13 mg/dL 5-25 Calcium 8.5 mg/dL 8.3-10.4 Chloride 107 mmol/L 95-114 CO2 26 mEq/L 22-33 Creat 0.81 mg/dL 0.50-1.50 eGFR 104 mL/min/1.73m2 >59 Globulin 2.0 g/dL 2.3-3.5 Glucose 95 mg/dL 70-110 Osmo 287 280-295 Potassium 3.7 mmol/L 3.5-5.3 Sodium 139 mmol/L 134-148 TBil 1.5 mg/dL 0.2-1.2 TP 5.5 g/dL 6.0-8.3 CBC with Auto Diff - 01/03/16 00:08 Baso% 0.50 % 0.00-2.50 Eos 0.1 K/uL 0.0-0.7 Eos% 1.1 % 0.0-7.0 Hct 45.7 % 42.0-52.0 Hgb 15.4 g/dL 14.0-17.0 Lym 2.45 K/uL 0.60-3.40 Lym% 43.1 % 10.0-50.0 MCH 30.6 pg 27.0-31.2 MCHC 33.7 g/dL 32.0-36.0 MCV 90.7 fL 80.0-97.0 [place]% 8.5 % 0.0-12.0 MPV 10.4 fL 7.4-10.0 Pratik% 46.8 % 37.0-80.0 Plt 272 K/uL 150-400 RBC 5.04 M/uL 4.20-5.40 RDW 12.7 % 11.6-14.8 WBC 5.68 K/uL 5.00-10.00 Pratik 2.66 K/uL 2.00-6.90 [place] 0.5 K/uL 0.0-0.9 Baso 0.0 K/uL 0.0-0.2 Comprehensive Metabolic Panel - 02/05/16 17:10 Albumin 4.4 g/dL 3.6-5.1 ALP 69 U/L 35-130 ALT 85 U/L 6-45 Anion Gap 23 6-14 AST 101 Result Verified by Repeat Analysis U /L 2-40 BUN 12 mg/dL 5-25 Calcium 9.4 mg/dL 8.3-10.4 Chloride 104 mmol/L 95-114 CO2 20 mEq/L 22-33 Creat 0.80 mg/dL 0.50-1.50 eGFR 106 mL/min/1.73m2 >59 Globulin 2.7 g/dL 2.3-3.5 Glucose 105 mg/dL 70-110 Osmo 295 280-295 Potassium 3.9 mmol/L 3.5-5.3 Sodium 143 mmol/L 134-148 TBil 0.6 mg/dL 0.2-1.2 TP 7.1 g/dL 6.0-8.3 Thyroid Stimulating Hormone - 02/05/16 1 7:11 TSH 0.47 mIU/mL 0.32-5.00 Ethanol - 02/05/16 17:38 Ethanol 376 mg/dL 20-80 Magnesium - 02/05/16 17:38 Mg++ 2.3 mg/dL 1.6-2.6 Gamma Glutamyl Transferase - 02/05/16 18 :30 GGT 167 U/L 5-40 Comprehensive Metabolic Panel - 02/07/16 07:00 Albumin 3.8 g/dL 3.6-5.1 ALP 56 U/L 35-130 ALT 49 U/L 6-45 Anion Gap 13 6-14 AST 61 U/L 2-40 BUN 11 mg/dL 5-25 Calcium 9.0 mg/dL 8.3-10.4 Chloride 105 mmol/L 95-114 CO2 24 mEq/L 22-33 Creat 0.80 mg/dL 0.50-1.50 eGFR 106 mL/min/1.73m2 >59 Globulin 1.7 g/dL 2.3-3.5 Glucose 91 mg/dL 70-110 Osmo 284 280-295 Potassium 4.1 mmol/L 3.5-5.3 Sodium 138 mmol/L 134-148 TBil 1.6 mg/dL 0.2-1.2 TP 5.5 g/dL 6.0-8.3 Lipid Panel - 02/07/16 07:00 C/HDL 2.3 3.7-6.7 Cholesterol 200 mg/dL 100-240 HDL 86 mg/dL 30-85 LDL-Calculated 93 mg/dL 0-100 Trig 104 mg/dL 35-160 VLDL 21 mg/dL 0-42 Urinalysis by dipstick with reflex to mi croscopic urinalysis - 01/04/18 16:00 BILIRUBIN,URINE 2+ NEGATIVE GLUCOSE,URINE NEGATIVE NEGATIVE KETONES,URINE 1+ NEGATIVE UROBILINOGEN,URINE 1.0 0.2 Urine color BROWN YELLOW Urine appearance SL CLOUDY CLEAR Urine pH measurement 8.0 4.5-7.5 Urine blood detection NEGATIVE NEGATIVE Urine nitrate measurement NEGATIVE NEGA TIVE Leukocyte esterase ur dipstick NEGATIVE NEGATIVE Urine protein detection TRACE NEGATI VE Urine specific gravity measurement 1.020 1.002-1.030 Complete blood count (CBC) with differen tial count - 01/05/18 08:44 LYMPHOCYTES % 27.8 18.0-47.0 RED CELL DISTRIBUTION WIDTH 12.2 11 .5-14.5 Glucose measurement 1.9 0.9-5.1 Serum albumin to globulin ratio 0.5 0.1-0.9 Blood erythrocytes count (number/volume) 5.26 4.70-6.10 Blood hemoglobin measurement (mass/volume) 16.6 14.0-18.0 Venous blood hematocrit (volume fraction) 51.7 42.0-52.0 MCH 31.6 27.0-31.0 Erythrocyte mean corpuscular hemoglobin concentration measurement (mass/volume) 32.1 33.0-37.0 Blood platelets count (number/volume) 153 130-400 Automated neutrophil percentage 62.4 40.0-75.0 Monocyte percentage 7.6 0.0-10.0 Eosinophil % 1.3 0.0-6.0 Basophil % 0.9 0.0-2.0 Neutrophil count 4.2 1.9-8.1 Blood eosinophils count (number/volume) 0.1 0.0-0.6 Blood basophils count (number/volume) 0.1 0.0-0.2 MCV 98.4 80.0-99.0 Comprehensive metabolic panel - 01/05/18 08:44 ALKALINE PHOSPHATASE 128 40-150 CARBON DIOXIDE 23.0 22-29 GLOBULIN 3.8 1.9-3.8 Glucose measurement 98 98-107 Serum or plasma urea nitrogen measurement (mass/volume ) 12.0 8.9-20.6 Serum or plasma urea nitrogen/creatinine mass ratio 14 10- 20 Serum or plasma alanine aminotransferase measurement (enzymatic activity/volume) 14 0-55 Serum or plasma albumin measurement (mass/volume) 4.2 3.5- 5.0 Serum albumin to globulin ratio 18 0-14 Calcium measurement (mass/volume) 10.3 8.4-10.2 DEBRA w/Reflex - 10/16/18 14:05 DEBRA DIRECT NEGATIVE NEGATIVE Thyroid Stimulating Hormone - 10/16/18 1 4:05 TSH 0.82 mIU/mL 0.32-5.00 Creatine Kinase - 10/18/18 13:12 CK 252 U/L 26-174 UADIP REFLEX TO MICRO - 03/14/19 18:45 BACTERIA,URINE 1+ (10-20%) None Seen BILIRUBIN,URINE 1+ Negative BLOOD,URINE Negative Negative CLARITY,URINE Slt Cloudy Clear COLOR,URINE Red Yellow GLUCOSE,URINE Trace Negative KETONES,URINE Trace Negative LEUKOCYTE ESTERASE ,URINE Negative Nega tive MUCUS,URINE 3+ (75%) /hpf None Seen NITRATE,URINE Positive Negative PH,URINE 8.5 5.0-7.0 PROTEIN,URINE Trace Negative RBC,URINE 0-2 /hpf 0-2 SPECIFIC GRAVITY,URINE 1.015 1.002-1 .030 SQUAMOUS EPITHELIAL CELL,UR 0-5 /hpf 0- 5 UROBILINOGEN,URINE 4.0 0.2-1.0 WBC,URINE 0-5 /hpf 0-5 Add Urine Microscopic Yes NRG COMPLETE BLOOD COUNT W/DIFF - 03/15/19 0 8:33 HEMATOCRIT 50.4 % 42.0-52.0 HEMOGLOBIN 16.1 g/dL 14.0-18.0 MCH 31.9 pG 27.0-31.0 MCHC 32.0 g/dL 30.0-34.0 MCV 99.6 fL 80.0-99.0 PLATELET COUNT 214 x10-3/uL 130-400 RED BLOOD COUNT 5.06 x10-6/uL 4.70-6.10 RED CELL DISTRIBUTION WIDTH 13.0 % 11 .5-14.5 WHITE BLOOD COUNT 5.5 x10-3/uL 4.8-10.8 Neutrophils Percent Auto 70.4 % 40.0- 75.0 Lymphocytes Percent Auto 20.1 % 18.0- 47.0 Monocytes Percent Auto 7.3 % 0.0-10. 0 Eosinophils Percent Auto 1.1 % 0.0-6 .0 Basophils Percent Auto 1.2 % 0.0-2.0 Neutrophils Absolute Auto 3.8 x10-3/uL 1 .9-8.1 Lymphocytes Absolute Auto 1.1 x10-3/uL 0.9-5.1 Monocytes Absolute Auto 0.4 x10-3/uL 0.1 -0.9 Eosinophils Absolute Auto 0.1 x10-3/uL 0 .0-0.6 Basophils Absolute Auto 0.1 x10-3/uL 0.0 -0.2 COMPREHENSIVE METABOLIC PANEL - 03/15/19 08:33 ALBUMIN/GLOBULIN RATIO 1.2 1.0-2.0 ALBUMIN 4.3 g/dL 3.5-5.0 ALKALINE PHOSPHATASE 173 U/L 40-150 ALANINE AMINOTRANSFERASE 39 U/L 0-55 ASPARTATE AMINO TRANSFERASE 131 U/L 5- 34 BUN/CREATININE RATIO 14 10-20 BLOOD UREA NITROGEN 12.0 mg/dL 8.9-20.6 CALCIUM 10.0 mg/dL 8.4-10.2 CHLORIDE 99 mmol/L 98-107 CARBON DIOXIDE 26.0 mmol/L 22-29 EST GLOMERULAR FILTRATION RATE 100.9 * >59 ANION GAP 16 MEQ/L 0-14 GLOBULIN 3.6 g/dL 1.9-3.8 GLUCOSE 87 mg/dL 70-105 POTASSIUM 4.3 mmol/L 3.5-5.1 SODIUM 137 mmol/L 136-145 TOTAL PROTEIN 7.9 g/dL 6.4-8.3 Creatinine 0.87 mg/dL 0.72-1.25 Bilirubin Total 3.10 mg/dL 0.0-1.0 Complete blood count (CBC) with automate d white blood cell (WBC) differential - 04/21/19 11:30 Blood leukocytes automated count (number/volume) 9.6 10*3/uL 4.3-11.0 Blood erythrocytes automated count (number/volume) 4.82 10*6/uL 4.35-5.85 Venous blood hemoglobin measurement (mass/volume) 14.8 g/dL 13.3-17.7 Blood hematocrit (volume fraction) 44 % 40-54 Automated erythrocyte mean corpuscular volume 92 [ foz_us] 80-99 Automated erythrocyte mean corpuscular h emoglobin (mass per erythrocyte) 31 pg 25-34 Automated erythrocyte mean corpuscular h emoglobin concentration measurement (mass/volume) 34 g/dL 32-36 Automated erythrocyte distribution width ratio 12. 8 % 10.0- 14.5 Automated blood platelet count (count/volume) 105 10*3/uL 130-400 Automated blood platelet mean volume measurement 12.5 [foz_us] 7.4-10.4 Automated blood neutrophils/100 leukocytes 81 % 42-75 Automated blood lymphocytes/100 leukocytes 12 % 12-44 Blood monocytes/100 leukocytes 7 % 0-12 Automated blood eosinophils/100 leukocytes 0 % 0-10 Automated blood basophils/100 leukocytes 0 % 0-10 Blood neutrophils automated count (number/volume) 7.8 10*3 1.8-7.8 Blood lymphocytes automated count (number/volume) 1.2 10*3 1.0-4.0 Blood monocytes automated count (number/volume) 0. 6 10*3 0.0-1.0 Automated eosinophil count 0.0 10*3/uL 0 .0-0.3 Automated blood basophil count (count/volume) 0.0 10*3/uL 0.0-0.1 Comprehensive metabolic panel - 04/21/19 11:30 Serum or plasma sodium measurement (moles/volume) 134 mmol/L 135-145 Serum or plasma potassium measurement (moles/volume) 3.6 mmol/L 3.6-5.0 Serum or plasma chloride measurement (moles/volume) 99 mmol/L 98-107 Carbon dioxide 22 mmol/L 21-32 Serum or plasma anion gap determination (moles/volume) 13 mmol/L 5-14 Serum or plasma urea nitrogen measurement (mass/volume ) 11 mg/dL 7-18 Serum or plasma creatinine measurement (mass/volume) 0.83 mg/dL 0.60-1.30 Serum or plasma urea nitrogen/creatinine mass ratio 13 NRG Serum or plasma creatinine measurement w ith calculation of estimated glomerular filtration rate > NRG Serum or plasma glucose measurement (mass/volume) 112 mg/dL 70-105 Serum or plasma calcium measurement (mass/volume) 10.3 mg/dL 8.5-10.1 Serum or plasma total bilirubin measurement (mass/volu me) 1.4 mg/dL 0.1-1.0 Serum or plasma alkaline phosphatase zoey surement (enzymatic activity/volume) 186 U/L 40-136 Serum or plasma aspartate aminotransfera se measurement (enzymatic activity/volume) 82 U/L 5-34 Serum or plasma alanine aminotransferase measurement (enzymatic activity/volume) 36 U/L 0-55 Serum or plasma protein measurement (mass/volume) 8.2 g/dL 6.4-8.2 Serum or plasma albumin measurement (mass/volume) 4.5 g/dL 3.2-4.5 CALCIUM CORRECTED 9.9 mg/dL 8.5-10.1 Serum or plasma salicylates measurement (mass/volume) - 04/21/19 11:30 Serum or plasma salicylates measurement (mass/volume) < mg/dL 5.0-20.0 Serum or plasma acetaminophen measuremen t (mass/volume) - 04/21/19 11:30 Serum or plasma acetaminophen measurement (mass/volume ) < ug/mL 10-30 Serum or plasma ethanol measurement (mas s/volume) - 04/21/19 11:30 Serum or plasma ethanol measurement (mass/volume) < mg/dL <10 Complete urinalysis with reflex to cultu re - 04/21/19 11:35 Urine color determination YELLOW NRG Urine clarity determination CLEAR NR G Urine pH measurement by test strip 6.0 5-9 Specific gravity of urine by test strip 1.015 1.016-1.022 Urine protein assay by test strip, semi-quantitative NEGATIVE NEGATIVE Urine glucose detection by automated test strip NE GATIVE NEGATIVE Erythrocytes detection in urine sediment by light micr oscopy NEGATIVE NEGATIVE Urine ketones detection by automated test strip NE GATIVE NEGATIVE Urine nitrite detection by test strip NEGATIVE NEGATIVE Urine total bilirubin detection by test strip 1+ NEGATIVE Urine urobilinogen measurement by automated test strip (mass/volume) 4.0 mg/dL < = 1.0 Urine leukocyte esterase detection by dipstick NEG ATIVE NEGATIVE Automated urine sediment erythrocyte cou nt by microscopy (number/high power field) NONE NRG Automated urine sediment leukocyte count by microscopy (number/high power field) NONE NRG Bacteria detection in urine sediment by light microsco py TRACE NRG Squamous epithelial cells detection in u rine sediment by light microscopy NONE NRG Crystals detection in urine sediment by light microsco py NONE NRG Casts detection in urine sediment by light microscopy NONE NRG Mucus detection in urine sediment by light microscopy SMALL NRG Complete urinalysis with reflex to culture NO NRG Urine drug screening test - 04/21/19 11: 35 Urine phencyclidine detection by screening method NEGATIVE NEGATIVE Urine benzodiazepines detection by screening method POSITIVE NEGATIVE Urine cocaine detection NEGATIVE NEGATI VE Urine amphetamines detection by screening method N EGATIVE NEGATIVE Urine methamphetamine detection by screening method NEGATIVE NEGATIVE Urine cannabinoids detection by screening method N EGATIVE NEGATIVE Urine opiates detection by screening method NEGATI VE NEGATIVE Urine barbiturates detection NEGATIVE N EGATIVE Screening urine tricyclic antidepressants detection POSITIVE NEGATIVE Urine methadone detection by screening method NEGA TIVE NEGATIVE Urine oxycodone detection NEGATIVE NEGA TIVE Urine propoxyphene detection NEGATIVE N EGATIVE Comprehensive metabolic panel - 04/21/19 14:30 Serum or plasma sodium measurement (moles/volume) 134 mmol/L 135-145 Serum or plasma potassium measurement (moles/volume) 3.7 mmol/L 3.6-5.0 Serum or plasma chloride measurement (moles/volume) 101 mmol/L 98-107 Carbon dioxide 21 mmol/L 21-32 Serum or plasma anion gap determination (moles/volume) 12 mmol/L 5-14 Serum or plasma urea nitrogen measurement (mass/volume ) 11 mg/dL 7-18 Serum or plasma creatinine measurement (mass/volume) 0.75 mg/dL 0.60-1.30 Serum or plasma urea nitrogen/creatinine mass ratio 15 NRG Serum or plasma creatinine measurement w ith calculation of estimated glomerular filtration rate > NRG Serum or plasma glucose measurement (mass/volume) 100 mg/dL 70-105 Serum or plasma calcium measurement (mass/volume) 10.0 mg/dL 8.5-10.1 Serum or plasma total bilirubin measurement (mass/volu me) 1.4 mg/dL 0.1-1.0 Serum or plasma alkaline phosphatase zoey surement (enzymatic activity/volume) 169 U/L 40-136 Serum or plasma aspartate aminotransfera se measurement (enzymatic activity/volume) 76 U/L 5-34 Serum or plasma alanine aminotransferase measurement (enzymatic activity/volume) 33 U/L 0-55 Serum or plasma protein measurement (mass/volume) 7.7 g/dL 6.4-8.2 Serum or plasma albumin measurement (mass/volume) 4.3 g/dL 3.2-4.5 CALCIUM CORRECTED 9.8 mg/dL 8.5-10.1 PT panel in platelet poor plasma by coag ulation assay - 04/21/19 14:30 Prothrombin time (PT) in platelet poor plasma by coagu lation assay 13.8 s 12.2-14.7 INR in platelet poor plasma or blood by coagulation as say 1.0 0.8-1.4 Activated partial thromboplastin time (a PTT) in platelet poor plasma bycoagulation assay - 04/21/19 14:30 Activated partial thromboplastin time (a PTT) in platelet poor plasma bycoagulation assay 34 s 24-35 Serum or plasma ethanol measurement (mas s/volume) - 04/21/19 14:30 Serum or plasma ethanol measurement (mass/volume) < mg/dL <10 Human immunodeficiency virus (HIV) type 1 and 2 antibody detection - 04/21/19 14:30 Serum HIV 1+2 antibody detection by immunoblot Non-Reactive Non-Reactive Complete blood count (CBC) with automate d white blood cell (WBC) differential - 04/22/19 04:18 Blood leukocytes automated count (number/volume) 5.5 10*3/uL 4.3-11.0 Blood erythrocytes automated count (number/volume) 4.17 10*6/uL 4.35-5.85 Venous blood hemoglobin measurement (mass/volume) 12.9 g/dL 13.3-17.7 Blood hematocrit (volume fraction) 39 % 40-54 Automated erythrocyte mean corpuscular volume 93 [ foz_us] 80-99 Automated erythrocyte mean corpuscular h emoglobin (mass per erythrocyte) 31 pg 25-34 Automated erythrocyte mean corpuscular h emoglobin concentration measurement (mass/volume) 33 g/dL 32-36 Automated erythrocyte distribution width ratio 12. 9 % 10.0- 14.5 Automated blood platelet count (count/volume) 85 1 0*3/uL 130-400 Automated blood platelet mean volume measurement 12.3 [foz_us] 7.4-10.4 Automated blood neutrophils/100 leukocytes 73 % 42-75 Automated blood lymphocytes/100 leukocytes 17 % 12-44 Blood monocytes/100 leukocytes 8 % 0-12 Automated blood eosinophils/100 leukocytes 1 % 0-10 Automated blood basophils/100 leukocytes 0 % 0-10 Blood neutrophils automated count (number/volume) 4.0 10*3 1.8-7.8 Blood lymphocytes automated count (number/volume) 1.0 10*3 1.0-4.0 Blood monocytes automated count (number/volume) 0. 5 10*3 0.0-1.0 Automated eosinophil count 0.1 10*3/uL 0 .0-0.3 Automated blood basophil count (count/volume) 0.0 10*3/uL 0.0-0.1 Whole blood basic metabolic panel - 04/10 04/01 04:18 Serum or plasma sodium measurement (moles/volume) 135 mmol/L 135-145 Serum or plasma potassium measurement (moles/volume) 3.9 mmol/L 3.6-5.0 Serum or plasma chloride measurement (moles/volume) 106 mmol/L 98-107 Carbon dioxide 21 mmol/L 21-32 Serum or plasma anion gap determination (moles/volume) 8 mmol/L 5-14 Serum or plasma urea nitrogen measurement (mass/volume ) 8 mg/dL 7-18 Serum or plasma creatinine measurement (mass/volume) 0.79 mg/dL 0.60-1.30 Serum or plasma urea nitrogen/creatinine mass ratio 10 NRG Serum or plasma creatinine measurement w ith calculation of estimated glomerular filtration rate > NRG Serum or plasma glucose measurement (mass/volume) 172 mg/dL 70-105 Serum or plasma calcium measurement (mass/volume) 8.6 mg/dL 8.5-10.1 Serum or plasma phosphate measurement (m ass/volume) - 04/22/19 04:18 Serum or plasma phosphate measurement (mass/volume) 3.6 mg/dL 2.3-4.7 Magnesium - 04/22/19 04:18 Magnesium 1.9 mg/dL 1.6-2.4 Serum or plasma triglyceride measurement (mass/volume) - 04/22/19 04:18 Serum or plasma triglyceride measurement (mass/volume) 64 mg/dL <150 Methicillin resistant Staphylococcus aur eus (MRSA) screening culture - 04/22/19 04:21 Methicillin resistant Staphylococcus aureus (MRSA) scr eening culture NEG NRG Sputum Gram stain - 04/22/19 05:00 Sputum Gram stain MIXED BACTERIAL JOE NRG Bacterial sputum culture - 04/22/19 05:0 0 QUANTITY OF GROWTH . NRG Bacterial sputum culture USUAL RESP NRG Capillary blood glucose measurement by g lucometer (mass/volume) - 04/22/19 17:40 Capillary blood glucose measurement by glucometer (mas s/volume) 128 mg/dL 70-110 Capillary blood glucose measurement by g lucometer (mass/volume) - 04/23/19 00:13 Capillary blood glucose measurement by glucometer (mas s/volume) 110 mg/dL 70-110 Complete blood count (CBC) with automate d white blood cell (WBC) differential - 04/23/19 03:12 Blood leukocytes automated count (number/volume) 8.0 10*3/uL 4.3-11.0 Blood erythrocytes automated count (number/volume) 4.38 10*6/uL 4.35-5.85 Venous blood hemoglobin measurement (mass/volume) 13.7 g/dL 13.3-17.7 Blood hematocrit (volume fraction) 40 % 40-54 Automated erythrocyte mean corpuscular volume 92 [ foz_us] 80-99 Automated erythrocyte mean corpuscular h emoglobin (mass per erythrocyte) 31 pg 25-34 Automated erythrocyte mean corpuscular h emoglobin concentration measurement (mass/volume) 34 g/dL 32-36 Automated erythrocyte distribution width ratio 12. 9 % 10.0- 14.5 Automated blood platelet count (count/volume) 89 1 0*3/uL 130-400 Automated blood platelet mean volume measurement 12.6 [foz_us] 7.4-10.4 Automated blood neutrophils/100 leukocytes 87 % 42-75 Automated blood lymphocytes/100 leukocytes 7 % 12-44 Blood monocytes/100 leukocytes 5 % 0-12 Automated blood eosinophils/100 leukocytes 1 % 0-10 Automated blood basophils/100 leukocytes 0 % 0-10 Blood neutrophils automated count (number/volume) 7.0 10*3 1.8-7.8 Blood lymphocytes automated count (number/volume) 0.5 10*3 1.0-4.0 Blood monocytes automated count (number/volume) 0. 4 10*3 0.0-1.0 Automated eosinophil count 0.1 10*3/uL 0 .0-0.3 Automated blood basophil count (count/volume) 0.0 10*3/uL 0.0-0.1 Whole blood basic metabolic panel - 04/10 04/29 03:12 Serum or plasma sodium measurement (moles/volume) 135 mmol/L 135-145 Serum or plasma potassium measurement (moles/volume) 3.5 mmol/L 3.6-5.0 Serum or plasma chloride measurement (moles/volume) 104 mmol/L 98-107 Carbon dioxide 20 mmol/L 21-32 Serum or plasma anion gap determination (moles/volume) 11 mmol/L 5-14 Serum or plasma urea nitrogen measurement (mass/volume ) 5 mg/dL 7-18 Serum or plasma creatinine measurement (mass/volume) 0.65 mg/dL 0.60-1.30 Serum or plasma urea nitrogen/creatinine mass ratio 8 NRG Serum or plasma creatinine measurement w ith calculation of estimated glomerular filtration rate > NRG Serum or plasma glucose measurement (mass/volume) 112 mg/dL 70-105 Serum or plasma calcium measurement (mass/volume) 8.5 mg/dL 8.5-10.1 Serum or plasma phosphate measurement (m ass/volume) - 04/23/19 03:12 Serum or plasma phosphate measurement (mass/volume) 3.0 mg/dL 2.3-4.7 Magnesium - 04/23/19 03:12 Magnesium 1.5 mg/dL 1.6-2.4 Manual absolute plasma cell count - 04/10 04/29 03:12 Blood monocytes/100 leukocytes 4 % NRG Manual blood segmented neutrophils/100 leukocytes 85 % NRG Manual blood lymphocytes/100 leukocytes 9 % NRG Manual eosinophils/100 leukocytes in nose 2 % NRG Blood erythrocyte morphology finding identification NORMAL NRG Arterial blood gas measurement - 0 03:20 Blood pCO2 33 mm[Hg] 35-45 Blood pO2 63 mm[Hg] 79-93 Arterial blood bicarbonate measurement (moles/volume) 22 mmol/L 23-27 Arterial blood base excess by calculation -0.8 mmo l/L -2.5-2.5 Arterial blood oxygen saturation measurement 94 % 94-100 * Inhaled oxygen flow rate 25 NRG Arterial blood pH measurement with patient temperature correction 7.46 7.37-7.43 Arterial blood carbon dioxide, total measurement (mole s/volume) 23.4 mmol/L 21.0-31.0 Body site RIGHT RADIAL NRG Assessment of wrist artery patency prior to arterial p uncture POSITIVE NRG Setting of ventilation mode YES NR G Measurement of body temperature 37.8 NRG Capillary blood glucose measurement by g lucometer (mass/volume) - 04/23/19 11:37 Capillary blood glucose measurement by glucometer (mas s/volume) 137 mg/dL 70-110 Capillary blood glucose measurement by g lucometer (mass/volume) - 04/23/19 17:02 Capillary blood glucose measurement by glucometer (mas s/volume) 108 mg/dL 70-110 Capillary blood glucose measurement by g lucometer (mass/volume) - 04/23/19 23:50 Capillary blood glucose measurement by glucometer (mas s/volume) 107 mg/dL 70-110 Arterial blood gas measurement - 0 03:15 Blood pCO2 34 mm[Hg] 35-45 Blood pO2 54 mm[Hg] 79-93 Arterial blood bicarbonate measurement (moles/volume) 23 mmol/L 23-27 Arterial blood base excess by calculation -0.8 mmo l/L -2.5-2.5 Arterial blood oxygen saturation measurement 92 % 94-100 * Inhaled oxygen flow rate 25 NRG Arterial blood pH measurement with patient temperature correction 7.45 7.37-7.43 Arterial blood carbon dioxide, total measurement (mole s/volume) 23.7 mmol/L 21.0-31.0 Body site RIGHT RADIAL NRG Assessment of wrist artery patency prior to arterial p uncture POSITIVE NRG Setting of ventilation mode YES NR G Measurement of body temperature 37.6 NRG Complete blood count (CBC) with automate d white blood cell (WBC) differential - 04/24/19 03:15 Blood leukocytes automated count (number/volume) 7.5 10*3/uL 4.3-11.0 Blood erythrocytes automated count (number/volume) 4.13 10*6/uL 4.35-5.85 Venous blood hemoglobin measurement (mass/volume) 12.9 g/dL 13.3-17.7 Blood hematocrit (volume fraction) 39 % 40-54 Automated erythrocyte mean corpuscular volume 94 [ foz_us] 80-99 Automated erythrocyte mean corpuscular h emoglobin (mass per erythrocyte) 31 pg 25-34 Automated erythrocyte mean corpuscular h emoglobin concentration measurement (mass/volume) 33 g/dL 32-36 Automated erythrocyte distribution width ratio 12. 9 % 10.0- 14.5 Automated blood platelet count (count/volume) 83 1 0*3/uL 130-400 Automated blood platelet mean volume measurement 12.6 [foz_us] 7.4-10.4 Automated blood neutrophils/100 leukocytes 75 % 42-75 Automated blood lymphocytes/100 leukocytes 15 % 12-44 Blood monocytes/100 leukocytes 9 % 0-12 Automated blood eosinophils/100 leukocytes 1 % 0-10 Automated blood basophils/100 leukocytes 0 % 0-10 Blood neutrophils automated count (number/volume) 5.6 10*3 1.8-7.8 Blood lymphocytes automated count (number/volume) 1.1 10*3 1.0-4.0 Blood monocytes automated count (number/volume) 0. 7 10*3 0.0-1.0 Automated eosinophil count 0.1 10*3/uL 0 .0-0.3 Automated blood basophil count (count/volume) 0.0 10*3/uL 0.0-0.1 Whole blood basic metabolic panel - 04/10 05/30 03:15 Serum or plasma sodium measurement (moles/volume) 132 mmol/L 135-145 Serum or plasma potassium measurement (moles/volume) 3.6 mmol/L 3.6-5.0 Serum or plasma chloride measurement (moles/volume) 103 mmol/L 98-107 Carbon dioxide 21 mmol/L 21-32 Serum or plasma anion gap determination (moles/volume) 8 mmol/L 5-14 Serum or plasma urea nitrogen measurement (mass/volume ) 3 mg/dL 7-18 Serum or plasma creatinine measurement (mass/volume) 0.67 mg/dL 0.60-1.30 Serum or plasma urea nitrogen/creatinine mass ratio 4 NRG Serum or plasma creatinine measurement w ith calculation of estimated glomerular filtration rate > NRG Serum or plasma glucose measurement (mass/volume) 117 mg/dL 70-105 Serum or plasma calcium measurement (mass/volume) 8.3 mg/dL 8.5-10.1 Serum or plasma phosphate measurement (m ass/volume) - 04/24/19 03:15 Serum or plasma phosphate measurement (mass/volume) 2.6 mg/dL 2.3-4.7 Magnesium - 04/24/19 03:15 Magnesium 1.7 mg/dL 1.6-2.4 Serum or plasma triglyceride measurement (mass/volume) - 04/24/19 03:15 Serum or plasma triglyceride measurement (mass/volume) 87 mg/dL <150 Capillary blood glucose measurement by g lucometer (mass/volume) - 04/24/19 11:46 Capillary blood glucose measurement by glucometer (mas s/volume) 110 mg/dL 70-110 Capillary blood glucose measurement by g lucometer (mass/volume) - 04/24/19 18:05 Capillary blood glucose measurement by glucometer (mas s/volume) 104 mg/dL 70-110 Capillary blood glucose measurement by g lucometer (mass/volume) - 04/25/19 00:08 Capillary blood glucose measurement by glucometer (mas s/volume) 106 mg/dL 70-110 PROCALCITONIN (PCT) - 04/25/19 03:42 PROCALCITONIN (PCT) 0.69 ng/mL <0.10 Complete blood count (CBC) with automate d white blood cell (WBC) differential - 04/25/19 03:45 Blood leukocytes automated count (number/volume) 6.6 10*3/uL 4.3-11.0 Blood erythrocytes automated count (number/volume) 4.24 10*6/uL 4.35-5.85 Venous blood hemoglobin measurement (mass/volume) 13.1 g/dL 13.3-17.7 Blood hematocrit (volume fraction) 40 % 40-54 Automated erythrocyte mean corpuscular volume 93 [ foz_us] 80-99 Automated erythrocyte mean corpuscular h emoglobin (mass per erythrocyte) 31 pg 25-34 Automated erythrocyte mean corpuscular h emoglobin concentration measurement (mass/volume) 33 g/dL 32-36 Automated erythrocyte distribution width ratio 12. 9 % 10.0- 14.5 Automated blood platelet count (count/volume) 96 1 0*3/uL 130-400 Automated blood platelet mean volume measurement 12.9 [foz_us] 7.4-10.4 Automated blood neutrophils/100 leukocytes 78 % 42-75 Automated blood lymphocytes/100 leukocytes 7 % 12-44 Blood monocytes/100 leukocytes 14 % 0-12 Automated blood eosinophils/100 leukocytes 0 % 0-10 Automated blood basophils/100 leukocytes 0 % 0-10 Blood neutrophils automated count (number/volume) 5.2 10*3 1.8-7.8 Blood lymphocytes automated count (number/volume) 0.5 10*3 1.0-4.0 Blood monocytes automated count (number/volume) 0. 9 10*3 0.0-1.0 Automated eosinophil count 0.0 10*3/uL 0 .0-0.3 Automated blood basophil count (count/volume) 0.0 10*3/uL 0.0-0.1 Whole blood basic metabolic panel - 04/10 06/29 03:45 Serum or plasma sodium measurement (moles/volume) 137 mmol/L 135-145 Serum or plasma potassium measurement (moles/volume) 3.8 mmol/L 3.6-5.0 Serum or plasma chloride measurement (moles/volume) 104 mmol/L 98-107 Carbon dioxide 21 mmol/L 21-32 Serum or plasma anion gap determination (moles/volume) 12 mmol/L 5-14 Serum or plasma urea nitrogen measurement (mass/volume ) 3 mg/dL 7-18 Serum or plasma creatinine measurement (mass/volume) 0.67 mg/dL 0.60-1.30 Serum or plasma urea nitrogen/creatinine mass ratio 4 NRG Serum or plasma creatinine measurement w ith calculation of estimated glomerular filtration rate > NRG Serum or plasma glucose measurement (mass/volume) 113 mg/dL 70-105 Serum or plasma calcium measurement (mass/volume) 8.7 mg/dL 8.5-10.1 Serum or plasma phosphate measurement (m ass/volume) - 04/25/19 03:45 Serum or plasma phosphate measurement (mass/volume) 3.9 mg/dL 2.3-4.7 Magnesium - 04/25/19 03:45 Magnesium 1.6 mg/dL 1.6-2.4 Arterial blood gas measurement - 0 04:00 Blood pCO2 37 mm[Hg] 35-45 Blood pO2 68 mm[Hg] 79-93 Arterial blood bicarbonate measurement (moles/volume) 23 mmol/L 23-27 Arterial blood base excess by calculation -1.2 mmo l/L -2.5-2.5 Arterial blood oxygen saturation measurement 94 % 94-100 * Inhaled oxygen flow rate 20 NRG Arterial blood pH measurement with patient temperature correction 7.41 7.37-7.43 Arterial blood carbon dioxide, total measurement (mole s/volume) 24.0 mmol/L 21.0-31.0 Body site RIGHT RADIAL NRG Assessment of wrist artery patency prior to arterial p uncture POSITIVE NRG Setting of ventilation mode YES NR G Measurement of body temperature 36.8 NRG Sputum Gram stain - 04/25/19 05:12 Sputum Gram stain MIXED BACTERIAL JOE NRG Bacterial sputum culture - 04/25/19 05:1 2 QUANTITY OF GROWTH . NRG Bacterial sputum culture USUAL RESP NRG Capillary blood glucose measurement by g lucometer (mass/volume) - 04/25/19 11:39 Capillary blood glucose measurement by glucometer (mas s/volume) 113 mg/dL 70-110 Serum or plasma lactate measurement (mol es/volume) - 04/26/19 16:55 Serum or plasma lactate measurement (moles/volume) 4.10 mmol/L 0.50-2.00 Capillary blood glucose measurement by g lucometer (mass/volume) - 04/26/19 17:50 Capillary blood glucose measurement by glucometer (mas s/volume) 140 mg/dL 70-110 Capillary blood glucose measurement by g lucometer (mass/volume) - 04/27/19 00:17 Capillary blood glucose measurement by glucometer (mas s/volume) 131 mg/dL 70-110 Blood lactic acid measurement (moles/vol ume) - 04/27/19 03:25 Blood lactic acid measurement (moles/volume) 2.05 mmol/L 0.50-2.00 Complete blood count (CBC) with automate d white blood cell (WBC) differential - 04/27/19 03:25 Blood leukocytes automated count (number/volume) 7.8 10*3/uL 4.3-11.0 Blood erythrocytes automated count (number/volume) 3.86 10*6/uL 4.35-5.85 Venous blood hemoglobin measurement (mass/volume) 11.9 g/dL 13.3-17.7 Blood hematocrit (volume fraction) 37 % 40-54 Automated erythrocyte mean corpuscular volume 95 [ foz_us] 80-99 Automated erythrocyte mean corpuscular h emoglobin (mass per erythrocyte) 31 pg 25-34 Automated erythrocyte mean corpuscular h emoglobin concentration measurement (mass/volume) 33 g/dL 32-36 Automated erythrocyte distribution width ratio 13. 5 % 10.0- 14.5 Automated blood platelet count (count/volume) 197 10*3/uL 130-400 Automated blood platelet mean volume measurement 11.3 [foz_us] 7.4-10.4 Automated blood neutrophils/100 leukocytes 69 % 42-75 Automated blood lymphocytes/100 leukocytes 11 % 12-44 Blood monocytes/100 leukocytes 18 % 0-12 Automated blood eosinophils/100 leukocytes 2 % 0-10 Automated blood basophils/100 leukocytes 0 % 0-10 Blood neutrophils automated count (number/volume) 5.4 10*3 1.8-7.8 Blood lymphocytes automated count (number/volume) 0.8 10*3 1.0-4.0 Blood monocytes automated count (number/volume) 1. 4 10*3 0.0-1.0 Automated eosinophil count 0.2 10*3/uL 0 .0-0.3 Automated blood basophil count (count/volume) 0.0 10*3/uL 0.0-0.1 Whole blood basic metabolic panel - 04/10 08/29 03:25 Serum or plasma sodium measurement (moles/volume) 139 mmol/L 135-145 Serum or plasma potassium measurement (moles/volume) 3.4 mmol/L 3.6-5.0 Serum or plasma chloride measurement (moles/volume) 104 mmol/L 98-107 Carbon dioxide 25 mmol/L 21-32 Serum or plasma anion gap determination (moles/volume) 10 mmol/L 5-14 Serum or plasma urea nitrogen measurement (mass/volume ) 4 mg/dL 7-18 Serum or plasma creatinine measurement (mass/volume) 0.65 mg/dL 0.60-1.30 Serum or plasma urea nitrogen/creatinine mass ratio 6 NRG Serum or plasma creatinine measurement w ith calculation of estimated glomerular filtration rate > NRG Serum or plasma glucose measurement (mass/volume) 122 mg/dL 70-105 Serum or plasma calcium measurement (mass/volume) 8.6 mg/dL 8.5-10.1 Serum or plasma phosphate measurement (m ass/volume) - 04/27/19 03:25 Serum or plasma phosphate measurement (mass/volume) 3.3 mg/dL 2.3-4.7 Magnesium - 04/27/19 03:25 Magnesium 1.6 mg/dL 1.6-2.4 PROCALCITONIN (PCT) - 04/27/19 03:25 PROCALCITONIN (PCT) 1.20 ng/mL <0.10 Serum or plasma lithium measurement (mol es/volume) - 04/27/19 03:25 BNP PT 60.1 pg/mL <100.0 Arterial blood gas measurement - 0 03:45 Blood pCO2 43 mm[Hg] 35-45 Blood pO2 90 mm[Hg] 79-93 Arterial blood bicarbonate measurement (moles/volume) 28 mmol/L 23-27 Arterial blood base excess by calculation 4.1 mmol /L -2.5-2.5 Arterial blood oxygen saturation measurement 98 % 94-100 * Inhaled oxygen flow rate 30 NRG Arterial blood pH measurement with patient temperature correction 7.43 7.37-7.43 Arterial blood carbon dioxide, total measurement (mole s/volume) 29.6 mmol/L 21.0-31.0 Body site RT RAD NRG Assessment of wrist artery patency prior to arterial p uncture POS NRG Setting of ventilation mode YES NR G Measurement of body temperature 36.6 NRG Serum or plasma lactate measurement (mol es/volume) - 04/27/19 05:45 Serum or plasma lactate measurement (moles/volume) 2.73 mmol/L 0.50-2.00 Blood lactic acid measurement (moles/vol ume) - 04/27/19 06:55 Blood lactic acid measurement (moles/volume) 2.87 mmol/L 0.50-2.00 Capillary blood glucose measurement by g lucometer (mass/volume) - 04/27/19 11:24 Capillary blood glucose measurement by glucometer (mas s/volume) 109 mg/dL 70-110 Blood lactic acid measurement (moles/vol ume) - 04/27/19 13:57 Blood lactic acid measurement (moles/volume) 1.88 mmol/L 0.50-2.00 Capillary blood glucose measurement by g lucometer (mass/volume) - 04/27/19 17:53 Capillary blood glucose measurement by glucometer (mas s/volume) 100 mg/dL 70-110 Capillary blood glucose measurement by g lucometer (mass/volume) - 04/27/19 22:49 Capillary blood glucose measurement by glucometer (mas s/volume) 108 mg/dL 70-110 Arterial blood gas measurement - 0 03:15 Blood pCO2 49 mm[Hg] 35-45 Blood pO2 85 mm[Hg] 79-93 Arterial blood bicarbonate measurement (moles/volume) 31 mmol/L 23-27 Arterial blood base excess by calculation 7.1 mmol /L -2.5-2.5 Arterial blood oxygen saturation measurement 98 % 94-100 * Inhaled oxygen flow rate 35 NRG Arterial blood pH measurement with patient temperature correction 7.43 7.37-7.43 Arterial blood carbon dioxide, total measurement (mole s/volume) 32.9 mmol/L 21.0-31.0 Body site RIGHT RADIAL NRG Assessment of wrist artery patency prior to arterial p uncture POSITIVE NRG Setting of ventilation mode YES NR G Measurement of body temperature 37.5 NRG Complete blood count (CBC) with automate d white blood cell (WBC) differential - 04/28/19 03:15 Blood leukocytes automated count (number/volume) 9.3 10*3/uL 4.3-11.0 Blood erythrocytes automated count (number/volume) 3.92 10*6/uL 4.35-5.85 Venous blood hemoglobin measurement (mass/volume) 11.9 g/dL 13.3-17.7 Blood hematocrit (volume fraction) 37 % 40-54 Automated erythrocyte mean corpuscular volume 95 [ foz_us] 80-99 Automated erythrocyte mean corpuscular h emoglobin (mass per erythrocyte) 30 pg 25-34 Automated erythrocyte mean corpuscular h emoglobin concentration measurement (mass/volume) 32 g/dL 32-36 Automated erythrocyte distribution width ratio 13. 8 % 10.0- 14.5 Automated blood platelet count (count/volume) 250 10*3/uL 130-400 Automated blood platelet mean volume measurement 10.9 [foz_us] 7.4-10.4 Automated blood neutrophils/100 leukocytes 70 % 42-75 Automated blood lymphocytes/100 leukocytes 12 % 12-44 Blood monocytes/100 leukocytes 15 % 0-12 Automated blood eosinophils/100 leukocytes 3 % 0-10 Automated blood basophils/100 leukocytes 0 % 0-10 Blood neutrophils automated count (number/volume) 6.5 10*3 1.8-7.8 Blood lymphocytes automated count (number/volume) 1.1 10*3 1.0-4.0 Blood monocytes automated count (number/volume) 1. 4 10*3 0.0-1.0 Automated eosinophil count 0.3 10*3/uL 0 .0-0.3 Automated blood basophil count (count/volume) 0.0 10*3/uL 0.0-0.1 Whole blood basic metabolic panel - 04/10 09/29 03:15 Serum or plasma sodium measurement (moles/volume) 138 mmol/L 135-145 Serum or plasma potassium measurement (moles/volume) 4.1 mmol/L 3.6-5.0 Serum or plasma chloride measurement (moles/volume) 99 mmol/L 98-107 Carbon dioxide 28 mmol/L 21-32 Serum or plasma anion gap determination (moles/volume) 11 mmol/L 5-14 Serum or plasma urea nitrogen measurement (mass/volume ) 2 mg/dL 7-18 Serum or plasma creatinine measurement (mass/volume) 0.78 mg/dL 0.60-1.30 Serum or plasma urea nitrogen/creatinine mass ratio 3 NRG Serum or plasma creatinine measurement w ith calculation of estimated glomerular filtration rate > NRG Serum or plasma glucose measurement (mass/volume) 113 mg/dL 70-105 Serum or plasma calcium measurement (mass/volume) 8.9 mg/dL 8.5-10.1 Serum or plasma phosphate measurement (m ass/volume) - 04/28/19 03:15 Serum or plasma phosphate measurement (mass/volume) 5.3 mg/dL 2.3-4.7 Magnesium - 04/28/19 03:15 Magnesium 1.6 mg/dL 1.6-2.4 Serum or plasma triglyceride measurement (mass/volume) - 04/28/19 03:15 Serum or plasma triglyceride measurement (mass/volume) 154 mg/dL <150 Serum or plasma amylase measurement (enz ymatic activity/volume) - 04/28/19 03:15 Serum or plasma amylase measurement (enzymatic activit y/volume) 33 U/L 25-125 Lipase - 04/28/19 03:15 Lipase 32 U/L 8-78 Sputum Gram stain - 04/28/19 06:20 Sputum Gram stain No bacteria seen NRG Bacteria identification in bronchial spe cimen by aerobe culture - 04/28/19 06:20 QUANTITY OF GROWTH . NRG Bacteria identification in bronchial specimen by aerob e culture USUAL RESP NRG SUSCEPTIBILITY 400 CFU/ML NRG Mycobacterium species detection by organ ism specific culture - 04/28/19 06:20 Fungus culture - 04/28/19 06:20 Capillary blood glucose measurement by g lucometer (mass/volume) - 04/28/19 12:07 Capillary blood glucose measurement by glucometer (mas s/volume) 131 mg/dL 70-110 Influenza virus A and B antigen detectio n - 04/28/19 12:30 FLU RESULT NEGATIVE FOR INFLUENZA A AND B ANTIGENS BY IA NRG Sputum Gram stain - 04/28/19 12:31 Sputum Gram stain Mixed Bacterial Joe NRG Bacterial urine culture - 04/28/19 12:31 Bacterial urine culture NG NRG Bacterial sputum culture - 04/28/19 12:3 1 QUANTITY OF GROWTH SMALL AMOUNT NRG Bacterial sputum culture USUAL RESP NRG Bacterial blood culture - 04/28/19 13:00 Bacterial blood culture NG NRG Bacterial blood culture - 04/28/19 13:20 Bacterial blood culture NG NRG Capillary blood glucose measurement by g lucometer (mass/volume) - 04/28/19 18:24 Capillary blood glucose measurement by glucometer (mas s/volume) 109 mg/dL 70-110 Capillary blood glucose measurement by g lucometer (mass/volume) - 04/29/19 00:32 Capillary blood glucose measurement by glucometer (mas s/volume) 100 mg/dL 70-110 Complete blood count (CBC) with automate d white blood cell (WBC) differential - 04/29/19 03:08 Blood leukocytes automated count (number/volume) 11.4 10*3/uL 4.3-11.0 Blood erythrocytes automated count (number/volume) 3.90 10*6/uL 4.35-5.85 Venous blood hemoglobin measurement (mass/volume) 11.9 g/dL 13.3-17.7 Blood hematocrit (volume fraction) 36 % 40-54 Automated erythrocyte mean corpuscular volume 93 [ foz_us] 80-99 Automated erythrocyte mean corpuscular h emoglobin (mass per erythrocyte) 31 pg 25-34 Automated erythrocyte mean corpuscular h emoglobin concentration measurement (mass/volume) 33 g/dL 32-36 Automated erythrocyte distribution width ratio 14. 0 % 10.0- 14.5 Automated blood platelet count (count/volume) 286 10*3/uL 130-400 Automated blood platelet mean volume measurement 10.3 [foz_us] 7.4-10.4 Automated blood neutrophils/100 leukocytes 71 % 42-75 Automated blood lymphocytes/100 leukocytes 16 % 12-44 Blood monocytes/100 leukocytes 11 % 0-12 Automated blood eosinophils/100 leukocytes 2 % 0-10 Automated blood basophils/100 leukocytes 0 % 0-10 Blood neutrophils automated count (number/volume) 8.0 10*3 1.8-7.8 Blood lymphocytes automated count (number/volume) 1.8 10*3 1.0-4.0 Blood monocytes automated count (number/volume) 1. 3 10*3 0.0-1.0 Automated eosinophil count 0.2 10*3/uL 0 .0-0.3 Automated blood basophil count (count/volume) 0.1 10*3/uL 0.0-0.1 Whole blood basic metabolic panel - 04/10 10/30 03:08 Serum or plasma sodium measurement (moles/volume) 137 mmol/L 135-145 Serum or plasma potassium measurement (moles/volume) 3.4 mmol/L 3.6-5.0 Serum or plasma chloride measurement (moles/volume) 99 mmol/L 98-107 Carbon dioxide 28 mmol/L 21-32 Serum or plasma anion gap determination (moles/volume) 10 mmol/L 5-14 Serum or plasma urea nitrogen measurement (mass/volume ) 9 mg/dL 7-18 Serum or plasma creatinine measurement (mass/volume) 0.75 mg/dL 0.60-1.30 Serum or plasma urea nitrogen/creatinine mass ratio 12 NRG Serum or plasma creatinine measurement w ith calculation of estimated glomerular filtration rate > NRG Serum or plasma glucose measurement (mass/volume) 101 mg/dL 70-105 Serum or plasma calcium measurement (mass/volume) 8.6 mg/dL 8.5-10.1 Serum or plasma phosphate measurement (m ass/volume) - 04/29/19 03:08 Serum or plasma phosphate measurement (mass/volume) 3.7 mg/dL 2.3-4.7 Magnesium - 04/29/19 03:08 Magnesium 1.8 mg/dL 1.6-2.4 Serum or plasma lithium measurement (mol es/volume) - 04/29/19 03:08 BNP PT 70.6 pg/mL <100.0 PROCALCITONIN (PCT) - 04/29/19 03:08 PROCALCITONIN (PCT) 0.65 ng/mL <0.10 Liver function panel (serum or plasma al k phos, alb, total and direct bili, total protein, ALT, AST) - 04/29/19 03:08 Serum or plasma total bilirubin measurement (mass/volu me) 0.8 mg/dL 0.1-1.0 Serum or plasma alkaline phosphatase zoey surement (enzymatic activity/volume) 151 U/L 40-136 Serum or plasma aspartate aminotransfera se measurement (enzymatic activity/volume) 40 U/L 5-34 Serum or plasma alanine aminotransferase measurement (enzymatic activity/volume) 11 U/L 0-55 Serum or plasma protein measurement (mass/volume) 5.8 g/dL 6.4-8.2 Serum or plasma albumin measurement (mass/volume) 2.6 g/dL 3.2-4.5 Bilirubin direct 0.5 mg/dL 0.0-0.3 Serum or plasma indirect bilirubin measurement (mass/v olume) 0.3 mg/dL NRG Arterial blood gas measurement - 0 03:11 Blood pCO2 38 mm[Hg] 35-45 Blood pO2 103 mm[Hg] 79-93 Arterial blood bicarbonate measurement (moles/volume) 30 mmol/L 23-27 Arterial blood base excess by calculation 6.1 mmol /L -2.5-2.5 Arterial blood oxygen saturation measurement 99 % 94-100 * Inhaled oxygen flow rate 35 NRG Arterial blood pH measurement with patient temperature correction 7.50 7.37-7.43 Arterial blood carbon dioxide, total measurement (mole s/volume) 31.0 mmol/L 21.0-31.0 Body site RIGHT RADIAL NRG Assessment of wrist artery patency prior to arterial p uncture POSITIVE NRG Setting of ventilation mode YES NR G Measurement of body temperature 36.1 NRG Sputum Gram stain - 04/29/19 05:45 Sputum Gram stain Mixed Bacterial Joe NRG Bacterial sputum culture - 03/19/20 05:4 5 QUANTITY OF GROWTH . NRG Bacterial sputum culture USUAL RESP NRG Arterial blood gas measurement - 0 11:26 Blood pCO2 32 mm[Hg] 35-45 Blood pO2 83 mm[Hg] 79-93 Arterial blood bicarbonate measurement (moles/volume) 26 mmol/L 23-27 Arterial blood base excess by calculation 2.8 mmol /L -2.5-2.5 Arterial blood oxygen saturation measurement 97 % 94-100 * Inhaled oxygen flow rate 40 NRG Arterial blood pH measurement with patient temperature correction 7.52 7.37-7.43 Arterial blood carbon dioxide, total measurement (mole s/volume) 26.6 mmol/L 21.0-31.0 Body site RR NRG Assessment of wrist artery patency prior to arterial p uncture YES-POS NRG Setting of ventilation mode NO NR G Measurement of body temperature 37.4 NRG Serum or plasma creatine kinase measurem ent (enzymatic activity/volume) - 04/29/19 11:33 Serum or plasma creatine kinase measurem ent (enzymatic activity/volume) 695 U/L 30-200 Capillary blood glucose measurement by g lucometer (mass/volume) - 04/29/19 11:54 Capillary blood glucose measurement by glucometer (mas s/volume) 83 mg/dL 70-110 Capillary blood glucose measurement by g lucometer (mass/volume) - 04/29/19 18:13 Capillary blood glucose measurement by glucometer (mas s/volume) 93 mg/dL 70-110 Arterial blood gas measurement - 0 20:00 Blood pCO2 33 mm[Hg] 35-45 Blood pO2 129 mm[Hg] 79-93 Arterial blood bicarbonate measurement (moles/volume) 25 mmol/L 23-27 Arterial blood base excess by calculation 1.9 mmol /L -2.5-2.5 Arterial blood oxygen saturation measurement 99 % 94-100 * Inhaled oxygen flow rate 98% NRG Arterial blood pH measurement with patient temperature correction 7.49 7.37-7.43 Arterial blood carbon dioxide, total measurement (mole s/volume) 26.0 mmol/L 21.0-31.0 Body site RIGHT ART LINE NRG Assessment of wrist artery patency prior to arterial p uncture ART LINE NRG Setting of ventilation mode YES NR G Measurement of body temperature 37.2 NRG Ammonia - 04/29/19 20:40 Ammonia 31 umol/L 11-32 Capillary blood glucose measurement by g lucometer (mass/volume) - 04/29/19 23:58 Capillary blood glucose measurement by glucometer (mas s/volume) 103 mg/dL 70-110 Arterial blood gas measurement - 0 03:15 Blood pCO2 33 mm[Hg] 35-45 Blood pO2 97 mm[Hg] 79-93 Arterial blood bicarbonate measurement (moles/volume) 25 mmol/L 23-27 Arterial blood base excess by calculation 1.5 mmol /L -2.5-2.5 Arterial blood oxygen saturation measurement 98 % 94-100 * Inhaled oxygen flow rate 45% NRG Arterial blood pH measurement with patient temperature correction 7.49 7.37-7.43 Arterial blood carbon dioxide, total measurement (mole s/volume) 25.6 mmol/L 21.0-31.0 Body site RIGHT RADIAL NRG Assessment of wrist artery patency prior to arterial p uncture YES-POS NRG Setting of ventilation mode YES NR G Measurement of body temperature 37.2 NRG Complete blood count (CBC) with automate d white blood cell (WBC) differential - 04/30/19 03:15 Blood leukocytes automated count (number/volume) 19.1 10*3/uL 4.3-11.0 Blood erythrocytes automated count (number/volume) 3.76 10*6/uL 4.35-5.85 Venous blood hemoglobin measurement (mass/volume) 11.4 g/dL 13.3-17.7 Blood hematocrit (volume fraction) 36 % 40-54 Automated erythrocyte mean corpuscular volume 95 [ foz_us] 80-99 Automated erythrocyte mean corpuscular h emoglobin (mass per erythrocyte) 30 pg 25-34 Automated erythrocyte mean corpuscular h emoglobin concentration measurement (mass/volume) 32 g/dL 32-36 Automated erythrocyte distribution width ratio 14. 1 % 10.0- 14.5 Automated blood platelet count (count/volume) 359 10*3/uL 130-400 Automated blood platelet mean volume measurement 10.7 [foz_us] 7.4-10.4 Automated blood neutrophils/100 leukocytes 83 % 42-75 Automated blood lymphocytes/100 leukocytes 10 % 12-44 Blood monocytes/100 leukocytes 7 % 0-12 Automated blood eosinophils/100 leukocytes 0 % 0-10 Automated blood basophils/100 leukocytes 0 % 0-10 Blood neutrophils automated count (number/volume) 15.8 10*3 1.8-7.8 Blood lymphocytes automated count (number/volume) 1.9 10*3 1.0-4.0 Blood monocytes automated count (number/volume) 1. 3 10*3 0.0-1.0 Automated eosinophil count 0.0 10*3/uL 0 .0-0.3 Automated blood basophil count (count/volume) 0.0 10*3/uL 0.0-0.1 Manual absolute plasma cell count - 04/11 03:15 Blood monocytes/100 leukocytes 7 % NRG Manual blood segmented neutrophils/100 leukocytes 76 % NRG Blood band neutrophils/100 leukocytes 3 % NRG Manual blood lymphocytes/100 leukocytes 13 % NRG Manual eosinophils/100 leukocytes in nose 1 % NRG Blood erythrocyte morphology finding identification NORMAL NR Liver function panel (serum or plasma al k phos, alb, total and direct bili, total protein, ALT, AST) - 04/30/19 03:15 Serum or plasma total bilirubin measurement (mass/volu me) 0.9 mg/dL 0.1-1.0 Serum or plasma alkaline phosphatase zoey surement (enzymatic activity/volume) 150 U/L 40-136 Serum or plasma aspartate aminotransfera se measurement (enzymatic activity/volume) 36 U/L 5-34 Serum or plasma alanine aminotransferase measurement (enzymatic activity/volume) 20 U/L 0-55 Serum or plasma protein measurement (mass/volume) 6.0 g/dL 6.4-8.2 Serum or plasma albumin measurement (mass/volume) 2.7 g/dL 3.2-4.5 Bilirubin direct 0.6 mg/dL 0.0-0.3 Serum or plasma indirect bilirubin measurement (mass/v olume) 0.3 mg/dL [facility] Whole blood basic metabolic panel - 04/11 03:15 Serum or plasma sodium measurement (moles/volume) 139 mmol/L 135-145 Serum or plasma potassium measurement (moles/volume) 3.7 mmol/L 3.6-5.0 Serum or plasma chloride measurement (moles/volume) 102 mmol/L 98-107 Carbon dioxide 22 mmol/L 21-32 Serum or plasma anion gap determination (moles/volume) 15 mmol/L 5-14 Serum or plasma urea nitrogen measurement (mass/volume ) 14 mg/dL 7-18 Serum or plasma creatinine measurement (mass/volume) 0.77 mg/dL 0.60-1.30 Serum or plasma urea nitrogen/creatinine mass ratio 18 NRG Serum or plasma creatinine measurement w ith calculation of estimated glomerular filtration rate > NRG Serum or plasma glucose measurement (mass/volume) 103 mg/dL 70-105 Serum or plasma calcium measurement (mass/volume) 8.1 mg/dL 8.5-10.1 Serum or plasma phosphate measurement (m ass/volume) - 04/30/19 03:15 Serum or plasma phosphate measurement (mass/volume) 2.8 mg/dL 2.3-4.7 Magnesium - 04/30/19 03:15 Magnesium 1.9 mg/dL 1.6-2.4 Serum or plasma creatine kinase measurem ent (enzymatic activity/volume) - 04/30/19 03:15 Serum or plasma creatine kinase measurem ent (enzymatic activity/volume) 375 U/L 30-200 Serum or plasma triglyceride measurement (mass/volume) - 04/30/19 03:15 Serum or plasma triglyceride measurement (mass/volume) 181 mg/dL <150 THYROID STIMULATING HORMONE - 04/30/19 0 3:15 THYROID STIMULATING HORMONE 1.73 u[iU]/mL 0.35-4.94 Serum or plasma thyroxine (T4) free jazlyn urement (mass/volume) - 04/30/19 03:15 Serum or plasma thyroxine (T4) free measurement (mass/ volume) 0.84 ng/dL 0.70-1.48 TRIIODOTHRYONINE T3 FREE - 04/30/19 03:1 5 TRIIODOTHYRONINE T3 FREE 2.17 pg/mL 1.71 -3.71 Capillary blood glucose measurement by g lucometer (mass/volume) - 04/30/19 05:23 Capillary blood glucose measurement by glucometer (mas s/volume) 107 mg/dL 70-110 Capillary blood glucose measurement by g lucometer (mass/volume) - 04/30/19 11:58 Capillary blood glucose measurement by glucometer (mas s/volume) 113 mg/dL 70-110 Arterial blood gas measurement - 0 15:45 Blood pCO2 38 mm[Hg] 35-45 Blood pO2 104 mm[Hg] 79-93 Arterial blood bicarbonate measurement (moles/volume) 26 mmol/L 23-27 Arterial blood base excess by calculation 2.2 mmol /L -2.5-2.5 Arterial blood oxygen saturation measurement 98 % 94-100 * Inhaled oxygen flow rate 60% NRG Arterial blood pH measurement with patient temperature correction 7.45 7.37-7.43 Arterial blood carbon dioxide, total measurement (mole s/volume) 27.0 mmol/L 21.0-31.0 Body site RIGHT RADIAL NRG Assessment of wrist artery patency prior to arterial p uncture POSITIVE NRG Setting of ventilation mode YES NR G Measurement of body temperature 37.4 NRG Capillary blood glucose measurement by g lucometer (mass/volume) - 04/30/19 17:55 Capillary blood glucose measurement by glucometer (mas s/volume) 109 mg/dL 70-110 Capillary blood glucose measurement by g lucometer (mass/volume) - 05/01/19 00:16 Capillary blood glucose measurement by glucometer (mas s/volume) 101 mg/dL 70-110 Complete blood count (CBC) with automate d white blood cell (WBC) differential - 05/01/19 03:50 Blood leukocytes automated count (number/volume) 10.4 10*3/uL 4.3-11.0 Blood erythrocytes automated count (number/volume) 3.64 10*6/uL 4.35-5.85 Venous blood hemoglobin measurement (mass/volume) 11.1 g/dL 13.3-17.7 Blood hematocrit (volume fraction) 35 % 40-54 Automated erythrocyte mean corpuscular volume 95 [ foz_us] 80-99 Automated erythrocyte mean corpuscular h emoglobin (mass per erythrocyte) 30 pg 25-34 Automated erythrocyte mean corpuscular h emoglobin concentration measurement (mass/volume) 32 g/dL 32-36 Automated erythrocyte distribution width ratio 14. 0 % 10.0- 14.5 Automated blood platelet count (count/volume) 309 10*3/uL 130-400 Automated blood platelet mean volume measurement 10.1 [foz_us] 7.4-10.4 Automated blood neutrophils/100 leukocytes 74 % 42-75 Automated blood lymphocytes/100 leukocytes 17 % 12-44 Blood monocytes/100 leukocytes 7 % 0-12 Automated blood eosinophils/100 leukocytes 2 % 0-10 Automated blood basophils/100 leukocytes 1 % 0-10 Blood neutrophils automated count (number/volume) 7.7 10*3 1.8-7.8 Blood lymphocytes automated count (number/volume) 1.8 10*3 1.0-4.0 Blood monocytes automated count (number/volume) 0. 7 10*3 0.0-1.0 Automated eosinophil count 0.2 10*3/uL 0 .0-0.3 Automated blood basophil count (count/volume) 0.1 10*3/uL 0.0-0.1 Whole blood basic metabolic panel - 04/11 03/01 03:50 Serum or plasma sodium measurement (moles/volume) 140 mmol/L 135-145 Serum or plasma potassium measurement (moles/volume) 3.3 mmol/L 3.6-5.0 Serum or plasma chloride measurement (moles/volume) 104 mmol/L 98-107 Carbon dioxide 24 mmol/L 21-32 Serum or plasma anion gap determination (moles/volume) 12 mmol/L 5-14 Serum or plasma urea nitrogen measurement (mass/volume ) 10 mg/dL 7-18 Serum or plasma creatinine measurement (mass/volume) 0.68 mg/dL 0.60-1.30 Serum or plasma urea nitrogen/creatinine mass ratio 15 NRG Serum or plasma creatinine measurement w ith calculation of estimated glomerular filtration rate > NRG Serum or plasma glucose measurement (mass/volume) 111 mg/dL 70-105 Serum or plasma calcium measurement (mass/volume) 8.4 mg/dL 8.5-10.1 Serum or plasma phosphate measurement (m ass/volume) - 05/01/19 03:50 Serum or plasma phosphate measurement (mass/volume) 3.0 mg/dL 2.3-4.7 Magnesium - 05/01/19 03:50 Magnesium 1.9 mg/dL 1.6-2.4 Serum or plasma creatine kinase measurem ent (enzymatic activity/volume) - 05/01/19 03:50 Serum or plasma creatine kinase measurem ent (enzymatic activity/volume) 202 U/L 30-200 Serum or plasma triglyceride measurement (mass/volume) - 05/01/19 03:50 Serum or plasma triglyceride measurement (mass/volume) 227 mg/dL <150 Serum or plasma amylase measurement (enz ymatic activity/volume) - 05/01/19 03:50 Serum or plasma amylase measurement (enzymatic activit y/volume) 48 U/L 25-125 Serum or plasma lithium measurement (mol es/volume) - 05/01/19 03:50 BNP PT 228.6 pg/mL <100.0 Arterial blood gas measurement - 0 03:52 Blood pCO2 36 mm[Hg] 35-45 Blood pO2 70 mm[Hg] 79-93 Arterial blood bicarbonate measurement (moles/volume) 27 mmol/L 23-27 Arterial blood base excess by calculation 3.3 mmol /L -2.5-2.5 Arterial blood oxygen saturation measurement 96 % 94-100 * Inhaled oxygen flow rate 40% NRG Arterial blood pH measurement with patient temperature correction 7.48 7.37-7.43 Arterial blood carbon dioxide, total measurement (mole s/volume) 28.0 mmol/L 21.0-31.0 Body site RIGHT ART LINE NRG Assessment of wrist artery patency prior to arterial p uncture ART LINE NRG Setting of ventilation mode YES NR G Measurement of body temperature 36.1 NRG Capillary blood glucose measurement by g lucometer (mass/volume) - 05/01/19 11:46 Capillary blood glucose measurement by glucometer (mas s/volume) 102 mg/dL 70-110 Capillary blood glucose measurement by g lucometer (mass/volume) - 05/01/19 18:01 Capillary blood glucose measurement by glucometer (mas s/volume) 101 mg/dL 70-110 Arterial blood gas measurement - 0 03:15 Blood pCO2 35 mm[Hg] 35-45 Blood pO2 74 mm[Hg] 79-93 Arterial blood bicarbonate measurement (moles/volume) 25 mmol/L 23-27 Arterial blood base excess by calculation 1.7 mmol /L -2.5-2.5 Arterial blood oxygen saturation measurement 98 % 94-100 * Inhaled oxygen flow rate 35% NRG Arterial blood pH measurement with patient temperature correction 7.47 7.37-7.43 Arterial blood carbon dioxide, total measurement (mole s/volume) 26.3 mmol/L 21.0-31.0 Body site RIGHT ART LINE NRG Assessment of wrist artery patency prior to arterial p uncture ART LINE NRG Setting of ventilation mode YES NR G Measurement of body temperature 36.1 NRG Complete blood count (CBC) with automate d white blood cell (WBC) differential - 05/02/19 03:20 Blood leukocytes automated count (number/volume) 12.3 10*3/uL 4.3-11.0 Blood erythrocytes automated count (number/volume) 3.76 10*6/uL 4.35-5.85 Venous blood hemoglobin measurement (mass/volume) 11.4 g/dL 13.3-17.7 Blood hematocrit (volume fraction) 35 % 40-54 Automated erythrocyte mean corpuscular volume 94 [ foz_us] 80-99 Automated erythrocyte mean corpuscular h emoglobin (mass per erythrocyte) 30 pg 25-34 Automated erythrocyte mean corpuscular h emoglobin concentration measurement (mass/volume) 32 g/dL 32-36 Automated erythrocyte distribution width ratio 13. 6 % 10.0- 14.5 Automated blood platelet count (count/volume) 298 10*3/uL 130-400 Automated blood platelet mean volume measurement 10.7 [foz_us] 7.4-10.4 Automated blood neutrophils/100 leukocytes 82 % 42-75 Automated blood lymphocytes/100 leukocytes 12 % 12-44 Blood monocytes/100 leukocytes 4 % 0-12 Automated blood eosinophils/100 leukocytes 2 % 0-10 Automated blood basophils/100 leukocytes 0 % 0-10 Blood neutrophils automated count (number/volume) 10.1 10*3 1.8-7.8 Blood lymphocytes automated count (number/volume) 1.5 10*3 1.0-4.0 Blood monocytes automated count (number/volume) 0. 5 10*3 0.0-1.0 Automated eosinophil count 0.2 10*3/uL 0 .0-0.3 Automated blood basophil count (count/volume) 0.1 10*3/uL 0.0-0.1 Whole blood basic metabolic panel - 04/11 04/01 03:20 Serum or plasma sodium measurement (moles/volume) 136 mmol/L 135-145 Serum or plasma potassium measurement (moles/volume) 3.2 mmol/L 3.6-5.0 Serum or plasma chloride measurement (moles/volume) 103 mmol/L 98-107 Carbon dioxide 21 mmol/L 21-32 Serum or plasma anion gap determination (moles/volume) 12 mmol/L 5-14 Serum or plasma urea nitrogen measurement (mass/volume ) 8 mg/dL 7-18 Serum or plasma creatinine measurement (mass/volume) 0.62 mg/dL 0.60-1.30 Serum or plasma urea nitrogen/creatinine mass ratio 13 NRG Serum or plasma creatinine measurement w ith calculation of estimated glomerular filtration rate > NRG Serum or plasma glucose measurement (mass/volume) 108 mg/dL 70-105 Serum or plasma calcium measurement (mass/volume) 7.9 mg/dL 8.5-10.1 Serum or plasma phosphate measurement (m ass/volume) - 05/02/19 03:20 Serum or plasma phosphate measurement (mass/volume) 3.6 mg/dL 2.3-4.7 Magnesium - 05/02/19 03:20 Magnesium 1.6 mg/dL 1.6-2.4 Serum or plasma triglyceride measurement (mass/volume) - 05/02/19 03:20 Serum or plasma triglyceride measurement (mass/volume) 230 mg/dL <150 Arterial blood gas measurement - 0 08:15 Blood pCO2 35 mm[Hg] 35-45 Blood pO2 74 mm[Hg] 79-93 Arterial blood bicarbonate measurement (moles/volume) 25 mmol/L 23-27 Arterial blood base excess by calculation 1.8 mmol /L -2.5-2.5 Arterial blood oxygen saturation measurement 94 % 94-100 * Inhaled oxygen flow rate 30% CPAP NRG Arterial blood pH measurement with patient temperature correction 7.47 7.37-7.43 Arterial blood carbon dioxide, total measurement (mole s/volume) 26.2 mmol/L 21.0-31.0 Body site LT RADIAL NRG Assessment of wrist artery patency prior to arterial p uncture YES-POS NRG Setting of ventilation mode NO NR G Measurement of body temperature 37.7 NRG Complete blood count (CBC) with automate d white blood cell (WBC) differential - 05/03/19 03:10 Blood leukocytes automated count (number/volume) 14.1 10*3/uL 4.3-11.0 Blood erythrocytes automated count (number/volume) 4.03 10*6/uL 4.35-5.85 Venous blood hemoglobin measurement (mass/volume) 12.3 g/dL 13.3-17.7 Blood hematocrit (volume fraction) 37 % 40-54 Automated erythrocyte mean corpuscular volume 91 [ foz_us] 80-99 Automated erythrocyte mean corpuscular h emoglobin (mass per erythrocyte) 31 pg 25-34 Automated erythrocyte mean corpuscular h emoglobin concentration measurement (mass/volume) 34 g/dL 32-36 Automated erythrocyte distribution width ratio 13. 5 % 10.0- 14.5 Automated blood platelet count (count/volume) 469 10*3/uL 130-400 Automated blood platelet mean volume measurement 10.8 [foz_us] 7.4-10.4 Automated blood neutrophils/100 leukocytes 81 % 42-75 Automated blood lymphocytes/100 leukocytes 11 % 12-44 Blood monocytes/100 leukocytes 6 % 0-12 Automated blood eosinophils/100 leukocytes 1 % 0-10 Automated blood basophils/100 leukocytes 1 % 0-10 Blood neutrophils automated count (number/volume) 11.4 10*3 1.8-7.8 Blood lymphocytes automated count (number/volume) 1.6 10*3 1.0-4.0 Blood monocytes automated count (number/volume) 0. 9 10*3 0.0-1.0 Automated eosinophil count 0.1 10*3/uL 0 .0-0.3 Automated blood basophil count (count/volume) 0.1 10*3/uL 0.0-0.1 Whole blood basic metabolic panel - 04/11 04/29 03:10 Serum or plasma sodium measurement (moles/volume) 137 mmol/L 135-145 Serum or plasma potassium measurement (moles/volume) 3.1 mmol/L 3.6-5.0 Serum or plasma chloride measurement (moles/volume) 99 mmol/L 98-107 Carbon dioxide 20 mmol/L 21-32 Serum or plasma anion gap determination (moles/volume) 18 mmol/L 5-14 Serum or plasma urea nitrogen measurement (mass/volume ) 10 mg/dL 7-18 Serum or plasma creatinine measurement (mass/volume) 0.75 mg/dL 0.60-1.30 Serum or plasma urea nitrogen/creatinine mass ratio 13 NRG Serum or plasma creatinine measurement w ith calculation of estimated glomerular filtration rate > NRG Serum or plasma glucose measurement (mass/volume) 84 mg/dL 70-105 Serum or plasma calcium measurement (mass/volume) 8.7 mg/dL 8.5-10.1 Magnesium - 05/03/19 03:10 Magnesium 1.7 mg/dL 1.6-2.4 Serum or plasma phosphate measurement (m ass/volume) - 05/03/19 03:10 Serum or plasma phosphate measurement (mass/volume) 3.8 mg/dL 2.3-4.7 Bacterial catheter tip culture - 0 15:33 QUANTITY OF GROWTH . NRG FTX;REPORTABLE 1 COLONY ISOLATED; NO FURTHER STUDI ES NRG FREE TEXT ENTRY 2 EXT 141 IF NEEDED. NR G Bacterial catheter tip culture [id number] NR FREE TEXT ENTRY UNLESS REQUESTED. NOTIFY MICRO AT [facility] Complete blood count (CBC) with automate d white blood cell (WBC) differential - 05/04/19 03:25 Blood leukocytes automated count (number/volume) 15.6 10*3/uL 4.3-11.0 Blood erythrocytes automated count (number/volume) 4.08 10*6/uL 4.35-5.85 Venous blood hemoglobin measurement (mass/volume) 12.6 g/dL 13.3-17.7 Blood hematocrit (volume fraction) 37 % 40-54 Automated erythrocyte mean corpuscular volume 92 [ foz_us] 80-99 Automated erythrocyte mean corpuscular h emoglobin (mass per erythrocyte) 31 pg 25-34 Automated erythrocyte mean corpuscular h emoglobin concentration measurement (mass/volume) 34 g/dL 32-36 Automated erythrocyte distribution width ratio 14. 1 % 10.0- 14.5 Automated blood platelet count (count/volume) 578 10*3/uL 130-400 Automated blood platelet mean volume measurement 11.0 [foz_us] 7.4-10.4 Automated blood neutrophils/100 leukocytes 81 % 42-75 Automated blood lymphocytes/100 leukocytes 11 % 12-44 Blood monocytes/100 leukocytes 6 % 0-12 Automated blood eosinophils/100 leukocytes 2 % 0-10 Automated blood basophils/100 leukocytes 0 % 0-10 Blood neutrophils automated count (number/volume) 12.6 10*3 1.8-7.8 Blood lymphocytes automated count (number/volume) 1.6 10*3 1.0-4.0 Blood monocytes automated count (number/volume) 1. 0 10*3 0.0-1.0 Automated eosinophil count 0.3 10*3/uL 0 .0-0.3 Automated blood basophil count (count/volume) 0.1 10*3/uL 0.0-0.1 Whole blood basic metabolic panel - 04/11 05/30 03:25 Serum or plasma sodium measurement (moles/volume) 136 mmol/L 135-145 Serum or plasma potassium measurement (moles/volume) 2.7 mmol/L 3.6-5.0 Serum or plasma chloride measurement (moles/volume) 102 mmol/L 98-107 Carbon dioxide 18 mmol/L -32 Serum or plasma anion gap determination (moles/volume) 16 mmol/L 5-14 Serum or plasma urea nitrogen measurement (mass/volume ) 8 mg/dL 7-18 Serum or plasma creatinine measurement (mass/volume) 0.68 mg/dL 0.60-1.30 Serum or plasma urea nitrogen/creatinine mass ratio 12 NRG Serum or plasma creatinine measurement w ith calculation of estimated glomerular filtration rate > NRG Serum or plasma glucose measurement (mass/volume) 103 mg/dL 70-105 Serum or plasma calcium measurement (mass/volume) 8.7 mg/dL 8.5-10.1 Serum or plasma phosphate measurement (m ass/volume) - 05/04/19 03:25 Serum or plasma phosphate measurement (mass/volume) 2.3 mg/dL 2.3-4.7 Magnesium - 05/04/19 03:25 Magnesium 1.7 mg/dL 1.6-2.4 Manual absolute plasma cell count - 04/11 05/30 03:25 Blood monocytes/100 leukocytes 6 % NRG Manual blood segmented neutrophils/100 leukocytes 63 % NRG Blood band neutrophils/100 leukocytes 5 % NRG Manual blood lymphocytes/100 leukocytes 22 % NRG Manual eosinophils/100 leukocytes in nose 4 % NRG Blood erythrocyte morphology finding identification NORMAL NRG Serum or plasma potassium measurement (m oles/volume) - 05/04/19 19:41 Serum or plasma potassium measurement (moles/volume) 2.8 mmol/L 3.6-5.0 Whole blood basic metabolic panel - 04/11 06/29 03:14 Serum or plasma sodium measurement (moles/volume) 137 mmol/L 135-145 Serum or plasma potassium measurement (moles/volume) 3.6 mmol/L 3.6-5.0 Serum or plasma chloride measurement (moles/volume) 105 mmol/L 98-107 Carbon dioxide 19 mmol/L -32 Serum or plasma anion gap determination (moles/volume) 13 mmol/L 5-14 Serum or plasma urea nitrogen measurement (mass/volume ) 9 mg/dL 7-18 Serum or plasma creatinine measurement (mass/volume) 0.65 mg/dL 0.60-1.30 Serum or plasma urea nitrogen/creatinine mass ratio 14 NRG Serum or plasma creatinine measurement w ith calculation of estimated glomerular filtration rate > NRG Serum or plasma glucose measurement (mass/volume) 98 mg/dL 70-105 Serum or plasma calcium measurement (mass/volume) 8.9 mg/dL 8.5-10.1 Serum or plasma phosphate measurement (m ass/volume) - 05/05/19 03:14 Serum or plasma phosphate measurement (mass/volume) 2.6 mg/dL 2.3-4.7 Magnesium - 05/05/19 03:14 Magnesium 1.7 mg/dL 1.6-2.4 Complete blood count (CBC) with automate d white blood cell (WBC) differential - 05/05/19 03:14 Blood leukocytes automated count (number/volume) 11.4 10*3/uL 4.3-11.0 Blood erythrocytes automated count (number/volume) 4.01 10*6/uL 4.35-5.85 Venous blood hemoglobin measurement (mass/volume) 12.1 g/dL 13.3-17.7 Blood hematocrit (volume fraction) 37 % 40-54 Automated erythrocyte mean corpuscular volume 91 [ foz_us] 80-99 Automated erythrocyte mean corpuscular h emoglobin (mass per erythrocyte) 30 pg 25-34 Automated erythrocyte mean corpuscular h emoglobin concentration measurement (mass/volume) 33 g/dL 32-36 Automated erythrocyte distribution width ratio 14. 3 % 10.0- 14.5 Automated blood platelet count (count/volume) 544 10*3/uL 130-400 Automated blood platelet mean volume measurement 10.5 [foz_us] 7.4-10.4 Automated blood neutrophils/100 leukocytes 72 % 42-75 Automated blood lymphocytes/100 leukocytes 17 % 12-44 Blood monocytes/100 leukocytes 8 % 0-12 Automated blood eosinophils/100 leukocytes 3 % 0-10 Automated blood basophils/100 leukocytes 1 % 0-10 Blood neutrophils automated count (number/volume) 8.1 10*3 1.8-7.8 Blood lymphocytes automated count (number/volume) 1.9 10*3 1.0-4.0 Blood monocytes automated count (number/volume) 0. 9 10*3 0.0-1.0 Automated eosinophil count 0.4 10*3/uL 0 .0-0.3 Automated blood basophil count (count/volume) 0.1 10*3/uL 0.0-0.1 Complete blood count (CBC) with automate d white blood cell (WBC) differential - 05/06/19 04:40 Blood leukocytes automated count (number/volume) 9.8 10*3/uL 4.3-11.0 Blood erythrocytes automated count (number/volume) 4.39 10*6/uL 4.35-5.85 Venous blood hemoglobin measurement (mass/volume) 13.1 g/dL 13.3-17.7 Blood hematocrit (volume fraction) 40 % 40-54 Automated erythrocyte mean corpuscular volume 92 [ foz_us] 80-99 Automated erythrocyte mean corpuscular h emoglobin (mass per erythrocyte) 30 pg 25-34 Automated erythrocyte mean corpuscular h emoglobin concentration measurement (mass/volume) 32 g/dL 32-36 Automated erythrocyte distribution width ratio 14. 8 % 10.0- 14.5 Automated blood platelet count (count/volume) 686 10*3/uL 130-400 Automated blood platelet mean volume measurement 11.3 [foz_us] 7.4-10.4 Automated blood neutrophils/100 leukocytes 66 % 42-75 Automated blood lymphocytes/100 leukocytes 21 % 12-44 Blood monocytes/100 leukocytes 10 % 0-12 Automated blood eosinophils/100 leukocytes 3 % 0-10 Automated blood basophils/100 leukocytes 1 % 0-10 Blood neutrophils automated count (number/volume) 6.5 10*3 1.8-7.8 Blood lymphocytes automated count (number/volume) 2.1 10*3 1.0-4.0 Blood monocytes automated count (number/volume) 1. 0 10*3 0.0-1.0 Automated eosinophil count 0.3 10*3/uL 0 .0-0.3 Automated blood basophil count (count/volume) 0.1 10*3/uL 0.0-0.1 Whole blood basic metabolic panel - 04/11 07/30 04:40 Serum or plasma sodium measurement (moles/volume) 139 mmol/L 135-145 Serum or plasma potassium measurement (moles/volume) 3.5 mmol/L 3.6-5.0 Serum or plasma chloride measurement (moles/volume) 105 mmol/L 98-107 Carbon dioxide 21 mmol/L 21-32 Serum or plasma anion gap determination (moles/volume) 13 mmol/L 5-14 Serum or plasma urea nitrogen measurement (mass/volume ) 10 mg/dL 7-18 Serum or plasma creatinine measurement (mass/volume) 0.74 mg/dL 0.60-1.30 Serum or plasma urea nitrogen/creatinine mass ratio 14 NRG Serum or plasma creatinine measurement w ith calculation of estimated glomerular filtration rate > NRG Serum or plasma glucose measurement (mass/volume) 105 mg/dL 70-105 Serum or plasma calcium measurement (mass/volume) 9.4 mg/dL 8.5-10.1 Serum or plasma phosphate measurement (m ass/volume) - 05/06/19 04:40 Serum or plasma phosphate measurement (mass/volume) 2.9 mg/dL 2.3-4.7 Magnesium - 05/06/19 04:40 Magnesium 1.9 mg/dL 1.6-2.4 Complete blood count (CBC) with automate d white blood cell (WBC) differential - 05/07/19 06:04 Blood leukocytes automated count (number/volume) 9.9 10*3/uL 4.3-11.0 Blood erythrocytes automated count (number/volume) 4.33 10*6/uL 4.35-5.85 Venous blood hemoglobin measurement (mass/volume) 12.9 g/dL 13.3-17.7 Blood hematocrit (volume fraction) 40 % 40-54 Automated erythrocyte mean corpuscular volume 93 [ foz_us] 80-99 Automated erythrocyte mean corpuscular h emoglobin (mass per erythrocyte) 30 pg 25-34 Automated erythrocyte mean corpuscular h emoglobin concentration measurement (mass/volume) 32 g/dL 32-36 Automated erythrocyte distribution width ratio 15. 0 % 10.0- 14.5 Automated blood platelet count (count/volume) 701 10*3/uL 130-400 Automated blood platelet mean volume measurement 11.4 [foz_us] 7.4-10.4 Automated blood neutrophils/100 leukocytes 65 % 42-75 Automated blood lymphocytes/100 leukocytes 22 % 12-44 Blood monocytes/100 leukocytes 9 % 0-12 Automated blood eosinophils/100 leukocytes 3 % 0-10 Automated blood basophils/100 leukocytes 1 % 0-10 Blood neutrophils automated count (number/volume) 6.4 10*3 1.8-7.8 Blood lymphocytes automated count (number/volume) 2.2 10*3 1.0-4.0 Blood monocytes automated count (number/volume) 0. 9 10*3 0.0-1.0 Automated eosinophil count 0.3 10*3/uL 0 .0-0.3 Automated blood basophil count (count/volume) 0.1 10*3/uL 0.0-0.1 Comprehensive metabolic panel - 05/07/19 06:04 Serum or plasma sodium measurement (moles/volume) 133 mmol/L 135-145 Serum or plasma potassium measurement (moles/volume) 3.6 mmol/L 3.6-5.0 Serum or plasma chloride measurement (moles/volume) 99 mmol/L 98-107 Carbon dioxide 22 mmol/L 21-32 Serum or plasma anion gap determination (moles/volume) 12 mmol/L 5-14 Serum or plasma urea nitrogen measurement (mass/volume ) 10 mg/dL 7-18 Serum or plasma creatinine measurement (mass/volume) 0.78 mg/dL 0.60-1.30 Serum or plasma urea nitrogen/creatinine mass ratio 13 NRG Serum or plasma creatinine measurement w ith calculation of estimated glomerular filtration rate > NRG Serum or plasma glucose measurement (mass/volume) 93 mg/dL 70-105 Serum or plasma calcium measurement (mass/volume) 9.9 mg/dL 8.5-10.1 Serum or plasma total bilirubin measurement (mass/volu me) 0.9 mg/dL 0.1-1.0 Serum or plasma alkaline phosphatase zoey surement (enzymatic activity/volume) 149 U/L 40-136 Serum or plasma aspartate aminotransfera se measurement (enzymatic activity/volume) 82 U/L 5-34 Serum or plasma alanine aminotransferase measurement (enzymatic activity/volume) 24 U/L 0-55 Serum or plasma protein measurement (mass/volume) 8.2 g/dL 6.4-8.2 Serum or plasma albumin measurement (mass/volume) 4.0 g/dL 3.2-4.5 CALCIUM CORRECTED 9.9 mg/dL 8.5-10.1 Complete blood count (CBC) with automate d white blood cell (WBC) differential - 05/10/19 05:34 Blood leukocytes automated count (number/volume) 7.2 10*3/uL 4.3-11.0 Blood erythrocytes automated count (number/volume) 4.21 10*6/uL 4.35-5.85 Venous blood hemoglobin measurement (mass/volume) 12.5 g/dL 13.3-17.7 Blood hematocrit (volume fraction) 39 % 40-54 Automated erythrocyte mean corpuscular volume 94 [ foz_us] 80-99 Automated erythrocyte mean corpuscular h emoglobin (mass per erythrocyte) 30 pg 25-34 Automated erythrocyte mean corpuscular h emoglobin concentration measurement (mass/volume) 32 g/dL 32-36 Automated erythrocyte distribution width ratio 14. 6 % 10.0- 14.5 Automated blood platelet count (count/volume) 563 10*3/uL 130-400 Automated blood platelet mean volume measurement 12.4 [foz_us] 7.4-10.4 Automated blood neutrophils/100 leukocytes 58 % 42-75 Automated blood lymphocytes/100 leukocytes 21 % 12-44 Blood monocytes/100 leukocytes 16 % 0-12 Automated blood eosinophils/100 leukocytes 5 % 0-10 Automated blood basophils/100 leukocytes 0 % 0-10 Blood neutrophils automated count (number/volume) 4.2 10*3 1.8-7.8 Blood lymphocytes automated count (number/volume) 1.5 10*3 1.0-4.0 Blood monocytes automated count (number/volume) 1. 2 10*3 0.0-1.0 Automated eosinophil count 0.3 10*3/uL 0 .0-0.3 Automated blood basophil count (count/volume) 0.0 10*3/uL 0.0-0.1 Comprehensive metabolic panel - 05/10/19 05:34 Serum or plasma sodium measurement (moles/volume) 135 mmol/L 135-145 Serum or plasma potassium measurement (moles/volume) 3.9 mmol/L 3.6-5.0 Serum or plasma chloride measurement (moles/volume) 100 mmol/L 98-107 Carbon dioxide 24 mmol/L 21-32 Serum or plasma anion gap determination (moles/volume) 11 mmol/L 5-14 Serum or plasma urea nitrogen measurement (mass/volume ) 12 mg/dL 7-18 Serum or plasma creatinine measurement (mass/volume) 0.75 mg/dL 0.60-1.30 Serum or plasma urea nitrogen/creatinine mass ratio 16 NRG Serum or plasma creatinine measurement w ith calculation of estimated glomerular filtration rate > NRG Serum or plasma glucose measurement (mass/volume) 99 mg/dL 70-105 Serum or plasma calcium measurement (mass/volume) 9.7 mg/dL 8.5-10.1 Serum or plasma total bilirubin measurement (mass/volu me) 0.5 mg/dL 0.1-1.0 Serum or plasma alkaline phosphatase zoey surement (enzymatic activity/volume) 135 U/L 40-136 Serum or plasma aspartate aminotransfera se measurement (enzymatic activity/volume) 86 U/L 5-34 Serum or plasma alanine aminotransferase measurement (enzymatic activity/volume) 48 U/L 0-55 Serum or plasma protein measurement (mass/volume) 7.7 g/dL 6.4-8.2 Serum or plasma albumin measurement (mass/volume) 3.8 g/dL 3.2-4.5 CALCIUM CORRECTED 9.9 mg/dL 8.5-10.1 EKG - 08/02/19 18:36 EKG Complete Gamma Glutamyl Transferase - 08/02/19 18 :45 GGT 1055 U/L 5-40 Rapid Drug Screen + ETOH,Medical - 08/01 19:55 Amphetamine NEGATIVE NEGATIVE Barbiturates NEGATIVE NEGATIVE Benzodiazepines POSITIVE NEGATIVE Cocaine NEGATIVE NEGATIVE Ethanol, Urine 216.50 mg/dL 20.00-80.00 Marijuana NEGATIVE NEGATIVE Methylenedioxymethamphetamine NEGATIVE NEGATIVE Opiates NEGATIVE NEGATIVE Oxycodone NEGATIVE NEGATIVE Phencyclidine NEGATIVE NEGATIVE Propoxyphene NEGATIVE NEGATIVE Tricyclic Antidepressant POSITIVE NEGAT NED Radiology Report from [facility] on 2018 17:13:00 PATIENT NAME: GIULIANA VACA UNIT NO: [id number] EXAMS: CPT CODE: [id number] NM BRAIN SPECT SCAN [id number] INDICATION: 43 years old Male with clinical concern for Parkinson's. TIME: 12/30/2018 2:30 PM COMPARISON: None, including CT/MRI. TECHNIQUE: Three hours after injection of the 4.89 mCi IV iodine-123 Ioflupane, tomographic SPECT imaging of the brain was performed. FINDINGS: This study demonstrates a normal appearance of the caudate nuclei and putamina, with distinct symmetric striatal activity bilaterally. IMPRESSION: 1. Normal Carley scan. In a patient with tremors, this exam would be most consistent with an essential tremor, rather than Parkinson syndrome. I have personally reviewed these images and approved or corrected the resident physician's interpretation. at 1708 RESIDENT: LYNN ESPINOZA MD Reported and signed by: LIZZETTE PAIGE JR., MD CC: Isa Moreno MD TECHNOLOGIST: PARISH GILLIS TRANSC RIBED DATE/Time: 12/30/2018 1708 BY: STEPHENIE EXAM COMPLETE DATE/TIME: 20181230 143 D/TM:12/30/2018 (1713) [facility] NAME: GIULIANA VACA [address] HP: [phone] AGE: 43 S:[place], [place] [address] : 1975 LOC: W.NM PHYS: Isa Rehman MD PHONE #: [phone] EXAM DATE: 12/30/2018 STATUS: REG CLI FAX #: [phone] A#: [id number] U#: [id number] PAGE 1 Signed Report *Final Page* Encounters ACCT No. Visit Date/Time Discharge Status Pt. Type Provider Facility Loc./Unit Complaint [id number] 09/03/2019 07:44:00 09/03/2019 07:55 :00 DIS Outpatient Kody Ceballos [id number] 08/25/2019 21:42:00 08/25/2019 22:50 :00 DIS Outpatient MARY [facility] ER [id number] 08/09/2019 07:59:00 08/09/2019 23:59 :00 DIS Outpatient Alanis Sheldon [id number] 08/02/2019 17:55:00 08/02/2019 20:33 :00 DIS Outpatient Chris Chi [facility] ER [id number] 05/20/2019 15:20:00 05/20/2019 23:59 :00 DIS Outpatient Alanis Sheldon [id number] 03/30/2019 13:02:00 03/30/2019 23:59 :00 DIS Outpatient NAYA LAY [id number] 02/18/2019 12:40:00 02/18/2019 23:59 :00 DIS Outpatient Alanis Sheldon [id number] 01/21/2019 09:06:00 01/21/2019 23:59 :00 DIS Outpatient Alanis Sheldon [id number] 01/16/2019 09:47:00 01/16/2019 23:59 :00 DIS Outpatient Kody Ceballos [id number] 11/10/2018 15:13:00 11/10/2018 23:59: 00 DIS Outpatient NAYA LAY [id number] 11/04/2018 12:59:00 11/04/2018 23:59: 00 DIS Outpatient Alanis Sheldon [id number] 11/02/2018 18:26:00 11/02/2018 19:35: 00 DIS Outpatient Chris Chi [facility] ER [id number] 10/18/2018 13:10:00 10/18/2018 23:59: 00 DIS Outpatient Alanis Sheldon [id number] 10/18/2018 00:00:00 10/18/2018 23:59: 00 DIS Outpatient Alanis Sheldon [id number] 10/16/2018 14:00:00 10/16/2018 23:59: 00 DIS Outpatient Alanis Sheldon [id number] 10/16/2018 13:15:00 10/16/2018 23:59: 00 DIS Outpatient Alanis Sheldon [id number] 10/05/2018 10:26:00 10/05/2018 23:59: 00 DIS Outpatient Alanis Sheldon [id number] 11/27/2017 13:19:00 11/27/2017 23:59: 00 DIS Outpatient NAYA LAY [id number] 05/27/2017 11:24:00 05/27/2017 23:59: 00 DIS Outpatient NAYA LAY [id number] 11/15/2016 09:57:00 11/15/2016 23:59: 00 DIS Outpatient JANELLLIZZETTE [id number] 02/05/2016 15:47:00 02/07/2016 17:15: 00 DIS Inpatient [facility] MED-SURG [id number] 01/02/2016 23:43:00 01/03/2016 01:17: 00 DIS Outpatient Lee Nori [facility] ER [id number] 12/31/2015 01:49:00 01/02/2016 09:40: 00 DIS Inpatient [facility] ICU [id number] 12/17/2017 11:24:00 Document Registration [id number] 09/03/2017 13:44:00 Document Registration [id number] 05/28/2017 14:56:00 Document Registration [id number] 02/24/2017 09:44:00 Document Registration [id number] 11/15/2016 08:59:00 Document Registration [id number] 12/31/2015 02:40:32 Document Registration [id number] 12/31/2015 01:49:00 Document Registration [id number] 03/15/2019 09:35:00 09:36:00 DIS Outpatient MAR MARTINEZ At [facility] alcohol/drug [id number] 12/30/2018 08:54:00 08:54:00 DIS Outpatient Josh BUSH, [facility] W.HI [id number] 00:09:24 Document Registration [id number] 07/12/2013 12:28:00 4 16:26:00 DIS Outpatient [id number] 05/06/2019 10:54:00 09:50:00 DIS Inpatient FELIX CAGE, JERRI V [facility] IRF CRITICAL ILLNESS MYOPAT HY [id number] 04/21/2019 12:36:00 10:15:00 DIS Inpatient MICHELLE DRAKE MD Via [facility] 4TH ETOH WITHDRAWAL,DELIRIU M [id number] 01/05/2018 09:49:00 018 23:59:59 CLS Outpatient [place] [facility] [facility] [id number] 03/15/2019 09:35:00 Document Registration [id number] 10/16/2018 14:00:00 Document Registration
[2019-09-07 19:08] LABS: BUN/CREATININE RATIO 10
[2019-09-07 19:10] LABS: ALANINE AMINOTRANSFERASE 34 U/L (0-55)
[2019-09-07 20:00] VITALS: BP 129/76
[2019-09-07 21:00] VITALS: BP 127/86
[2019-09-07 22:00] VITALS: BP 134/87
[2019-09-07] MEDS ORDERED: SINEMET 25/100 (CARBIDOPA/LEVODOPA) TAB PO PRN (22:15)
[2019-09-07] MEDS ORDERED: traZODone 100 MG (DESYREL) TAB PO PRN (22:15)
[2019-09-07] MEDS ORDERED: CYCLOBENZAPRINE 10 MG (FLEXERIL) TAB PO PRN ×2 (22:15)
--- OUTSIDE RECORDS SUMMARY | 2019-09-07 22:19 | XMS REPORT | Continuity of Care Document ---
Author Organization Unknown Address Unknown Phone Unavailable Allergies Active Description Code Type Severity Reaction Onset Reported/Identified Relationship to Patient Clinical Status Yes NO KNOWN DRUG ALLERGIES NO KNOWN DRUG ALLERG UNKNOWN Yes NO KNOWN DRUG ALLERGIES UNKNOWN NO KNOWN DRUG ALLERG Yes NO KNOWN DRUG ALLERGIES UNKNOWN UNKNOWN Yes No Known Drug Allergies [id number] Drug Allergy Unknown N/A 04/21/2019 Medications Medication [...] AT NECK LEVEL, INITIAL ENCOUNTER 01/03/2016 Nori Howadr S43.401 A UNSPECIFIED SPRAIN OF RIGHT SHOULDER [...] EPILEPSY, UNSP, NOT INTRACTABLE, WITHOUT 05/06/2019 MICHELLE DRAKE MD Ot J96. 00 ACUTE [...] EPILEPSY, UNSP, NOT INTRACTABLE, WITHOUT 05/06/2019 MICHELLE DRAKE MD Ot J96. 00 ACUTE [...] F41.9 ANXIETY DISORDER, UNSPECIFIED 05/13/2019 [place] DO, EJRRI Ot F90.9 ATTENTION-DEFICIT HYPERACTIVITY DISORDER 05/13/2019 [place] [...] Code Description Performed By Per ryan On [id number] IN SERTION OF ENDOTRACHEAL AIRWAY INTO TR 04/22/2019 [id number] RE SPIRATORY VENTILATION, LESS THAN 24 CO 04/22/2019 [id number] RE SPIRATORY VENTILATION, GREATER THAN 96 04/22/[id number] CHANDLER OF RIGHT MAIN BRONCHUS, ENDO, D 04/28/[id number] CHANDLER OF LEFT MAIN BRONCHUS, ENDO, [...] 33.7 g/dL 32.0-36.0 MCV 90.7 fL 80.0-97.0 Tama% 8.5 % 0.0-12.0 MPV 10.4 fL 7.4-10.0 Pratik% 46.8 % 37.0-80.0 Plt 272 K/uL 150-400 RBC 5.04 M/uL 4.20-5.40 RDW 12.7 % 11.6-14.8 WBC 5.68 K/uL 5.00-10.00 Pratik 2.66 K/uL 2.00-6.90 Tama 0.5 K/uL 0.0-0.9 Baso 0.0 K/uL 0.0-0.2 [...] indirect bilirubin measurement (mass/v olume) 0.3 mg/dL [facility] Whole blood basic metabolic panel - 04/11 [...] NEEDED. NR G Bacterial catheter tip culture [id number] NR FREE TEXT ENTRY UNLESS REQUESTED. NOTIFY MICRO AT [facility] Complete blood count (CBC) with automate d [...] Antidepressant POSITIVE NEGAT NED Radiology Report from [facility] on 2018 17:13:00 PATIENT NAME: GIULIANA VACA UNIT NO: [id number] EXAMS: CPT CODE: [id number] NM BRAIN SPECT SCAN [id number] INDICATION: 43 years old Male with clinical [...] EXAM COMPLETE DATE/TIME: 20181230 143 D/TM:12/30/2018 (1713) [facility] NAME: GIULIANA VACA [address] HP: [phone] AGE: 43 S:[place], [place] [address] : 1975 LOC: W.NM PHYS: Isa Rehman MD PHONE #: [phone] EXAM DATE: 12/30/2018 STATUS: REG CLI FAX #: [phone] A#: [id number] U#: [id number] PAGE 1 Signed Report *Final Page* Encounters ACCT No. Visit Date/Time Discharge Status Pt. Type Provider Facility Loc./Unit Complaint [id number] 09/03/2019 07:44:00 09/03/2019 07:55 :00 DIS Outpatient Kody Ceballos [id number] 08/25/2019 21:42:00 08/25/2019 22:50 :00 DIS Outpatient MARY [facility] ER [id number] 08/09/2019 07:59:00 08/09/2019 23:59 :00 DIS Outpatient Alanis Sheldon [id number] 08/02/2019 17:55:00 08/02/2019 20:33 :00 DIS Outpatient Chris [facility] ER [id number] 05/20/2019 15:20:00 05/20/2019 23:59 :00 DIS Outpatient Alanis Sheldon [id number] 03/30/2019 13:02:00 03/30/2019 23:59 :00 DIS Outpatient NAYA LAY [id number] 02/18/2019 12:40:00 02/18/2019 23:59 :00 DIS Outpatient Alanis Sheldon [id number] 01/21/2019 09:06:00 01/21/2019 23:59 :00 DIS Outpatient Alanis Sheldon [id number] 01/16/2019 09:47:00 01/16/2019 23:59 :00 DIS Outpatient Kody Ceballos [id number] 11/10/2018 15:13:00 11/10/2018 23:59: 00 DIS Outpatient NAYA LAY [id number] 11/04/2018 12:59:00 11/04/2018 23:59: 00 DIS Outpatient Alanis Sheldon [id number] 11/02/2018 18:26:00 11/02/2018 19:35: 00 DIS Outpatient Chris [facility] ER [id number] 10/18/2018 13:10:00 10/18/2018 23:59: 00 DIS Outpatient Alanis Sheldon [id number] 10/18/2018 00:00:00 10/18/2018 23:59: 00 DIS Outpatient Alanis Sheldon [id number] 10/16/2018 14:00:00 10/16/2018 23:59: 00 DIS Outpatient Alanis Sheldon [id number] 10/16/2018 13:15:00 10/16/2018 23:59: 00 DIS Outpatient Alanis Sheldon [id number] 10/05/2018 10:26:00 10/05/2018 23:59: 00 DIS Outpatient Alanis Sheldon [id number] 11/27/2017 13:19:00 11/27/2017 23:59: 00 DIS Outpatient NAYA LAY [id number] 05/27/2017 11:24:00 05/27/2017 23:59: 00 DIS Outpatient NAYA LAY [id number] 11/15/2016 09:57:00 11/15/2016 23:59: 00 DIS Outpatient JANELLLIZZETTE [id number] 02/05/2016 15:47:00 02/07/2016 17:15: 00 DIS Inpatient [facility] MED-SURG [id number] 01/02/2016 23:43:00 01/03/2016 01:17: 00 DIS Outpatient Lee Nori [facility] ER [id number] 12/31/2015 01:49:00 01/02/2016 09:40: 00 DIS Inpatient [facility] ICU [id number] 12/17/2017 11:24:00 Document Registration [id number] 09/03/2017 13:44:00 Document Registration [id number] 05/28/2017 14:56:00 Document Registration [id number] 02/24/2017 09:44:00 Document Registration [id number] 11/15/2016 08:59:00 Document Registration [id number] 12/31/2015 02:40:32 Document Registration [id number] 12/31/2015 01:49:00 Document Registration [id number] 03/15/2019 09:35:00 09:36:00 DIS Outpatient MAR MARTINEZ At [facility] alcohol/drug [id number] 12/30/2018 08:54:00 08:54:00 DIS Outpatient Josh BUSH, [facility] W.PR [id number] 00:09:24 Document Registration [id number] 07/12/2013 12:28:00 4 16:26:00 DIS Outpatient [id number] 05/06/2019 10:54:00 09:50:00 DIS Inpatient FELIX CAGE, JERRI V [facility] IRF CRITICAL ILLNESS MYOPAT HY [id number] 04/21/2019 12:36:00 10:15:00 DIS Inpatient MICHELLE DRAKE MD Via [facility] 4TH ETOH WITHDRAWAL,DELIRIU M [id number] 01/05/2018 09:49:00 018 23:59:59 CLS Outpatient MAR MARTINEZ At [facility] [id number] 03/15/2019 09:35:00 Document Registration [id number] 10/16/2018 14:00:00 Document Registration
[2019-09-07] MEDS ORDERED: LEVETIRACETAM 1,000 MG (KEPPRA) TABLET PO ONE (22:36)
[2019-09-07] MEDS ORDERED: FLUoxetine HCL 20 MG (PROzac) CAP ONE (22:37)
[2019-09-07] MEDS: SINEMET 25/100 (CARBIDOPA/LEVODOPA) TAB PO SCH (22:44)
[2019-09-07] MEDS: FLUoxetine HCL 20 MG (PROzac) CAP PO SCH (22:44)
[2019-09-07] MEDS: LORazepam INJ 2 MG/ML (ATIVAN) VIAL IV PRN (22:45)
[2019-09-07 23:00] VITALS: BP 132/93
[2019-09-08] VITALS (25 sets, daily range): BP systolic 96–149; BP diastolic 27–98
[2019-09-08 03:27] LABS: BASOPHILS % (AUTO) 1 % (0-10); EOSINOPHILS # (AUTO) 0.1 10^3/uL (0.0-0.3); EOSINOPHILS % (AUTO) 1 % (0-10); HEMATOCRIT 40 % (40-54); HEMOGLOBIN 13.2 G/DL (13.3-17.7); LYMPHOCYTES # (AUTO) 2.1 X 10^3 (1.0-4.0); LYMPHOCYTES % (AUTO) 54 % (12-44); MEAN CORPUSCULAR HEMOGLOBIN 30 PG (25-34); MEAN CORPUSCULAR HGB CONC 33 G/DL (32-36); MEAN CORPUSCULAR VOLUME 89 FL (80-99); MONOCYTES # (AUTO) 0.6 X 10^3 (0.0-1.0); MONOCYTES % (AUTO) 16 % (0-12); NEUTROPHILS # (AUTO) 1.1 X 10^3 (1.8-7.8); NEUTROPHILS % (AUTO) 28 % (42-75); PLATELET COUNT 199 10^3/uL (130-400); RED CELL DISTRIBUTION WIDTH 14.2 % (10.0-14.5); WHITE BLOOD COUNT 3.8 10^3/uL (4.3-11.0)
[2019-09-08 03:35] LABS: CHLORIDE 104 MMOL/L (98-107); POTASSIUM 3.3 MMOL/L (3.6-5.0); SODIUM 140 MMOL/L (135-145)
[2019-09-08 03:37] LABS: GLUCOSE 104 MG/DL (70-105)
[2019-09-08 03:39] LABS: CARBON DIOXIDE 24 MMOL/L (21-32)
[2019-09-08 03:41] LABS: CREATININE SERUM 0.79 MG/DL (0.60-1.30); GFR ESTIMATED > 60; PHOSPHORUS 4.3 MG/DL (2.3-4.7)
[2019-09-08 03:42] LABS: BUN/CREATININE RATIO 8
[2019-09-08] MEDS: POTASSIUM CL 10MEQ/50ML IVPB 50 ML IV SCH (04:43)
[2019-09-08] MEDS: MAGNESIUM 1 GM/100 ML IVPB 100 ML IV SCH (04:43)
[2019-09-08] MEDS: KCL 20 MEQ TAB (K-DUR) PO SCH (05:12)
--- NOTE | 2019-09-08 05:22 | Pulmonary Consultation ---
GIULIANA SHAH,MED STUDENT 09/08/19 0522: History of Present Illness History of Present Illness Date Seen by Provider: Sep 08, 2019 Time Seen by Provider: 04:00 Date of Admission History of Present Illness PtStephanie is a 44yo M presented to [facility] ED c/o heavy alcohol use and hallucinations. Per ED he states he usually drinks a pint of vodka daily and some wine. On presentation to ED he stated the day prior he had consumed a bottle of wine, some beers and 2 mimosas. He states overnight he was hearing what sounded like people hammering in his attic. This scared him so he came to the ED and stated he would like to quit drinking. He has a hx of Parkinsons, anxiety and depression. Allergies and Home Medications Allergies Coded Allergies: No Known Drug Allergies (Unverified , 04/21/19) Home Medications Carbidopa/Levodopa 1 Each Tablet.er, 1 EACH PO TID, (Reported) Clonazepam 0.5 Mg Tablet, 0.5 MG PO DAILY PRN for ANXIETY, (Reported) Fluoxetine HCl 20 Mg Capsule, 20 MG PO HS, (Reported) Naltrexone HCl 50 Mg Tablet, 50 MG PO HS, (Reported) Omeprazole 20 Mg Capsule.dr, 20 MG PO DAILY, (Reported) Trazodone HCl 50 Mg Tablet, 50-100 MG PO HS PRN for SLEEP, (Reported) Past Pqzfmur-Geaxal-Xklghe Hx Past Med/Social Hx: Reviewed Nursing Past Med/Soc Hx Patient Social History Alcohol Use: Regular Use Alcohol Beverage of Choice: Vodka Recreational Drug Use: No Smoking Status: Never a Smoker Type Used: Smokeless Tobacco 2nd Hand Smoke Exposure: No Recent Foreign Travel: No Contact w/Someone Who Travel: No Recent Infectious Disease Expo: No Recent Hopitalizations: No Physical Abuse: No Sexual Abuse: No Mistreated: No Fear: No Immunizations Up To Date Date of Influenza Vaccine: Feb 10, 2019 Seasonal Allergies Seasonal Allergies: No Past Medical History Surgeries: No (Denies surgical hx. ) Eye Surgery Respiratory: No Cardiac: No Neurological: Yes (Dystonia ) Parkinson's Disease, Seizure Disorder Genitourinary: No Gastrointestinal: No Musculoskeletal: No Endocrine: No HEENT: No Cancer: No Psychosocial: Yes ADD/ADHD, Anxiety, Depression Integumentary: No Family Medical History Reviewed Nursing Family Hx Patient reports no known family medical history. Review of Systems Constitutional: No: Fever, Chills Eyes: No: Vision change ENT: No: Nose discharge, Nose congestion, Throat pain Respiratory: No: Cough, Shortness of breath, Wheezing Cardiovascular: No: Chest Pain, Palpitations Gastrointestinal: No: Nausea, Vomiting, Abdominal Pain Neurological: No: Weakness, Numbness Sepsis Event Evaluation Height, Weight, BMI Height: '" Weight: lbs. oz. kg; 26.00 BMI Method: Exam Exam Vital Signs Date Time Temp Pulse Resp B/P (MAP) Pulse Ox O2 Delivery O2 Flow Rate FiO2 09/08/19 04:00 96 Room Air 09/08/19 03:34 36.6 09/08/19 03:00 73 120/74 (89) 96 Room Air 09/08/19 02:00 66 15 119/90 (100) 93 Room Air 09/08/19 01:00 66 15 123/80 (94) 94 Room Air 09/08/19 01:00 66 09/08/19 00:00 96 Room Air 09/08/19 00:00 65 106/65 (79) 96 Room Air 09/07/19 23:00 74 11 132/93 (106) 97 Room Air 09/07/19 22:00 81 11 134/87 (103) 98 Room Air 09/07/19 21:00 93 13 127/86 (100) 97 Room Air 09/07/19 20:00 99 19 129/76 (93) 97 Room Air 09/07/19 20:00 96 Room Air 09/07/19 19:00 84 17 136/98 (111) 93 Room Air 09/07/19 19:00 96 09/07/19 18:01 37.2 91 16 136/96 (109) 96 Room Air 09/07/19 17:58 81 09/07/19 17:50 82 18 149/121 97 09/07/19 14:45 37.4 118 16 142/111 (121) 95 Room Air I & O 09/08/19 07:00 Intake Total 1700 ml Output Total 0 ml Balance 1700 ml Height & Weight Height: '" Weight: lbs. oz. kg; 26.00 BMI Method: General Appearance: No Apparent Distress, WD/WN HEENT: PERRL/EOMI, Moist Mucous Membranes Respiratory: Chest Non Tender, Lungs Clear, Normal Breath Sounds, No Accessory Muscle Use, No Respiratory Distress Cardiovascular: Regular Rate, Rhythm, No Edema, No Gallop, No JVD, No Murmur, Normal Peripheral Pulses Capillary Refill: Less Than 3 Seconds Peripheral Pulses: 2+ Dorsalis Pedis (R), 2+ Left Dors-Pedis (L), 2+ Radial P ulses (R), 2+ Radial Pulses (L) Gastrointestinal: normal bowel sounds, non tender, soft Extremity: Non Tender, No Calf Tenderness, No Pedal Edema Neurologic/Psychiatric: Alert, Oriented x3, Normal Mood/Affect Skin: Normal Color, Warm/Dry Results Lab Laboratory Tests 09/07/19 15:10 09/07/19 18:40 09/08/19 02:57 Assessment/Plan Assessment/Plan Alcohol intoxication -receiving thiamine and folic acid -Ativan 1mg IV PRN -NS at 75ml/hr Hypokalemia -40mEq PO daily -monitor Anxiety -improving -Ativan prn Alcohol use disorder -patient education RICHARD GAMA DO 09/08/19 0623: History of Present Illness History of Present Illness Time Seen by Provider: 06:19 Allergies and Home Medications Allergies Coded Allergies: No Known Drug Allergies (Unverified , 04/21/19) Home Medications Carbidopa/Levodopa 1 Each Tablet.er, 1 EACH PO TID, (Reported) Clonazepam 0.5 Mg Tablet, 0.5 MG PO DAILY PRN for ANXIETY, (Reported) Fluoxetine HCl 20 Mg Capsule, 20 MG PO HS, (Reported) Naltrexone HCl 50 Mg Tablet, 50 MG PO HS, (Reported) Omeprazole 20 Mg Capsule.dr, 20 MG PO DAILY, (Reported) Trazodone HCl 50 Mg Tablet, 50-100 MG PO HS PRN for SLEEP, (Reported) Past Egnmrcm-Hlrxwt-Vmjztf Hx Family Medical History Patient reports no known family medical history. Review of Systems Time Seen by Provider: 06:19 Exam Exam General Appearance: No Apparent Distress, WD/WN HEENT: PERRL/EOMI, Moist Mucous Membranes Respiratory: Chest Non Tender, Lungs Clear, Normal Breath Sounds, No Accessory Muscle Use, No Respiratory Distress Cardiovascular: Regular Rate, Rhythm, No Edema, No Gallop, No JVD, No Murmur, Normal Peripheral Pulses Peripheral Pulses: 2+ Carotid (R), 2+ Carotid (L), 2+ Femoral (R), 2+ Femoral (L), 2+ Dorsalis Pedis (R), 2+ Left Dors-Pedis (L), 2+ Radial Pulses (R), 2+ Radial Pulses (L) Gastrointestinal: normal bowel sounds, non tender, soft Extremity: Non Tender, No Calf Tenderness, No Pedal Edema Neurologic/Psychiatric: Alert, Oriented x3, Normal Mood/Affect Skin: Normal Color, Warm/Dry Assessment/Plan Assessment/Plan Alcohol intoxication -receiving thiamine and folic acid -Ativan 1mg IV PRN -NS at 75ml/hr Hypokalemia -40mEq PO daily -monitor Anxiety -improving -Ativan prn Alcohol use disorder -patient education Supervisory-Addendum Brief Verification & Attestation Participated in pt care: history, MDM, physical Personally performed: exam, history, MDM, supervision of care Care discussed with: Medical Student Procedures: n/a Verification and Attestation of Medical Student E/M Service A medical student performed and documented this service in my presence. I reviewed and verified all information documented by the medical student and made modifications to such information, when appropriate. I personally performed the physical exam and medical decision making. Richard Gama, Sep 08, 2019,06:23 GIULIANA SHAH,MED STUDENT Sep 08, 2019 05:22 RICHARD GAMA DO Sep 08, 2019 06:23
[2019-09-08] MEDS ORDERED: KCL 20 MEQ TAB (K-DUR) PO ONE ×2 (06:00→08:00)
[2019-09-08] MEDS ORDERED: DexMEDEtomidine 250 ML DRIP 250 ML IV SCH (06:30)
[2019-09-08] MEDS: ENOXAPARIN 40 MG/0.4 ML (LOVENOX) SYR SC SCH (06:48)
--- NOTE | 2019-09-08 08:29 | Diagnostic Imaging Report ---
EXAMINATION: Portable supine erect AP chest at 407h. INDICATION: Dyspnea The heart size is within normal limits and stable when compared to 05/05/2019. The lungs remain generally clear and well aerated. There is still no sign of failure, pneumonia or a pleural effusion. The azygos lobe seen on the prior study is again evident. The mediastinum is not widened. The osseous structures are intact. IMPRESSION: There is no evidence for active disease. Dictated by: Dictated on workstation # [id number]
[2019-09-08] MEDS: FLUoxetine HCL 20 MG (PROzac) CAP PO SCH (08:41)
[2019-09-08] MEDS: NS IV 1000 ML 1,000 ML IV SCH ×2 (08:41→21:19)
[2019-09-08] MEDS: LEVETIRACETAM 500 MG (KEPPRA) TAB PO SCH ×2 (08:42→21:13)
[2019-09-08] MEDS: FAMOTIDINE 20 MG (PEPCID) TABLET PO SCH ×2 (08:42→21:12)
[2019-09-08] MEDS: SINEMET 25/100 (CARBIDOPA/LEVODOPA) TAB PO SCH ×2 (08:42→21:13)
[2019-09-08] MEDS: LORazepam INJ 2 MG/ML (ATIVAN) VIAL IV PRN ×3 (08:45→21:13)
[2019-09-08] MEDS ORDERED: CLON0.5T4 PO (09:54)
--- NOTE | 2019-09-08 09:55 | NUR ---
SPOKE WITH THE PT (HE HAS SOME HOME MEDS WITH HIM) AND WENT THRU THE EXT MED HISTORY TO COMPLETE THE MED REC PT HAD KEPPRA WITH HIM BUT HE SAYS HE IS NO LONGER TAKING. ALL OTHER MEDS ARE LISTED ON THE EXT MED HISTORY OTC MEDS: NONE
[2019-09-08] MEDS: THIAMINE INJECTION 100 MG, FOLIC ACID INJECTION 1 MG, VITAMIN MULTI INJECTION 10 ML, MA... IV SCH ×5 (10:48)
--- NOTE | 2019-09-08 12:58 | NUR ---
CM/SS visited with patient for social service consult. Appointment: [facility]. Appointment is September 13 at 2:00 p.m. with Rose Marshall. The patient was pleasant and willing to visit with the . He reports that he came to the hospital with the intent for medical detox. The patient verbalized he still wishes to become sober. Inpatient treatment: The patient reports he has been to inpatient treatment twice in the past at [facility]. He stated he has not been to the [facility]. CM/SS discussed the option for inpatient treatment. The patient stated that it is not a good fit for him and he did not feel like it worked. He states this is not an option for him at this time. Outpatient treatment: CM/SS discussed outpatient treatment with the patient. He felt his would be beneficial. Patient verbalized this could set up an intake appointment for the him. CM/SS contacted [facility] in [place] to set up an appointment for patient. The appointment is September 13 at 2:00 p.m. with Rose Marshall. MARY/SS provided the patient with resources on treatment and his appointment time. He verbalized understanding. Mental Health: The patient reports that he was seeing Apolonia Francis at [facility] but has not since the pandemic. He stated that he made another appointment for September 29 in [place] due to it being the first appointment open. He verbalized the [facility] did not have an appointment until November. MARY/SS spoke with worker at [facility] to help get him in quicker if possible. MARY/JUANA will continue to follow.
--- NOTE | 2019-09-08 18:41 | History & Physical ---
History of Present Illness History of Present Illness Reason for visit/HPI 44 yo M admitted for alcohol detoxication He has tried a couple times in the past but now has realized that his health is in great danger if he continues to drink alcohol. He does not think he has had a withdrawal seizure but has experienced withdrawal. Previously he decided it was easier to start drinking again. No fall or injury or head trauma that he is aware of. -He came to the ER for reasons above but also he heard noises in his attic and this scared him. He feels like he is hallucinating. ER gave him a dose of lorazepam which helped with anxiety he was having. This AM he reports he is doing better- no overnight events. Date of Admission Sep 07, 2019 at 17:15 Date Seen by a Provider: Sep 08, 2019 Time Seen by a Provider: 07:00 I consulted on this patient on 09/08/19 18:34 Attending Physician Benny Alegria MD Admitting Physician Benny Alegria MD Consult Allergies and Home Medications Allergies Coded Allergies: No Known Drug Allergies (Unverified , 04/21/19) Home Medications Carbidopa/Levodopa 1 Each Tablet.er, 1 EACH PO TID, (Reported) Clonazepam 0.5 Mg Tablet, 0.5 MG PO DAILY PRN for ANXIETY, (Reported) Fluoxetine HCl 20 Mg Capsule, 20 MG PO HS, (Reported) Naltrexone HCl 50 Mg Tablet, 50 MG PO HS, (Reported) Omeprazole 20 Mg Capsule.dr, 20 MG PO DAILY, (Reported) Trazodone HCl 50 Mg Tablet, 50-100 MG PO HS PRN for SLEEP, (Reported) Patient Home Medication List Home Medication List Reviewed: Yes Past Bduavod-Cuuctr-Cnpnei Hx Patient Social History Alcohol Use: Regular Use Alcohol Beverage of Choice: Vodka Recreational Drug Use: No Smoking Status: Never a Smoker Type Used: Smokeless Tobacco 2nd Hand Smoke Exposure: No Recent Foreign Travel: No Contact w/other who traveled: No Recent Hopitalizations: No Recent Infectious Disease Expo: No Immunizations Up To Date Date of Influenza Vaccine: Feb 10, 2019 Seasonal Allergies Seasonal Allergies: No Surgeries No (Denies surgical hx. ) Eye Surgery Respiratory No Cardiovascular No Neurological Yes (Dystonia ) Parkinson's Disease, Seizure Disorder Genitourinary No Gastrointestinal No Musculoskeletal No Endocrine History of Endocrine Disorders: No HEENT History of HEENT Disorders: No Cancer No Psychosocial History of Psychiatric Problem: Yes Behavioral Health Disorders: ADD/ADHD, Anxiety, Depression Integumentary History of Skin or Integumenta: No Family Medical History Family Hx: Patient reports no known family medical history. Review of Systems Review of Systems General: No Chills, No Night Sweats HEENT: No Head Aches Pulmonary: No Dyspnea, No Cough Cardiovascular: No: Chest Pain, Palpitations Gastrointestinal: No: Nausea, Vomiting, Abdominal Pain Neurological: No: Weakness, Numbness All Other Systems Reviewed All Other Systems Reviewed: Yes Physical Exam Vital Signs Vital Signs - First Documented 09/07/19 14:45 Temp 37.4 Pulse 118 Resp 16 B/P (MAP) 142/111 (121) Pulse Ox 95 O2 Delivery Room Air Capillary Refill : Less Than 3 Seconds Height, Weight, BMI Height: '" Weight: lbs. oz. kg; 26.00 BMI Method: General Appearance: No Apparent Distress HEENT: PERRL/EOMI Neck: Non Tender, Supple Respiratory: Chest Non Tender, Lungs Clear, Normal Breath Sounds, No Accessory Muscle Use, No Respiratory Distress Cardiovascular: Regular Rate, Rhythm, No Edema Gastrointestinal: Normal Bowel Sounds, Non Tender, Soft Rectal: Deferred Back: Normal Inspection, No CVA Tenderness Extremity: Non Tender, No Calf Tenderness Neurologic/Psychiatric: Alert, Oriented x3 Skin: Warm/Dry Assessment/Plan Assessment/Plan Admission Dx acute alcohol abuse/intoxication hallucinations alcohol withdrawal Admission Status: Inpatient Order (span 2 midnights) Reason for Inpatient Admission: Patient is acutely intoxicated with etoh level >400 and is unsure of any seizures in the past but he has always just went back to drinking when the withdrawal got bad. Assessment and Plan 09/08/19- etoh withdrawal protocol- doing well so far but his etoh was 150 this AM- we are not withdrawal yet. Dispo: will continue to monitor CIWA protocol- could possibly d/c to home tomorrow with serax or librium protocol He has outpatient follow-up for etoh treatment with [facility] on Sep 14, 2019 Problems: (1) Hypokalemia Assessment & Plan: replacing (2) Alcohol intoxication Qualifiers: Qualified Codes: F10.921 - Alcohol use, unspecified with intoxication delirium (3) Alcohol withdrawal (4) Dystonia Assessment & Plan: continue carbidopa/levodopa Clinical Quality Measures DVT/VTE Risk/Contraindication: Risk Factor Score Per Nursin RFS Level Per Nursing on Admit: 1=Low/No VTE PPX BENNY ALEGRIA MD Sep 08, 2019 18:41
[2019-09-09] VITALS (25 sets, daily range): BP systolic 104–146; BP diastolic 48–107
[2019-09-09 03:46] LABS: BASOPHILS % (AUTO) 0 % (0-10); EOSINOPHILS # (AUTO) 0.1 10^3/uL (0.0-0.3); EOSINOPHILS % (AUTO) 2 % (0-10); HEMATOCRIT 44 % (40-54); HEMOGLOBIN 14.7 G/DL (13.3-17.7); LYMPHOCYTES # (AUTO) 1.3 X 10^3 (1.0-4.0); LYMPHOCYTES % (AUTO) 38 % (12-44); MEAN CORPUSCULAR HEMOGLOBIN 30 PG (25-34); MEAN CORPUSCULAR HGB CONC 33 G/DL (32-36); MEAN CORPUSCULAR VOLUME 90 FL (80-99); MEAN PLATELET VOLUME 10.7 FL (7.4-10.4); MONOCYTES # (AUTO) 0.4 X 10^3 (0.0-1.0); MONOCYTES % (AUTO) 11 % (0-12); NEUTROPHILS # (AUTO) 1.7 X 10^3 (1.8-7.8); NEUTROPHILS % (AUTO) 49 % (42-75); PLATELET COUNT 185 10^3/uL (130-400); RED CELL DISTRIBUTION WIDTH 13.7 % (10.0-14.5); WHITE BLOOD COUNT 3.4 10^3/uL (4.3-11.0)
[2019-09-09] MEDS: LORazepam INJ 2 MG/ML (ATIVAN) VIAL IV PRN ×3 (04:00→20:23)
[2019-09-09 04:09] LABS: BUN/CREATININE RATIO 8; CALCIUM 9.1 MG/DL (8.5-10.1); CARBON DIOXIDE 22 MMOL/L (21-32); CHLORIDE 103 MMOL/L (98-107); CREATININE SERUM 0.91 MG/DL (0.60-1.30); GFR ESTIMATED > 60; GLUCOSE 90 MG/DL (70-105); MAGNESIUM 2.8 MG/DL (1.6-2.4); POTASSIUM 4.6 MMOL/L (3.6-5.0); SODIUM 136 MMOL/L (135-145)
[2019-09-09] MEDS: POTASSIUM CL 10MEQ/50ML IVPB 50 ML IV SCH (05:05)
[2019-09-09] MEDS: MAGNESIUM 1 GM/100 ML IVPB 100 ML IV SCH (05:05)
[2019-09-09] MEDS: KCL 20 MEQ TAB (K-DUR) PO SCH (05:06)
--- NOTE | 2019-09-09 05:15 | Pulmonary Progress Note ---
GIULIANA SHAH,MED STUDENT 09/09/19 0515: Subjective Date Seen by a Provider: Sep 09, 2019 Time Seen by a Provider: 04:10 Subjective/Events-last exam Pt. denies n/v/abdominal pain, denies tremors. Pt. states anxiety is worsened this morning. States overnight he believed he was seeing butterflies in his room. Sepsis Event Evaluation Height, Weight, BMI Height: '" Weight: lbs. oz. kg; 26.00 BMI Method: Exam Exam Vital Signs Date Time Temp Pulse Resp B/P (MAP) Pulse Ox O2 Delivery O2 Flow Rate FiO2 09/09/19 04:00 97 Room Air 09/09/19 03:35 36.5 09/09/19 03:00 43 128/97 (107) 96 Room Air 09/09/19 02:00 47 18 126/107 (113) 98 Room Air 09/09/19 01:00 43 09/09/19 01:00 43 13 118/59 (78) 97 Room Air 09/09/19 00:00 97 Room Air 09/09/19 00:00 43 27 129/75 (93) 97 Room Air 09/08/19 23:00 47 17 134/95 (108) 96 Room Air 09/08/19 22:00 46 23 145/81 (102) 98 Room Air 09/08/19 21:00 46 20 136/64 (88) 95 Room Air 09/08/19 20:00 97 Room Air 09/08/19 20:00 53 19 120/82 (95) 95 Room Air 09/08/19 19:00 54 20 126/78 (94) 97 Room Air 09/08/19 19:00 54 09/08/19 18:00 49 8 136/98 (111) 98 Room Air 09/08/19 17:00 61 28 133/81 (98) Room Air 09/08/19 16:32 98 Room Air 09/08/19 16:00 48 12 111/83 (92) Room Air 09/08/19 15:43 37.0 09/08/19 15:00 46 14 114/89 (97) Room Air 09/08/19 14:00 47 13 112/80 (91) Room Air 09/08/19 13:00 42 11 110/74 (86) Room Air 09/08/19 13:00 47 09/08/19 12:15 98 Room Air 09/08/19 12:00 64 28 126/93 (104) 92 Room Air 09/08/19 11:23 36.6 09/08/19 11:00 50 19 122/83 (96) 100 Room Air 09/08/19 10:00 50 16 129/76 (93) 95 Room Air 09/08/19 09:00 55 11 149/50 (83) 97 Room Air 09/08/19 08:45 96 Room Air 09/08/19 08:00 57 15 129/89 (102) 97 Room Air 09/08/19 07:27 38.0 71 16 137/96 (110) 97 Room Air 09/08/19 07:00 75 19 137/96 (110) 96 Room Air 09/08/19 07:00 75 09/08/19 06:00 56 96/27 (50) 97 Room Air I & O 09/09/19 07:00 Intake Total 3275.2 ml Output Total 1100 ml Balance 2175.2 ml Height & Weight Height: '" Weight: lbs. oz. kg; 26.00 BMI Method: General Appearance: No Apparent Distress HEENT: PERRL/EOMI Neck: Non Tender, Supple Respiratory: Chest Non Tender, Lungs Clear, Normal Breath Sounds, No Accessory Muscle Use, No Respiratory Distress Cardiovascular: Regular Rate, Rhythm, No Edema Capillary Refill: Less Than 3 Seconds Peripheral Pulses: 2+ Dorsalis Pedis (R), 2+ Left Dors-Pedis (L), 2+ Radial Pulses (R), 2+ Radial Pulses (L) Gastrointestinal: normal bowel sounds, non tender, soft Extremity: Non Tender, No Calf Tenderness Neurologic/Psychiatric: Alert, Oriented x3 Skin: Warm/Dry Results Lab Laboratory Tests 09/07/19 15:10 09/07/19 18:40 09/08/19 02:57 09/09/19 03:17 Assessment/Plan Assessment/Plan Alcohol intoxication -receiving thiamine and folic acid -Ativan 1mg IV PRN -LR @ 50/hr continue to monitor Hypokalemia -resolved Anxiety -Ativan prn Alcohol use disorder -patient education RICHARD GAMA DO 09/09/19 0621: Subjective Time Seen by a Provider: 06:21 Exam Exam General Appearance: No Apparent Distress HEENT: PERRL/EOMI Neck: Non Tender, Supple Respiratory: Chest Non Tender, Lungs Clear, Normal Breath Sounds, No Accessory Muscle Use, No Respiratory Distress Cardiovascular: Regular Rate, Rhythm Gastrointestinal: normal bowel sounds, non tender, soft Extremity: Non Tender, No Calf Tenderness Neurologic/Psychiatric: Alert, Oriented x3 Skin: Warm/Dry Assessment/Plan Assessment/Plan Alcohol intoxication -receiving thiamine and folic acid -Ativan 1mg IV PRN -LR @ 50/hr continue to monitor Hypokalemia -resolved Anxiety -Ativan prn Alcohol use disorder -patient education Supervisory-Addendum Brief Verification & Attestation Participated in pt care: history, MDM, physical Personally performed: exam, history, MDM Care discussed with: Medical Student Procedures: n/a Verification and Attestation of Medical Student E/M Service A medical student performed and documented this service in my presence. I reviewed and verified all information documented by the medical student and made modifications to such information, when appropriate. I personally performed the physical exam and medical decision making. Richard Gama, Sep 09, 2019,07:27 GIULIANA SHAH,MED STUDENT Sep 09, 2019 05:15 RICHARD GAMA DO Sep 09, 2019 06:21
[2019-09-09] MEDS: ENOXAPARIN 40 MG/0.4 ML (LOVENOX) SYR SC SCH (05:52)
[2019-09-09] MEDS: THIAMINE INJECTION 100 MG, FOLIC ACID INJECTION 1 MG, VITAMIN MULTI INJECTION 10 ML, MA... IV SCH ×5 (09:23)
[2019-09-09] MEDS: LEVETIRACETAM 500 MG (KEPPRA) TAB PO SCH ×2 (09:23→20:22)
[2019-09-09] MEDS: FAMOTIDINE 20 MG (PEPCID) TABLET PO SCH ×2 (09:24→20:22)
[2019-09-09] MEDS: SINEMET 25/100 (CARBIDOPA/LEVODOPA) TAB PO SCH ×2 (09:24→20:22)
[2019-09-09] MEDS: FLUoxetine HCL 20 MG (PROzac) CAP PO SCH (09:24)
[2019-09-09] MEDS: NS IV 1000 ML 1,000 ML IV SCH (10:34)
--- NOTE | 2019-09-09 12:57 | Progress Note ---
Subjective Subjective Date Seen by Provider: Sep 09, 2019 Time Seen by Provider: 12:56 No overnight events. Review of [facility]- he has been taking clonazepam for past month- Dr. Sheldon has given him 15 tablets q 2 weeks since July 2019. Patient is agreeable to staying with Dr. Sheldon as his PCP. She was his previous one when I thought he switched to [facility] in February 2019. Review of Systems General: No Chills, No Night Sweats HEENT: No Head Aches Pulmonary: No Dyspnea, No Cough Cardiovascular: No: Chest Pain, Palpitations Gastrointestinal: No: Nausea, Vomiting, Abdominal Pain Neurological: No: Weakness, Numbness All Other Systems Reviewed All Other Systems Reviewed: Yes Objective Exam Vital Signs Vital Signs Date Time Temp Pulse Resp B/P (MAP) Pulse Ox O2 Delivery O2 Flow Rate FiO2 09/09/19 12:31 43 09/09/19 12:00 36.7 09/09/19 12:00 64 17 135/52 (79) 100 Room Air 09/09/19 11:46 98 Room Air 09/09/19 11:00 45 31 123/62 (82) 97 Room Air 09/09/19 10:00 55 114/64 (81) 97 Room Air 09/09/19 09:38 98 Room Air 09/09/19 09:00 50 26 130/87 (101) 98 Room Air 09/09/19 08:00 42 26 121/61 (81) 97 Room Air 09/09/19 08:00 36.2 09/09/19 07:00 45 10 127/67 (87) 96 Room Air 09/09/19 07:00 40 09/09/19 06:00 40 16 133/64 (87) 96 Room Air 09/09/19 05:00 48 34 131/48 (75) 96 Room Air 09/09/19 04:00 64 25 143/94 (110) 96 Room Air 09/09/19 04:00 97 Room Air 09/09/19 03:35 36.5 09/09/19 03:00 43 128/97 (107) 96 Room Air 09/09/19 02:00 47 18 126/107 (113) 98 Room Air 09/09/19 01:00 43 09/09/19 01:00 43 13 118/59 (78) 97 Room Air 09/09/19 00:00 97 Room Air 09/09/19 00:00 43 27 129/75 (93) 97 Room Air 09/08/19 23:00 47 17 134/95 (108) 96 Room Air 09/08/19 22:00 46 23 145/81 (102) 98 Room Air 09/08/19 21:00 46 20 136/64 (88) 95 Room Air 09/08/19 20:00 97 Room Air 09/08/19 20:00 53 19 120/82 (95) 95 Room Air 09/08/19 19:00 54 20 126/78 (94) 97 Room Air 09/08/19 19:00 54 09/08/19 18:00 49 8 136/98 (111) 98 Room Air 09/08/19 17:00 61 28 133/81 (98) Room Air 09/08/19 16:32 98 Room Air 09/08/19 16:00 48 12 111/83 (92) Room Air 09/08/19 15:43 37.0 09/08/19 15:00 46 14 114/89 (97) Room Air 09/08/19 14:00 47 13 112/80 (91) Room Air 09/08/19 13:00 42 11 110/74 (86) Room Air 09/08/19 13:00 47 I & O 09/09/19 07:00 Intake Total 3275.2 ml Output Total 1780 ml Balance 1495.2 ml General Appearance: No Apparent Distress, WD/WN HEENT: PERRL/EOMI, Moist Mucous Membranes Neck: Non Tender, Supple Respiratory: Chest Non Tender, Lungs Clear, Normal Breath Sounds, No Accessory Muscle Use, No Respiratory Distress Cardiovascular: Regular Rate, Rhythm, No Edema, No Gallop, No JVD, No Murmur, Normal Peripheral Pulses Gastrointestinal: Normal Bowel Sounds, Non Tender, Soft Rectal: Deferred Back: Normal Inspection, No CVA Tenderness Extremity: Non Tender, No Calf Tenderness, No Pedal Edema Neurologic/Psychiatric: Alert, Oriented x3, Normal Mood/Affect Skin: Normal Color, Warm/Dry Results Lab Laboratory Tests 09/08/19 17:51: Glucometer 105 09/09/19 03:17: White Blood Count 3.4L, Red Blood Count 4.91, Hemoglobin 14.7, Hematocrit 44, Mean Corpuscular Volume 90, Mean Corpuscular Hemoglobin 30, Mean Corpuscular Hemoglobin Concent 33, Red Cell Distribution Width 13.7, Platelet Count 185, Mean Platelet Volume 10.7H, Neutrophils (%) (Auto) 49, Lymphocytes (%) (Auto) 38, Monocytes (%) (Auto) 11, Eosinophils (%) (Auto) 2, Basophils (%) (Auto) 0, Neutrophils # (Auto) 1.7L, Lymphocytes # (Auto) 1.3, Monocytes # (Auto) 0.4, Eosinophils # (Auto) 0.1, Basophils # (Auto) 0.0, Sodium Level 136, Potassium Level 4.6, Chloride Level 103, Carbon Dioxide Level 22, Anion Gap 11, Blood Urea Nitrogen 7, Creatinine 0.91, Estimat Glomerular Filtration Rate > 60, BUN/Creatinine Ratio 8, Glucose Level 90, Calcium Level 9.1, Phosphorus Level 3.0, Magnesium Level 2.8H Microbiology 09/07/19 MRSA Screen - Final, Complete MRSA not isolated Assessment/Plan Assessment/Plan Admission Dx acute alcohol abuse/intoxication hallucinations alcohol withdrawal Assessment and Plan 09/08/19- etoh withdrawal protocol- Potassium is in normal range Doing well- Dispo: will continue to monitor CIWA protocol- -plan to d/c home tomorrow with librium taper He has outpatient follow-up for etoh treatment with [facility] on Sep 14, 2019 and a Psychiatric appt in [place], [place] in the near future. He will follow up with Dr. Sheldon for his future care as he was not forthcoming about getting clonazepam for the past month from her. Problems: (1) Hypokalemia Assessment & Plan: replacing (2) Alcohol intoxication Qualifiers: Qualified Codes: F10.921 - Alcohol use, unspecified with intoxication delirium (3) Alcohol withdrawal (4) Dystonia Assessment & Plan: continue carbidopa/levodopa Admission Dx acute alcohol abuse/intoxication hallucinations alcohol withdrawal Clinical Quality Measures Admission Status Admission Dx acute alcohol abuse/intoxication hallucinations alcohol withdrawal DVT/VTE Risk/Contraindication: Risk Factor Score Per Nursin RFS Level Per Nursing on Admit: 1=Low/No VTE PPX JUN ALEGRIA MD Sep 09, 2019 12:57
--- NOTE | 2019-09-09 13:57 | NUR ---
PT SAT UP FOR APPROX ONE HOUR WITHOUT DIFFICULTIES. WAS PLEASANT AND VOICED HIS INTENT TO GET SOBER STATING THAT "HE WAS SICK OF BEING A DRUNK". PT VOICED DECREASED APPETITE AND ENSURE WITH MEALS AND HS WAS ORDER PER HIS WISH. PT STATES HE "I FEEL PRETTY GOOD". MONITORING HIM CLOSELY. CALL LIGHT WITHIN REACH AND BED IN LOW POSITION WITH TELE SITTER IN USE AT THIS TIME.
--- NOTE | 2019-09-09 14:09 | NUR ---
"RD ASSESSMENT PMHx: Parkinson's disease; seizure disorder; ETOH use/abuse PT INTERACTION: Pt was awake and pleasant during nutrition assessment. Pt states current appetite is poor and it has been this way since admit. Note avg PO intake 25% x1d, per chart review. Pt states following a regular diet at home, and has no issues with chewing/swallowing food. Pt states no recent issues with nausea, vomiting, constipation, or diarrhea, and that his last BM was 2days ago. Note pt currently on bowel regimen of senna PRN, per chart review. Pt states no recent wt changes. Note recent 16# wt gain x4mon per chart review. ABNORMAL NUTRITION-RELATED LAB VALUES LOW: HIGH: Mg 2.8 Est. kcal needs: 2275 kcal | 25 kcal/kg Est. Pro needs: 73 g Pro | 0.8 g Pro/kg PES STATEMENT: Inadequate oral intake (NI-2.1) related to loss of appetite as evidenced by pt interview | avg PO intake 25% x1d INTERVENTION: Continue with current diet order of Regular diet. Continue with current supplementation order of Ensure HP (vary) with meals TID, for increased kcal intake. Provides 160 kcal and 16 g Pro per serving. Will continue to follow and reassess as pt needs, intake, and status change. MONITOR/EVALUATE: PO Intake; Plan of Care; Hydration Status; Weight Status; Lab Values Ly Cedillo, , RD, LD"
--- NOTE | 2019-09-09 14:32 | NUR ---
CM/SS follow up. The patient was lying in bed in the dark when this ss went to visit. He reports that the last few minutes he has been feeling very anxious. He states he is sitting here thinking of all the things that could go wrong. The patient appeared to be a little shaky and unable to stay still. CM/SS notified the patient's primary care nurse of this. She will give his meds. CM/SS asked about transportation for time of discharge. He reports that his mother will most likely be the one picking him up. He did not have any further questions or concerns at this time. CM/SS will continue to follow.
[2019-09-10] VITALS (12 sets, daily range): BP systolic 97–126; BP diastolic 69–95
[2019-09-10] MEDS: LORazepam INJ 2 MG/ML (ATIVAN) VIAL IV PRN (00:34)
[2019-09-10] MEDS: NS IV 1000 ML 1,000 ML IV SCH ×2 (01:13→08:30)
[2019-09-10 03:25] LABS: BASOPHILS % (AUTO) 0 % (0-10); EOSINOPHILS # (AUTO) 0.2 10^3/uL (0.0-0.3); EOSINOPHILS % (AUTO) 4 % (0-10); HEMATOCRIT 45 % (40-54); HEMOGLOBIN 15.3 G/DL (13.3-17.7); LYMPHOCYTES # (AUTO) 1.9 X 10^3 (1.0-4.0); LYMPHOCYTES % (AUTO) 32 % (12-44); MEAN CORPUSCULAR HEMOGLOBIN 30 PG (25-34); MEAN CORPUSCULAR HGB CONC 34 G/DL (32-36); MEAN CORPUSCULAR VOLUME 87 FL (80-99); MEAN PLATELET VOLUME 10.4 FL (7.4-10.4); MONOCYTES # (AUTO) 0.5 X 10^3 (0.0-1.0); MONOCYTES % (AUTO) 8 % (0-12); NEUTROPHILS # (AUTO) 3.3 X 10^3 (1.8-7.8); NEUTROPHILS % (AUTO) 56 % (42-75); PLATELET COUNT 180 10^3/uL (130-400); RED CELL DISTRIBUTION WIDTH 13.5 % (10.0-14.5); WHITE BLOOD COUNT 5.9 10^3/uL (4.3-11.0)
[2019-09-10 03:54] LABS: BUN/CREATININE RATIO 12; CALCIUM 9.3 MG/DL (8.5-10.1); CARBON DIOXIDE 22 MMOL/L (21-32); CHLORIDE 100 MMOL/L (98-107); CREATININE SERUM 0.78 MG/DL (0.60-1.30); GFR ESTIMATED > 60; GLUCOSE 96 MG/DL (70-105); MAGNESIUM 1.8 MG/DL (1.6-2.4); PHOSPHORUS 3.5 MG/DL (2.3-4.7); SODIUM 133 MMOL/L (135-145)
--- NOTE | 2019-09-10 04:08 | Pulmonary Progress Note ---
Subjective Time Seen by a Provider: 04:07 Subjective/Events-last exam Pt is doing well. No complications noted. Sepsis Event Evaluation Height, Weight, BMI Height: '" Weight: lbs. oz. kg; 26.00 BMI Method: Exam Exam Vital Signs Date Time Temp Pulse Resp B/P (MAP) Pulse Ox O2 Delivery O2 Flow Rate FiO2 09/10/19 03:00 47 19 97/77 (84) 97 Room Air 09/10/19 02:00 49 17 124/79 (94) Room Air 09/10/19 01:00 51 09/10/19 01:00 50 11 113/69 (84) Room Air 09/10/19 00:00 98 Room Air 09/09/19 23:59 47 16 109/83 (92) Room Air 09/09/19 23:00 48 24 127/84 (98) Room Air 09/09/19 22:00 59 13 126/77 (93) 97 Room Air 09/09/19 21:00 57 28 129/97 (108) 94 Room Air 09/09/19 20:00 98 Room Air 09/09/19 20:00 80 18 146/91 (109) 99 Room Air 09/09/19 19:00 53 10 126/93 (104) 98 Room Air 09/09/19 19:00 50 09/09/19 18:00 54 45 141/98 (112) 96 Room Air 09/09/19 17:00 46 28 105/78 (87) 97 Room Air 09/09/19 16:03 98 Room Air 09/09/19 16:00 44 35 119/62 (81) Room Air 09/09/19 15:00 51 12 122/62 (82) 95 Room Air 09/09/19 14:00 61 10 104/61 (75) 96 Room Air 09/09/19 13:00 66 22 123/87 (99) 99 Room Air 09/09/19 12:31 43 09/09/19 12:00 36.7 09/09/19 12:00 64 17 135/52 (79) 100 Room Air 09/09/19 11:46 98 Room Air 09/09/19 11:00 45 31 123/62 (82) 97 Room Air 09/09/19 10:00 55 114/64 (81) 97 Room Air 09/09/19 09:38 98 Room Air 09/09/19 09:00 50 26 130/87 (101) 98 Room Air 09/09/19 08:00 42 26 121/61 (81) 97 Room Air 09/09/19 08:00 36.2 09/09/19 07:00 45 10 127/67 (87) 96 Room Air 09/09/19 07:00 40 09/09/19 06:00 40 16 133/64 (87) 96 Room Air 09/09/19 05:00 48 34 131/48 (75) 96 Room Air I & O 09/10/19 07:00 Intake Total 2020.2 ml Output Total 850 ml Balance 1170.2 ml Height & Weight Height: '" Weight: lbs. oz. kg; 26.00 BMI Method: General Appearance: No Apparent Distress, WD/WN HEENT: PERRL/EOMI, Moist Mucous Membranes Neck: Non Tender, Supple Respiratory: Chest Non Tender, Lungs Clear, Normal Breath Sounds, No Accessory Muscle Use, No Respiratory Distress Cardiovascular: Regular Rate, Rhythm, No Edema, No Gallop, No JVD, No Murmur, Normal Peripheral Pulses Capillary Refill: Less Than 3 Seconds Peripheral Pulses: 2+ Dorsalis Pedis (R), 2+ Left Dors-Pedis (L), 2+ Radial Pulses (R), 2+ Radial Pulses (L) Gastrointestinal: normal bowel sounds, non tender, soft Extremity: Non Tender, No Calf Tenderness, No Pedal Edema Neurologic/Psychiatric: Alert, Oriented x3, Normal Mood/Affect Skin: Normal Color, Warm/Dry Results Lab Laboratory Tests 09/09/19 03:17 09/10/19 03:09 Assessment/Plan Assessment/Plan Alcohol intoxication -receiving thiamine and folic acid -[facility] protocol -LR @ 50/hr continue to monitor Hypokalemia -resolved Anxiety -Ativan prn Alcohol use disorder -patient education KATHLEEN COLEMAN DO Sep 10, 2019 04:08
[2019-09-10] MEDS: KCL 20 MEQ TAB (K-DUR) PO SCH (04:30)
[2019-09-10] MEDS: MAGNESIUM 1 GM/100 ML IVPB 100 ML IV SCH (04:30)
[2019-09-10] MEDS: POTASSIUM CL 10MEQ/50ML IVPB 50 ML IV SCH (04:30)
[2019-09-10] MEDS: ENOXAPARIN 40 MG/0.4 ML (LOVENOX) SYR SC SCH (06:35)
[2019-09-10] MEDS ORDERED: MULTIVIT W/MINERALS TAB (THERAGRAN M) PO SCH (07:00)
[2019-09-10] MEDS: SINEMET 25/100 (CARBIDOPA/LEVODOPA) TAB PO SCH (07:24)
[2019-09-10] MEDS: FLUoxetine HCL 20 MG (PROzac) CAP PO SCH (07:24)
[2019-09-10] MEDS: LEVETIRACETAM 500 MG (KEPPRA) TAB PO SCH (07:24)
[2019-09-10] MEDS: FAMOTIDINE 20 MG (PEPCID) TABLET PO SCH (07:24)
--- NOTE | 2019-09-10 08:34 | NUR ---
PT TRANSFERRED TO [facility] VIA W/ STAFF AND PERSONAL BELONGINGS. REPORT GIVEN TO MADISYN FELDMAN. NO QUESTIONS/CONCERNS VOICED.
--- NOTE | 2019-09-10 08:36 | NUR ---
RECEIVED FROM ICU, REPORT FROM ERASMO FELDMAN, ORIENTED TO ROOM, CALL LIGHT WITHIN REACH, IV SITE WITHOUT REDNESS OR SWELLING, TELEMETRY ON, DENIES PAIN.
[2019-09-10] MEDS ORDERED: FOLIC ACID 1 MG TAB PO SCH (09:00)
--- NOTE | 2019-09-10 11:42 | NUR ---
CM/SS follow up. The patient reports he is doing well today. He states he is still having anxiety and feels like it's a "big ball of anxiety in him". He verbalized that he believes his drinking is due to self medicating to treat his anxiety. His appointment with psychiatrist is aimed at getting medication assistance for anxiety and depression according to patient. CM/SS will notify the patient's nurse. He denied having hallucinations or delusions at this time. CM/SS reminded patient of appointment details. He verbalized understanding. He reports not calling family or friends yet because they "act" like they understand but don't really. The patient stated he believes he will be discharge tomorrow. He denied any further questions or concerns a this time.
--- NOTE | 2019-09-10 12:07 | NUR ---
REQUESTED MEDICATION FOR NERVES, C/O FEELING NERVOUS, SLIGHT TREMOR OF HANDS, ATIVAN 1MG GIVEN PO, DR ALEGRIA HERE AND AWARE, WANTING TO GO HOME,
[2019-09-10] MEDS ORDERED: CHLO10CA6 PO (12:25)
--- NOTE | 2019-09-10 12:29 | Discharge Summary ---
Discharge Summary Hospital Course Was the Problem List Reviewed?: Yes Problems/Dx: (1) Hypokalemia Status: Resolved (2) Alcohol intoxication Status: Resolved Qualifiers: Qualified Codes: F10.921 - Alcohol use, unspecified with intoxication delirium (3) Alcohol withdrawal Status: Acute (4) Dystonia Status: Chronic Hospital Course Date of Admission: Sep 07, 2019 at 17:15 Admission Diagnosis : Family Physician/Provider: Benny Alegria MD Date of Discharge: 09/10/19 Discharge Diagnosis: [ ] Hospital Course: [ ] Labs and Pending Lab Test: Laboratory Tests 09/10/19 03:09: White Blood Count 5.9, Red Blood Count 5.12, Hemoglobin 15.3, Hematocrit 45, Mean Corpuscular Volume 87, Mean Corpuscular Hemoglobin 30, Mean Corpuscular Hemoglobin Concent 34, Red Cell Distribution Width 13.5, Platelet Count 180, Mean Platelet Volume 10.4, Neutrophils (%) (Auto) 56, Lymphocytes (%) (Auto) 32, Monocytes (%) (Auto) 8, Eosinophils (%) (Auto) 4, Basophils (%) (Auto) 0, Neutrophils # (Auto) 3.3, Lymphocytes # (Auto) 1.9, Monocytes # (Auto) 0.5, Eosinophils # (Auto) 0.2, Basophils # (Auto) 0.0, Sodium Level 133L, Potassium Level 4.0, Chloride Level 100, Carbon Dioxide Level 22, Anion Gap 11, Blood Urea Nitrogen 9, Creatinine 0.78, Estimat Glomerular Filtration Rate > 60, BUN/Creatinine Ratio 12, Glucose Level 96, Calcium Level 9.3, Phosphorus Level 3.5, Magnesium Level 1.8 Microbiology 09/07/19 MRSA Screen - Final, Complete MRSA not isolated Home Meds Active Chlordiazepoxide HCl 10 Mg Capsule 10 Mg PO BID PRN Reported Clonazepam 0.5 Mg Tablet 0.5 Mg PO DAILY PRN Omeprazole 20 Mg Capsule.dr 20 Mg PO DAILY Naltrexone HCl 50 Mg Tablet 50 Mg PO HS Fluoxetine HCl 20 Mg Capsule 20 Mg PO HS Trazodone HCl 50 Mg Tablet 50-100 Mg PO HS PRN Carbidopa-Levo ER 50-200 Tab (Carbidopa/Levodopa) 1 Each Tablet.er 1 Each PO TID Assessment/Pt Instructions Take the chlordiazepoxide 10mg twice daily as needed for withdrawal symptoms. Follow up with Dr. Sheldon. Keep your appointment with [facility] outpatient alcohol treatment. Discharge Planning: <30 minutes discharge planning Discharge Instructions Discharge Diet: Regular Diet Activity as Tolerated: Yes Discharge Physical Examination Vital Signs Vital Signs Date Time Temp Pulse Resp B/P (MAP) Pulse Ox O2 Delivery O2 Flow Rate FiO2 09/10/19 12:09 36.6 60 16 124/78 (93) 96 Room Air General Appearance: No Apparent Distress, WD/WN HEENT: PERRL/EOMI Respiratory: Chest Non Tender, Lungs Clear, Normal Breath Sounds, No Accessory Muscle Use, No Respiratory Distress Cardiovascular: Regular Rate, Rhythm Gastrointestinal: Soft Extremity: Normal Range of Motion, Non Tender Skin: Warm/Dry, Other (scabs on shins) Neurologic/Psychiatric: Alert, Oriented x3 Allergies: Coded Allergies: No Known Drug Allergies (Unverified , 04/21/19) Discharge Summary Date of Admission Sep 07, 2019 at 17:15 Date of Discharge Discharge Diagnosis (1) Hypokalemia Status: Resolved Assessment & Plan: replacing (2) Alcohol intoxication Status: Resolved Qualifiers: Qualified Codes: F10.921 - Alcohol use, unspecified with intoxication delirium (3) Alcohol withdrawal Status: Acute (4) Dystonia Status: Chronic Assessment & Plan: continue carbidopa/levodopa Clinical Quality Measures DVT/VTE Risk/Contraindication: Risk Factor Score Per Nursin RFS Level Per Nursing on Admit: 1=Low/No VTE PPX BENNY ALEGRIA MD Sep 10, 2019 12:29
--- NOTE | 2019-09-10 16:16 | NUR ---
DISCHARGE INSTRUCTIONS GIVEN, HOME MEDS RETURNED TO PATIENT, PRESCRIPTION GIVEN, INSTRUCTED ON FOLLOW UP AT CLINIC, IV DC, SITE WITHOUT REDNESS, TELEMETRY DC, NO C/O PAIN OR SOB
== END 2019-09-10 16:16 | disposition home or self-care (01) | DRG 897 ==
LOC: EDUNIT# 14:35 → ER 14:37 → ICU 17:15 → 4TH 09-10 08:37
PROVIDERS: ADMIT Family Medicine; ATTEND Family Medicine
DX: F10.232 Alcohol dependence with withdrawal with perceptual disturbance (principal); R44.0 Auditory hallucinations; Y90.8 Blood alcohol level of 240 mg/100 ml or more; F17.220 Nicotine dependence, chewing tobacco, uncomplicated; G24.9 Dystonia, unspecified; G20 Parkinson's disease; G40.909 Epilepsy, unspecified, not intractable, without status epilepticus; F90.0 Attention-deficit hyperactivity disorder, predominantly inattentive type; F41.9 Anxiety disorder, unspecified; F32.9 Major depressive disorder, single episode, unspecified; E87.6 Hypokalemia
CPT/HCPCS: 36415; 71045; 80048; 80053; 80306; 80320; 80329; 81000; 82150; 82962; 83690; 83735; 84100; 85025; 85610; 85730; 86703; 87081; 93005; 93041

== ENCOUNTER 2021-01-16 17:01 | Inpatient (IN) | payer BC ==
[~2021-01-16] VITALS: Ht 190 cm; Wt 90.4 kg
[~2021-01-16 17:01] MED LIST changes: +CHLO10CA6 PO; +CLON0.5T4 PO; +CYCL10TA25 PO; -CYCL10TA9 PO; -FLUO20CA46 PO; +FLUO20CA48 PO
--- OUTSIDE RECORDS SUMMARY | 2021-01-16 17:07 | XMS REPORT | Clinical Summary ---
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 Name Role Phone PCP Unavailable Allergies No known active allergies Medications Not on file Active Problems Not on file Social History Date Tobacco Use Types Packs/Day Years Used Never Assessed Sex Assigned at Date Recorded Not on file Last Filed Vital Signs Not on file Plan of Treatment Health Maintenance Due Date Last Done Comments Varicella Vaccines (1 of 1974 2 - 2-dose childhood series) COVID-19 Vaccine (1) 1978 Hepatitis C Screening 08/13/1991 DTaP,Tdap,and Td Vaccines 1992 (1 - Tdap) MMR Vaccines-Adult 1992 Influenza Vaccine (#1) 2020 Pneumo-Vaccine: 65+Yrs (1 2038 of 1 - PPSV23) HIB Vaccines Aged Out No longer eligible based on patient's age to complete this topic IPV Vaccines Aged Out No longer eligible based on patient's age to complete this topic Meningococcal Vaccine Aged Out No longer eligib le based on patient's age to complete this topic Pneumo-Vaccine: Peds (0-5 Aged Out No longer el igible based on patient's age to Yrs) & At-Risk Patients complete this topic (6-64 Yrs) Rotavirus Vaccines Aged Out No longer eligible based on patient's age to complete this topic Results Not on filefrom Last 3 Months
--- OUTSIDE RECORDS SUMMARY | 2021-01-16 17:08 | XMS REPORT | Clinical Summary ---
Author Author [facility] Organization [facility] Address Unknown Phone Unavailable Care Team Providers Care Rotary Swaging Machine Operator Name Role Phone No Pcp, Na PCP Unavailable Source Comments Some departments are not documenting in the electronic medical record. If you d o not see the information that you expected, contact Release of Information in [facility] Information Management department at [phone] for further assistan ce in locating additional records.[facility] Allergies No known active allergies Medications End Date Status Medication Sig Dispensed Refills Start Date Active PARoxetine (PAXIL) 30 mg Take 30 mg by 0 tablet mouth daily. Active eszopiclone (LUNESTA) 2 Take 2 mg by 0 mg tablet mouth. Active prazosin (MINIPRESS) 1 mg Take 1 mg by 0 capsule mouth at bedtime daily. Active QUEtiapine (SEROQUEL) 25 Take 25 mg by 0 mg tablet mouth twice daily. Active omeprazole DR (PRILOSEC) Take 20 mg by 0 20 mg capsule mouth daily before breakfast. Active carbidopa/levodopa CR Take 1 tablet 0 (SINEMET CR) 50/200 mg by mouth tablet three times daily. Active Problems Problem Noted Date Alcoholism 12/21/2019 Overview: Formatting of this note might be differ ent from the original. He currently drinks to excess five nigh ts a week, that he reports. 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 The 'dys danielle' of his left hand is easily distracted and he made very poor effort s with his left arm. He clearly moves to much, off CD/LD to have PD and to have tremor and dystonia in his left arm yet lack of mo vement of his right arm when walking demonstrates a less than adequate under standing of his neurological proble. Last Assessment & Plan: Formatting of this note is different fr om the original. Because of his alcohol abuse, and exam inconsistencies I can not adequately assess him until he has been sober for six month. I was very blunt in explaining this to him. Emphasizing that he was an alcoholic and adept at fooling others ( and implied, himself as well). In addition I told him that he must cea se all alcohol consumption, go to and when he returns to see me in six months he needs to bring an AA six month pin or medallion, otherwise I gisel l not see him then or over and that he would not be able to see anyone else in our department. I also discussed sleep hygeine with the patient and his mother. Patient Instructions 1) Contact the facilities that have don e the most recent imaging of your brain (MRI or CT) and ask them to send them to us through 'the cloud; 2) I need the records from your [facility] in April of this year to be sent to us 3) you are an alcoholic. You must get s avis and stay that way. If you do not have a six month pin/token from when you come back in six months, I will not see you 4) The bedroom is for sleeping and inti ignacio. Spend the rest of the day outside of the bedroom 5) Sleep hyeine: Make sure that the bedroom is as dark a s possible and turn the alarm clock so that you can not see it. No naps during the day and no caffeine after 3 pm Set a time to go to bed and a time for wake-up and stick with it. Do boring things in the three hours bef ore sleep, TV or reading something boring. Use indirect lighting. Medical History Medical History Date Comments Adhd Depression H/O alcohol abuse Dystonia History of seizures Convulsion (HCC) Drug-induced acute dystonia Altered mental status Movement disorder Parkinson disease (HCC) Disorganized thinking Family History Medical History Relation Name Comments Multiple sclerosis Maternal Grandmother Parkinson's Other great uncle Relation Name Status Comments Maternal Grandmother Alive Other great uncle Alive Social History Date Tobacco Use Types Packs/Day Years Used Passive Smoke Exposure - Never Smoker Smokeless Tobacco: Current User Sex Assigned at Date Recorded Not on file Last Filed Vital Signs Reading Time Taken Comments Vital Sign 133/93 12/21/2019 2:26 PM SALES SUPPORT ADVISOR Blood Pressure 112 12/21/2019 2:26 PM SALES SUPPORT ADVISOR Pulse - - Temperature - - Respiratory Rate - - Oxygen Saturation - - Inhaled Oxygen Concentration 93.4 kg (206 lb) 12/21/2019 2:26 PM SALES SUPPORT ADVISOR Weight 190.5 cm (6' 3") 12/21/2019 2:26 PM SALES SUPPORT ADVISOR Height 25.75 12/21/2019 2:26 PM SALES SUPPORT ADVISOR Body Mass Index Plan of Treatment Health Maintenance Due Date Last Done Comments HIV SCREENING 1988 DTAP/TDAP VACCINES (1 - 08/13/1991 Tdap) HEPATITIS C SCREENING 08/13/1991 PHYSICAL (COMPREHENSIVE) 08/13/1991 EXAM INFLUENZA VACCINE 09/10/2020 Results Not on filefrom Last 3 Months Insurance Type Payer Benefit Subscriber ID Effective Phone Address Plan / Dates Group HMO [facility] [id number] 2019-P [phone] [id number] [place] [address] Advance Directives Patient Client Administrator Explanation Type Date Recorded Advance 03/19/2016 11:26 AM Directive/DPOA Care Teams Start Date End Date Rotary Swaging Machine Operator Relationship Specialty 09/22/19 No Pcp, Na PCP - General
[2021-01-16] MEDS ORDERED: LACTATED RINGERS 1,000 ML IV ONE ×3 (18:15→21:00)
[2021-01-16 18:16] LABS: BASOPHILS % (AUTO) 0 % (0-10); EOSINOPHILS % (AUTO) 0 % (0-10); MEAN CORPUSCULAR HGB CONC 35 g/dL (32-36)
[2021-01-16 18:18] LABS: HEMATOCRIT 39 % (40-54); HEMOGLOBIN 13.5 g/dL (13.3-17.7); LYMPHOCYTES # (AUTO) 1.4 10^3/uL (1.0-4.0); LYMPHOCYTES % (AUTO) 13 % (12-44); MEAN CORPUSCULAR HEMOGLOBIN 31 pg (25-34); MEAN CORPUSCULAR VOLUME 89 fL (80-99); MEAN PLATELET VOLUME 11.6 fL (9.0-12.2); MONOCYTES # (AUTO) 1.3 10^3/uL (0.0-1.0); MONOCYTES % (AUTO) 12 % (0-12); NEUTROPHILS # (AUTO) 8.2 10^3/uL (1.8-7.8); NEUTROPHILS % (AUTO) 75 % (42-75); PLATELET COUNT 125 10^3/uL (130-400); WHITE BLOOD COUNT 10.9 10^3/uL (4.3-11.0)
[2021-01-16] MEDS ORDERED: LORazepam INJ 2 MG/ML (ATIVAN) VIAL IVP ONE ×2 (18:30→19:30)
--- NOTE | 2021-01-16 18:30 | ED Psychosocial ---
General Chief Complaint: Substance Abuse Stated Complaint: DETOX Nursing Triage Note: PT AMBULATORY TO ER WITH FAMILY. REPORTS PT IS A DAILY DRINKER, REPORTS USUALLY DRINKS UP TO 12 'BEER HEIGHTS' DAILY, REPORTS HAS HAD 5 BEERS TODAY. WANTING HELP WITH HIS DRINKING, REPORTS HAS BEEN AT [facility] IN [place] IN THE PAST. PT DENIES SI/HI CURRENTLY. Source: patient (VERY LIMITED HISTORIAN--MOSTLY TALKING NON-SENSICALLY), mother (MOTHER GIVES MOST INFORMATION, PT IS MOSTLY TALKING NON-SENSICALLY AT THIS TIME) Exam Limitations: clinical condition, intoxication (HORTENCIA NUÑEZ DO) History of Present Illness Date Seen by Provider: Jan 16, 2021 Time Seen by Provider: 18:03 Initial Comments PT ARRIVES VIA POV FROM HOME WITH MOTHER MOTHER STATES THAT PT LIVES ALONE AND BUT SHE CHECKS ON HIM DAILY SHE REPORTS THAT HE HAS A LONGSTANDING HISTORY OF ALCOHOL ABUSE--PT ADMITS TO DRINKING AT LEAST A FIFTH OF VODKA/DAY PLUS UP TO 15 BEERS/DAY PT HAS BEEN TRYING TO STOP DRINKING SINCE Friday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facility] AND IS PRESCRIBED CARBI-LEVO DOPA MOM HAS NO IDEA IF HE HAS BEEN TAKING MEDICATION, AND PT IS UNABLE TO STATE IF HE HAS BEEN TAKING MEDICATIONS. PT HAS BEEN HOSPITALIZED HERE 04/21/2019-05/13/2019 FOR ALCOHOL WITHDRAWL WITH DELIRIUM AND WAS INTUBATED AT THAT TIME ALSO ADMITTED 09/06-09/10/19 FOR ALCOHOL WITHDRAWL SYMPTOMS PT HAS RECEIVED COVID-19 VACCINE X 2 NO RECENT ILLNESS PCP: DR. MARTINEZ (HORTENCIA NUÑEZ DO) Allergies and Home Medications Allergies Coded Allergies: No Known Drug Allergies (Unverified , 04/21/19) Patient Home Medication List Home Medication List Reviewed: Yes (HORTENCIA NUÑEZ DO) Carbidopa/Levodopa (Carbidopa-Levo ER 50-200 Tab) 1 Each Tablet.er, 1 EACH PO TID, (Reported) Entered as Reported by: ASIM LOPEZ on 04/23/19 1152 Chlordiazepoxide HCl (Chlordiazepoxide HCl) 10 Mg Capsule, 10 MG PO BID PRN for AGITATION Prescribed by: JUN ALEGRIA on 09/10/19 1225 Clonazepam (Clonazepam) 0.5 Mg Tablet, 0.5 MG PO DAILY PRN for ANXIETY, (Reported) Entered as Reported by: ASIM LOPEZ on 09/08/19 0954 Fluoxetine HCl (Fluoxetine HCl) 20 Mg Capsule, 20 MG PO HS, (Reported) Entered as Reported by: ASIM LOPEZ on 04/23/19 1152 Naltrexone HCl (Naltrexone HCl) 50 Mg Tablet, 50 MG PO HS, (Reported) Entered as Reported by: ASIM LOPEZ on 04/23/19 1152 Omeprazole (Omeprazole) 20 Mg Capsule.dr, 20 MG PO DAILY, (Reported) Entered as Reported by: ASIM LOPEZ on 04/23/19 1152 Trazodone HCl (Trazodone HCl) 50 Mg Tablet, 50-100 MG PO HS PRN for SLEEP, (Reported) Entered as Reported by: ASIM LOPEZ on 04/23/19 1152 Review of Systems Constitutional: other (UNABLE TO OBTAIN RELIABLE INFORMATION FROM PT) Psychiatric/Neurological: See HPI (HORTENCIA NUÑEZ DO) Past Ttqgrku-Jbukko-Fpqume Hx Patient Social History Tobacco Use?: Yes Tobacco type used: Cigarettes Substance use?: Yes Substance type: Marijuana Additional substance use comme: THC, ?COCAINE? Alcohol Use?: Yes (1/5 OF VODKA, PLUS UP TO 15 BEERS/DAY) Alcohol type: Beer, Hard Liquor Alcohol Frequency: Daily Pt feels they are or have been: No (HORTENCIA NUÑEZ DO) Immunizations Up To Date First/Initial COVID19 Vaccinat: 11-07-20 Second COVID19 Vaccination Atul: 01-12-21 COVID19 Vaccine Scientific Research Associate: ROXANNA (HORTENCIA NUÑEZ ) Seasonal Allergies Seasonal Allergies: No (SAVANNAHHORTENCIA Valerio ) Past Medical History Surgeries: No (Denies surgical hx. ) Eye Surgery Respiratory: No Cardiac: No Neurological: Yes (Dystonia; ALCOHOL WITHDRAWL SEIZURES / DELIRIUM) Parkinson's Disease, Seizure Disorder Genitourinary: No Gastrointestinal: No Musculoskeletal: No Endocrine: No HEENT: No Cancer: No Psychosocial: Yes (ALCOHOLISM) ADD/ADHD, Anxiety, Depression Integumentary: No Blood Disorders: No (SAVANNAHHORTENCIA Valerio ) Family Medical History Patient reports no known family medical history. Physical Exam Vital Signs - First Documented 01/16/21 17:49 Temp 36.5 Pulse 105 Resp 18 B/P (MAP) 169/109 (129) Pulse Ox 96 O2 Delivery Room Air (SCOTT LAGUNA APRN) Capillary Refill : (HORTENCIA NUÑEZ ) Height, Weight, BMI Height: '" Weight: lbs. oz. kg; 27.00 BMI Method: General Appearance: other (PT AWAKE, SOMEWHAT AGITATED, SPEECH IS RAPID AND ERRATIC, NON-SENSICAL AT TIMES, CONSTANT BODY MOVEMENTS. + ODOR OF ETOH) HEENT: PERRL/EOMI, normal ENT inspection, TMs normal Neck: non-tender, full range of motion, supple, normal inspection Respiratory: chest non-tender, normal breath sounds, no respiratory distress, no accessory muscle use Cardiovascular: normal peripheral pulses, regular rate, rhythm, no murmur Gastrointestinal: normal bowel sounds, non tender, soft, other (PT HAS A VERY LARGE BRUISE TO LEFT UPPER QUADRANT--PT DOES NOT KNOW HOW IT OCCURRED OR WHEN) Extremities: normal range of motion, non-tender, normal capillary refill, other (EXTENSIVE BRUISING AND SCABBED ABRASIONS OF VARIOUS AGES TO KNEES AND SHINS. ) Neurologic/Psychiatric: no motor/sensory deficits, alert, other (PT WITH ERRATIC, RAPID, MOSTLY NON-SENSICAL SPEECH. PT DOES FOLLOW COMMANDS. CONSTANT MOVEMENTS. ) Appearance/Memory: impaired insight, impaired recent memory, impaired remote memory Behavior/Eye Contact: increased rate of speech Thoughts/Hallucinations: delusions, flight of ideas, incoherent, paranoid, visual hallucinations Skin: normal color, warm/dry, ecchymosis (BRUISING AND ABRASIONS NOTED ABOVE) (HORTENCIA NUÑEZ ) Procedures/Interventions Date of ETT Placement: Apr 29, 2019 Time of ETT Placement: 164 (HORTENCIA NUÑEZ ) Intubation Method: orotracheal Tube Size: 7.5 Medications: Etomidate, Rocuronium Positive End Tide CO2: Yes Breath Sounds after Intubation: bilateral-equal Intubation Complications: no complications Post Intubation Xray: Yes (SCOTT LAGUNA APRN) Progress/Results/Core Measures Results/Orders Lab Results Laboratory Tests Test 01/16/21 18:05 01/16/21 18:13 01/16/21 18:31 Range/Units Urine Color YELLOW Urine Clarity CLEAR Urine pH 5.5 5-9 Urine Specific Harris 1.020 1.016-1.022 Urine Protein 2+ H NEGATIVE Urine Glucose (UA) NEGATIVE NEGATIVE Urine Ketones 2+ H NEGATIVE Urine Nitrite NEGATIVE NEGATIVE Urine Bilirubin NEGATIVE NEGATIVE Urine Urobilinogen 0.2 < = 1.0 MG/DL Urine Leukocyte Esterase NEGATIVE NEGATIVE Urine RBC (Auto) 3+ H NEGATIVE Urine RBC 0-2 /HPF Urine WBC 0-2 /HPF Urine Squamous Epithelial Cells 0-2 /HPF Urine Renal Epithelial Cells 0-2 /HPF Urine Crystals NONE /LPF Urine Bacteria NEGATIVE /HPF Urine Casts NONE /LPF Urine Mucus NEGATIVE /LPF Urine Culture Indicated NO White Blood Count 10.9 4.3-11.0 10^3/uL Red Blood Count 4.37 4.30-5.52 10^6/uL Hemoglobin 13.5 13.3-17.7 g/dL Hematocrit 39 L 40-54 % Mean Corpuscular Volume 89 80-99 fL Mean Corpuscular Hemoglobin 31 25-34 pg Mean Corpuscular Hemoglobin Concent 35 32-36 g/dL Red Cell Distribution Width 12.1 10.0-14.5 % Platelet Count 125 L 130-400 10^3/uL Mean Platelet Volume 11.6 9.0-12.2 fL Immature Granulocyte % (Auto) 1 % Neutrophils (%) (Auto) 75 42-75 % Lymphocytes (%) (Auto) 13 12-44 % Monocytes (%) (Auto) 12 0-12 % Eosinophils (%) (Auto) 0 0-10 % Basophils (%) (Auto) 0 0-10 % Neutrophils # (Auto) 8.2 H 1.8-7.8 10^3/uL Lymphocytes # (Auto) 1.4 1.0-4.0 10^3/uL Monocytes # (Auto) 1.3 H 0.0-1.0 10^3/uL Eosinophils # (Auto) 0.0 0.0-0.3 10^3/uL Basophils # (Auto) 0.0 0.0-0.1 10^3/uL Immature Granulocyte # (Auto) 0.1 0.0-0.1 10^3/uL Percent Immature Platelet Fraction 14.0 H 0.0-7.6 % Sodium Level 127 L 135-145 MMOL/L Potassium Level 3.4 L 3.6-5.0 MMOL/L Chloride Level 87 L 98-107 MMOL/L Carbon Dioxide Level 15 L 21-32 MMOL/L Anion Gap 25 H 5-14 MMOL/L Blood Urea Nitrogen 41 H 7-18 MG/DL Creatinine 1.46 H 0.60-1.30 MG/DL Estimat Glomerular Filtration Rate 52 BUN/Creatinine Ratio 28 Glucose Level 79 70-105 MG/DL Calcium Level 9.5 8.5-10.1 MG/DL Corrected Calcium 9.3 8.5-10.1 MG/DL Magnesium Level 1.6 1.6-2.4 MG/DL Total Bilirubin 1.9 H 0.1-1.0 MG/DL Aspartate Amino Transf (AST/SGOT) 174 H 5-34 U/L Alanine Aminotransferase (ALT/SGPT) 58 H 0-55 U/L Alkaline Phosphatase 105 40-136 U/L Total Protein 7.8 6.4-8.2 GM/DL Albumin 4.3 3.2-4.5 GM/DL Salicylates Level < 5.0 L 5.0-20.0 MG/DL Acetaminophen Level < 10 L 10-30 UG/ML Serum Alcohol 29 H <10 MG/DL SARS-CoV-2 RNA (RT-PCR) Not Detected Not Detecte (SCOTT LAGUNA APRN) Medications Given in ED Current Medications Medications Dose Ordered Sig/Eduard Route Start Time Stop Time Status Last Admin Dose Admin Lactated Ringer's 1,000 ml @ 0 mls/hr Q0M ONCE IV 12/7/21 18:15 01/16/21 18:16 DC 01/16/21 18:15 0 MLS/HR Levetiracetam 1000 mg/Sodium Chloride 110 ml @ 440 mls/hr ONCE ONCE IV 01/16/21 19:30 01/16/21 19:44 DC 01/16/21 20:25 440 MLS/HR Lorazepam 2 mg ONCE ONCE IVP 01/16/21 18:30 01/16/21 18:31 DC 01/16/21 18:32 2 MG Lorazepam 2 mg STK-MED ONCE .ROUTE 01/16/21 19:19 01/16/21 19:21 DC 01/16/21 19:20 2 MG Lorazepam 2 mg STK-MED ONCE .ROUTE 01/16/21 19:24 01/16/21 19:27 DC 01/16/21 19:25 2 MG Rocuronium [place] 50 mg ONCE ONCE IV 01/16/21 20:30 01/16/21 20:31 DC 01/16/21 20:27 50 MG Sodium Chloride 100 ml @ ud STK-MED ONCE .ROUTE 01/16/21 19:24 01/16/21 19:27 DC 01/16/21 20:25 440 MLS/HR (SCOTT LAGUNA APRN) Vital Signs/I&O 01/16/21 17:49 Temp 36.5 Pulse 105 Resp 18 B/P (MAP) 169/109 (129) Pulse Ox 96 O2 Delivery Room Air (SCOTT LAGUNA APRN) Blood Pressure Mean: 129 Progress Progress Note : Progress Note GIVEN ATIVAN FOR ANXIETY AND AGITATION 1919--PT GETTING READY TO GO TO CT. PT IS SUDDENLY OUT OF BED, LAYING ON FLOOR, HAS RIPPED OUT HIS IV, HAVING SEIZURE ACTIVITY, BUT IS TALKING INCOHERENTLY, VERY AGITATED, CURSING, COMBATIVE. NO EVIDENCE OF TRAUMA. PT REQUIRED 6 STAFF MEMBERS TO RESTRAIN. IV RESTARTED IN RIGHT IJ. NECK HELD IN C-SPINE IMMOBILIZATION, UNABLE TO PLACE CERVICAL COLLAR DUE TO LOCATION OF IV. PT CONTINUED TO BE COMBATIVE, AND AT THAT POINT, PT WAS INTUBATED USING RSI PROTOCOL. PT ALSO GIVEN ADDITIONAL ATIVAN AND KEPPRA PT THEN TAKEN TO CT. (SAVANNAH,HORTENCIA K DO) Diagnostic Imaging Comments CT HEAD/CERVICAL SPINE--PER RADIOLOGIST REPORTS AT 2033 FINDINGS: CT head: No large acute territorial ischemia, mass, or hemorrhage. No midline shift or mass effect. The ventricles and cortical sulci are mildly prominent. The basilar cisterns are patent and unremarkable. The calvarium is intact. The visualized paranasal sinuses are clear. Enteric tube and endotracheal tube are partially visualized. CT cervical spine: No acute fracture or dislocation is seen in the cervical spine. No focal osseous lesions. Vertebral body heights are well-maintained. The craniocervical junction is well-maintained. Soft tissues of the neck are unremarkable. The included lung apices are clear. IMPRESSION: 1. No hemorrhage or focal intra-axial mass. No CT evidence of large acute territorial ischemia. 2. No acute fracture or dislocation in the cervical spine. CT CHEST/ABDOMEN/PELVIS--PER RADIOLOGIST REPORT AT 2033 FINDINGS: CT CHEST: The heart size is within normal limits. No pericardial effusion is present. There is no mediastinal, hilar, or axillary lymphadenopathy. The lungs demonstrate no pulmonary nodules or masses. Bibasilar consolidative opacities are seen likely representing atelectasis. No central endobronchial obstructing lesions are identified. Endotracheal tube is visualized in the appropriate configuration. There are no pleural effusions or pneumothorax. Age-indeterminate height loss is seen in the T3, T4, T5, T6, T7, and T9 vertebral bodies. The T7 and T9 vertebral bodies demonstrates the greatest height loss with associated mild sclerosis present. CT ABDOMEN AND PELVIS: There is hepatic steatosis. No focal hepatic lesions are seen. The portal vein is patent. The gallbladder is unremarkable. The liver, spleen, pancreas, adrenal glands, and kidneys have a normal appearance. There is no pathologically enlarged mesenteric or retroperitoneal adenopathy. The bowel loops are nondilated. There is no free fluid or free air. No acute fracture is seen in the lumbar spine or pelvis. The urinary bladder is decompressed with a Pedraza in place. There is no free air, loculated collection, or adenopathy in the pelvis. IMPRESSION: 1. Consolidative opacities in the lung bases bilaterally, favored to represent atelectasis. A component of aspiration may also be present. 2. Hepatic steatosis. 3. Age-indeterminate compression deformities are seen in the T3-T7 and T9 vertebral bodies. Consider MRI of the thoracic spine to further evaluate. 4. The enteric tube is not visualized on this exam. This is most likely coiled within the upper aerodigestive tract. Recommend repositioning/replacing. CXR--POST NG TUBE REPLACEMENT FINDINGS: An enteric tube has been placed which is now seen descending below the diaphragm with the tip overlying the stomach. The endotracheal tube is well-positioned at the thoracic inlet. There is improved aeration in the perihilar and basilar regions. No pleural effusion or pneumothorax. Stable cardiac silhouette. IMPRESSION: 1. Appropriate configuration of the endotracheal tube and enteric tube. 2. Improved aeration in the perihilar and basilar regions likely representing improved atelectasis. Reviewed: Reviewed by Me (HORTENCIA NUÑEZ DO) Critical Care Note Critical Care Total Time (minutes) 45 MINUTES (HORTENCIA NUÑEZ DO) Departure Communication (Admissions) Family Conversation 2044--CALLED WITH PT'S MOTHER AND UPDATED HER ON PT'S CONDITION. 2019--CALLED E-ICU AND REPORT GIVEN. NO ADDITIONAL RECOMMENDATIONS AT THIS TIME 2039--SPOKE WITH DR. WASHINGTON, HOSPITALIST, ACCEPTS PT FOR ADMIT. (HORTENCIA NUÑEZ DO) Impression Primary Impression: Alcohol withdrawal seizure with delirium Additional Impressions: PULMONARY INFILTRATE VS ATELECTASIS Electrolyte imbalance POSSIBLE RHABDOMYOLYSIS Acute renal insufficiency Disposition: ADMITTED INPATIENT Condition: Stable Admissions Decision to Admit Reason: Admit from ER (General) Decision to Admit/Date: Jan 16, 2021 Time/Decision to Admit Time: 20:20 (HORTENCIA NUÑEZ DO) Departure-Patient Inst. Referrals: JUN ALEGRIA MD (PCP/Family) Primary Care Physician Patient Instructions: ALCOHOL AND SUBSTANCE ABUSE HORTENCIA NUÑEZ DO Jan 16, 2021 18:30 SCOTT LAGUNA APRN Jan 16, 2021 20:36
[2021-01-16 18:33] LABS: ALBUMIN 4.3 GM/DL (3.2-4.5); CHLORIDE 87 MMOL/L (98-107); POTASSIUM 3.4 MMOL/L (3.6-5.0); SODIUM 127 MMOL/L (135-145)
[2021-01-16 18:34] LABS: CALCIUM 9.5 MG/DL (8.5-10.1)
[2021-01-16 18:35] LABS: GLUCOSE 79 MG/DL (70-105)
[2021-01-16 18:36] LABS: CARBON DIOXIDE 15 MMOL/L (21-32); TOTAL PROTEIN 7.8 GM/DL (6.4-8.2)
[2021-01-16 18:37] LABS: BILIRUBIN,TOTAL 1.9 MG/DL (0.1-1.0)
[2021-01-16 18:39] LABS: ALKALINE PHOSPHATASE 105 U/L (40-136); CREATININE SERUM 1.46 MG/DL (0.60-1.30); GFR ESTIMATED 52
[2021-01-16 18:41] LABS: BUN/CREATININE RATIO 28
[2021-01-16 18:42] LABS: ALANINE AMINOTRANSFERASE 58 U/L (0-55); SALICYLATE < 5.0 MG/DL (5.0-20.0)
[2021-01-16 18:43] LABS: MAGNESIUM 1.6 MG/DL (1.6-2.4)
[2021-01-16 18:44] LABS: ACETAMINOPHEN < 10 UG/ML (10-30)
[2021-01-16] MEDS ORDERED: LORazepam INJ 2 MG/ML (ATIVAN) VIAL ONE ×2 (19:19→19:24)
[2021-01-16] MEDS ORDERED: NS (IVPB) 100 ML ONE (19:24)
[2021-01-16] MEDS ORDERED: NS 100 ML (IVPB) BAG IV ONE (19:30)
[2021-01-16] MEDS ORDERED: IOHEXOL 350 MG/ML 100 ML (OMNIPAQUE 350) VIAL IV ONE (19:30)
[2021-01-16] MEDS ORDERED: HOLD METFORMIN - RECEIVED CONTRAST 20 ML VIAL IV SCH (19:30)
[2021-01-16] MEDS ORDERED: PROPOFOL DRIP (ICU) 100 ML IV ONE ×2 (19:31→22:05)
--- NOTE | 2021-01-16 20:21 | Diagnostic Imaging Report ---
PROCEDURE: CT head and CT cervical spine without contrast. TECHNIQUE: Multiple contiguous axial images were obtained through the brain and cervical spine without the use of intravenous contrast. Sagittal and coronal reformations through the cervical spine were then performed. Auto Exposure Controls were utilized during the CT exam to meet ALARA standards for radiation dose reduction. INDICATION: Trauma. Head and neck pain. Scalp contusion. COMPARISON: 04/29/2019. FINDINGS: CT head: No large acute territorial ischemia, mass, or hemorrhage. No midline shift or mass effect. The ventricles and cortical sulci are mildly prominent. The basilar cisterns are patent and unremarkable. The calvarium is intact. The visualized paranasal sinuses are clear. Enteric tube and endotracheal tube are partially visualized. CT cervical spine: No acute fracture or dislocation is seen in the cervical spine. No focal osseous lesions. Vertebral body heights are well-maintained. The craniocervical junction is well-maintained. Soft tissues of the neck are unremarkable. The included lung apices are clear. IMPRESSION: 1. No hemorrhage or focal intra-axial mass. No CT evidence of large acute territorial ischemia. 2. No acute fracture or dislocation in the cervical spine. Dictated by: Dictated on workstation # [id number]
[2021-01-16 20:24] LABS: BILIRUBIN,URINE NEGATIVE (NEGATIVE); CLARITY,URINE CLEAR; COLOR,URINE YELLOW; GLUCOSE, URINE (UA) NEGATIVE (NEGATIVE); KETONES,URINE 2+ (NEGATIVE); LEUKOCYTE ESTERASE ,URINE NEGATIVE (NEGATIVE); NITRITE,URINE NEGATIVE (NEGATIVE); PH,URINE 5.5 (5-9); PROTEIN,URINE 2+ (NEGATIVE)
--- NOTE | 2021-01-16 20:29 | Diagnostic Imaging Report ---
EXAMINATION: CT chest, abdomen and pelvis with intravenous contrast. TECHNIQUE: Multiple contiguous axial images were obtained through the chest, abdomen and pelvis after the uneventful administration of intravenous contrast. All CT scans use one or more of the following dose optimizing techniques: automated exposure control, MA and/or KvP adjustment based on patient size and exam type or iterative reconstruction. HISTORY: Chest and abdominal pain. History of alcohol abuse. Intubated. COMPARISON: None available. FINDINGS: CT CHEST: The heart size is within normal limits. No pericardial effusion is present. There is no mediastinal, hilar, or axillary lymphadenopathy. The lungs demonstrate no pulmonary nodules or masses. Bibasilar consolidative opacities are seen likely representing atelectasis. No central endobronchial obstructing lesions are identified. Endotracheal tube is visualized in the appropriate configuration. There are no pleural effusions or pneumothorax. Age-indeterminate height loss is seen in the T3, T4, T5, T6, T7, and T9 vertebral bodies. The T7 and T9 vertebral bodies demonstrates the greatest height loss with associated mild sclerosis present. CT ABDOMEN AND PELVIS: There is hepatic steatosis. No focal hepatic lesions are seen. The portal vein is patent. The gallbladder is unremarkable. The liver, spleen, pancreas, adrenal glands, and kidneys have a normal appearance. There is no pathologically enlarged mesenteric or retroperitoneal adenopathy. The bowel loops are nondilated. There is no free fluid or free air. No acute fracture is seen in the lumbar spine or pelvis. The urinary bladder is decompressed with a Pedraza in place. There is no free air, loculated collection, or adenopathy in the pelvis. IMPRESSION: 1. Consolidative opacities in the lung bases bilaterally, favored to represent atelectasis. A component of aspiration may also be present. 2. Hepatic steatosis. 3. Age-indeterminate compression deformities are seen in the T3-T7 and T9 vertebral bodies. Consider MRI of the thoracic spine to further evaluate. 4. The enteric tube is not visualized on this exam. This is most likely coiled within the upper aerodigestive tract. Recommend repositioning/replacing. Dictated by: Dictated on workstation # [id number]
[2021-01-16] MEDS ORDERED: ROCURONIUM 10 MG/ML 5 ML SYRINGE IV ONE ×3 (20:30→21:30)
[2021-01-16 20:34] LABS: BACTERIA,URINE NEGATIVE /HPF; RBC,URINE 0-2 /HPF; RENAL EPITHELIAL CELLS,URINE 0-2 /HPF; SQUAMOUS EPITHELIAL CELL,UR 0-2 /HPF; WBC,URINE 0-2 /HPF
[2021-01-16 20:36] LABS: AMPHETAMINE SCREEN, URINE NEGATIVE (NEGATIVE); BARBITURATE SCREEN URINE NEGATIVE (NEGATIVE); BENZODIAZEPINES SCREEN URINE POSITIVE (NEGATIVE); CANNABINOID SCREEN, URINE NEGATIVE (NEGATIVE); COCAINE SCREEN URINE NEGATIVE (NEGATIVE); METHADONE STAT NEGATIVE (NEGATIVE); METHAMPHETAMINE SCREEN URINE S NEGATIVE (NEGATIVE); OPIATE SCREEN URINE NEGATIVE (NEGATIVE); OXYCODONE STAT NEGATIVE (NEGATIVE); PROPOXYPHENE STAT NEGATIVE (NEGATIVE); TRICYCLIC ANTIDEPRESSANTS SCRE POSITIVE (NEGATIVE)
--- NOTE | 2021-01-16 20:37 | Diagnostic Imaging Report ---
EXAMINATION: Chest 1 view HISTORY: Endotracheal tube and enteric tube placement. COMPARISON: CT chest performed this same date. FINDINGS: Endotracheal tube is visualized overlying the trachea approximately 5 cm above the alejandra. Enteric tube is not visualized. Bilateral consolidative opacities are visualized in the perihilar regions and lung bases. No pleural effusion or pneumothorax. Cardiac silhouette is unremarkable. IMPRESSION: 1. Nonvisualization of the enteric tube. This is likely coiled within the aerodigestive tract. Recommend repositioning/replacing. 2. Appropriate configuration of the endotracheal tube. 3. Consolidative opacities in the perihilar and basilar regions favored to represent atelectasis and/or aspiration. Dictated by: Dictated on workstation # [id number]
[2021-01-16] MEDS ORDERED: CEFEPIME INJECTION 2,000 MG in NS (IVPB) 50 ML IV ONE (20:45)
[2021-01-16 21:13] LABS: INR 1.1 (0.8-1.4); PROTHROMBIN TIME PATIENT 14.3 SEC (12.2-14.7)
--- NOTE | 2021-01-16 21:29 | Diagnostic Imaging Report ---
EXAMINATION: Chest 1 view HISTORY: NG tube placement. COMPARISON: Chest radiograph performed earlier this same date. FINDINGS: An enteric tube has been placed which is now seen descending below the diaphragm with the tip overlying the stomach. The endotracheal tube is well-positioned at the thoracic inlet. There is improved aeration in the perihilar and basilar regions. No pleural effusion or pneumothorax. Stable cardiac silhouette. IMPRESSION: 1. Appropriate configuration of the endotracheal tube and enteric tube. 2. Improved aeration in the perihilar and basilar regions likely representing improved atelectasis. Dictated by: Dictated on workstation # [id number]
[2021-01-16 21:36] LABS: CREATINE KINASE MB 24.5 NG/ML (<6.6)
[2021-01-16 22:12] VITALS: BP 80/58
[2021-01-16] MEDS ORDERED: D5 1/2 NS W/KCL 20 MEQ/L 1,000 ML IV SCH ×2 (22:15→22:45)
[2021-01-16] MEDS ORDERED: SODIUM BICARB 8.4% 50 MEQ/50 ML (ABBOTT) SYR IV ONE ×2 (22:15)
--- NOTE | 2021-01-16 22:24 | Tele-ICU Consult ---
History of Present Illness History of Present Illness Date Seen by Provider: Jan 16, 2021 Time Seen by Provider: 22:19 Date of Admission 45 y old man with hx of ETOH and severe withdrawal (hx of seizure x1, on keppra- unsure compliance). Pt hs a hx of 12 beers per day; after 5 beers today, he presented mainly complaining of hallucinaions; pt developed a seizure and he was intubated. CT head was negative for ICH. UDS was positive for TC/ ekg showed prologed QT and QTC. pt was admitted to ICU for continuation of care Allergies and Home Medications Allergies Coded Allergies: No Known Drug Allergies (Unverified , 04/21/19) Home Medications Carbidopa/Levodopa 1 Each Tablet.er, 1 EACH PO TID, (Reported) Chlordiazepoxide HCl 10 Mg Capsule, 10 MG PO BID PRN for AGITATION Prescribed by: JUN ALEGRIA on 09/10/19 1225 Clonazepam 0.5 Mg Tablet, 0.5 MG PO DAILY PRN for ANXIETY, (Reported) Fluoxetine HCl 20 Mg Capsule, 20 MG PO HS, (Reported) Naltrexone HCl 50 Mg Tablet, 50 MG PO HS, (Reported) Omeprazole 20 Mg Capsule.dr, 20 MG PO DAILY, (Reported) Trazodone HCl 50 Mg Tablet, 50-100 MG PO HS PRN for SLEEP, (Reported) Past Medical/Social/Family Hx Patient Social History Tobacco Use?: Yes Substance use?: No Alcohol Use?: Yes Alcohol type: Beer Alcohol Frequency: Daily Pt stated abuse/neglect: No Immunizations Up To Date First/Initial COVID19 Vaccinat: 11-07-20 Second COVID19 Vaccination Atul: 01-12-21 Current Status Advance Directives: No Communicates: Verbally Primary Language: Spanish Preferred Spoken Language: Spanish Is interpretation needed?: No Past Medical History seizure- etoh related pathology Review of Systems Constitutional: see HPI Sepsis Event Evaluation Height, Weight, BMI Height: '" Weight: lbs. oz. kg; 27.00 BMI Method: Exam Exam Patient acknowledged, consented, and participated in this virtual visit which was conducted using real time audio/video Vital Signs Date Time Temp Pulse Resp B/P (MAP) Pulse Ox O2 Delivery O2 Flow Rate FiO2 01/16/21 22:12 71 16 98 21 01/16/21 21:47 80 18 117/80 100 Mechanical Ventilator 01/16/21 20:29 87 16 100 30 01/16/21 19:34 93 124/71 01/16/21 17:49 36.5 105 18 169/109 (129) 96 Room Air Height & Weight Height: '" Weight: lbs. oz. kg; 27.00 BMI Method: General Appearance: No Apparent Distress (intubated) Results Lab Laboratory Tests 01/16/21 18:13 Assessment/Plan Assessment/Plan 1. acute resp failure in the context of seizure (very probable ETOH related -full vent support -goal: sedation holiday/ vlt 2. Seizures: keppra on board 3. ETOH abuse; d5/ thimaine/ folic acid/ mvi 4. AG metabolic acidosis possible ETOH related -repeat labs cmp -if persistent, check lactic acid and expand work up; LR/ ABX were given in ed 5. FAST HUG -DVT GI prophylaxis -precedex ( hope to extubate and prevent florid DT) -continue propofol as needed 6. TC in urine with prolonged qtc/ repeat ekg/ bicarb pushes + drip labs/ diagnostics/ notes reviewed; pt was visualized; dw bed side REESE Martinez MD Jan 16, 2021 22:24
[2021-01-16] MEDS ORDERED: SODIUM BICARB 8.4% 50 MEQ/50 ML (ABBOTT) SYR ONE ×2 (22:28→22:45)
[2021-01-16] MEDS ORDERED: DexMEDEtomidine 250 ML DRIP 250 ML IV ONE (22:29)
[2021-01-16] MEDS ORDERED: EPINEPHrine 1 MG INJECTION 4 MG in NS (IVPB) 248 ML IV SCH (22:30)
[2021-01-16] MEDS ORDERED: NOREPINEPHRINE 8 MG/250 ML 250 ML IV ONE (22:49)
[2021-01-16] MEDS ORDERED: D5W 1000 ML IV SOLUTION 1,000 ML ONE (22:54)
[2021-01-16] MEDS ORDERED: LORazepam INJ 2 MG/ML (ATIVAN) VIAL IM/IV PRN (23:00)
[2021-01-16] MEDS ORDERED: ANTACID SUSP 30 ML UDC (MYLANTA) PO PRN (23:00)
[2021-01-16] MEDS ORDERED: D5 1/2 NS 1000 ML IV SOLUTION 1,000 ML IV PRN (23:00)
[2021-01-16] MEDS ORDERED: ONDANSETRON 4 MG/2 ML (SDV) Z0FRAN IV PRN (23:00)
[2021-01-16] MEDS ORDERED: ONDANSETRON 4 MG (ZOFRAN) ORAL DISSOLVE TAB SL PRN (23:00)
[2021-01-16] MEDS ORDERED: 1/2 NS IV SOLUTION 1,000 ML IV PRN (23:00)
[2021-01-16] MEDS ORDERED: SENNA W/DOCUSATE (SENOKOT S) TABLET PO PRN (23:00)
[2021-01-16] MEDS ORDERED: LORazepam 1 MG (ATIVAN) TAB PO PRN (23:00)
[2021-01-16] MEDS ORDERED: ASPIRIN 81 MG CHEW (CHILDREN'S ASA) ONE (23:09)
[2021-01-16] MEDS: PROPOFOL DRIP (ICU) 100 ML IV SCH (23:12)
[2021-01-16] MEDS ORDERED: ASPIRIN 81 MG CHEW (CHILDREN'S ASA) PO ONE (23:15)
[2021-01-16] MEDS: NOREPINEPHRINE 8 MG/250 ML 250 ML IV SCH (23:15)
[2021-01-16] MEDS: VASOPRESSIN INJECTION 20 UNIT in NS (IVPB) 100 ML IV SCH (23:29)
[2021-01-16] MEDS: DexMEDEtomidine 250 ML DRIP 250 ML IV SCH (23:29)
[2021-01-16] MEDS ORDERED: LACTATED RINGERS 1,000 ML IV SCH (23:30)
[2021-01-16] MEDS: THIAMINE 100 MG (VITAMIN B-1) TAB PO SCH (23:34)
[2021-01-16] MEDS: FOLIC ACID 1 MG TAB PO SCH (23:34)
[2021-01-16] MEDS: MULTIVIT W/MINERALS TAB (THERAGRAN M) PO SCH (23:35)
[2021-01-16] MEDS: ENOXAPARIN 100 MG/1 ML (LOVENOX) SYR SC SCH (23:35)
--- NOTE | 2021-01-16 23:54 | Diagnostic Imaging Report ---
EXAMINATION: Chest 1 view HISTORY: Central line placement. COMPARISON: Chest radiograph performed earlier the same date. FINDINGS: Interval placement of a right internal jugular central line with the tip overlying the low SVC. Stable endotracheal tube and enteric tube. Stable lungs and cardiac silhouette. No large pleural effusion. No pneumothorax. IMPRESSION: 1. Interval placement of a right internal jugular central line with the tip overlying the low SVC. 2. The remainder the chest is stable. Dictated by: Dictated on workstation # [id number]
[2021-01-16] MEDS: SODIUM BICARBONATE 8.4% VIAL 150 MEQ in D5W 1000 ML IV SOLUTION 1,000 ML IV SCH (23:55)
[2021-01-17] VITALS (7 sets, daily range): BP systolic 81–111; BP diastolic 59–74
[2021-01-17 00:05] LABS: ABG BASE EXCESS -7.2 MMOL/L (-2.5-2.5); ABG OXYGEN SATURATION 96 % (94-100); ABG PCO2 27 MMHG (35-45); ABG PH 7.41 (7.37-7.43); ABG PO2 75 MMHG (79-93); ABG TCO2 17.5 MMOL/L (21.0-31.0); ALLENS TEST YES-POS; INSPIRED O2 21%; PATIENT TEMP 35.6; VENTILATOR YES
[2021-01-17 00:16] LABS: ALBUMIN 3.4 GM/DL (3.2-4.5); CHLORIDE 89 MMOL/L (98-107); SODIUM 130 MMOL/L (135-145)
[2021-01-17 00:17] LABS: CALCIUM 8.3 MG/DL (8.5-10.1)
[2021-01-17 00:18] LABS: GLUCOSE 94 MG/DL (70-105); TRIGLYCERIDES 219 MG/DL (<150)
[2021-01-17 00:19] LABS: TOTAL PROTEIN 6.1 GM/DL (6.4-8.2)
[2021-01-17 00:20] LABS: BILIRUBIN,TOTAL 1.9 MG/DL (0.1-1.0); CARBON DIOXIDE 18 MMOL/L (21-32)
[2021-01-17 00:22] LABS: ALKALINE PHOSPHATASE 80 U/L (40-136); CREATININE SERUM 1.07 MG/DL (0.60-1.30); GFR ESTIMATED 74
[2021-01-17 00:23] LABS: BUN/CREATININE RATIO 30
[2021-01-17 00:25] LABS: ALANINE AMINOTRANSFERASE 49 U/L (0-55)
[2021-01-17] MEDS ORDERED: POTASSIUM CL 10MEQ/50ML IVPB 250 ML IV ONE (00:28)
[2021-01-17 00:36] LABS: CREATINE KINASE 4964 U/L (30-200)
[2021-01-17] MEDS: POTASSIUM CL 10MEQ/50ML IVPB 50 ML IV SCH ×10 (00:50→15:59)
[2021-01-17] MEDS ORDERED: RT-ALBUTEROL/IPRATROPIUM 3 ML (DUONEB) VIAL INH PRN (01:00)
[2021-01-17] MEDS: PROPOFOL DRIP (ICU) 100 ML IV SCH ×7 (01:08→21:17)
[2021-01-17] MEDS ORDERED: CEFEPIME 1,000 MG/NS 50 ML IVPB IV SCH ×2 (03:00)
[2021-01-17 05:40] LABS: MEAN CORPUSCULAR VOLUME 88 fL (80-99)
[2021-01-17 05:42] LABS: BASOPHILS % (AUTO) 0 % (0-10); EOSINOPHILS # (AUTO) 0.1 10^3/uL (0.0-0.3); EOSINOPHILS % (AUTO) 1 % (0-10); HEMATOCRIT 32 % (40-54); HEMOGLOBIN 11.3 g/dL (13.3-17.7); LYMPHOCYTES # (AUTO) 2.1 10^3/uL (1.0-4.0); LYMPHOCYTES % (AUTO) 31 % (12-44); MEAN CORPUSCULAR HEMOGLOBIN 31 pg (25-34); MEAN CORPUSCULAR HGB CONC 35 g/dL (32-36); MEAN PLATELET VOLUME 12.1 fL (9.0-12.2); MONOCYTES # (AUTO) 0.6 10^3/uL (0.0-1.0); MONOCYTES % (AUTO) 10 % (0-12); NEUTROPHILS # (AUTO) 3.9 10^3/uL (1.8-7.8); NEUTROPHILS % (AUTO) 58 % (42-75); PLATELET COUNT 107 10^3/uL (130-400); WHITE BLOOD COUNT 6.7 10^3/uL (4.3-11.0)
[2021-01-17 05:52] LABS: ALBUMIN 3.3 GM/DL (3.2-4.5); POTASSIUM 3.1 MMOL/L (3.6-5.0)
[2021-01-17 05:53] LABS: CALCIUM 8.2 MG/DL (8.5-10.1)
[2021-01-17 05:56] LABS: BILIRUBIN,TOTAL 1.4 MG/DL (0.1-1.0); PHOSPHORUS 2.1 MG/DL (2.3-4.7)
[2021-01-17 05:58] LABS: CREATININE SERUM 1.03 MG/DL (0.60-1.30); MAGNESIUM 1.7 MG/DL (1.6-2.4)
[2021-01-17] MEDS: inSUlin ASPART (NovoLOG) 1 UNIT/0.01 ML (CHARGE PER UNIT) SQ SCH ×3 (06:05→17:50)
[2021-01-17 06:33] LABS: BAND NEUTROPHILS 1 %; EOSINOPHILS % (MANUAL) 1 %; LYMPHOCYTES % (MANUAL) 35 %; MONOCYTES % (MANUAL) 6 %; NEUTROPHILS % (MANUAL) 57 %
[2021-01-17] MEDS: MAGNESIUM 1 GM/100 ML IVPB 100 ML IV SCH ×3 (06:48→08:52)
[2021-01-17] MEDS: KCL 20 MEQ TAB (K-DUR) PO SCH (06:48)
[2021-01-17 06:57] LABS: ABG BASE EXCESS 2.5 MMOL/L (-2.5-2.5); ABG OXYGEN SATURATION 96 % (94-100); ABG PCO2 28 MMHG (35-45); ABG PH 7.55 (7.37-7.43); ABG PO2 64 MMHG (79-93); ABG TCO2 25.9 MMOL/L (21.0-31.0)
[2021-01-17 06:59] LABS: ALLENS TEST YES-POS; INSPIRED O2 21%; VENTILATOR YES
[2021-01-17] MEDS ORDERED: SUCCINYLCHOLINE INJ 100 MG/5 ML SYR/VIAL INJ ONE (07:25)
[2021-01-17] MEDS ORDERED: ROCURONIUM 10 MG/ML 5 ML SYRINGE IV ONE (07:25)
[2021-01-17] MEDS ORDERED: ETOMIDATE IV SOLN 20 MG/10 ML VIAL IV ONE (07:25)
[2021-01-17] MEDS: FOLIC ACID 1 MG TAB PO SCH (08:32)
[2021-01-17] MEDS: PANTOPRAZOLE 40 MG (PROTONIX) VIAL IV SCH (08:32)
[2021-01-17] MEDS: THIAMINE 100 MG (VITAMIN B-1) TAB PO SCH (08:32)
[2021-01-17] MEDS: MULTIVIT W/MINERALS TAB (THERAGRAN M) PO SCH (08:33)
--- NOTE | 2021-01-17 08:59 | Consultation-Cardiology ---
HPI-Cardiology Cardiology Consultation: Date of Consultation 01/17/21 Time Seen by a Provider: 08:45 Date of Admission 01-16-21 Attending Physician Maria Antonia Washington DO Admitting Physician Alanis Sheldon MD Consulting Physician Milton Avery MD HPI: Chief Complaint: Abnormal EKG Mr. Adan is a 45 yr old male admitted to ICU 3 from the ED. He is currently intubated and sedated. There is no family at the bedside. Per ED note and nursing he ambulated into the ED last night with his mother requesting help to quit drinking. He was cooperative and pleasant. He was getting ready to go to for a CT scan. He was found on the floor in the ED with his IV pulled out. He was combative and required multiple staff to restrain. He was then sedated and intubated. Review of Systems-Cardiology Review of Systems Other comments Unable to obtain any information d/t intubation and sedation [id number]-[id number]-Szjxjm Hx Patient Social History 2nd Hand Smoke Exposure: No Have you traveled recently?: No Alcohol Use?: Yes (1/5 OF VODKA, PLUS UP TO 15 BEERS/DAY) Substance type: Marijuana Pt feels they are or have been: No Tobacco type used: Cigarettes Immunizations Up To Date Date of Influenza Vaccine: Feb 10, 2019 Past Medical History PMH As described under Assessment. Family Medical History Family Medical History: Unable to obtain d/t intubation and sedation Family History: Patient reports no known family medical history. Allergies and Home Medications Allergies Coded Allergies: No Known Drug Allergies (Unverified , 04/21/19) Patient Home Medication List Cyclobenzaprine HCl (Cyclobenzaprine HCl) 10 Mg Tablet, 5-10 MG PO DAILY PRN for MUSCLE SPASMS, (Reported) Entered as Reported by: ASIM LOPEZ on 01/17/21 1443 Last Action: Reviewed Dextroamphetamine/Amphetamine (Dextroamp-Amphet ER 20 mg Cap) 20 Mg Cap.er.24h, 20 MG PO DAILY, (Reported) Entered as Reported by: ASIM LOPEZ on 01/17/21 1443 Last Action: Reviewed Discontinued Medications Carbidopa/Levodopa (Carbidopa-Levo ER 50-200 Tab) 1 Each Tablet.er, 1 EACH PO TID, (Reported) Discontinued Reason: No Longer Taking Entered as Reported by: ASIM LOPEZ on 04/23/19 1152 Last Action: Discontinued Chlordiazepoxide HCl (Chlordiazepoxide HCl) 10 Mg Capsule, 10 MG PO BID PRN for AGITATION Discontinued Reason: No Longer Taking Prescribed by: JUN ALEGRIA on 09/10/19 1225 Last Action: Discontinued Clonazepam (Clonazepam) 0.5 Mg Tablet, 0.5 MG PO DAILY PRN for ANXIETY, (Reported) Discontinued Reason: No Longer Taking Entered as Reported by: ASIM LOPEZ on 09/08/19 0954 Last Action: Discontinued Fluoxetine HCl (Fluoxetine HCl) 20 Mg Capsule, 20 MG PO HS, (Reported) Discontinued Reason: No Longer Taking Entered as Reported by: ASIM LOPEZ on 04/23/19 115 Last Action: Discontinued Naltrexone HCl (Naltrexone HCl) 50 Mg Tablet, 50 MG PO HS, (Reported) Discontinued Reason: No Longer Taking Entered as Reported by: ASIM LOPEZ on 04/23/19 115 Last Action: Discontinued Omeprazole (Omeprazole) 20 Mg Capsule.dr, 20 MG PO DAILY, (Reported) Discontinued Reason: No Longer Taking Entered as Reported by: ASIM LOPEZ on 04/23/19 115 Last Action: Discontinued Trazodone HCl (Trazodone HCl) 50 Mg Tablet, 50-100 MG PO HS PRN for SLEEP, (Reported) Discontinued Reason: No Longer Taking Entered as Reported by: ASIM LOPEZ on 04/23/19 115 Last Action: Discontinued Physical Exam-Cardiology Physical Exam Vital Signs/I&O 01/17/21 01/17/21 01/17/21 01/17/21 20:00 21:00 21:17 21:41 Pulse 60 55 55 Resp 15 16 16 B/P (MAP) 99/63 98/66 98/66 Pulse Ox 96 97 97 O2 Delivery Mechanical Ventilator Mechanical Ventilator O2 Flow Rate 21.00 21.00 FiO2 21 01/17/21 01/17/21 01/18/21 01/18/21 22:00 23:00 00:00 00:10 Temp 36.3 Pulse 54 53 54 Resp 16 16 15 B/P (MAP) 102/71 101/69 106/75 Pulse Ox 98 98 98 O2 Delivery Mechanical Ventilator Mechanical Ventilator Mechanical Ventilator O2 Flow Rate 21.00 21.00 21.00 01/18/21 01/18/21 01/18/21 01/18/21 00:10 00:30 00:31 01:00 Pulse 55 55 53 Resp 16 B/P (MAP) 106/75 106/74 104/72 Pulse Ox 97 98 O2 Delivery Mechanical Ventilator Mechanical Ventilator O2 Flow Rate 21.00 FiO2 21 01/18/21 01/18/21 01/18/21 01/18/21 01:00 02:00 02:04 03:00 Pulse 53 56 51 46 Resp 17 16 16 B/P (MAP) 94/55 133/89 Pulse Ox 97 97 99 O2 Delivery Mechanical Ventilator Mechanical Ventilator O2 Flow Rate 21.00 21.00 FiO2 21 01/18/21 01/18/21 01/18/21 01/18/21 04:00 04:00 04:00 05:00 Temp 36.1 Pulse 50 53 Resp 15 16 B/P (MAP) 124/83 122/83 Pulse Ox 97 98 99 O2 Delivery Mechanical Ventilator Mechanical Ventilator Mechanical Ventilator O2 Flow Rate 21.00 21.00 FiO2 21 01/18/21 01/18/21 01/18/21 01/18/21 05:50 06:00 06:31 07:05 Pulse 56 53 Resp 14 12 B/P (MAP) 117/82 114/69 91/54 Pulse Ox 99 96 O2 Delivery Mechanical Ventilator O2 Flow Rate 21.00 FiO2 21 01/18/21 07:21 Pulse 53 B/P (MAP) 131/88 01/18/21 00:00 Intake Total 230 ml Output Total 600 ml Balance -370 ml Capillary Refill : Constitutional: other (intubated and sedated) Neck: No carotid bruit Respiratory: lungs clear to auscultation Cardiovascular: regular rate-rhythm; No JVD; S1 and S2 Gastrointestinal: audible bowel sounds Extremities: no lower extremity edema bilateral Neurologic/Psychiatric: other (unable to cooperate with neuro exam d/t se dation) Skin: No rash on exposed areas, No ulcerations on exposed areas Data Review Labs Laboratory Tests 01/17/21 13:20: Sodium Level 130L, Potassium Level 2.8L, Chloride Level 89L, Carbon Dioxide Level 26, Anion Gap 15H, Blood Urea Nitrogen 19H, Creatinine 0.93, Estimat Glomerular Filtration Rate 87, BUN/Creatinine Ratio 20, Glucose Level 133H, Calcium Level 8.0L, Total Creatine Kinase 2984#H 01/17/21 13:23: Glucometer 140H 12/8/21 17:46: Glucometer 118H 01/17/21 19:58: Sodium Level 133L, Potassium Level 3.0L, Chloride Level 91L, Carbon Dioxide Level 27, Anion Gap 15H, Blood Urea Nitrogen 15, Creatinine 0.91, Estimat Glomerular Filtration Rate 89, BUN/Creatinine Ratio 16, Glucose Level 123H, Calcium Level 8.1L 01/17/21 23:58: Glucometer 139H 01/18/21 03:06: White Blood Count 4.1L, Red Blood Count 3.59L, Hemoglobin 11.1L, Hematocrit 32L, Mean Corpuscular Volume 89, Mean Corpuscular Hemoglobin 31, Mean Corpuscular Hemoglobin Concent 35, Red Cell Distribution Width 12.5, Platelet Count 103L, M fredo Platelet Volume 11.8, Immature Granulocyte % (Auto) 1, Neutrophils (%) (Auto) 60, Lymphocytes (%) (Auto) 26, Monocytes (%) (Auto) 13H, Eosinophils (%) (Auto) 1, Basophils (%) (Auto) 0, Neutrophils # (Auto) 2.4, Lymphocytes # (Auto) 1.1, Monocytes # (Auto) 0.5, Eosinophils # (Auto) 0.0, Basophils # (Auto) 0.0, Immature Granulocyte # (Auto) 0.0, Blood Gas Puncture Site RIGHT RADIAL, Blood Gas Patient Temperature 36.1, Arterial Blood pH 7.62*H, Arterial Blood Partial Pressure CO2 27L, Arterial Blood Partial Pressure O2 75L, Arterial Blood HCO3 28H, Arterial Blood Total CO2 28.8, Arterial Blood Oxygen Saturation 98, Arterial Blood Base Excess 5.8H, Harpreet Test POSITIVE, Blood Gas Ventilator Setting YES, Blood Gas Inspired Oxygen 21%, Sodium Level 133L, Potassium Level 3.0L, Chloride Level 91L, Carbon Dioxide Level 25, Anion Gap 17H, Blood Urea Nitrogen 12, Creatinine 0.86, Estimat Glomerular Filtration Rate 95, BUN/Creatinine Ratio 14, Glucose Level 116H, Calcium Level 8.1L, Corrected Calcium 8.9, Phosphorus Level 1.2L, Magnesium Level 2.0, Total Bilirubin 1.2H, Aspartate Amino Transf (AST/SGOT) 99H, Alanine Aminotransferase (ALT/SGPT) 39, Alkaline Phosphatase 71, Total Protein 5.6L, Albumin 3.0L Microbiology 01/16/21 MRSA Screen - Final, Complete MRSA not isolated Radiology NAME: GIULIANA ADAN [facility] REC#: [id number] PT STATUS: ADM IN : 1975 PHYSICIAN: MARIA ANTONIA WASHINGTON DO ADMIT DATE: 01/16/21/ICU Signed Date of Exam:01/16/21 CHEST 1 VIEW, AP/PA ONLY EXAMINATION: Chest 1 view HISTORY: Central line placement. COMPARISON: Chest radiograph performed earlier the same date. FINDINGS: Interval placement of a right internal jugular central line with the tip overlying the low SVC. Stable endotracheal tube and enteric tube. Stable lungs and cardiac silhouette. No large pleural effusion. No pneumothorax. IMPRESSION: 1. Interval placement of a right internal jugular central line with the tip overlying the low SVC. 2. The remainder the chest is stable. Dictated by: Dictated on workstation # [id number] Dict: 01/16/217 Trans: 01/16/21 2353 [facility] [id number] Interpreted by: STAN GIBSON DO Electronically signed by: STAN GIBSON DO 01/16/21 2353 A/P-Cardiology Assessment/Admission Diagnosis ETOH withdrawal with seizure requiring intubation - mangement per eICU services Long-standing h/o ETOH abuse - reported to drink 1/5 Vodka and approx 15 beers nightly Rhabodomyolysis - management per eICU Documented h/o Parkinson's Documented h/o seizures Electrolyte abnormalities - likely d/t chronic ETOH abuse Discussion and Recomendations Echocardiogram to eval structure and function Treatment of rhabdo per eICU services Replace electrolytes Management of ETOH WD per eICU/medical services Monitor lab closely EKG now AURELIA BENJAMIN Jan 17, 2021 08:59
[2021-01-17] MEDS ORDERED: CEFEPIME INJECTION 1,000 MG in NS (IVPB) 50 ML IV SCH (09:00)
[2021-01-17] MEDS ORDERED: ENOXAPARIN 40 MG/0.4 ML (LOVENOX) SYR SC SCH (09:00)
[2021-01-17] MEDS ORDERED: PIPERACILLIN/TAZO 4.5 GM/NS 100 ML IV ONE ×2 (09:00)
[2021-01-17] MEDS: SODIUM BICARBONATE 8.4% VIAL 150 MEQ in D5W 1000 ML IV SOLUTION 1,000 ML IV SCH (09:42)
[2021-01-17] MEDS: VASOPRESSIN INJECTION 20 UNIT in NS (IVPB) 100 ML IV SCH ×2 (09:53→20:46)
[2021-01-17] MEDS: LEVETIRACETAM 1,000 MG/NS 100 ML IVPB IV SCH ×4 (09:53→20:14)
--- NOTE | 2021-01-17 11:27 | History & Physical-Hospitalist ---
LANCE HICKS 01/17/21 1127: History of Present Illness HPI/Chief Complaint PT is a 45 YO male, with a history of alcohol use disorder, and Parkinson's disease, currently in the hospital d/t alcohol withdrawal with seizure. The patient came in to the Emergency room yesterday with his mother. His mother reports that the patient stopped trying to drink ETOH on 01/11, and started to have withdrawal symptoms of shaking, nausea and vomiting, and agitation on Friday. His mother reports that he has a hx of drinking a fifth of vodka, plus 15 beers per day. He has had hallucinations for 2-3 days. His mother reports yesterday the patient was holding a hammer, and told her he had to go to the [facility] because "people" were there. His mother reports he had only "5 beers" yesterday. Upon arrival to the ER yesterday the patient was respons tricia, and answering questions, but then had a seizure. The patient is currently intubated and sedated. Date Seen 01/17/21 Time Seen by a Provider: 08:00 Attending Physician Maria Antonia Hardin Lisa A MD Referring Physician Date of Admission Jan 16, 2021 at 20:20 Home Medications & Allergies Home Medications Reviewed patient Home Medication Reconciliation performed by pharmacy medication reconciliations survey field technician and/or nursing. Patients Allergies have been reviewed. Allergies Allergies Coded Allergies No Known Drug Allergies (Unverified04/21/19) Past Xsbanvs-Mixbpl-Cwqsdq Hx Patient Social History Tobacco Use?: Yes Tobacco type used: Cigarettes Substance use?: Yes Substance type: Marijuana Additional substance use comme: THC, ?COCAINE? Alcohol Use?: Yes (1/5 OF VODKA, PLUS UP TO 15 BEERS/DAY) Alcohol type: Beer, Hard Liquor Alcohol Frequency: Daily Pt feels they are or have been: No Immunizations Up To Date Date of Influenza Vaccine: Feb 10, 2019 First/Initial COVID19 Vaccinat: 11-07-20 Second COVID19 Vaccination Atul: 01-12-21 Seasonal Allergies Seasonal Allergies: No Current Status Advance Directives: No Communicates: Verbally Primary Language: [place] Citizen Preferred Spoken Language: [place] Citizen Is interpretation needed?: No Past Medical History Surgeries: Eye Surgery Parkinson's Disease, Seizure Disorder ADD/ADHD, Anxiety, Depression Blood Disorders: No seizure- etoh related BH pathology Family Medical History Patient reports no known family medical history. Review of Systems ROS-Unable to Obtain: ROS not possible, patient sedated and intubated. Physical Exam Physical Exam Vital Signs Vital Signs - First Documented 01/16/21 01/16/21 01/16/21 17:49 20:29 22:05 Temp 36.5 Pulse 105 Resp 18 B/P (MAP) 169/109 (129) Pulse Ox 96 O2 Delivery Room Air O2 Flow Rate 21.00 FiO2 30 Capillary Refill : Height, Weight, BMI Height: '" Weight: lbs. oz. kg; 27.61 BMI Method: General Appearance: No Apparent Distress, Chronically ill, Other (sedated and intubated) Respiratory: No Accessory Muscle Use, Accessory Muscle Use, Rhonci (right lower sternal border) Cardiovascular: Regular Rate, Rhythm, No Murmur Gastrointestinal: No Organomegaly, No Pulsatile Mass, Soft, Other (large area of ecchymosis on left abdomen ) Rectal: Deferred Extremity: Other (bilateral knee erythema ) Neurologic/Psychiatric: Other (PT sedated and intubated ) Skin: Warm/Dry, Ecchymosis (left abdomen ) Results Results/Procedures Labs Laboratory Tests 01/16/21 18:13 01/16/21 23:55 01/17/21 05:25 01/17/21 13:20 Patient resulted labs reviewed. Assessment/Plan Assessment and Plan 45 YO male with aspiration pneumonia, acute respiratory failure, alcohol withdrawal with seizure, elevated LFTs with hepatic steatosis, thrombocytopenia, rhabdomyolysis. Aspiration pneumonia Continue Zosyn Acute respiratory failure Continue as sedated and intubated Alcohol withdrawal with seizure Continue as sedated and intubated. Continue IV Keppra. Consider Ativan. Continue IV fluid and vitamin replacement. Elevated LFTs with hepatic steatosis Thrombocytopenia Rhabdomyolysis monitor labs AMBAR LAY MD 01/17/21 181: History of Present Illness Source: RN/MD Exam Limitations: clinical condition Time Seen by a Provider: 10:10 Past Wdziaid-Molnio-Utzmap Hx Family Medical History Patient reports no known family medical history. No Pertinent Family Hx Review of Systems Constitutional: see HPI Results Results/Procedures Imaging: Reviewed Imaging Report Assessment/Plan Admission Diagnosis Alcohol withdrawal with seizure Admission Status: Inpatient Order (span 2 midnights) Reason for Inpatient Admission: Seizure Aspiration pneumonia Intubated Assessment and Plan Admitted with severe alcohol withdrawal and seizure requiring intubation. Continue CIWA protocol, fluids, multivitamins, propofol and precedex. Add scheduled Ativan. Continue Keppra. Switched to Zosyn for aspiration pneumonia. Critical Care Critically Ill Patient Diagnosis/Problems Diagnosis/Problems (1) Alcohol withdrawal seizure with perceptual disturbance Status: Acute (2) Endotracheally intubated Status: Acute (3) Acute respiratory failure with hypoxia Status: Acute (4) Alcoholic hepatitis Status: Acute Qualifiers: Ascites presence: without ascites Qualified Codes: K70.10 - Alcoholic hepatitis without ascites (5) Hepatic steatosis Status: Acute (6) Hypokalemia Status: Acute (7) Hypophosphatemia Status: Acute (8) Hyponatremia Status: Acute (9) Rhabdomyolysis Status: Acute Qualifiers: Rhabdomyolysis type: non-traumatic Qualified Codes: M62.82 - Rhabdomyolysis (10) Aspiration pneumonia Status: Acute Supervisory-Addendum Brief Verification & Attestation Participated in pt care: history, MDM, physical Personally performed: exam, history, MDM, supervision of care Care discussed with: Medical Student Procedures: n/a Results interpretation: Verified all documentation A medical student performed and documented this service in my presence. I reviewed and verified all information documented by the medical student and made modifications to such information, when appropriate. I personally performed the physical exam and medical decision making. LANCE HICKS Jan 17, 2021 11:27 AMBAR LAY MD Jan 17, 2021 18:13
--- NOTE | 2021-01-17 11:40 | Tele-ICU Progress Note ---
Subjective Date Seen by a Provider: Jan 17, 2021 Time Seen by a Provider: 09:11 Sepsis Event Evaluation Height, Weight, BMI Height: '" Weight: lbs. oz. kg; 27.61 BMI Method: Focused Exam Lactate Level 01/16/21 23:55: Lactic Acid Level 0.96 Exam Exam Patient acknowledged, consented, and participated in this virtual visit which w as conducted using real time audio/video Vital Signs Date Time Temp Pulse Resp B/P (MAP) Pulse Ox O2 Delivery O2 Flow Rate FiO2 01/17/21 11:29 62 103/66 01/17/21 10:25 62 16 97 21 01/17/21 09:53 64 102/69 01/17/21 09:00 64 16 102/69 97 Mechanical Ventilator 21.00 01/17/21 08:45 64 15 102/66 97 Mechanical Ventilator 21.00 01/17/21 08:30 64 16 104/69 98 Mechanical Ventilator 21.00 01/17/21 08:15 65 16 102/70 98 Mechanical Ventilator 21.00 01/17/21 08:08 66 100/70 01/17/21 08:00 64 14 100/69 98 Mechanical Ventilator 21.00 01/17/21 08:00 96 Mechanical Ventilator 21 01/17/21 07:45 100/70 01/17/21 07:30 65 10 105/68 98 Mechanical Ventilator 21.00 01/17/21 07:15 101/70 01/17/21 07:02 66 16 97 21 01/17/21 07:00 65 01/17/21 07:00 66 8 100/70 Mechanical Ventilator 21.00 01/17/21 06:00 70 16 100/69 97 Mechanical Ventilator 21.00 01/17/21 05:00 66 16 100/68 98 Mechanical Ventilator 21.00 01/17/21 04:28 65 93/64 01/17/21 04:00 66 16 94/63 97 Mechanical Ventilator 21.00 01/17/21 04:00 96 Mechanical Ventilator 21 01/17/21 03:00 66 15 91/65 97 Mechanical Ventilator 21.00 01/17/21 02:44 65 16 98 21 01/17/21 02:00 63 16 88/61 98 Mechanical Ventilator 21.00 01/17/21 01:08 64 81/59 01/17/21 01:03 35.8 01/17/21 01:00 60 15 91/63 98 Mechanical Ventilator 21.00 01/17/21 01:00 60 01/17/21 00:40 64 100 21 01/17/21 00:00 64 16 81/59 100 Mechanical Ventilator 21.00 01/16/21 23:59 97 Mechanical Ventilator 21 01/16/21 23:30 70 14 89/57 100 Mechanical Ventilator 21.00 01/16/21 23:29 71 80/58 01/16/21 23:15 71 80/58 01/16/21 23:12 71 80/58 01/16/21 23:00 70 15 86/59 100 Mechanical Ventilator 21.00 01/16/21 22:45 71 15 86/57 100 Mechanical Ventilator 21.00 01/16/21 22:30 72 16 72/53 99 Mechanical Ventilator 21.00 01/16/21 22:15 71 15 80/58 99 Mechanical Ventilator 21.00 01/16/21 22:12 71 01/16/21 22:12 71 16 98 21 01/16/21 22:05 35.6 67 18 86/57 96 Mechanical Ventilator 21.00 01/16/21 22:00 98 Mechanical Ventilator 21 01/16/21 21:47 80 18 117/80 100 Mechanical Ventilator 01/16/21 20:29 87 16 100 30 01/16/21 19:34 93 124/71 01/16/21 17:49 36.5 105 18 169/109 (129) 96 Room Air I & O 01/17/21 07:00 Intake Total 1100 ml Output Total 1400 ml Balance -300 ml Height & Weight Height: '" Weight: lbs. oz. kg; 27.61 BMI Method: General Appearance: No Apparent Distress (intubated) Gastrointestinal: normal bowel sounds, non tender, soft, other (PT HAS A VERY LARGE BRUISE TO LEFT UPPER QUADRANT--PT DOES NOT KNOW HOW IT OCCURRED OR WHEN) Results Lab Laboratory Tests 01/16/21 18:13 01/16/21 23:55 01/17/21 05:25 Assessment/Plan Assessment/Plan (Tele-ICU Physician , Progress Note ) Available chart/ vitals / labs / Images reviewed Video assessment done using teleICU camera, rest of exam as per RN Discussed with RN , EXAM PER RN Events overnight : Afebrile FiO2 - 21% I/O = + Drips: bicarb Pressors: levo Sedation gtt: prop 45 presedx 0.5 ( RASS ) VENT SETTINGS and ABG reviewed Not candidate for SBT today REVIEWED Cardiovascular Stability / Sedation Score / FI02/PEEP / ABG / CXR Consultants: Hospital course: 01/16 - inubated wioth SX / eton withdrowal , rhabdo, PNA 01/17 - LEVO , AC 16 550 21 % +5 A/P Acute resp failure in the context of seizure (very probable ETOH related -full vent support -sedation holiday- agitated , not follow commands Shock - ? sepsis - ABX started empirically with mildly elev PCT 0.3 01/17 ( UA neg , covid neg ) - to wean off pressors USHA, rhabdo - on bcarb gtt , follow BMP anf cpk - replace lytes Seizures:- ? ETON withdrowal , CTH neg 01/16 - cont keppra for now -ETOH abuse - d5/ thimaine/ folic acid/ mvi LOVENOX 100 bid - ? indications not clear to me now - will await cards consult AG metabolic acidosis possible ETOH related QTc prolongation 566 -bicarb pushes prn + drip - follow , cards on board TC in urine with prolonged qtc/ repeat ekg/ bicarb pushes + drip Lines : RIGHT IJ 01/16 (Central Line Necessity Reviewed) Pedraza: + OG: Nutrition: start TF Analgesia: Anxiety/ delirium VTE Prophylaxis: lovenox Stress Ulcer Prophylaxis: ppi Glycemic Control: Plans in collaboration with bedside consultants and IM MDs. Discussed with RN to reach out if any questions or concerns A total of 33 minutes of critical care time was devoted to this patient today, required to treat and/or prevent further deterioration of critical care condition ( as above) . JEANNINE VILLALTA MD Jan 17, 2021 11:40
[2021-01-17] MEDS: DexMEDEtomidine 250 ML DRIP 250 ML IV SCH (11:51)
[2021-01-17] MEDS: ENOXAPARIN 100 MG/1 ML (LOVENOX) SYR SC SCH (11:55)
[2021-01-17] MEDS: NOREPINEPHRINE 8 MG/250 ML 250 ML IV SCH (11:55)
[2021-01-17 13:43] LABS: POTASSIUM 2.8 MMOL/L (3.6-5.0)
[2021-01-17 13:49] LABS: CREATININE SERUM 0.93 MG/DL (0.60-1.30)
[2021-01-17] MEDS ORDERED: KCL 20 MEQ TAB (K-DUR) PO ONE (14:15)
[2021-01-17] MEDS ORDERED: POTASSIUM BICARB 20 MEQ (EFFER-K) TABLET PO ONE (14:30)
[2021-01-17] MEDS ORDERED: CYCL10TA25 PO (14:43)
[2021-01-17] MEDS ORDERED: DEXT20CA4 PO (14:43)
[2021-01-17] MEDS: PIPERACILLIN/TAZOBACTAM (BULK) 4.5 GM in NS (IVPB) 100 ML IV SCH (15:14)
--- NOTE | 2021-01-17 16:20 | Consultation-Cardiology ---
HPI-Cardiology Cardiology Consultation: Date of Consultation 01/17/21 Time Seen by a Provider: 13:00 Date of Admission Attending Physician Maria Antonia Hardin DO Admitting Physician Alanis Sheldon MD Consulting Physician VIC WELLS MD, MA, FACP, FACC, [facility] [place], CCDS Physician requesting consult: Dr Hardin HPI: Chief Complaint: Reason for Cardiology consult: Abnormal EKG Mr. Adan is a 45 yr old male admitted to ICU 3 from the ED. He is currently intubated and sedated. There is no family at the bedside. Per ED note and nursing he ambulated into the ED last night with his mother requesting help to quit drinking. He was cooperative and pleasant. He was getting ready to go to for a CT scan. He was found on the floor in the ED with his IV pulled out. He was combative and required multiple staff to restrain. He was then sedated and intubated. Review of Systems-Cardiology Review of Systems Constitutional: other (Intubated, on mech vent, unresponsive, cannot provide history or ROS) [id number] Hx Patient Social History 2nd Hand Smoke Exposure: No Have you traveled recently?: No Alcohol Use?: Yes (1/5 OF VODKA, PLUS UP TO 15 BEERS/DAY) Substance type: Marijuana Pt feels they are or have been: No Tobacco type used: Cigarettes Immunizations Up To Date Date of Influenza Vaccine: Feb 10, 2019 Past Medical History PMH As described under Assessment. Family Medical History Family Medical History: Unable to obtain d/t intubation and sedation Family History: Patient reports no known family medical history. Allergies and Home Medications Allergies Coded Allergies: No Known Drug Allergies (Unverified , 04/21/19) Patient Home Medication List Home Medication List Reviewed: Yes Cyclobenzaprine HCl (Cyclobenzaprine HCl) 10 Mg Tablet, 5-10 MG PO DAILY PRN for MUSCLE SPASMS, (Reported) Entered as Reported by: ASIM LOPEZ on 01/17/21 144 Last Action: Reviewed Dextroamphetamine/Amphetamine (Dextroamp-Amphet ER 20 mg Cap) 20 Mg Cap.er.24h, 20 MG PO DAILY, (Reported) Entered as Reported by: ASIM LOPEZ on 01/17/21 1443 Last Action: Reviewed Discontinued Medications Carbidopa/Levodopa (Carbidopa-Levo ER 50-200 Tab) 1 Each Tablet.er, 1 EACH PO TID, (Reported) Discontinued Reason: No Longer Taking Entered as Reported by: ASIM LOPEZ on 04/23/191151 Last Action: Discontinued Chlordiazepoxide HCl (Chlordiazepoxide HCl) 10 Mg Capsule, 10 MG PO BID PRN for AGITATION Discontinued Reason: No Longer Taking Prescribed by: JUN ALEGRIA on 09/10/19 1225 Last Action: Discontinued Clonazepam (Clonazepam) 0.5 Mg Tablet, 0.5 MG PO DAILY PRN for ANXIETY, (Reported) Discontinued Reason: No Longer Taking Entered as Reported by: ASIM LOPEZ on 09/08/19 0954 Last Action: Discontinued Fluoxetine HCl (Fluoxetine HCl) 20 Mg Capsule, 20 MG PO HS, (Reported) Discontinued Reason: No Longer Taking Entered as Reported by: ASIM LOPEZ on 04/23/191151 Last Action: Discontinued Naltrexone HCl (Naltrexone HCl) 50 Mg Tablet, 50 MG PO HS, (Reported) Discontinued Reason: No Longer Taking Entered as Reported by: ASIM LOPEZ on 04/23/191151 Last Action: Discontinued Omeprazole (Omeprazole) 20 Mg Capsule.dr, 20 MG PO DAILY, (Reported) Discontinued Reason: No Longer Taking Entered as Reported by: ASIM LOPEZ on 04/23/191151 Last Action: Discontinued Trazodone HCl (Trazodone HCl) 50 Mg Tablet, 50-100 MG PO HS PRN for SLEEP, (Reported) Discontinued Reason: No Longer Taking Entered as Reported by: ASIM LOPEZ on 04/23/191151 Last Action: Discontinued Physical Exam-Cardiology Physical Exam Vital Signs/I&O 01/17/21 01/17/21 01/17/21 01/17/21 04:28 05:00 06:00 07:00 Pulse 65 66 70 66 Resp 16 16 8 B/P (MAP) 93/64 100/68 100/69 100/70 Pulse Ox 98 97 O2 Delivery Mechanical Ventilator Mechanical Ventilator Mechanical Ventilator O2 Flow Rate 21.00 21.00 21.00 01/17/21 01/17/21 01/17/21 01/17/21 07:00 07:02 07:15 07:30 Pulse 65 66 65 Resp 16 10 B/P (MAP) 101/70 105/68 Pulse Ox 97 98 O2 Delivery Mechanical Ventilator O2 Flow Rate 21.00 FiO2 21 01/17/21 01/17/21 01/17/21 01/17/21 07:45 08:00 08:00 08:08 Pulse 64 66 Resp 14 B/P (MAP) 100/70 100/69 100/70 Pulse Ox 96 98 O2 Delivery Mechanical Ventilator Mechanical Ventilator O2 Flow Rate 21.00 FiO2 21 01/17/21 01/17/21 01/17/21 01/17/21 08:15 08:30 08:45 09:00 Pulse 65 64 64 64 Resp 16 16 15 16 B/P (MAP) 102/70 104/69 102/66 102/69 Pulse Ox 98 98 97 97 O2 Delivery Mechanical Ventilator Mechanical Ventilator Mechanical Ventilator Mechanical Ventilator O2 Flow Rate 21.00 21.00 21.00 21.00 01/17/21 01/17/21 01/17/21 01/17/21 09:15 09:30 09:45 09:53 Pulse 63 63 64 Resp 15 16 B/P (MAP) 100/64 100/65 101/65 102/69 Pulse Ox 97 O2 Delivery Mechanical Ventilator Mechanical Ventilator O2 Flow Rate 21.00 21.00 01/17/21 01/17/21 01/17/21 01/17/21 10:00 10:15 10:25 10:30 Pulse 61 61 62 61 Resp 15 15 16 15 B/P (MAP) 99/65 103/66 101/66 Pulse Ox 99 97 98 O2 Delivery Mechanical Ventilator Mechanical Ventilator Mechanical Ventilator O2 Flow Rate 21.00 21.00 21.00 FiO2 21 01/17/21 01/17/21 01/17/21 01/17/21 10:45 11:00 11:15 11:29 Pulse 61 63 59 62 Resp 16 15 16 B/P (MAP) 102/66 106/68 105/67 103/66 Pulse Ox 98 O2 Delivery Mechanical Ventilator Mechanical Ventilator Mechanical Ventilator O2 Flow Rate 21.00 21.00 21.00 01/17/21 01/17/21 01/17/21 01/17/21 11:30 11:45 11:51 11:55 Pulse 61 64 62 62 Resp 15 18 B/P (MAP) 106/70 97/63 103/66 103/66 Pulse Ox 98 93 O2 Delivery Mechanical Ventilator Mechanical Ventilator O2 Flow Rate 21.00 21.00 01/17/21 01/17/21 01/17/2121 12:00 12:00 12:00 12:15 Temp 36.5 Pulse 60 59 Resp 16 15 B/P (MAP) 107/71 111/70 Pulse Ox 96 97 98 O2 Delivery Mechanical Ventilator Mechanical Ventilator Mechanical Ventilator O2 Flow Rate 21.00 21.00 FiO2 21 01/17/21 01/17/21 01/17/21 01/17/21 12:30 12:45 13:00 13:00 Pulse 61 58 Resp 15 B/P (MAP) 107/74 109/73 104/68 O2 Delivery Mechanical Ventilator O2 Flow Rate 21.00 01/17/21 01/17/21 01/17/21 01/17/21 13:15 13:15 13:30 13:45 Pulse 58 58 58 Resp 16 16 16 B/P (MAP) 106/72 106/72 110/72 110/73 Pulse Ox 98 98 97 O2 Delivery Mechanical Ventilator Mechanical Ventilator Mechanical Ventilator O2 Flow Rate 21.00 21.00 21.00 01/17/21 01/17/21 01/17/21 01/17/21 14:00 14:15 14:30 14:45 Pulse 57 58 60 58 Resp 16 33 32 21 B/P (MAP) 112/72 106/75 107/72 107/71 Pulse Ox 92 98 O2 Delivery Mechanical Ventilator Mechanical Ventilator Mechanical Ventilator Mechanical Ventilator O2 Flow Rate 21.00 21.00 21.00 21.00 01/17/21 01/17/21 01/17/21 01/17/21 15:00 15:00 15:01 16:00 Pulse 57 62 58 Resp 11 16 B/P (MAP) 106/71 106/72 Pulse Ox 97 97 O2 Delivery Mechanical Ventilator Mechanical Ventilator O2 Flow Rate 21.00 FiO2 21 21 01/17/21 00:00 Intake Total 1100 ml Balance 1100 ml Capillary Refill : Constitutional: other (intubated and sedated) Neck: No carotid bruit Respiratory: lungs clear to auscultation Cardiovascular: regular rate-rhythm; No JVD; S1 and S2 Gastrointestinal: audible bowel sounds Extremities: no lower extremity edema bilateral Neurologic/Psychiatric: other (unable to cooperate with neuro exam d/t sedation) Skin: No rash on exposed areas, No ulcerations on exposed areas Data Review Labs Laboratory Tests 01/16/21 18:05: Urine Color YELLOW, Urine Clarity CLEAR, Urine pH 5.5, Urine Specific [place] 1.020, Urine Protein 2+H, Urine Glucose (UA) NEGATIVE, Urine Ketones 2+H, Urine Nitrite NEGATIVE, Urine Bilirubin NEGATIVE, Urine Urobilinogen 0.2, Urine Leukocyte Esterase NEGATIVE, Urine RBC (Auto) 3+H, Urine RBC 0-2, Urine WBC 0-2, Urine Squamous Epithelial Cells 0-2, Urine Renal Epithelial Cells 0-2, Urine Crystals NONE, Urine Bacteria NEGATIVE, Urine Casts NONE, Urine Mucus NEGATIVE, Urine Culture Indicated NO, Urine Opiates Screen NEGATIVE, Urine Oxycodone Screen NEGATIVE, Urine Methadone Screen NEGATIVE, Urine Propoxyphene Screen NEGATIVE, Urine Barbiturates Screen NEGATIVE, Ur Tricyclic Antidepressants Screen POSITIVEH, Urine Phencyclidine Screen NEGATIVE, Urine Amphetamines Screen NEGATIVE, Urine Methamphetamines Screen NEGATIVE, Urine Benzodiazepines Screen POSITIVEH, Urine Cocaine Screen NEGATIVE, Urine Cannabinoids Screen NEGATIVE 01/16/21 18:13: White Blood Count 10.9, Red Blood Count 4.37, Hemoglobin 13.5, Hematocrit 39L, Mean Corpuscular Volume 89, Mean Corpuscular Hemoglobin 31, Mean Corpuscular Hemoglobin Concent 35, Red Cell Distribution Width 12.1, Platelet Count 125L, Mean Platelet Volume 11.6, Immature Granulocyte % (Auto) 1, Neutrophils (%) (Auto) 75, Lymphocytes (%) (Auto) 13, Monocytes (%) (Auto) 12, Eosinophils (%) (Auto) 0, Basophils (%) (Auto) 0, Neutrophils # (Auto) 8.2H, Lymphocytes # (Auto) 1.4, Monocytes # (Auto) 1.3H, Eosinophils # (Auto) 0.0, Basophils # (Auto) 0.0, Immature Granulocyte # (Auto) 0.1, Percent Immature Platelet Fraction 14.0H, Sodium Level 127L, Potassium Level 3.4L, Chloride Level 87L, Carbon Dioxide Level 15L, Anion Gap 25H, Blood Urea Nitrogen 41H, Creatinine 1.46H, Estimat Glomerular Filtration Rate 52, BUN/Creatinine Ratio 28, Glucose Level 79, Calcium Level 9.5, Corrected Calcium 9.3, Magnesium Level 1.6, Total Bilirubin 1.9H, Aspartate Amino Transf (AST/SGOT) 174H, Alanine Aminotransferase (ALT/SGPT) 58H, Alkaline Phosphatase 105, Total Protein 7.8, Albumin 4.3, Salicylates Level < 5.0L, Acetaminophen Level < 10L, Serum Alcohol 29H 01/16/21 18:31: SARS-CoV-2 RNA (RT-PCR) Not Detected 01/16/21 20:47: Prothrombin Time 14.3, INR Comment 1.1, Activated Partial Thromboplast Time 38H, Total Creatine Kinase 5378H, Creatine Kinase MB 24.5*H, Myoglobin 1395.6H 01/16/21 22:50: Blood Gas Puncture Site LEFT RADIAL, Blood Gas Patient Temperature 35.6, Arterial Blood pH 7.41, Arterial Blood Partial Pressure CO2 27L, Arterial Blood Partial Pressure O2 75L, Arterial Blood HCO3 17*L, Arterial Blood Total CO2 17.5L, Arterial Blood Oxygen Saturation 96, Arterial Blood Base Excess -7.2L, Harpreet Test YES-POS, Blood Gas Ventilator Setting YES, Blood Gas Inspired Oxygen 21% 01/16/21 23:50: Magnesium Level 1.8 01/16/21 23:55: Sodium Level 130L, Potassium Level 3.0L, Chloride Level 89L, Carbon Dioxide Level 18L, Anion Gap 23H, Blood Urea Nitrogen 32H, Creatinine 1.07, Estimat Glomerular Filtration Rate 74, BUN/Creatinine Ratio 30, Glucose Level 94, Lactic Acid Level 0.96, Calcium Level 8.3L, Corrected Calcium 8.8, Total Bilirubin 1.9H , Aspartate Amino Transf (AST/SGOT) 140H, Alanine Aminotransferase (ALT/SGPT) 49, Alkaline Phosphatase 80, Total Creatine Kinase 4964#H, Troponin I < 0.028, Total Protein 6.1L, Albumin 3.4, Triglycerides Level 219H 01/17/21 05:25: Magnesium Level 1.7, Sodium Level 130L, Potassium Level 3.1L, Chloride Level 89L , Carbon Dioxide Level 21, Anion Gap 20H, Blood Urea Nitrogen 27H, Creatinine 1.03, Estimat Glomerular Filtration Rate 77, BUN/Creatinine Ratio 26, Glucose Level 124H, Calcium Level 8.2L, Corrected Calcium 8.8, Total Bilirubin 1.4H, Aspartate Amino Transf (AST/SGOT) 122H, Alanine Aminotransferase (ALT/SGPT) 47, Alkaline Phosphatase 83, Total Protein 6.0L, Albumin 3.3, Triglycerides Level 116, White Blood Count 6.7, Red Blood Count 3.62L, Hemoglobin 11.3L, Hematocrit 32L, Mean Corpuscular Volume 88, Mean Corpuscular Hemoglobin 31, Mean Corpu scular Hemoglobin Concent 35, Red Cell Distribution Width 12.3, Platelet Count 107L, Mean Platelet Volume 12.1, Immature Granulocyte % (Auto) 1, Neutrophils (%) (Auto) 58, Lymphocytes (%) (Auto) 31, Monocytes (%) (Auto) 10, Eosinophils (%) (Auto) 1, Basophils (%) (Auto) 0, Neutrophils # (Auto) 3.9, Lymphocytes # (Auto) 2.1, Monocytes # (Auto) 0.6, Eosinophils # (Auto) 0.1, Basophils # (Auto) 0.0, Immature Granulocyte # (Auto) 0.0, Neutrophils % (Manual) 57, Lymphocytes % (Manual) 35, Monocytes % (Manual) 6, Eosinophils % (Manual) 1, Band Neutrophils 1, Percent Immature Platelet Fraction 12.5H, Phosphorus Level 2.1L, Procalcitonin 0.30H 01/17/21 06:45: Blood Gas Puncture Site LEFT RADIAL, Blood Gas Patient Temperature 36.0, Arterial Blood pH 7.55H, Arterial Blood Partial Pressure CO2 28L, Arterial Blood Partial Pressure O2 64L, Arterial Blood HCO3 25, Arterial Blood Total CO2 25.9, Arterial Blood Oxygen Saturation 96, Arterial Blood Base Excess 2.5, Harpreet Test YES-POS, Blood Gas Ventilator Setting YES, Blood Gas Inspired Oxygen 21% 01/17/21 13:20: Sodium Level 130L, Potassium Level 2.8L, Chloride Level 89L, Carbon Dioxide Level 26, Anion Gap 15H, Blood Urea Nitrogen 19H, Creatinine 0.93, Estimat Glomerular Filtration Rate 87, BUN/Creatinine Ratio 20, Glucose Level 133H, Calcium Level 8.0L, Total Creatine Kinase 2984#H 01/17/21 13:23: Glucometer 140H A/P-Cardiology Assessment/Admission Diagnosis Abnormal ECG: early repolarization - No evidence of acute [place]: no progression of ECG, troponin normal, no wall motion abnormality on echo, LVEF normal - Echo on 01/17/21: LVEF 55-60%, no regional wall motion abnormality ETOH withdrawal with seizure requiring intubation - mangement per eICU services Long-standing h/o ETOH abuse - reported to drink 1/5 Vodka and approx 15 beers nightly Rhabodomyolysis - management per eICU Documented h/o Parkinson's Documented h/o seizures Electrolyte abnormalities - likely d/t chronic ETOH abuse Discussion and Recomendations Treatment of rhabdo per eICU services Replace electrolytes Management of ETOH WD per eICU/medical services Monitor lab closely VIC WELLS MD FACP FACC CCDS Jan 17, 2021 16:20
[2021-01-17] MEDS: LORazepam INJ 2 MG/ML (ATIVAN) VIAL IVP SCH (20:13)
[2021-01-17 20:16] LABS: CALCIUM 8.1 MG/DL (8.5-10.1); CREATININE SERUM 0.91 MG/DL (0.60-1.30)
[2021-01-18] MEDS: PIPERACILLIN/TAZOBACTAM (BULK) 4.5 GM in NS (IVPB) 100 ML IV SCH ×4 (00:02→22:11)
[2021-01-18] MEDS: LORazepam INJ 2 MG/ML (ATIVAN) VIAL IVP SCH ×7 (00:03→23:28)
[2021-01-18] MEDS: SODIUM BICARBONATE 8.4% VIAL 150 MEQ in D5W 1000 ML IV SOLUTION 1,000 ML IV SCH (00:03)
[2021-01-18] MEDS: inSUlin ASPART (NovoLOG) 1 UNIT/0.01 ML (CHARGE PER UNIT) SQ SCH ×5 (00:03→23:22)
[2021-01-18] MEDS: ENOXAPARIN 100 MG/1 ML (LOVENOX) SYR SC SCH (00:03)
[2021-01-18] MEDS: DexMEDEtomidine 250 ML DRIP 250 ML IV SCH ×2 (00:30→18:22)
[2021-01-18] MEDS: PROPOFOL DRIP (ICU) 100 ML IV SCH ×3 (00:31→08:54)
[2021-01-18 02:04] VITALS: BP 102/71
[2021-01-18] MEDS: NOREPINEPHRINE 8 MG/250 ML 250 ML IV SCH ×2 (03:11→06:31)
[2021-01-18 03:19] LABS: ABG BASE EXCESS 5.8 MMOL/L (-2.5-2.5); ABG OXYGEN SATURATION 98 % (94-100); ABG PCO2 27 MMHG (35-45); ABG PO2 75 MMHG (79-93); ABG TCO2 28.8 MMOL/L (21.0-31.0); BASOPHILS % (AUTO) 0 % (0-10); EOSINOPHILS % (AUTO) 1 % (0-10); HEMATOCRIT 32 % (40-54); HEMOGLOBIN 11.1 g/dL (13.3-17.7); LYMPHOCYTES # (AUTO) 1.1 10^3/uL (1.0-4.0); LYMPHOCYTES % (AUTO) 26 % (12-44); MEAN CORPUSCULAR HEMOGLOBIN 31 pg (25-34); MEAN CORPUSCULAR HGB CONC 35 g/dL (32-36); MEAN CORPUSCULAR VOLUME 89 fL (80-99); MEAN PLATELET VOLUME 11.8 fL (9.0-12.2); MONOCYTES # (AUTO) 0.5 10^3/uL (0.0-1.0); MONOCYTES % (AUTO) 13 % (0-12); NEUTROPHILS # (AUTO) 2.4 10^3/uL (1.8-7.8); NEUTROPHILS % (AUTO) 60 % (42-75); PLATELET COUNT 103 10^3/uL (130-400); WHITE BLOOD COUNT 4.1 10^3/uL (4.3-11.0)
[2021-01-18 03:20] LABS: ALLENS TEST POSITIVE; INSPIRED O2 21%; PATIENT TEMP 36.1; VENTILATOR YES
[2021-01-18 03:21] LABS: ABG PH 7.62 (7.37-7.43)
[2021-01-18 04:09] LABS: CALCIUM 8.1 MG/DL (8.5-10.1)
[2021-01-18 04:10] LABS: TOTAL PROTEIN 5.6 GM/DL (6.4-8.2)
[2021-01-18 04:12] LABS: BILIRUBIN,TOTAL 1.2 MG/DL (0.1-1.0)
[2021-01-18 04:14] LABS: CREATININE SERUM 0.86 MG/DL (0.60-1.30); PHOSPHORUS 1.2 MG/DL (2.3-4.7)
[2021-01-18] MEDS ORDERED: POTASSIUM CL 10MEQ/50ML IVPB 50 ML IV ONE (05:30)
[2021-01-18] MEDS: POTASSIUM CL 10MEQ/50ML IVPB 50 ML IV SCH ×6 (05:49→08:01)
[2021-01-18] MEDS: MAGNESIUM 1 GM/100 ML IVPB 100 ML IV SCH (05:50)
[2021-01-18] MEDS: KCL 20 MEQ TAB (K-DUR) PO SCH (05:50)
[2021-01-18] MEDS: MULTIVIT W/MINERALS TAB (THERAGRAN M) PO SCH (06:28)
[2021-01-18] MEDS: THIAMINE 100 MG (VITAMIN B-1) TAB PO SCH (06:28)
[2021-01-18 07:05] VITALS: BP 131/88
[2021-01-18] MEDS: VASOPRESSIN INJECTION 20 UNIT in NS (IVPB) 100 ML IV SCH ×2 (07:21→19:55)
[2021-01-18] MEDS ORDERED: POTASSIUM PHOSPHATE INJ 15 MM in NS (IVPB) 250 ML IV NR (08:13)
--- NOTE | 2021-01-18 08:35 | Progress Note - Cardiology ---
Cardiology SOAP Progress Note Subjective: Remains intubated and sedated Objective: I&O/Vital Signs 01/18/21 01/18/21 01/18/21 01/18/21 03:00 04:00 04:00 04:00 Temp 36.1 Pulse 46 50 Resp 16 15 B/P (MAP) 133/89 124/83 Pulse Ox 99 97 98 O2 Delivery Mechanical Ventilator Mechanical Ventilator Mechanical Ventilator O2 Flow Rate 21.00 21.00 FiO2 21 01/18/21 01/18/21 01/18/21 01/18/21 05:00 05:50 06:00 06:31 Pulse 53 56 Resp 16 14 B/P (MAP) 122/83 117/82 114/69 91/54 Pulse Ox 99 99 O2 Delivery Mechanical Ventilator Mechanical Ventilator O2 Flow Rate 21.00 21.00 01/18/21 01/18/21 01/18/21 01/18/21 07:00 07:00 07:05 07:21 Pulse 53 59 53 53 Resp 12 12 B/P (MAP) 131/88 131/88 Pulse Ox 96 96 O2 Delivery Mechanical Ventilator O2 Flow Rate 21.00 FiO2 21 01/18/21 01/18/21 01/18/21 01/18/21 08:00 08:00 08:11 08:54 Temp 36.3 Pulse 49 53 Resp 16 B/P (MAP) 112/85 131/88 Pulse Ox 97 97 O2 Delivery Mechanical Ventilator Mechanical Ventilator O2 Flow Rate 21.00 FiO2 21 01/18/21 01/18/21 01/18/21 01/18/21 09:00 10:00 11:00 11:10 Pulse 48 49 48 48 Resp 11 11 12 B/P (MAP) 125/88 119/83 Pulse Ox 98 98 98 98 O2 Delivery Mechanical Ventilator Mechanical Ventilator Mechanical Ventilator O2 Flow Rate 21.00 21.00 21.00 FiO2 21 01/18/21 01/18/21 01/18/21 01/18/21 12:00 12:06 13:00 13:00 Pulse 51 52 64 Resp 11 B/P (MAP) 114/104 116/85 Pulse Ox 99 97 98 O2 Delivery Mechanical Ventilator Mechanical Ventilator Mechanical Ventilator O2 Flow Rate 21.00 21.00 FiO2 21 01/18/21 14:08 Pulse 56 Resp 16 Pulse Ox 100 FiO2 21 01/18/21 00:00 Intake Total 230 ml Output Total 600 ml Balance -370 ml Constitutional: other (intubated and sedated) Respiratory: lungs clear to auscultation Cardiovascular: regular rate-rhythm; No JVD; S1 and S2 Gastrointestional: audible bowel sounds Extremities: no lower extremity edema bilateral Neurologic/Psychiatric: other (unable to cooperate with neuro exam d/t s edation) Skin: No rash on exposed areas, No ulcerations on exposed areas Results/Procedures: Labs Laboratory Tests 01/17/21 17:46: Glucometer 118H 01/17/21 19:58: Sodium Level 133L, Potassium Level 3.0L, Chloride Level 91L, Carbon Dioxide Level 27, Anion Gap 15H, Blood Urea Nitrogen 15, Creatinine 0.91, Estimat Glomerular Filtration Rate 89, BUN/Creatinine Ratio 16, Glucose Level 123H, Calcium Level 8.1L 01/17/21 23:58: Glucometer 139H 01/18/21 03:06: Sodium Level 133L, Potassium Level 3.0L, Chloride Level 91L, Carbon Dioxide Level 25, Anion Gap 17H, Blood Urea Nitrogen 12, Creatinine 0.86, Estimat Glomerular Filtration Rate 95, BUN/Creatinine Ratio 14, Glucose Level 116H, Calcium Level 8.1L, White Blood Count 4.1L, Red Blood Count 3.59L, Hemoglobin 11.1L, Hematocrit 32L, Mean Corpuscular Volume 89, Mean Corpuscular Hemoglobin 31, Mean Corpuscular Hemoglobin Concent 35, Red Cell Distribution Width 12.5, Platelet Count 103L, Mean Platelet Volume 11.8, Immature Granulocyte % (Auto) 1, Neutrophils (%) (Auto) 60, Lymphocytes (%) (Auto) 26, Monocytes (%) (Auto) 13H, Eosinophils (%) (Auto) 1, Basophils (%) (Auto) 0, Neutrophils # (Auto) 2.4, Lymphocytes # (Auto) 1.1, Monocytes # (Auto) 0.5, Eosinophils # (Auto) 0.0, Basophils # (Auto) 0.0, Immature Granulocyte # (Auto) 0.0, Blood Gas Puncture Site RIGHT RADIAL, Blood Gas Patient Temperature 36.1, Arterial Blood pH 7.62*H, Arterial Blood Partial Pressure CO2 27L, Arterial Blood Partial Pressure O2 75L, Arterial Blood HCO3 28H, Arterial Blood Total CO2 28.8, Arterial Blood Oxygen Saturation 98, Arterial Blood Base Excess 5.8H, Harpreet Test POSITIVE, Blood Gas Ventilator Setting YES, Blood Gas Inspired Oxygen 21%, Corrected Calcium 8.9, Phosphorus Level 1.2L, Magnesium Level 2.0, Total Bilirubin 1.2H, Aspartate Amino Transf (AST/SGOT) 99H, Alanine Aminotransferase (ALT/SGPT) 39, Alkaline Phosphatase 71, Total Protein 5.6L, Albumin 3.0L 01/18/21 09:00: Blood Gas Puncture Site RT RAD, Blood Gas Patient Temperature 36.4, Arterial Blood pH 7.54H, Arterial Blood Partial Pressure CO2 32L, Arterial Blood Partial Pressure O2 86, Arterial Blood HCO3 27, Arterial Blood Total CO2 28.3, Arterial Blood Oxygen Saturation 98, Arterial Blood Base Excess 4.5H, Harpreet Test NA, Blood Gas Ventilator Setting NO, Blood Gas Inspired Oxygen 21% 01/18/21 12:48: Glucometer 92 Microbiology 01/16/21 MRSA Screen - Final, Complete MRSA not isolated A/P: Assessment: Abnormal ECG: early repolarization - No evidence of acute [place]: no progression of ECG, troponin normal, no wall motion abnormality on echo, LVEF normal - Echo on 01/17/21: LVEF 55-60%, no regional wall motion abnormality ETOH withdrawal with seizure requiring intubation - mangement per eICU services Long-standing h/o ETOH abuse - reported to drink 1/5 Vodka and approx 15 beers nightly Rhabodomyolysis - management per eICU Documented h/o Parkinson's Documented h/o seizures Electrolyte abnormalities - likely d/t chronic ETOH abuse Plan: Treatment of rhabdo per eICU services Replace electrolytes Management of ETOH WD per eICU/medical services Monitor lab closely AURELIA BENJAMIN Jan 18, 2021 08:35
[2021-01-18] MEDS: PANTOPRAZOLE 40 MG (PROTONIX) VIAL IV SCH (09:04)
[2021-01-18] MEDS: FOLIC ACID 1 MG TAB PO SCH (09:04)
[2021-01-18] MEDS: LEVETIRACETAM 1,000 MG/NS 100 ML IVPB IV SCH ×4 (09:07→20:09)
[2021-01-18 09:09] LABS: ABG BASE EXCESS 4.5 MMOL/L (-2.5-2.5); ABG OXYGEN SATURATION 98 % (94-100); ABG PCO2 32 MMHG (35-45); ABG PH 7.54 (7.37-7.43); ABG PO2 86 MMHG (79-93); ABG TCO2 28.3 MMOL/L (21.0-31.0)
[2021-01-18 09:13] LABS: INSPIRED O2 21%; PATIENT TEMP 36.4; VENTILATOR NO
--- NOTE | 2021-01-18 10:10 | Tele-ICU Progress Note ---
Subjective Date Seen by a Provider: Jan 18, 2021 Time Seen by a Provider: 10:10 Sepsis Event Evaluation Height, Weight, BMI Height: '" Weight: lbs. oz. kg; 27.61 BMI Method: Focused Exam Lactate Level 01/16/21 23:55: Lactic Acid Level 0.96 Exam Exam Patient acknowledged, consented, and participated in this virtual visit which w as conducted using real time audio/video Vital Signs Date Time Temp Pulse Resp B/P (MAP) Pulse Ox O2 Delivery O2 Flow Rate FiO2 01/18/21 08:54 53 131/88 01/18/21 08:11 36.3 01/18/21 08:00 97 Mechanical Ventilator 21 01/18/21 07:21 53 131/88 01/18/21 07:05 53 12 96 21 01/18/21 07:00 59 01/18/21 06:31 91/54 01/18/21 06:00 56 14 114/69 99 Mechanical Ventilator 21.00 01/18/21 05:50 117/82 01/18/21 05:00 53 16 122/83 99 Mechanical Ventilator 21.00 01/18/21 04:00 50 15 124/83 98 Mechanical Ventilator 21.00 01/18/21 04:00 97 Mechanical Ventilator 21 01/18/21 04:00 36.1 01/18/21 03:00 46 16 133/89 99 Mechanical Ventilator 21.00 01/18/21 02:04 51 16 97 21 01/18/21 02:00 56 17 94/55 97 Mechanical Ventilator 21.00 01/18/21 01:00 53 01/18/21 01:00 53 16 104/72 98 Mechanical Ventilator 21.00 01/18/21 00:31 55 106/74 01/18/21 00:30 55 106/75 01/18/21 00:10 97 Mechanical Ventilator 21 01/18/21 00:10 36.3 01/18/21 00:00 54 15 106/75 98 Mechanical Ventilator 21.00 01/17/21 23:00 53 16 101/69 98 Mechanical Ventilator 21.00 01/17/21 22:00 54 16 102/71 98 Mechanical Ventilator 21.00 01/17/21 21:41 55 16 97 21 01/17/21 21:17 98/66 01/17/21 21:00 55 16 98/66 97 Mechanical Ventilator 21.00 01/17/21 20:00 60 15 99/63 96 Mechanical Ventilator 21.00 01/17/21 19:44 97 Mechanical Ventilator 21 01/17/21 19:35 36.5 01/17/21 19:00 54 16 113/74 97 Mechanical Ventilator 21.00 01/17/21 19:00 54 01/17/21 18:35 58 16 96 21 01/17/21 18:08 57 112/73 01/17/21 18:00 54 16 111/78 100 Mechanical Ventilator 21.00 01/17/21 17:45 56 18 113/77 Mechanical Ventilator 21.00 01/17/21 17:30 56 15 113/77 98 Mechanical Ventilator 21.00 01/17/21 17:15 56 16 110/76 99 Mechanical Ventilator 21.00 01/17/21 17:00 56 15 113/77 Mechanical Ventilator 21.00 01/17/21 16:45 57 15 111/75 Mechanical Ventilator 21.00 01/17/21 16:30 57 16 112/73 98 Mechanical Ventilator 21.00 01/17/21 16:15 56 15 113/75 99 Mechanical Ventilator 21.00 01/17/21 16:00 36.2 01/17/21 16:00 56 15 108/73 Mechanical Ventilator 21.00 01/17/21 16:00 97 Mechanical Ventilator 21 01/17/21 15:45 57 15 110/73 Mechanical Ventilator 21.00 01/17/21 15:30 57 16 106/71 97 Mechanical Ventilator 21.00 01/17/21 15:15 59 16 106/67 Mechanical Ventilator 21.00 01/17/21 15:01 58 106/72 01/17/21 15:00 62 16 97 21 01/17/21 15:00 57 11 106/71 Mechanical Ventilator 21.00 01/17/21 14:45 58 21 107/71 Mechanical Ventilator 21.00 01/17/21 14:30 60 32 107/72 98 Mechanical Ventilator 21.00 01/17/21 14:15 58 33 106/75 92 Mechanical Ventilator 21.00 01/17/21 14:00 57 16 112/72 Mechanical Ventilator 21.00 01/17/21 13:45 58 16 110/73 97 Mechanical Ventilator 21.00 01/17/21 13:30 110/72 01/17/21 13:15 58 16 106/72 98 Mechanical Ventilator 21.00 01/17/21 13:15 58 16 106/72 98 Mechanical Ventilator 21.00 01/17/21 13:00 58 15 104/68 Mechanical Ventilator 21.00 01/17/21 13:00 61 01/17/21 12:45 109/73 01/17/21 12:30 107/74 01/17/21 12:15 59 15 111/70 98 Mechanical Ventilator 21.00 01/17/21 12:00 60 16 107/71 97 Mechanical Ventilator 21.00 01/17/21 12:00 36.5 01/17/21 12:00 96 Mechanical Ventilator 21 01/17/21 11:55 62 103/66 01/17/21 11:51 62 103/66 01/17/21 11:45 64 18 97/63 93 Mechanical Ventilator 21.00 01/17/21 11:30 61 15 106/70 98 Mechanical Ventilator 21.00 01/17/21 11:29 62 103/66 01/17/21 11:15 59 16 105/67 Mechanical Ventilator 21.00 01/17/21 11:00 63 15 106/68 Mechanical Ventilator 21.00 01/17/21 10:45 61 16 102/66 98 Mechanical Ventilator 21.00 01/17/21 10:30 61 15 101/66 98 Mechanical Ventilator 21.00 01/17/21 10:25 62 16 97 21 01/17/21 10:15 61 15 103/66 99 Mechanical Ventilator 21.00 I & O 01/18/21 07:00 Intake Total 2560 ml Output Total 1250 ml Balance 1310 ml Height & Weight Height: '" Weight: lbs. oz. kg; 27.61 BMI Method: General Appearance: No Apparent Distress, Chronically ill, Other (sedated and intubated) Respiratory: No Accessory Muscle Use, Accessory Muscle Use, Rhonci (right lower sternal border) Cardiovascular: Regular Rate, Rhythm, No Murmur Gastrointestinal: normal bowel sounds, non tender, soft, other (PT HAS A VERY LARGE BRUISE TO LEFT UPPER QUADRANT--PT DOES NOT KNOW HOW IT OCCURRED OR WHEN) Extremity: Other (bilateral knee erythema ) Neurologic/Psychiatric: Other (PT sedated and intubated ) Skin: Warm/Dry, Ecchymosis (left abdomen ) Results Lab Laboratory Tests 01/16/21 18:13 01/16/21 23:55 01/17/21 05:25 01/17/21 13:20 01/17/21 19:58 01/18/21 03:06 Assessment/Plan Assessment/Plan (Tele-ICU Physician , Progress Note ) Available chart/ vitals / labs / Images reviewed Video assessment done using teleICU camera, rest of exam as per RN Discussed with RN , EXAM PER RN Events overnight : Afebrile FiO2 - 21% I/O = neg Drips: bicarb Pressors: levo Sedation gtt: prop 45 presedx 0. 2 ( RASS ) VENT SETTINGS and ABG reviewed Candidate for SBT today REVIEWED Cardiovascular Stability / Sedation Score / FI02/PEEP / ABG / CXR Consultants: Hospital course: 01/16 - intubated with Sz / eton withdrowal , rhabdo, PNA 01/17 - LEVO , AC 16 550 21 % +5 01/18 - AC 12 550 +5 21% PAP 18 , off bicarb gtt A/P Acute resp failure in the context of seizure (very probable ETOH related -full vent support, AC 12 550 +5 21% PAP 18 -sedation holiday- agitated , not follow commands Shock - ? sepsis - ABX started empirically with mildly elev PCT 0.3 01/17 ( UA neg , covid neg ) - to wean off pressors USHA, rhabdo - OFF bcarb gtt , follow BMP - replace lytes Seizures:- ? ETOH withdrowal , CTH neg 01/16 - cont keppra for now -ETOH abuse - d5/ thimaine/ folic acid/ mvi LOVENOX 100 bid - ? indications not clear to me now - will await cards input AG metabolic acidosis possible ETOH related QTc prolongation 566- probably with tricyclics OD- improving -bicarb pushes prn, STOP drip - follow , cards on board Anemia - delutional TC in urine with prolonged qtc/ repeat ekg/ bicarb pushes Lines : RIGHT IJ 01/16 (Central Line Necessity Reviewed) Pedraza: + OG: Nutrition: start TF Analgesia: Anxiety/ delirium VTE Prophylaxis: lovenox Stress Ulcer Prophylaxis: ppi Glycemic Control: Plans in collaboration with bedside consultants and IM MDs. Discussed with RN to reach out if any questions or concerns A total of 33 minutes of critical care time was devoted to this patient today, required to treat and/or prevent further deterioration of critical care condition ( as above) . JEANNINE VILLALTA MD Jan 18, 2021 10:10
--- NOTE | 2021-01-18 10:58 | Pulmonary Progress Note ---
DEMI SANDOVAL 01/18/21 1058: Subjective Subjective/Events-last exam The patient is intubated and sedated. No acute events overnight. Review of Systems General: No Chills, No Night Sweats Gastrointestinal: No: Vomiting Neurological: No: Seizures Exam Exam Patient acknowledged, consented, and participated in this virtual visit which was conducted using real time audio/video Vital Signs Date Time Temp Pulse Resp B/P (MAP) Pulse Ox O2 Delivery O2 Flow Rate FiO2 01/18/21 08:54 53 131/88 01/18/21 08:11 36.3 01/18/21 08:00 97 Mechanical Ventilator 21 01/18/21 07:21 53 131/88 01/18/21 07:05 53 12 96 21 01/18/21 07:00 59 01/18/21 06:31 91/54 01/18/21 06:00 56 14 114/69 99 Mechanical Ventilator 21.00 01/18/21 05:50 117/82 01/18/21 05:00 53 16 122/83 99 Mechanical Ventilator 21.00 01/18/21 04:00 50 15 124/83 98 Mechanical Ventilator 21.00 01/18/21 04:00 97 Mechanical Ventilator 21 01/18/21 04:00 36.1 01/18/21 03:00 46 16 133/89 99 Mechanical Ventilator 21.00 01/18/21 02:04 51 16 97 21 01/18/21 02:00 56 17 94/55 97 Mechanical Ventilator 21.00 01/18/21 01:00 53 01/18/21 01:00 53 16 104/72 98 Mechanical Ventilator 21.00 01/18/21 00:31 55 106/74 01/18/21 00:30 55 106/75 01/18/21 00:10 97 Mechanical Ventilator 21 01/18/21 00:10 36.3 01/18/21 00:00 54 15 106/75 98 Mechanical Ventilator 21.00 01/17/21 23:00 53 16 101/69 98 Mechanical Ventilator 21.00 01/17/21 22:00 54 16 102/71 98 Mechanical Ventilator 21.00 01/17/21 21:41 55 16 97 21 01/17/21 21:17 98/66 01/17/21 21:00 55 16 98/66 97 Mechanical Ventilator 21.00 01/17/21 20:00 60 15 99/63 96 Mechanical Ventilator 21.00 01/17/21 19:44 97 Mechanical Ventilator 21 01/17/21 19:35 36.5 01/17/21 19:00 54 16 113/74 97 Mechanical Ventilator 21.00 01/17/21 19:00 54 01/17/21 18:35 58 16 96 21 01/17/21 18:08 57 112/73 01/17/21 18:00 54 16 111/78 100 Mechanical Ventilator 21.00 01/17/21 17:45 56 18 113/77 Mechanical Ventilator 21.00 01/17/21 17:30 56 15 113/77 98 Mechanical Ventilator 21.00 01/17/21 17:15 56 16 110/76 99 Mechanical Ventilator 21.00 01/17/21 17:00 56 15 113/77 Mechanical Ventilator 21.00 01/17/21 16:45 57 15 111/75 Mechanical Ventilator 21.00 01/17/21 16:30 57 16 112/73 98 Mechanical Ventilator 21.00 01/17/21 16:15 56 15 113/75 99 Mechanical Ventilator 21.00 01/17/21 16:00 36.2 01/17/21 16:00 56 15 108/73 Mechanical Ventilator 21.00 01/17/21 16:00 97 Mechanical Ventilator 21 01/17/21 15:45 57 15 110/73 Mechanical Ventilator 21.00 01/17/21 15:30 57 16 106/71 97 Mechanical Ventilator 21.00 01/17/21 15:15 59 16 106/67 Mechanical Ventilator 21.00 01/17/21 15:01 58 106/72 01/17/21 15:00 62 16 97 21 01/17/21 15:00 57 11 106/71 Mechanical Ventilator 21.00 01/17/21 14:45 58 21 107/71 Mechanical Ventilator 21.00 01/17/21 14:30 60 32 107/72 98 Mechanical Ventilator 21.00 01/17/21 14:15 58 33 106/75 92 Mechanical Ventilator 21.00 01/17/21 14:00 57 16 112/72 Mechanical Ventilator 21.00 01/17/21 13:45 58 16 110/73 97 Mechanical Ventilator 21.00 01/17/21 13:30 110/72 01/17/21 13:15 58 16 106/72 98 Mechanical Ventilator 21.00 01/17/21 13:15 58 16 106/72 98 Mechanical Ventilator 21.00 01/17/21 13:00 58 15 104/68 Mechanical Ventilator 21.00 01/17/21 13:00 61 01/17/21 12:45 109/73 01/17/21 12:30 107/74 01/17/21 12:15 59 15 111/70 98 Mechanical Ventilator 21.00 01/17/21 12:00 60 16 107/71 97 Mechanical Ventilator 21.00 01/17/21 12:00 36.5 01/17/21 12:00 96 Mechanical Ventilator 21 01/17/21 11:55 62 103/66 01/17/21 11:51 62 103/66 01/17/21 11:45 64 18 97/63 93 Mechanical Ventilator 21.00 01/17/21 11:30 61 15 106/70 98 Mechanical Ventilator 21.00 01/17/21 11:29 62 103/66 01/17/21 11:15 59 16 105/67 Mechanical Ventilator 21.00 01/17/21 11:00 63 15 106/68 Mechanical Ventilator 21.00 I & O 01/18/21 07:00 Intake Total 2560 ml Output Total 1250 ml Balance 1310 ml Height & Weight Height: '" Weight: lbs. oz. kg; 27.61 BMI Method: General Appearance: No Apparent Distress, Chronically ill, Other (sedated and intubated) Respiratory: No Accessory Muscle Use, Accessory Muscle Use, Rhonci (right lower sternal border) Cardiovascular: Regular Rate, Rhythm, No Murmur Gastrointestinal: normal bowel sounds, non tender, soft, other (PT HAS A VERY LARGE BRUISE TO LEFT UPPER QUADRANT--PT DOES NOT KNOW HOW IT OCCURRED OR WHEN) Extremity: Other (bilateral knee erythema ) Neurologic/Psychiatric: Other (PT sedated and intubated ) Skin: Warm/Dry, Ecchymosis (left abdomen ) Results Lab Laboratory Tests 01/16/21 18:13 01/16/21 23:55 01/17/21 05:25 01/17/21 13:20 01/17/21 19:58 01/18/21 03:06 Assessment/Plan Assessment/Plan Acute respiratory failure: * Likely due to ETOH withdrwal seizure * Patient currently intubated and sedated * AC/VC Rate12, PEEP 5, FiO2 21% * Sedation holiday today to assess extubation ETOH withdrawal seizure * CIWA protocol * Keppra * Replacing lytes Critical Care: Ventilator Management JEANNINE VILLALTA MD 01/18/21 1215: Subjective Date Seen by a Provider: Jan 18, 2021 Time Seen by a Provider: 10:00 Supervisory-Addendum Brief Verification & Attestation Participated in pt care: history, MDM, physical Personally performed: exam, history, MDM, supervision of care Care discussed with: Medical Student Procedures: n/a Results interpretation: Verified all documentation A medical student performed and documented this service. I reviewed information documented by the medical student . Medical student performed patients physical exam . Medical decision making was done during tele-rounds with this medical student and a bedside RN . Please see my notes for details /clarification of assessment and plans DEMI SANDOVAL Jan 18, 2021 10:58 JEANNINE VILLALTA MD Jan 18, 2021 12:15
--- NOTE | 2021-01-18 11:33 | Progress Note - Hospitalist ---
LANCE HICKS 01/18/21 1132: Subjective HPI/CC On Admission Date Seen by Provider: Jan 18, 2021 Time Seen by Provider: 08:30 Subjective/Events-last exam The patient continues to be sedated and on mechanical ventilation. Per nursing: the patient's ABG pH increased to 7.62, and his ventilator RR was decreased to 12 to correct for the increased pH. There was some blood surrounding his central line as well. Review of Systems ROS not possible, patient was sedated and intubated Focused Exam Lactate Level 01/16/21 23:55: Lactic Acid Level 0.96 Objective Exam Vital Signs Vital Signs Date Time Temp Pulse Resp B/P (MAP) Pulse Ox O2 Delivery O2 Flow Rate FiO2 01/18/21 12:06 97 Mechanical Ventilator 01/18/21 11:10 48 12 01/18/21 08:54 131/88 01/18/21 08:11 36.3 01/18/21 06:00 21.00 Capillary Refill : General Appearance: No Apparent Distress, Chronically ill, Other (patient sedated and intubated ) Respiratory: Rhonci (ascultated at right lower sternal border), Other (on mechanical ventilation. PEEP of 5. FIO2 of 21. RR of 12. Volume of 550. ) Cardiovascular: Regular Rate, Rhythm, No Murmur Gastrointestinal: No Organomegaly, No Pulsatile Mass, Soft, Other (continues with left sided abdominal ecchymosis ) Extremity: No Pedal Edema, Other (continues with bilateral ecchymosis of the knees) Neurologic/Psychiatric: Other (sedated ) Skin: Warm/Dry, Ecchymosis (left abdomen, R and L knees) Results/Procedures Lab Laboratory Tests 01/17/21 13:20 01/17/21 19:58 01/18/21 03:06 Patient resulted labs reviewed. Imaging: Reviewed Imaging Report Assessment/Plan Assessment and Plan Assess & Plan/Chief Complaint 45 YO male with aspiration pneumonia, acute respiratory failure, alcohol withdrawal with seizure, elevated LFTs with hepatic steatosis, thrombocytopenia, rhabdomyolysis. Aspiration pneumonia Continue Zosyn Acute respiratory failure Alcohol withdrawal with seizure Continue with CIWA protocol. Attempt sedation vacation later today. Continue Ativan q4 hours. Continue IV Keppra. Continue IV fluid and multivitamin replacement. PT will switch from a central line to a PICC line. Elevated LFTs with hepatic steatosis Thrombocytopenia Rhabdomyolysis monitor labs AMBAR LAY MD 01/18/21 1734: Subjective HPI/CC On Admission Time Seen by Provider: 10:00 Assessment/Plan Assessment and Plan Assess & Plan/Chief Complaint Admitted with acute alcohol withdrawal with seizure in setting of alcohol dependence. Still on ventilator this morning. Continue CIWA protocol. Continue antibiotics for aspiration pneumonia. Continue Keppra. Critical Care: Critically Ill Patient Diagnosis/Problems Diagnosis/Problems (1) Alcohol withdrawal seizure with perceptual disturbance Status: Acute (2) Acute respiratory failure with hypoxia Status: Acute (3) Endotracheally intubated Status: Acute (4) Hypokalemia Status: Acute (5) Hyponatremia Status: Acute (6) Aspiration pneumonia Status: Acute (7) Alcoholic hepatitis Status: Acute Qualifiers: Qualified Codes: K70.10 - Alcoholic hepatitis without ascites (8) Hepatic steatosis Status: Acute (9) USHA (acute kidney injury) Status: Acute Supervisory-Addendum Brief Verification & Attestation Participated in pt care: history, MDM, physical Personally performed: exam, history, MDM, supervision of care Care discussed with: Medical Student Procedures: n/a Results interpretation: Verified all documentation A medical student performed and documented this service in my presence. I reviewed and verified all information documented by the medical student and made modifications to such information, when appropriate. I personally performed the physical exam and medical decision making. LANCE HICKS Jan 18, 2021 11:32 AMBAR LAY MD Jan 18, 2021 17:34
--- NOTE | 2021-01-18 11:55 | Procedure/Intervention Note ---
Procedures/Interventions Lumen: triple Central Line Procedure: betadine prep, sterile drapes applied, sterile dressing applied Position: internal jugular (R) Anesthesia: Lidocaine Volume Anesthetic (ccs): 5 Complications: none Post Position: sutured, good blood return, position confirmed w/ CXR On 01/16/2021 at 2250 I was called ICU by house wirer to start a central line on this gentleman due to hypotension requiring Levophed drip. Inserted a right internal jugular triple-lumen subclavian 16 cm under sterile technique and ultrasound guidance without difficulty. Date of ETT Placement: Jan 16, 2021 Time of ETT Placement: 2014 Intubation Method: orotracheal Tube Size: 7.50 Medications: Etomidate, Rocuronium Positive End Tide CO2: Yes Breath Sounds after Intubation: bilateral-equal Intubation Complications: no complications Post Intubation Xray: Yes SCOTT LAGUNA APRN Jan 18, 2021 11:55
[2021-01-18] MEDS: ENOXAPARIN 40 MG/0.4 ML (LOVENOX) SYR SC SCH (12:23)
[2021-01-18] MEDS: fentaNYL INJ 100 MCG/2 ML AMP IVP NR ×2 (12:38→14:30)
--- NOTE | 2021-01-18 13:47 | Progress Note - Cardiology ---
Cardiology SOAP Progress Note Subjective: On mech vent, unresponsive Objective: I&O/Vital Signs 01/18/21 01/18/21 01/18/21 01/18/21 02:00 02:04 03:00 04:00 Temp 36.1 Pulse 56 51 46 Resp 17 16 16 B/P (MAP) 94/55 133/89 Pulse Ox 97 97 99 O2 Delivery Mechanical Ventilator Mechanical Ventilator O2 Flow Rate 21.00 21.00 FiO2 21 01/18/21 01/18/21 01/18/21 01/18/21 04:00 04:00 05:00 05:50 Pulse 50 53 Resp 15 16 B/P (MAP) 124/83 122/83 117/82 Pulse Ox 97 98 99 O2 Delivery Mechanical Ventilator Mechanical Ventilator Mechanical Ventilator O2 Flow Rate 21.00 21.00 FiO2 21 01/18/21 01/18/21 01/18/21 01/18/21 06:00 06:31 07:00 07:00 Pulse 56 53 59 Resp 14 12 B/P (MAP) 114/69 91/54 131/88 Pulse Ox 99 96 O2 Delivery Mechanical Ventilator Mechanical Ventilator O2 Flow Rate 21.00 21.00 01/18/21 01/18/21 01/18/21 01/18/21 07:05 07:21 08:00 08:00 Pulse 53 53 49 Resp 12 16 B/P (MAP) 131/88 112/85 Pulse Ox 96 97 97 O2 Delivery Mechanical Ventilator Mechanical Ventilator O2 Flow Rate 21.00 FiO2 21 21 01/18/21 01/18/21 01/18/21 01/18/21 08:11 08:54 09:00 10:00 Temp 36.3 Pulse 53 48 49 Resp 11 B/P (MAP) 131/88 125/88 119/83 Pulse Ox 98 98 O2 Delivery Mechanical Ventilator Mechanical Ventilator O2 Flow Rate 21.00 21.00 01/18/21 01/18/21 01/18/21 01/18/21 11:00 11:10 12:00 12:06 Pulse 48 48 51 Resp 11 12 B/P (MAP) 114/104 Pulse Ox 98 98 99 97 O2 Delivery Mechanical Ventilator Mechanical Ventilator Mechanical Ventilator O2 Flow Rate 21.00 21.00 FiO2 21 21 01/18/21 13:00 Pulse 52 Resp 11 B/P (MAP) 116/85 Pulse Ox 98 O2 Delivery Mechanical Ventilator O2 Flow Rate 21.00 01/18/21 00:00 Intake Total 230 ml Output Total 600 ml Balance -370 ml Constitutional: other (intubated and sedated) Respiratory: lungs clear to auscultation Cardiovascular: regular rate-rhythm; No JVD; S1 and S2 Gastrointestional: audible bowel sounds Extremities: no lower extremity edema bilateral Neurologic/Psychiatric: other (unable to cooperate with neuro exam d/t sedation) Skin: No rash on exposed areas, No ulcerations on exposed areas Results/Procedures: Labs Laboratory Tests 01/17/21 17:46: Glucometer 118H 01/17/21 19:58: Sodium Level 133L, Potassium Level 3.0L, Chloride Level 91L, Carbon Dioxide Level 27, Anion Gap 15H, Blood Urea Nitrogen 15, Creatinine 0.91, Estimat Glom erular Filtration Rate 89, BUN/Creatinine Ratio 16, Glucose Level 123H, Calcium Level 8.1L 01/17/21 23:58: Glucometer 139H 01/18/21 03:06: Sodium Level 133L, Potassium Level 3.0L, Chloride Level 91L, Carbon Dioxide Le garcia 25, Anion Gap 17H, Blood Urea Nitrogen 12, Creatinine 0.86, Estimat Glomeru lar Filtration Rate 95, BUN/Creatinine Ratio 14, Glucose Level 116H, Calcium Level 8.1L, White Blood Count 4.1L, Red Blood Count 3.59L, Hemoglobin 11.1L, Hematocrit 32L, Mean Corpuscular Volume 89, Mean Corpuscular Hemoglobin 31, Mean Corpuscular Hemoglobin Concent 35, Red Cell Distribution Width 12.5, Platelet Count 103L, Mean Platelet Volume 11.8, Immature Granulocyte % (Auto) 1, Neutrophils (%) (Auto) 60, Lymphocytes (%) (Auto) 26, Monocytes (%) (Auto) 13H, Eosinophils (%) (Auto) 1, Basophils (%) (Auto) 0, Neutrophils # (Auto) 2.4, Lymphocytes # (Auto) 1.1, Monocytes # (Auto) 0.5, Eosinophils # (Auto) 0.0, Basophils # (Auto) 0.0, Immature Granulocyte # (Auto) 0.0, Blood Gas Puncture Site RIGHT RADIAL, Blood Gas Patient Temperature 36.1, Arterial Blood pH 7.62*H, Arterial Blood Partial Pressure CO2 27L, Arterial Blood Partial Pressure O2 75L, Arterial Blood HCO3 28H, Arterial Blood Total CO2 28.8, Arterial Blood Oxygen Saturation 98, Arterial Blood Base Excess 5.8H, Harpreet Test POSITIVE, Blood Gas Ventilator Setting YES, Blood Gas Inspired Oxygen 21%, Corrected Calcium 8.9, Phosphorus Level 1.2L, Magnesium Level 2.0, Total Bilirubin 1.2H, Aspartate Amino Transf (AST/SGOT) 99H, Alanine Aminotransferase (ALT/SGPT) 39, Alkaline Phosphatase 71, Total Protein 5.6L, Albumin 3.0L 01/18/21 09:00: Blood Gas Puncture Site RT RAD, Blood Gas Patient Temperature 36.4, Arterial Blood pH 7.54H, Arterial Blood Partial Pressure CO2 32L, Arterial Blood Partial Pressure O2 86, Arterial Blood HCO3 27, Arterial Blood Total CO2 28.3, Arterial Blood Oxygen Saturation 98, Arterial Blood Base Excess 4.5H, Harpreet Test NA, Blood Gas Ventilator Setting NO, Blood Gas Inspired Oxygen 21% 01/18/21 12:48: Glucometer 92 Microbiology 01/16/21 MRSA Screen - Final, Complete MRSA not isolated Laboratory Tests 01/16/21 18:13 01/16/21 23:55 01/17/21 05:25 01/17/21 13:20 01/17/21 19:58 01/18/21 03:06 A/P: Assessment: Abnormal ECG: early repolarization - No evidence of acute CA: no progression of ECG, troponin normal, no wall motion abnormality on echo, LVEF normal - Echo on 01/17/21: LVEF 55-60%, no regional wall motion abnormality ETOH withdrawal with seizure requiring intubation - mangement per eICU services Long-standing h/o ETOH abuse - reported to drink 1/5 Vodka and approx 15 beers nightly Rhabodomyolysis - management per eICU Documented h/o Parkinson's Documented h/o seizures Electrolyte abnormalities - likely d/t chronic ETOH abuse Plan: Treatment of rhabdo per eICU services Replace electrolytes Management of ETOH WD per eICU/medical services Monitor lab closely Change enoxaparin to DVT prophylaxis dose VIC WELLS MD [facility] Jan 18, 2021 13:47
[2021-01-18 14:08] VITALS: BP 117/99
[2021-01-18] MEDS ORDERED: fentaNYL INJ 100 MCG/2 ML AMP ONE (14:27)
[2021-01-18] MEDS ORDERED: MIDAZOLAM 5 MG/5 ML (VERSED) VIAL IVP ONE (14:30)
[2021-01-18] MEDS ORDERED: fentaNYL INJ 100 MCG/2 ML AMP IVP PRN (14:30)
[2021-01-18] MEDS ORDERED: MIDAZOLAM 5 MG/5 ML (VERSED) VIAL ONE (14:41)
[2021-01-18] MEDS ORDERED: LORazepam 1 MG (ATIVAN) TAB PO PRN (14:45)
[2021-01-18] MEDS ORDERED: LORazepam INJ 2 MG/ML (ATIVAN) VIAL IM/IV PRN (14:45)
[2021-01-18] MEDS ORDERED: LORazepam INJ 2 MG/ML (ATIVAN) VIAL IVP NR (14:45)
[2021-01-18] MEDS ORDERED: LORazepam INJ 2 MG/ML (ATIVAN) VIAL IV PRN (14:45)
[2021-01-18] MEDS ORDERED: MIDAZOLAM 2 MG/2 ML (VERSED) VIAL IVP NR (14:45)
[2021-01-18] MEDS: LORazepam INJ 2 MG/ML (ATIVAN) VIAL IV PRN (16:55)
[2021-01-18] MEDS ORDERED: NS IV 1000 ML 1,000 ML ONE (22:06)
[2021-01-18] MEDS ORDERED: NS IV 1000 ML 1,000 ML IV SCH (22:15)
[2021-01-18] MEDS: NS IV 1000 ML 1,000 ML IV SCH (23:38)
[2021-01-19] MEDS: VASOPRESSIN INJECTION 20 UNIT in NS (IVPB) 100 ML IV SCH ×2 (01:16→15:23)
[2021-01-19] MEDS: NOREPINEPHRINE 8 MG/250 ML 250 ML IV SCH ×2 (01:16→15:24)
[2021-01-19 03:18] LABS: BASOPHILS % (AUTO) 0 % (0-10); HEMATOCRIT 31 % (40-54); LYMPHOCYTES # (AUTO) 0.8 10^3/uL (1.0-4.0); MEAN CORPUSCULAR VOLUME 93 fL (80-99)
[2021-01-19 03:19] LABS: EOSINOPHILS % (AUTO) 1 % (0-10); HEMOGLOBIN 10.5 g/dL (13.3-17.7); LYMPHOCYTES % (AUTO) 26 % (12-44); MEAN CORPUSCULAR HEMOGLOBIN 31 pg (25-34); MEAN CORPUSCULAR HGB CONC 34 g/dL (32-36); MEAN PLATELET VOLUME 11.2 fL (9.0-12.2); MONOCYTES # (AUTO) 0.4 10^3/uL (0.0-1.0); MONOCYTES % (AUTO) 14 % (0-12); NEUTROPHILS # (AUTO) 1.7 10^3/uL (1.8-7.8); NEUTROPHILS % (AUTO) 58 % (42-75); PLATELET COUNT 89 10^3/uL (130-400)
[2021-01-19 03:25] LABS: ALBUMIN 2.9 GM/DL (3.2-4.5); POTASSIUM 3.3 MMOL/L (3.6-5.0)
[2021-01-19 03:27] LABS: CALCIUM 7.9 MG/DL (8.5-10.1)
[2021-01-19 03:28] LABS: TOTAL PROTEIN 5.5 GM/DL (6.4-8.2)
[2021-01-19] MEDS: KCL 20 MEQ TAB (K-DUR) PO SCH (03:28)
[2021-01-19] MEDS: POTASSIUM CL 10MEQ/50ML IVPB 50 ML IV SCH ×4 (03:28→04:48)
[2021-01-19 03:29] LABS: BILIRUBIN,TOTAL 1.4 MG/DL (0.1-1.0)
[2021-01-19 03:32] LABS: CREATININE SERUM 0.66 MG/DL (0.60-1.30)
[2021-01-19 03:34] LABS: MAGNESIUM 1.9 MG/DL (1.6-2.4)
[2021-01-19] MEDS: MAGNESIUM 1 GM/100 ML IVPB 100 ML IV SCH (03:36)
[2021-01-19] MEDS: LORazepam INJ 2 MG/ML (ATIVAN) VIAL IVP SCH ×6 (03:44→23:19)
[2021-01-19] MEDS: NS IV 1000 ML 1,000 ML IV SCH ×3 (03:44→23:18)
[2021-01-19] MEDS: inSUlin ASPART (NovoLOG) 1 UNIT/0.01 ML (CHARGE PER UNIT) SQ SCH ×4 (05:12→22:58)
[2021-01-19] MEDS: THIAMINE 100 MG (VITAMIN B-1) TAB PO SCH (05:13)
[2021-01-19] MEDS: MULTIVIT W/MINERALS TAB (THERAGRAN M) PO SCH (05:13)
[2021-01-19] MEDS: PIPERACILLIN/TAZOBACTAM (BULK) 4.5 GM in NS (IVPB) 100 ML IV SCH ×3 (05:50→23:18)
[2021-01-19] MEDS: PROPOFOL DRIP (ICU) 100 ML IV SCH ×2 (07:30→15:29)
[2021-01-19] MEDS: PANTOPRAZOLE 40 MG (PROTONIX) VIAL IV SCH (07:43)
[2021-01-19] MEDS: FOLIC ACID 1 MG TAB PO SCH (07:43)
[2021-01-19] MEDS: LEVETIRACETAM 1,000 MG/NS 100 ML IVPB IV SCH ×4 (07:43→20:07)
--- NOTE | 2021-01-19 08:34 | Progress Note - Cardiology ---
Cardiology SOAP Progress Note Subjective: Extubated yesterday Oriented to self only Nonsensical conversation - requires frequent redirection Sitter at the bedside Cooperative Objective: I&O/Vital Signs 01/21/21 01/21/21 01/21/21 01/22/21 21:00 22:00 23:00 00:00 Pulse 81 94 91 86 Resp 18 17 26 24 B/P (MAP) 148/108 147/96 145/114 132/103 Pulse Ox 100 98 100 O2 Delivery Room Air Room Air Room Air Room Air 01/22/21 01/22/21 01/22/21 01/22/21 00:18 01:00 01:00 02:00 Pulse 70 77 80 Resp 21 31 B/P (MAP) 154/111 147/101 Pulse Ox 89 O2 Delivery Room Air Room Air Room Air 01/22/21 01/22/21 01/22/21 01/22/21 02:04 03:00 04:00 04:00 Pulse 69 82 Resp 26 B/P (MAP) 154/98 140/127 Pulse Ox 98 100 O2 Delivery Room Air Room Air Room Air Room Air 01/22/21 01/22/21 01/22/21 01/22/21 05:00 06:00 06:55 07:00 Pulse 62 66 Resp 21 B/P (MAP) 159/110 165/102 159/82 Pulse Ox 97 O2 Delivery Room Air Room Air Room Air Room Air 01/22/21 01/22/21 01/22/21 01/22/21 07:00 07:15 07:30 07:45 Pulse 109 Resp 19 23 21 O2 Delivery Room Air Room Air Room Air 01/22/21 01/22/21 01/22/21 08:00 08:00 08:15 Temp 37.0 Pulse 108 118 Resp 13 33 B/P (MAP) 124/84 Pulse Ox 86 O2 Delivery Room Air 01/21/21 23:59 Intake Total 1105 ml Output Total 3070 ml Balance -1965 ml Constitutional: other (Awake, oriented to self only - conversation nonsensical - requires frequent redirection) Respiratory: lungs clear to auscultation Cardiovascular: regular rate-rhythm; No JVD; S1 and S2 Gastrointestional: audible bowel sounds Extremities: no lower extremity edema bilateral Neurologic/Psychiatric: grossly intact (moves all extremities) Skin: No rash on exposed areas, No ulcerations on exposed areas Results/Procedures: Labs Laboratory Tests 01/21/21 11:25: Glucometer 78 01/21/21 17:06: Glucometer 80 01/21/21 22:42: Glucometer 76 01/22/21 05:00: White Blood Count 5.3, Red Blood Count 3.67L, Hemoglobin 11.3L, Hematocrit 34L, Mean Corpuscular Volume 93, Mean Corpuscular Hemoglobin 31, Mean Corpuscular Hemoglobin Concent 33, Red Cell Distribution Width 13.1, Platelet Count 222, Mean Platelet Volume 10.5, Immature Granulocyte % (Auto) 1, Neutrophils (%) (Auto) 60, Lymphocytes (%) (Auto) 21, Monocytes (%) (Auto) 17H, Eosinophils (%) (Auto) 1, Basophils (%) (Auto) 0, Neutrophils # (Auto) 3.2, Lymphocytes # (Auto) 1.1, Monocytes # (Auto) 0.9, Eosinophils # (Auto) 0.1, Basophils # (Auto) 0.0, Immature Granulocyte # (Auto) 0.1, Sodium Level 137, Potassium Level 3.7, Chloride Level 105, Carbon Dioxide Level 20L, Anion Gap 12, Blood Urea Nitrogen 3L, Creatinine 0.73, Estimat Glomerular Filtration Rate 115, BUN/Creatinine Ratio 4, Glucose Level 104, Calcium Level 8.3L, Corrected Calcium 9.0, Phosphorus Level 3.5, Magnesium Level 1.5L, Total Bilirubin 1.2H, Aspartate Amino Transf (AST/SGOT) 59H, Alanine Aminotransferase (ALT/SGPT) 28, Alkaline Phosphatase 95, Total Protein 6.1L, Albumin 3.1L Microbiology 01/16/21 MRSA Screen - Final, Complete MRSA not isolated A/P: Assessment: Abnormal ECG: early repolarization - No evidence of acute ND: no progression of ECG, troponin normal, no wall motion abnormality on echo, LVEF normal - Echo on 01/17/21: LVEF 55-60%, no regional wall motion abnormality ETOH withdrawal with seizure requiring intubation - mangement per eICU services - extubated on 01-18-21 Long-standing h/o ETOH abuse - reported to drink 1/5 Vodka and approx 15 beers nightly Rhabodomyolysis - management per eICU Documented h/o Parkinson's Documented h/o seizures Electrolyte abnormalities - likely d/t chronic ETOH abuse Plan: Treatment of rhabdo per eICU services Replace electrolytes - management per medical services Management of ETOH WD per eICU/medical services Monitor lab closely Change enoxaparin to DVT prophylaxis dose AURELIA BENJAMIN Jan 19, 2021 08:34
--- NOTE | 2021-01-19 09:54 | Tele-ICU Progress Note ---
Subjective Date Seen by a Provider: Jan 19, 2021 Time Seen by a Provider: 09:49 Subjective/Events-last exam Patient today is awake alert but anxious requiring Ativan on a as needed basis. In no acute respiratory distress present. He is extubated on 01/18/2021. Apparently has a seizures and rhabdomyolysis which are stable currently. He denies any shortness of breath. No chest pain. Review of Systems ROS PER ATTENDING Sepsis Event Evaluation Height, Weight, BMI Height: '" Weight: lbs. oz. kg; 27.61 BMI Method: Focused Exam Lactate Level 01/16/21 23:55: Lactic Acid Level 0.96 Exam Exam Patient acknowledged, consented, and participated in this virtual visit which was conducted using real time audio/video Vital Signs Date Time Temp Pulse Resp B/P (MAP) Pulse Ox O2 Delivery O2 Flow Rate FiO2 01/19/21 09:00 88 25 130/83 98 Room Air 01/19/21 08:00 89 131/89 97 Room Air 01/19/21 08:00 37.3 01/19/21 07:54 94 Room Air 01/19/21 07:30 82 123/81 01/19/21 07:00 88 01/19/21 07:00 93 134/99 94 Room Air 01/19/21 06:00 82 123/81 88 Room Air 01/19/21 05:00 83 107/92 96 Room Air 01/19/21 04:00 81 114/72 96 Room Air 01/19/21 03:10 97 Room Air 01/19/21 03:00 37.4 Room Air 01/19/21 03:00 75 40 112/80 89 Room Air 01/19/21 02:47 94 Room Air 01/19/21 02:00 65 28 101/86 91 Room Air 01/19/21 01:00 58 36 94/72 94 Room Air 01/19/21 01:00 58 01/19/21 00:00 57 30 101/71 92 Room Air 01/18/21 23:15 96 Room Air 01/18/21 23:05 36.0 Room Air 01/18/21 23:00 55 16 94/59 95 Room Air 01/18/21 22:33 94 Room Air 01/18/21 22:00 61 27 111/77 94 Room Air 01/18/21 21:00 53 23 91/61 96 Room Air 01/18/21 20:00 35.8 01/18/21 20:00 53 115/86 97 Room Air 01/18/21 19:45 94 Room Air 01/18/21 19:45 46 118/99 98 Room Air 01/18/21 19:35 45 35 118/89 96 Room Air 01/18/21 19:19 58 91/65 92 Room Air 01/18/21 19:00 52 19 112/55 94 Room Air 01/18/21 19:00 Room Air 01/18/21 19:00 52 01/18/21 18:58 Room Air 01/18/21 18:22 58 132/107 01/18/21 16:00 58 16 132/107 92 Mechanical Ventilator 21.00 01/18/21 16:00 94 Room Air 01/18/21 15:00 52 138/94 98 Mechanical Ventilator 21.00 01/18/21 14:57 98 Room Air 01/18/21 14:08 56 16 100 21 01/18/21 14:00 61 12 117/99 100 Mechanical Ventilator 21.00 01/18/21 13:00 64 01/18/21 13:00 52 11 116/85 98 Mechanical Ventilator 21.00 01/18/21 12:06 97 Mechanical Ventilator 21 01/18/21 12:00 51 114/104 99 Mechanical Ventilator 21.00 01/18/21 11:10 48 12 98 21 01/18/21 11:00 48 11 98 Mechanical Ventilator 21.00 01/18/21 10:00 49 11 119/83 98 Mechanical Ventilator 21.00 I & O 01/19/21 06:59 Intake Total 2435 ml Output Total 1590 ml Balance 845 ml Height & Weight Height: '" Weight: lbs. oz. kg; 27.61 BMI Method: General Appearance: No Apparent Distress, Chronically ill, Other (patient sedated and intubated ) Respiratory: Rhonci (ascultated at right lower sternal border), Other (on mechanical ventilation. PEEP of 5. FIO2 of 21. RR of 12. Volume of 550. ) Cardiovascular: Regular Rate, Rhythm, No Murmur Capillary Refill: Less Than 3 Seconds Gastrointestinal: normal bowel sounds, non tender, soft, other (PT HAS A VERY LARGE BRUISE TO LEFT UPPER QUADRANT--PT DOES NOT KNOW HOW IT OCCURRED OR WHEN) Extremity: No Pedal Edema, Other (continues with bilateral ecchymosis of the knees) Neurologic/Psychiatric: Other (sedated ) Skin: Warm/Dry, Ecchymosis (left abdomen, R and L knees) Other comments PE PER ATTENDING Results Lab Laboratory Tests 01/17/21 13:20 01/17/21 19:58 01/18/21 03:06 01/19/21 03:07 Assessment/Plan Assessment/Plan 1. Alcohol withdrawal syndrome with agitation on and off. Improving. 2. History of seizure disorder. 3. Rhabdomyolysis improving. 4. Acute respiratory failure resolved and he is extubated. Recommendations 1. Continue to monitor his CIWA scale and use Ativan per protocol 2. Continue Keppra for seizure 3. Vitamins with thiamine and folic acid 4. Continue monitor lites and replace as needed. 5. Start on oral Librium. Critical Care: Critically Ill Patient Time spent with patient (mins): 20 POOJA PATEL MD Jan 19, 2021 09:54
--- NOTE | 2021-01-19 10:18 | Pulmonary Progress Note ---
Subjective Subjective/Events-last exam The patient was successfully extubated yesterday. He is currently resting comfortably with no complaints at this time. Review of Systems General: No Chills, No Night Sweats HEENT: No Visual Changes Pulmonary: No Dyspnea, No Cough Cardiovascular: No: Chest Pain, Palpitations Gastrointestinal: No: Nausea, Vomiting, Abdominal Pain Genitourinary: No Dysuria, No Frequency Musculoskeletal: No: other, neck pain, shoulder pain, arm pain, back pain, hand pain, leg pain, foot pain Neurological: No: Seizures Exam Exam Patient acknowledged, consented, and participated in this virtual visit which was conducted using real time audio/video Vital Signs Date Time Temp Pulse Resp B/P (MAP) Pulse Ox O2 Delivery O2 Flow Rate FiO2 01/19/21 09:00 88 25 130/83 98 Room Air 01/19/21 08:00 89 131/89 97 Room Air 01/19/21 08:00 37.3 01/19/21 07:54 94 Room Air 01/19/21 07:30 82 123/81 01/19/21 07:00 88 01/19/21 07:00 93 134/99 94 Room Air 01/19/21 06:00 82 123/81 88 Room Air 01/19/21 05:00 83 107/92 96 Room Air 01/19/21 04:00 81 114/72 96 Room Air 01/19/21 03:10 97 Room Air 01/19/21 03:00 37.4 Room Air 01/19/21 03:00 75 40 112/80 89 Room Air 01/19/21 02:47 94 Room Air 01/19/21 02:00 65 28 101/86 91 Room Air 01/19/21 01:00 58 36 94/72 94 Room Air 01/19/21 01:00 58 01/19/21 00:00 57 30 101/71 92 Room Air 01/18/21 23:15 96 Room Air 01/18/21 23:05 36.0 Room Air 01/18/21 23:00 55 16 94/59 95 Room Air 01/18/21 22:33 94 Room Air 01/18/21 22:00 61 27 111/77 94 Room Air 01/18/21 21:00 53 23 91/61 96 Room Air 01/18/21 20:00 35.8 01/18/21 20:00 53 115/86 97 Room Air 01/18/21 19:45 94 Room Air 01/18/21 19:45 46 118/99 98 Room Air 01/18/21 19:35 45 35 118/89 96 Room Air 01/18/21 19:19 58 91/65 92 Room Air 01/18/21 19:00 52 19 112/55 94 Room Air 01/18/21 19:00 Room Air 01/18/21 19:00 52 01/18/21 18:58 Room Air 01/18/21 18:22 58 132/107 01/18/21 16:00 58 16 132/107 92 Mechanical Ventilator 21.00 01/18/21 16:00 94 Room Air 01/18/21 15:00 52 138/94 98 Mechanical Ventilator 21.00 01/18/21 14:57 98 Room Air 01/18/21 14:08 56 16 100 21 01/18/21 14:00 61 12 117/99 100 Mechanical Ventilator 21.00 01/18/21 13:00 64 01/18/21 13:00 52 11 116/85 98 Mechanical Ventilator 21.00 01/18/21 12:06 97 Mechanical Ventilator 21 01/18/21 12:00 51 114/104 99 Mechanical Ventilator 21.00 01/18/21 11:10 48 12 98 21 01/18/21 11:00 48 11 98 Mechanical Ventilator 21.00 I & O 01/19/21 06:59 Intake Total 2435 ml Output Total 1590 ml Balance 845 ml Height & Weight Height: '" Weight: lbs. oz. kg; 27.61 BMI Method: General Appearance: No Apparent Distress Respiratory: Rhonci (ascultated at right lower sternal border), Other (on mechanical ventilation. PEEP of 5. FIO2 of 21. RR of 12. Volume of 550. ) Cardiovascular: Regular Rate, Rhythm, No Murmur Capillary Refill: Less Than 3 Seconds Gastrointestinal: normal bowel sounds, non tender, soft, other (PT HAS A VERY LARGE BRUISE TO LEFT UPPER QUADRANT--PT DOES NOT KNOW HOW IT OCCURRED OR WHEN) Extremity: No Pedal Edema, Other (continues with bilateral ecchymosis of the knees) Neurologic/Psychiatric: Oriented x3 Skin: Warm/Dry, Ecchymosis (left abdomen, R and L knees) Results Lab Laboratory Tests 01/17/21 13:20 12/8/21 19:58 01/18/21 03:06 01/19/21 03:07 Assessment/Plan Assessment/Plan Alcohol withdrawal with seizures * Patient was extubated yesterday successfully * Continue [facility] protocol * Vitamins with thiamine and folate DEMI SANDOVAL Jan 19, 2021 10:18
[2021-01-19] MEDS: NICOTINE 14 MG (NICODERM) PATCH TD SCH (10:38)
[2021-01-19] MEDS: ENOXAPARIN 40 MG/0.4 ML (LOVENOX) SYR SC SCH (10:40)
[2021-01-19] MEDS: LORazepam INJ 2 MG/ML (ATIVAN) VIAL IV PRN (11:01)
[2021-01-19] MEDS ORDERED: HALOPERIDOL 5 MG/ML (HALDOL) VIAL ONE (11:28)
[2021-01-19] MEDS ORDERED: PROCHLORPERAZINE 10 MG/2ML INJ (COMPAZINE) IV PRN (11:30)
[2021-01-19] MEDS: HALOPERIDOL 5 MG/ML (HALDOL) VIAL IM PRN (11:30)
[2021-01-19] MEDS: DexMEDEtomidine 250 ML DRIP 250 ML IV SCH ×2 (11:38→18:14)
--- NOTE | 2021-01-19 11:43 | Progress Note - Hospitalist ---
Subjective HPI/CC On Admission Date Seen by Provider: Jan 19, 2021 Time Seen by Provider: 08:15 Subjective/Events-last exam The patient was awake in bed this morning with a sitter by his bedside. He appeared agitated. The patient was extubated yesterday. The patient reports having some visual hallucinations. He denies tactile or auditory hallucinations. He denies having episodes of sweating. He reports having diarrhea. He denies vomiting, but reports having nausea. Review of Systems HEENT: No Head Aches, No Visual Changes Pulmonary: No Dyspnea, No Cough other systems unable to obtain, patient could not answer the questions Focused Exam Lactate Level 01/16/21 23:55: Lactic Acid Level 0.96 Objective Exam Vital Signs Vital Signs Date Time Temp Pulse Resp B/P (MAP) Pulse Ox O2 Delivery O2 Flow Rate FiO2 01/19/21 13:00 66 01/19/21 12:49 96 Room Air 01/19/21 11:38 130/83 01/19/21 11:10 37.6 01/19/21 09:00 25 01/18/21 16:00 21.00 01/18/21 14:08 21 Capillary Refill : Less Than 3 Seconds General Appearance: Anxious, Chronically ill, Mild Distress, Other (agitated ) HEENT: Other (patient unable to follow instructions to perform eye examination) Respiratory: Chest Non Tender, Lungs Clear, Normal Breath Sounds, No Accessory Muscle Use, No Respiratory Distress Cardiovascular: Regular Rate, Rhythm, No Edema, No Murmur Gastrointestinal: No Organomegaly, No Pulsatile Mass, Non Tender, Soft Extremity: No Calf Tenderness, No Pedal Edema Skin: Warm/Dry, Ecchymosis (on left abdomen, and both knees) Results/Procedures Lab Laboratory Tests 01/19/21 03:07 Patient resulted labs reviewed. Imaging: Reviewed Imaging Report Assessment/Plan Assessment and Plan Assess & Plan/Chief Complaint 45 YO male with aspiration pneumonia, acute respiratory failure, alcohol withdrawal with seizure, elevated LFTs with hepatic steatosis, alcohol induced pancytopenia, rhabdomyolysis. Aspiration pneumonia Continue Zosyn Acute respiratory failure Alcohol withdrawal with seizure Continue with CIWA protocol. Continue Ativan q4 hours. Continue IV Keppra. Continue IV fluid and multivitamin replacement. Will continue in ICU, and without intubation. Elevated LFTs with hepatic steatosis Alcohol induced pancytopenia Rhabdomyolysis monitor labs LANCE HICKS Jan 19, 2021 11:43
--- NOTE | 2021-01-19 13:11 | Progress Note - Cardiology ---
Cardiology SOAP Progress Note Subjective: Does not communicate much. Does not report any symptoms No cp or palp or syncope No shortness of breath No n/v/d Objective: I&O/Vital Signs 01/19/21 01/19/21 01/19/21 01/19/21 02:00 02:47 03:00 03:00 Temp 37.4 Pulse 65 75 Resp 28 40 B/P (MAP) 101/86 112/80 Pulse Ox 91 94 89 O2 Delivery Room Air Room Air Room Air Room Air 01/19/21 01/19/21 01/19/21 01/19/21 03:10 04:00 05:00 06:00 Pulse 81 83 82 B/P (MAP) 114/72 107/92 123/81 Pulse Ox 97 96 96 88 O2 Delivery Room Air Room Air Room Air Room Air 01/19/21 01/19/21 01/19/21 01/19/21 07:00 07:00 07:30 07:54 Pulse 93 88 82 B/P (MAP) 134/99 123/81 Pulse Ox 94 94 O2 Delivery Room Air Room Air 01/19/21 01/19/21 01/19/21 01/19/21 08:00 08:00 09:00 11:10 Temp 37.3 37.6 Pulse 89 88 Resp 25 B/P (MAP) 131/89 130/83 Pulse Ox 97 98 O2 Delivery Room Air Room Air 01/19/21 01/19/21 11:38 12:49 Pulse 88 B/P (MAP) 130/83 Pulse Ox 96 O2 Delivery Room Air 01/19/21 00:00 Intake Total 595 ml Output Total 575 ml Balance 20 ml Constitutional: other (Awake, oriented to self only - conversation nonsensical - requires frequent redirection) Respiratory: lungs clear to auscultation Cardiovascular: regular rate-rhythm; No JVD; S1 and S2 Gastrointestional: audible bowel sounds Extremities: no lower extremity edema bilateral Neurologic/Psychiatric: other (Mental status as described under Constitutional exam; moves all limbs equally) Skin: No rash on exposed areas, No ulcerations on exposed areas Results/Procedures: Labs Laboratory Tests 01/18/21 17:41: Glucometer 109 01/18/21 23:17: Glucometer 78 01/19/21 03:07: White Blood Count 3.0L, Red Blood Count 3.38L, Hemoglobin 10.5L, Hematocrit 31L, Mean Corpuscular Volume 93, Mean Corpuscular Hemoglobin 31, Mean Corpuscular Hemoglobin Concent 34, Red Cell Distribution Width 12.6, Platelet Count 89L, Mean Platelet Volume 11.2, Immature Granulocyte % (Auto) 1, Neutrophils (%) ( Auto) 58, Lymphocytes (%) (Auto) 26, Monocytes (%) (Auto) 14H, Eosinophils (%) (Auto) 1, Basophils (%) (Auto) 0, Neutrophils # (Auto) 1.7L, Lymphocytes # (Auto) 0.8L, Monocytes # (Auto) 0.4, Eosinophils # (Auto) 0.0, Basophils # (Auto) 0.0, Immature Granulocyte # (Auto) 0.0, Percent Immature Platelet Fraction 11.6H, Sodium Level 133L, Potassium Level 3.3L, Chloride Level 99, Carbon Dioxide Level 23, Anion Gap 11, Blood Urea Nitrogen 7, Creatinine 0.66, Estimat Glomerular Filtration Rate 129, BUN/Creatinine Ratio 11, Glucose Level 91, Calcium Level 7.9L, Corrected Calcium 8.8, Phosphorus Level 2.0L, Magnesium Level 1.9, Total Bilirubin 1.4H, Aspartate Amino Transf (AST/SGOT) 108H, Alanine Aminotransferase (ALT/SGPT) 38, Alkaline Phosphatase 82, Total Protein 5.5L, Albumin 2.9L, Triglycerides Level 111 01/19/21 05:11: Glucometer 69L 01/19/21 12:04: Glucometer 79 Microbiology 01/16/21 MRSA Screen - Final, Complete MRSA not isolated A/P: Assessment: Abnormal ECG: early repolarization - No evidence of acute IA: no progression of ECG, troponin normal, no wall motion abnormality on echo, LVEF normal - Echo on 01/17/21: LVEF 55-60%, no regional wall motion abnormality ETOH withdrawal with seizure requiring intubation - mangement per eICU services - extubated on 01-18-21 Long-standing h/o ETOH abuse - reported to drink 1/5 Vodka and approx 15 beers nightly Rhabodomyolysis - management per eICU Documented h/o Parkinson's Documented h/o seizures Electrolyte abnormalities - likely d/t chronic ETOH abuse Plan: Treatment of rhabdo per eICU services Replace electrolytes - management per medical services Management of ETOH WD per eICU/medical services Monitor lab closely VIC WELLS MD FACP FAC CCDS Jan 19, 2021 13:11
[2021-01-19] MEDS: GABAPENTIN 100 MG (NEURONTIN) CAP PO SCH ×2 (14:00→20:07)
--- NOTE | 2021-01-19 17:41 | Progress Note - Hospitalist ---
Subjective HPI/CC On Admission Date Seen by Provider: Jan 19, 2021 Time Seen by Provider: 10:25 Subjective/Events-last exam He is disoriented. He denies pain. He denies nausea. He denies headache. He appears to be hallucinating. Focused Exam Lactate Level 01/16/21 23:55: Lactic Acid Level 0.96 Objective Exam Vital Signs Vital Signs Date Time Temp Pulse Resp B/P (MAP) Pulse Ox O2 Delivery O2 Flow Rate FiO2 01/19/21 16:45 58 17 112/81 96 Room Air 01/19/21 16:33 36.2 01/18/21 16:00 21.00 01/18/21 14:08 21 Capillary Refill : Less Than 3 Seconds General Appearance: No Apparent Distress, WD/WN Respiratory: Lungs Clear, Normal Breath Sounds, No Respiratory Distress Cardiovascular: Regular Rate, Rhythm, No Edema, No Murmur Gastrointestinal: Normal Bowel Sounds, Non Tender, Soft Extremity: Normal Inspection, Non Tender, No Pedal Edema Neurologic/Psychiatric: Alert, Disoriented Skin: Normal Color, Warm/Dry Results/Procedures Lab Laboratory Tests 01/19/21 03:07 Patient resulted labs reviewed. Imaging: Reviewed Imaging Report Assessment/Plan Assessment and Plan Assess & Plan/Chief Complaint Extubated yesterday. Continue CIWA protocol. Now requiring Precedex due to agiation. Continue ICU care. Critical Care Critically Ill Patient Diagnosis/Problems Diagnosis/Problems (1) Alcohol withdrawal seizure with perceptual disturbance Status: Acute (2) Acute respiratory failure with hypoxia Status: Acute (3) Endotracheally intubated Status: Acute (4) Hypokalemia Status: Acute (5) Hyponatremia Status: Acute (6) Aspiration pneumonia Status: Acute (7) Alcoholic hepatitis Status: Acute Qualifiers: Ascites presence: without ascites Qualified Codes: K70.10 - Alcoholic hepatitis without ascites (8) Hepatic steatosis Status: Acute (9) USHA (acute kidney injury) Status: Acute AMBAR LAY MD Jan 19, 2021 17:41
[2021-01-20] MEDS: PROPOFOL DRIP (ICU) 100 ML IV SCH (01:03)
[2021-01-20] MEDS: LORazepam INJ 2 MG/ML (ATIVAN) VIAL IVP SCH ×6 (03:29→23:41)
[2021-01-20] MEDS: LORazepam INJ 2 MG/ML (ATIVAN) VIAL IV PRN (04:03)
[2021-01-20 04:05] LABS: HEMOGLOBIN 10.7 g/dL (13.3-17.7); MONOCYTES # (AUTO) 0.4 10^3/uL (0.0-1.0)
[2021-01-20 04:07] LABS: BASOPHILS % (AUTO) 0 % (0-10); EOSINOPHILS # (AUTO) 0.1 10^3/uL (0.0-0.3); EOSINOPHILS % (AUTO) 3 % (0-10); HEMATOCRIT 32 % (40-54); LYMPHOCYTES # (AUTO) 0.9 10^3/uL (1.0-4.0); LYMPHOCYTES % (AUTO) 30 % (12-44); MEAN CORPUSCULAR HEMOGLOBIN 31 pg (25-34); MEAN CORPUSCULAR HGB CONC 33 g/dL (32-36); MEAN CORPUSCULAR VOLUME 93 fL (80-99); MEAN PLATELET VOLUME 11.8 fL (9.0-12.2); MONOCYTES % (AUTO) 14 % (0-12); NEUTROPHILS # (AUTO) 1.6 10^3/uL (1.8-7.8); NEUTROPHILS % (AUTO) 52 % (42-75); PLATELET COUNT 127 10^3/uL (130-400)
[2021-01-20 04:22] LABS: TOTAL PROTEIN 5.8 GM/DL (6.4-8.2)
[2021-01-20 04:24] LABS: BILIRUBIN,TOTAL 1.3 MG/DL (0.1-1.0)
[2021-01-20 04:25] LABS: PHOSPHORUS 2.1 MG/DL (2.3-4.7)
[2021-01-20 04:26] LABS: CREATININE SERUM 0.65 MG/DL (0.60-1.30)
[2021-01-20 04:29] LABS: MAGNESIUM 1.6 MG/DL (1.6-2.4)
[2021-01-20] MEDS: VASOPRESSIN INJECTION 20 UNIT in NS (IVPB) 100 ML IV SCH (04:29)
[2021-01-20] MEDS ORDERED: POTASSIUM CL 10MEQ/50ML IVPB 50 ML IV ONE (04:30)
[2021-01-20] MEDS: POTASSIUM CL 10MEQ/50ML IVPB 50 ML IV SCH ×5 (04:34→08:36)
[2021-01-20] MEDS: KCL 20 MEQ TAB (K-DUR) PO SCH (04:34)
[2021-01-20] MEDS: MAGNESIUM 1 GM/100 ML IVPB 100 ML IV SCH ×4 (04:34→05:39)
[2021-01-20] MEDS: GABAPENTIN 100 MG (NEURONTIN) CAP PO SCH (05:03)
[2021-01-20] MEDS: inSUlin ASPART (NovoLOG) 1 UNIT/0.01 ML (CHARGE PER UNIT) SQ SCH ×4 (05:04→23:41)
[2021-01-20] MEDS: NOREPINEPHRINE 8 MG/250 ML 250 ML IV SCH (05:04)
[2021-01-20] MEDS: MULTIVIT W/MINERALS TAB (THERAGRAN M) PO SCH (05:43)
[2021-01-20] MEDS: THIAMINE 100 MG (VITAMIN B-1) TAB PO SCH (05:43)
[2021-01-20] MEDS: PIPERACILLIN/TAZOBACTAM (BULK) 4.5 GM in NS (IVPB) 100 ML IV SCH ×3 (05:43→22:40)
[2021-01-20] MEDS: NS IV 1000 ML 1,000 ML IV SCH ×3 (05:43→22:40)
[2021-01-20] MEDS: DexMEDEtomidine 250 ML DRIP 250 ML IV SCH ×2 (05:44→22:40)
[2021-01-20] MEDS: HALOPERIDOL 5 MG/ML (HALDOL) VIAL IM PRN (06:21)
[2021-01-20] MEDS ORDERED: POTASSIUM PHOSPHATE INJ 30 MM in NS (IVPB) 250 ML IV ONE (07:30)
[2021-01-20] MEDS: LEVETIRACETAM 1,000 MG/NS 100 ML IVPB IV SCH ×4 (07:55→19:42)
[2021-01-20] MEDS: FOLIC ACID 1 MG TAB PO SCH (07:59)
[2021-01-20] MEDS: PANTOPRAZOLE 40 MG (PROTONIX) VIAL IV SCH (07:59)
[2021-01-20] MEDS: NICOTINE 14 MG (NICODERM) PATCH TD SCH (07:59)
--- NOTE | 2021-01-20 09:20 | Cardiology Progress Note ---
Subjective Date Seen by Provider: Jan 20, 2021 Time Seen by Provider: 09:18 Subjective/Events-last exam Patient is laying down in bed, sleeping, did not respond to my question, appeared to be comfortable He ate breakfast today. Review of Systems General: Other (Unable to provide review of systems) Objective-Cardiology Exam Last Set of Vital Signs Vital Signs 01/18/21 01/20/21 01/20/21 01/20/21 14:08 08:29 08:45 09:00 Temp 35.9 Pulse 58 Resp 18 B/P (MAP) 147/90 Pulse Ox 96 O2 Delivery Room Air FiO2 21 I&O Intake and Output 01/20/21 00:00 Intake Total 3210 ml Output Total 3740 ml Balance -530 ml Intake Oral 410 ml IV Total 2800 ml Output Urine Total 3740 ml # Bowel Movements 2 General: No Acute Distress HEENT: Atraumatic Neck: Supple Lungs: Clear to Auscultation, Normal Air Movement Heart: Regular Rate, Normal S1, Normal S2 Abdomen: Normal Bowel Sounds Extremities: No Clubbing, No Cyanosis Skin: No Rashes, No Breakdown Neuro: Other (Not responding to question) Psych/Mental Status: Other (Not responding to questions) Results Lab Laboratory Tests 01/20/21 03:45 A/P-Cardiology Admission Diagnosis Abnormal EKG Hypokalemia Seizure disorder Alcohol withdrawal Assessment/Plan Abnormal baseline electrocardiogram with early repolarization, no change compared to his baseline. Cardiac enzymes were negative. Continue to monitor Echocardiogram done on January 17, 2021 showing normal LV size with EF 55 to 60% with no regional wall motion abnormality. Hypokalemia, managed by medical service. ETOH withdrawal with seizure, extubated on 01-18-21, managed by medical team Long-standing h/o ETOH abuse - reported to drink 1/5 Vodka and approx 15 beers nightly Rhabodomyolysis - management per eICU Documented h/o Parkinson's Documented h/o seizure YANA HOWARD MD Jan 20, 2021 09:20
--- NOTE | 2021-01-20 10:22 | Tele-ICU Progress Note ---
Subjective Date Seen by a Provider: Jan 20, 2021 Time Seen by a Provider: 10:21 Subjective/Events-last exam he is still agitated on and off. currently on precedex drip and prn haldol, and scheduled doses of gabapentin Review of Systems ROS PER ATTENDING Sepsis Event Evaluation Height, Weight, BMI Height: '" Weight: lbs. oz. kg; 27.61 BMI Method: Exam Exam Patient acknowledged, consented, and participated in this virtual visit which was conducted using real time audio/video Vital Signs Date Time Temp Pulse Resp B/P (MAP) Pulse Ox O2 Delivery O2 Flow Rate FiO2 01/20/21 09:56 35.8 55 20 138/105 98 Room Air 01/20/21 09:30 28 119/86 99 Room Air 01/20/21 09:15 58 16 114/78 Room Air 01/20/21 09:00 18 147/90 96 Room Air 01/20/21 08:45 58 23 168/112 100 Room Air 01/20/21 08:30 64 23 135/99 98 Room Air 01/20/21 08:29 35.9 01/20/21 08:15 55 15 151/110 100 Room Air 01/20/21 08:00 60 15 99 Room Air 01/20/21 07:45 57 28 151/116 100 01/20/21 07:45 95 Room Air 01/20/21 07:30 53 14 144/101 98 01/20/21 07:15 55 17 150/110 100 01/20/21 07:00 65 01/20/21 07:00 56 18 161/108 95 Room Air 01/20/21 06:45 55 26 135/100 100 01/20/21 06:30 56 21 163/113 100 01/20/21 06:15 64 19 132/100 01/20/21 06:00 63 18 132/100 100 Room Air 01/20/21 05:44 60 152/108 01/20/21 05:04 60 152/108 01/20/21 05:00 50 13 154/114 96 Room Air 01/20/21 04:45 58 38 131/103 97 Room Air 01/20/21 04:30 52 15 167/115 99 Room Air 01/20/21 04:29 60 152/108 01/20/21 04:15 55 16 160/116 90 Room Air 01/20/21 04:00 95 Room Air 01/20/21 04:00 61 16 141/99 90 Room Air 01/20/21 03:45 57 17 165/123 98 Room Air 01/20/21 03:30 58 17 158/114 95 Room Air 01/20/21 03:15 59 18 141/104 96 Room Air 01/20/21 03:00 65 17 145/105 85 Room Air 01/20/21 02:48 36.6 Room Air 01/20/21 02:45 71 24 137/103 98 Room Air 01/20/21 02:35 60 01/20/21 02:30 61 23 159/112 89 Room Air 01/20/21 02:15 52 145/101 98 Room Air 01/20/21 02:00 53 138/100 97 Room Air 01/20/21 01:45 135/93 Room Air 01/20/21 01:30 135/105 96 Room Air 01/20/21 01:15 139/101 97 Room Air 01/20/21 01:00 139/106 Room Air 01/20/21 00:45 152/110 98 Room Air 01/20/21 00:30 55 152/108 98 Room Air 01/20/21 00:15 53 157/109 99 Room Air 01/20/21 00:00 97 Room Air 01/20/21 00:00 55 15 139/101 100 Room Air 01/19/21 23:45 52 14 151/100 97 Room Air 01/19/21 23:31 63 17 152/112 92 Room Air 01/19/21 23:30 65 20 152/112 100 Room Air 01/19/21 23:15 65 9 147/104 100 Room Air 01/19/21 23:00 53 30 149/105 95 Room Air 01/19/21 22:53 36.2 Room Air 01/19/21 22:45 53 73 154/110 98 Room Air 01/19/21 22:30 55 28 144/103 99 Room Air 01/19/21 22:30 55 28 144/103 99 Room Air 01/19/21 22:15 64 37 143/104 99 Room Air 01/19/21 22:00 55 15 150/108 98 Room Air 01/19/21 21:45 53 29 139/102 97 Room Air 01/19/21 21:30 55 22 133/99 97 Room Air 01/19/21 21:15 55 28 134/91 94 Room Air 01/19/21 21:00 52 28 145/110 96 Room Air 01/19/21 20:45 28 138/95 97 Room Air 01/19/21 20:30 55 15 134/94 97 Room Air 01/19/21 20:16 Room Air 01/19/21 20:15 26 137/95 96 Room Air 01/19/21 20:14 95 Room Air 01/19/21 20:07 35.7 01/19/21 20:00 28 136/97 Room Air 01/19/21 19:45 141/98 Room Air 01/19/21 19:30 53 16 135/99 93 Room Air 01/19/21 19:15 55 17 135/96 94 Room Air 01/19/21 19:00 57 12 126/97 95 Room Air 01/19/21 19:00 60 01/19/21 18:14 58 112/81 01/19/21 17:56 96 Room Air 01/19/21 16:45 58 17 112/81 96 Room Air 01/19/21 16:33 36.2 01/19/21 16:30 60 20 112/75 94 Room Air 01/19/21 16:15 60 11 114/74 94 Room Air 01/19/21 16:00 59 112/74 94 Room Air 01/19/21 15:45 66 19 110/74 94 Room Air 01/19/21 15:43 96 Room Air 01/19/21 15:30 61 22 117/75 92 Room Air 01/19/21 15:29 66 110/74 01/19/21 15:24 66 110/74 01/19/21 15:23 66 110/74 01/19/21 15:15 61 19 120/81 94 Room Air 01/19/21 15:00 66 19 110/74 94 Room Air 01/19/21 14:45 60 27 124/80 96 01/19/21 14:30 62 20 113/69 95 01/19/21 14:15 62 20 118/81 95 01/19/21 14:00 62 22 117/82 96 Room Air 01/19/21 13:45 64 17 115/70 95 01/19/21 13:30 105/79 95 01/19/21 13:15 115/81 92 01/19/21 13:00 66 01/19/21 13:00 112/77 98 Room Air 01/19/21 12:49 96 Room Air 01/19/21 12:45 129/91 94 01/19/21 12:30 126/88 80 01/19/21 12:15 80 118/92 73 01/19/21 12:00 79 22 133/95 100 Room Air 01/19/21 11:45 79 9 155/90 98 Room Air 01/19/21 11:38 88 130/83 01/19/21 11:35 127/90 01/19/21 11:10 37.6 01/19/21 10:45 96 98 Room Air 01/19/21 10:30 90 94 Room Air I & O 01/20/21 07:00 Intake Total 3430 ml Output Total 4200 ml Balance -770 ml Height & Weight Height: '" Weight: lbs. oz. kg; 27.61 BMI Method: General Appearance: No Apparent Distress, WD/WN HEENT: Other (patient unable to follow instructions to perform eye examination) Respiratory: Lungs Clear, Normal Breath Sounds, No Respiratory Distress Cardiovascular: Regular Rate, Rhythm, No Edema, No Murmur Capillary Refill: Less Than 3 Seconds Gastrointestinal: normal bowel sounds, non tender, soft, other (PT HAS A VERY LARGE BRUISE TO LEFT UPPER QUADRANT--PT DOES NOT KNOW HOW IT OCCURRED OR WHEN) Extremity: Normal Inspection, Non Tender, No Pedal Edema Neurologic/Psychiatric: Alert, Disoriented Skin: Normal Color, Warm/Dry Other comments pe per attending Results Lab Laboratory Tests 01/19/21 03:07 01/20/21 03:45 Assessment/Plan Assessment/Plan 1. Alcohol withdrawal syndrome with agitation on and off. got worse since yesterday 2. History of seizure disorder. 3. Rhabdomyolysis improving. 4. Acute respiratory failure resolved and he is extubated. Recommendations 1. Continue to monitor his CIWA scale and use Ativan per protocol, precedex, haldol prn and gabapentin. will increase gabapentin tomorrow 2. Continue Keppra for seizure 3. Vitamins with thiamine and folic acid 4. Continue monitor lites and replace as needed. 5. Start on oral gabapentin. Critical Care: Critically Ill Patient Time spent with patient (mins): 20 POOJA PATEL MD Jan 20, 2021 10:22
--- NOTE | 2021-01-20 11:53 | Progress Note - Hospitalist ---
LANCE HICKS 01/20/21 1153: Subjective HPI/CC On Admission Date Seen by Provider: Jan 20, 2021 Time Seen by Provider: 08:15 Subjective/Events-last exam PT was laying in bed this morning, with a sitter in the room. He continues to be delirious. He is unable to state his correct location, and does not know the year or date. He was able to state his name. CIWA score of 3 this morning. Denies: tremor, sweating, anxiety, nausea/ vomiting, headaches, and tactile visual or auditory hallucinations. Review of Systems General: No Chills, No Night Sweats HEENT: No Head Aches, No Visual Changes Pulmonary: No Dyspnea, No Cough Cardiovascular: No: Chest Pain, Palpitations Gastrointestinal: No: Nausea, Vomiting Musculoskeletal: No: shoulder pain, leg pain Neurological: No: Weakness, Numbness Objective Exam Vital Signs Vital Signs Date Time Temp Pulse Resp B/P (MAP) Pulse Ox O2 Delivery O2 Flow Rate FiO2 01/20/21 12:20 36.0 01/20/21 12:04 100 Room Air 01/20/21 12:00 60 19 151/112 01/18/21 16:00 21.00 01/18/21 14:08 21 Capillary Refill : Less Than 3 Seconds General Appearance: No Apparent Distress, Chronically ill Respiratory: Chest Non Tender, Lungs Clear, Normal Breath Sounds, No Accessory Muscle Use, No Respiratory Distress Cardiovascular: Regular Rate, Rhythm, No Edema, No Murmur Gastrointestinal: Normal Bowel Sounds, No Organomegaly, No Pulsatile Mass, Non Tender, Soft Extremity: No Calf Tenderness, No Pedal Edema Neurologic/Psychiatric: Disoriented (unable to state his location and the year/ date.) Skin: Warm/Dry Results/Procedures Lab Laboratory Tests 01/20/21 03:45 Patient resulted labs reviewed. Imaging: Reviewed Imaging Report Assessment/Plan Assessment and Plan Assess & Plan/Chief Complaint 45 YO male with aspiration pneumonia, acute respiratory failure, alcohol withdrawal with seizure, elevated LFTs with hepatic steatosis, alcohol induced p ancytopenia, rhabdomyolysis. Aspiration pneumonia Continue Zosyn Acute respiratory failure Alcohol withdrawal with seizure Continue with CIWA protocol. Decrease scheduled Ativan dose from 1mg to .5mg q4 hours. Continue IV Keppra. Continue Precedex. Continue IV fluid and multivitamin replacement. Will continue in ICU, and without intubation. Haldol PRN if PT is at risk for harming himself or others. Elevated LFTs with hepatic steatosis Alcohol induced pancytopenia Rhabdomyolysis monitor labs AMBAR LAY MD 01/20/21 1501: Subjective HPI/CC On Admission Time Seen by Provider: 10:05 Objective Exam General Appearance: No Apparent Distress, WD/WN Respiratory: Lungs Clear, Normal Breath Sounds, No Respiratory Distress Cardiovascular: Regular Rate, Rhythm, No Edema, No Murmur Gastrointestinal: Normal Bowel Sounds, Non Tender, Soft Extremity: Non Tender, No Pedal Edema Neurologic/Psychiatric: Alert, Disoriented (unable to state his location and the year/ date.) Skin: Warm/Dry, Ecchymosis Assessment/Plan Assessment and Plan Assess & Plan/Chief Complaint Contnue management of alcohol withdrawal. Decreasing scheduled Ativan. Wean Precedex as able. Delirium persists. Diagnosis/Problems Diagnosis/Problems (1) Alcohol withdrawal seizure with delirium Status: Acute (2) Hypokalemia Status: Acute (3) Hyponatremia Status: Acute (4) Pancytopenia Status: Acute Supervisory-Addendum Brief Verification & Attestation Participated in pt care: history, MDM, physical Personally performed: exam, history, MDM, supervision of care Care discussed with: Medical Student Procedures: n/a Results interpretation: Verified all documentation A medical student performed and documented this service in my presence. I reviewed and verified all information documented by the medical student and made modifications to such information, when appropriate. I personally performed the physical exam and medical decision making. LANCE HICKS Jan 20, 2021 11:53 AMBAR LAY MD Jan 20, 2021 15:01
[2021-01-20] MEDS: ENOXAPARIN 40 MG/0.4 ML (LOVENOX) SYR SC SCH (11:58)
[2021-01-20] MEDS ORDERED: LOPERAMIDE SUSP 2 MG/15 ML (IMODIUM) UDC PO PRN (20:15)
[2021-01-20 22:40] VITALS: BP 96/61
[2021-01-21] MEDS: LORazepam INJ 2 MG/ML (ATIVAN) VIAL IVP SCH ×5 (03:57→18:57)
[2021-01-21 04:56] LABS: BASOPHILS % (AUTO) 1 % (0-10); EOSINOPHILS # (AUTO) 0.1 10^3/uL (0.0-0.3); EOSINOPHILS % (AUTO) 2 % (0-10); HEMATOCRIT 32 % (40-54); HEMOGLOBIN 10.7 g/dL (13.3-17.7); LYMPHOCYTES # (AUTO) 1.1 10^3/uL (1.0-4.0); LYMPHOCYTES % (AUTO) 27 % (12-44); MEAN CORPUSCULAR HEMOGLOBIN 31 pg (25-34); MEAN CORPUSCULAR HGB CONC 33 g/dL (32-36); MEAN CORPUSCULAR VOLUME 93 fL (80-99); MONOCYTES # (AUTO) 0.7 10^3/uL (0.0-1.0); MONOCYTES % (AUTO) 16 % (0-12); NEUTROPHILS # (AUTO) 2.2 10^3/uL (1.8-7.8); NEUTROPHILS % (AUTO) 54 % (42-75); PLATELET COUNT 194 10^3/uL (130-400); WHITE BLOOD COUNT 4.1 10^3/uL (4.3-11.0)
[2021-01-21 05:10] LABS: ALBUMIN 2.9 GM/DL (3.2-4.5); POTASSIUM 3.7 MMOL/L (3.6-5.0)
[2021-01-21 05:11] LABS: CALCIUM 8.3 MG/DL (8.5-10.1)
[2021-01-21 05:12] LABS: TOTAL PROTEIN 5.7 GM/DL (6.4-8.2)
[2021-01-21 05:14] LABS: BILIRUBIN,TOTAL 1.2 MG/DL (0.1-1.0)
[2021-01-21 05:16] LABS: CREATININE SERUM 0.68 MG/DL (0.60-1.30); PHOSPHORUS 2.8 MG/DL (2.3-4.7)
[2021-01-21 05:18] LABS: MAGNESIUM 1.6 MG/DL (1.6-2.4)
[2021-01-21] MEDS: POTASSIUM CL 10MEQ/50ML IVPB 50 ML IV SCH (06:00)
[2021-01-21] MEDS: KCL 20 MEQ TAB (K-DUR) PO SCH (06:00)
[2021-01-21] MEDS: MAGNESIUM 1 GM/100 ML IVPB 100 ML IV SCH ×3 (06:00→08:01)
[2021-01-21] MEDS: inSUlin ASPART (NovoLOG) 1 UNIT/0.01 ML (CHARGE PER UNIT) SQ SCH ×3 (06:01→17:13)
[2021-01-21] MEDS: THIAMINE 100 MG (VITAMIN B-1) TAB PO SCH (06:12)
[2021-01-21] MEDS: PIPERACILLIN/TAZOBACTAM (BULK) 4.5 GM in NS (IVPB) 100 ML IV SCH ×3 (06:12→23:02)
[2021-01-21] MEDS: GABAPENTIN 100 MG (NEURONTIN) CAP PO SCH ×3 (06:12→21:20)
[2021-01-21] MEDS: MULTIVIT W/MINERALS TAB (THERAGRAN M) PO SCH (06:12)
[2021-01-21] MEDS: FOLIC ACID 1 MG TAB PO SCH (08:01)
[2021-01-21] MEDS: PANTOPRAZOLE 40 MG (PROTONIX) VIAL IV SCH (08:01)
[2021-01-21] MEDS: LEVETIRACETAM 1,000 MG/NS 100 ML IVPB IV SCH ×4 (08:01→19:38)
[2021-01-21] MEDS: NS IV 1000 ML 1,000 ML IV SCH ×2 (08:01→15:31)
[2021-01-21] MEDS: NICOTINE 14 MG (NICODERM) PATCH TD SCH (08:01)
--- NOTE | 2021-01-21 09:23 | Tele-ICU Progress Note ---
Subjective Date Seen by a Provider: Jan 21, 2021 Time Seen by a Provider: 07:00 Subjective/Events-last exam This virtual visit was conducted using real time audio/video. Thank you for asking us to see this patient for alcohol withdrawal Recent events: Precedex held PE: Resting comfortably. VSS. O2 sat 95% on RA HEENT: No obvious masses, adenopathy or JVD. Chest: slightly coarse. CV: RRR S1 S2 No murmur or added sounds. Abd: Non-tender. Bowel sounds Y. : Unremarkable. 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 No obvious focal findings. Extremities: 1+ edema. Capillary refill < 3 seconds. Skin: unremarkable. Results: Decreased Hb 10.7, WCC 4.1, Na 134, Mag 1.6. . Available chart/ vitals / labs / images reviewed. Video assessment done using teleICU camera, rest of exam as per RN. A/P: Alc. withdrawal Continue present management holding Precedex. If pt remains calm, consider transfer. Monitor for increasing oxygenation needs. Critical Care: critically ill patient. Cont. Duonebs, Zosyn. Replace Mag. Discussed with RN Jaz. Asked RN to reach out to eICU if any questions or concerns later. Time spent with patient/coordination of care with other health professionals (mins): 15 Sepsis Event Evaluation Height, Weight, BMI Height: '" Weight: lbs. oz. kg; 27.61 BMI Method: Exam Exam Patient acknowledged, consented, and participated in this virtual visit which was conducted using real time audio/video Vital Signs Date Time Temp Pulse Resp B/P (MAP) Pulse Ox O2 Delivery O2 Flow Rate FiO2 01/21/21 09:00 87 17 157/112 100 Room Air 01/21/21 08:00 75 17 148/100 99 Room Air 01/21/21 07:40 100 Room Air 01/21/21 07:02 36.8 73 15 158/108 100 Room Air 01/21/21 07:00 72 01/21/21 06:00 69 19 153/97 98 Room Air 01/21/21 05:00 71 23 137/115 93 Room Air 01/21/21 04:04 Room Air 01/21/21 04:00 63 18 135/112 100 Room Air 01/21/21 03:56 36.8 01/21/21 03:00 66 18 145/105 100 Room Air 01/21/21 02:00 81 30 104/66 98 Room Air 01/21/21 01:00 64 20 99/65 97 Room Air 01/21/21 01:00 64 01/21/21 00:00 63 15 104/68 97 Room Air 01/21/21 00:00 36.4 01/21/21 00:00 Room Air 01/20/21 23:00 65 21 121/83 98 Room Air 01/20/21 22:40 96/61 01/20/21 22:00 77 19 96/61 95 Room Air 01/20/21 21:00 74 15 99 Room Air 01/20/21 20:08 Room Air 01/20/21 20:00 36.5 01/20/21 20:00 67 32 98 Room Air 01/20/21 19:20 96 Room Air 01/20/21 19:00 78 25 100 Room Air 01/20/21 19:00 80 01/20/21 18:00 85 100 Room Air 01/20/21 17:45 78 10 99 Room Air 01/20/21 17:30 77 33 93 Room Air 01/20/21 17:15 62 67 131/97 Room Air 01/20/21 17:00 63 146/97 98 Room Air 01/20/21 16:45 64 32 149/104 97 Room Air 01/20/21 16:30 65 143/100 96 Room Air 01/20/21 16:30 36.2 01/20/21 16:15 73 26 143/98 97 Room Air 01/20/21 16:00 Room Air 01/20/21 16:00 75 27 143/100 97 Room Air 01/20/21 15:45 73 19 140/97 99 Room Air 01/20/21 15:30 75 26 137/104 90 Room Air 01/20/21 15:28 77 100 21 01/20/21 15:15 77 44 140/87 98 Room Air 01/20/21 15:00 77 20 143/97 99 Room Air 01/20/21 14:45 85 10 133/99 100 Room Air 01/20/21 14:30 81 36 108/83 Room Air 01/20/21 14:00 76 119/85 Room Air 01/20/21 13:50 36.1 74 22 119/85 100 Room Air 01/20/21 13:45 71 24 111/73 98 Room Air 01/20/21 13:30 65 27 152/110 97 Room Air 01/20/21 13:15 142/100 Room Air 01/20/21 13:00 55 18 145/106 100 Room Air 01/20/21 13:00 57 01/20/21 12:45 148/106 Room Air 01/20/21 12:30 62 22 151/113 87 Room Air 01/20/21 12:20 36.0 01/20/21 12:15 55 41 157/115 99 Room Air 01/20/21 12:04 100 Room Air 01/20/21 12:00 60 19 151/112 100 Room Air 01/20/21 11:45 57 123/116 91 Room Air 01/20/21 11:30 54 140/105 99 Room Air 01/20/21 11:15 55 15 145/103 Room Air 01/20/21 11:00 55 17 143/109 100 Room Air 01/20/21 10:47 95 Room Air 01/20/21 10:45 56 143/100 100 Room Air 01/20/21 10:30 52 16 144/108 100 Room Air 01/20/21 10:15 56 22 146/107 Room Air 01/20/21 09:56 35.8 55 20 138/105 98 Room Air 01/20/21 09:30 28 119/86 99 Room Air I & O 01/21/21 07:00 Intake Total 3800 ml Output Total 7100 ml Balance -3300 ml Height & Weight Height: '" Weight: lbs. oz. kg; 27.61 BMI Method: General Appearance: No Apparent Distress, WD/WN HEENT: Other (patient unable to follow instructions to perform eye examination) Respiratory: Lungs Clear, Normal Breath Sounds, No Respiratory Distress Cardiovascular: Regular Rate, Rhythm, No Edema, No Murmur Capillary Refill: Less Than 3 Seconds Peripheral Pulses: 1+ Dorsalis Pedis (R), 1+ Left Dors-Pedis (L) (See free text.) Gastrointestinal: normal bowel sounds, non tender, soft, other (PT HAS A VERY LARGE BRUISE TO LEFT UPPER QUADRANT--PT DOES NOT KNOW HOW IT OCCURRED OR WHEN) Extremity: Non Tender, No Pedal Edema Neurologic/Psychiatric: Alert, Disoriented (unable to state his location and the year/ date.) Skin: Warm/Dry, Ecchymosis Results Lab Laboratory Tests 01/20/21 03:45 01/21/21 04:45 Assessment/Plan Assessment/Plan See free text. Critical Care: Critically Ill Patient ROSA SCHMITT MD Jan 21, 2021 09:23
[2021-01-21] MEDS: ENOXAPARIN 40 MG/0.4 ML (LOVENOX) SYR SC SCH (11:25)
--- NOTE | 2021-01-21 12:16 | Progress Note - Hospitalist ---
LANCE HICKS 01/21/21 1216: Subjective HPI/CC On Admission Date Seen by Provider: Jan 21, 2021 Time Seen by Provider: 08:45 Subjective/Events-last exam PT was comfortably in bed this morning. CIWA score of 0. The patient was able to state his location, the correct year and month. He reported some loose stools. He denies blood in his stool or black stools. Review of Systems General: No Chills, No Night Sweats HEENT: No Head Aches, No Visual Changes Pulmonary: No Dyspnea; Cough ("some") Cardiovascular: No: Chest Pain, Palpitations Gastrointestinal: No: Nausea, Vomiting Genitourinary: No Hematuria Musculoskeletal: No: shoulder pain, leg pain Neurological: No: Weakness, Numbness Objective Exam Vital Signs Vital Signs Date Time Temp Pulse Resp B/P (MAP) Pulse Ox O2 Delivery O2 Flow Rate FiO2 01/21/21 13:00 126 20 100 Room Air 01/21/21 12:00 156/106 01/21/21 11:35 36.8 01/20/21 15:28 21 01/18/21 16:00 21.00 Capillary Refill : Less Than 3 Seconds General Appearance: No Apparent Distress HEENT: PERRL/EOMI, Pharynx Normal, Moist Mucous Membranes Respiratory: Chest Non Tender, Lungs Clear, Normal Breath Sounds, No Accessory Muscle Use, No Respiratory Distress, Accessory Muscle Use Cardiovascular: Regular Rate, Rhythm, No Edema, No Murmur Gastrointestinal: Normal Bowel Sounds, No Organomegaly, No Pulsatile Mass, Non Tender, Soft Extremity: No Calf Tenderness, No Pedal Edema Neurologic/Psychiatric: Alert, Oriented x3 Skin: Normal Color, Ecchymosis (left abdomen, and both knees) Results/Procedures Lab Laboratory Tests 01/21/21 04:45 Patient resulted labs reviewed. Imaging: Reviewed Imaging Report Assessment/Plan Assessment and Plan Assess & Plan/Chief Complaint 45 YO male admitted for aspiration pneumonia, acute respiratory failure, alcohol withdrawal with seizure, elevated LFTs with hepatic steatosis, alcohol induced pancytopenia, rhabdomyolysis, Hx of Parkinson's disease Aspiration pneumonia Continue Zosyn plan to stop tomorrow Acute respiratory failure Alcohol withdrawal with seizure Continue CIWA protocol. Continue Ativan .5mg q4 hours. Continue IV Keppra. Stopped Precedex. Continue IV fluid and multivitamin replacement. Will continue in ICU today. Try to DC in the next couple of days. Elevated LFTs with hepatic steatosis Alcohol induced pancytopenia Rhabdomyolysis monitor labs Parkinson's disease restarted home med of carbidopa-levodopa AMBAR LAY MD 01/21/211946: Subjective HPI/CC On Admission Time Seen by Provider: 11:00 Assessment/Plan Assessment and Plan Assess & Plan/Chief Complaint Withdrawal symptoms improving. Requiring minimal Ativan on CIWA. Stop scheduled Ativan. Off Precedex this morning. Likely stable for discharge in next 1-2 days. Diagnosis/Problems Diagnosis/Problems (1) Alcohol withdrawal seizure with delirium Status: Acute (2) Aspiration pneumonia Status: Acute (3) Alcoholic hepatitis Status: Acute Qualifiers: Qualified Codes: K70.10 - Alcoholic hepatitis without ascites (4) Pancytopenia Status: Acute Supervisory-Addendum Brief Verification & Attestation Participated in pt care: history, MDM, physical Personally performed: exam, history, MDM, supervision of care Care discussed with: Medical Student Procedures: n/a Results interpretation: Verified all documentation A medical student performed and documented this service in my presence. I reviewed and verified all information documented by the medical student and made modifications to such information, when appropriate. I personally performed the physical exam and medical decision making. LANCE HICKS Jan 21, 2021 12:16 AMBAR LAY MD Jan 21, 2021 19:47
[2021-01-21] MEDS: SINEMET 25/250 (CARBIDOPA/LEVODOPA) TAB PO SCH ×2 (12:47→17:40)
[2021-01-21] MEDS: guaiFENesin/CODEINE (ROBITUSSIN AC) 10ML UDC PO PRN (20:31)
[2021-01-22] MEDS: NS IV 1000 ML 1,000 ML IV SCH ×2 (00:19→07:49)
[2021-01-22] MEDS: inSUlin ASPART (NovoLOG) 1 UNIT/0.01 ML (CHARGE PER UNIT) SQ SCH ×2 (00:19→06:02)
[2021-01-22 05:11] LABS: BASOPHILS % (AUTO) 0 % (0-10); EOSINOPHILS # (AUTO) 0.1 10^3/uL (0.0-0.3); EOSINOPHILS % (AUTO) 1 % (0-10); HEMATOCRIT 34 % (40-54); HEMOGLOBIN 11.3 g/dL (13.3-17.7); LYMPHOCYTES # (AUTO) 1.1 10^3/uL (1.0-4.0); LYMPHOCYTES % (AUTO) 21 % (12-44); MEAN CORPUSCULAR HEMOGLOBIN 31 pg (25-34); MEAN CORPUSCULAR HGB CONC 33 g/dL (32-36); MEAN CORPUSCULAR VOLUME 93 fL (80-99); MEAN PLATELET VOLUME 10.5 fL (9.0-12.2); MONOCYTES # (AUTO) 0.9 10^3/uL (0.0-1.0); MONOCYTES % (AUTO) 17 % (0-12); NEUTROPHILS # (AUTO) 3.2 10^3/uL (1.8-7.8); NEUTROPHILS % (AUTO) 60 % (42-75); PLATELET COUNT 222 10^3/uL (130-400); WHITE BLOOD COUNT 5.3 10^3/uL (4.3-11.0)
[2021-01-22 05:26] LABS: ALBUMIN 3.1 GM/DL (3.2-4.5)
[2021-01-22 05:27] LABS: POTASSIUM 3.7 MMOL/L (3.6-5.0)
[2021-01-22 05:28] LABS: CALCIUM 8.3 MG/DL (8.5-10.1)
[2021-01-22 05:29] LABS: TOTAL PROTEIN 6.1 GM/DL (6.4-8.2)
[2021-01-22 05:31] LABS: BILIRUBIN,TOTAL 1.2 MG/DL (0.1-1.0)
[2021-01-22 05:32] LABS: PHOSPHORUS 3.5 MG/DL (2.3-4.7)
[2021-01-22 05:33] LABS: CREATININE SERUM 0.73 MG/DL (0.60-1.30)
[2021-01-22 05:35] LABS: MAGNESIUM 1.5 MG/DL (1.6-2.4)
[2021-01-22] MEDS: POTASSIUM CL 10MEQ/50ML IVPB 50 ML IV SCH (06:01)
[2021-01-22] MEDS: MAGNESIUM 1 GM/100 ML IVPB 100 ML IV SCH ×3 (06:02→07:49)
[2021-01-22] MEDS: KCL 20 MEQ TAB (K-DUR) PO SCH (06:02)
[2021-01-22] MEDS: GABAPENTIN 100 MG (NEURONTIN) CAP PO SCH ×3 (06:07→21:14)
[2021-01-22] MEDS: MULTIVIT W/MINERALS TAB (THERAGRAN M) PO SCH (06:08)
[2021-01-22] MEDS: THIAMINE 100 MG (VITAMIN B-1) TAB PO SCH (06:08)
[2021-01-22] MEDS: LEVETIRACETAM 1,000 MG/NS 100 ML IVPB IV SCH ×2 (07:49)
[2021-01-22] MEDS: FOLIC ACID 1 MG TAB PO SCH (07:50)
[2021-01-22] MEDS: SINEMET 25/250 (CARBIDOPA/LEVODOPA) TAB PO SCH ×3 (07:50→17:09)
[2021-01-22] MEDS: PANTOPRAZOLE 40 MG (PROTONIX) VIAL IV SCH (07:50)
[2021-01-22] MEDS: NICOTINE 14 MG (NICODERM) PATCH TD SCH (07:50)
--- NOTE | 2021-01-22 08:56 | Progress Note - Cardiology ---
Cardiology SOAP Progress Note Subjective: Lying in bed Cooperative No c/o CP, SOB or palpitations C/O sinus congestion Objective: I&O/Vital Signs 01/21/21 01/21/21 01/21/21 01/22/21 21:00 22:00 23:00 00:00 Pulse 81 94 91 86 Resp 18 17 26 24 B/P (MAP) 148/108 147/96 145/114 132/103 Pulse Ox 100 98 100 O2 Delivery Room Air Room Air Room Air Room Air 01/22/21 01/22/21 01/22/21 01/22/21 00:18 01:00 01:00 02:00 Pulse 70 77 80 Resp 21 31 B/P (MAP) 154/111 147/101 Pulse Ox 89 O2 Delivery Room Air Room Air Room Air 01/22/21 01/22/21 01/22/21 01/22/21 02:04 03:00 04:00 04:00 Pulse 69 82 Resp 26 B/P (MAP) 154/98 140/127 Pulse Ox 98 100 O2 Delivery Room Air Room Air Room Air Room Air 01/22/21 01/22/21 01/22/21 01/22/21 05:00 06:00 06:55 07:00 Pulse 62 66 Resp 21 B/P (MAP) 159/110 165/102 159/82 Pulse Ox 97 O2 Delivery Room Air Room Air Room Air Room Air 01/22/21 01/22/21 01/22/21 01/22/21 07:00 07:15 07:30 07:45 Pulse 109 Resp 19 23 21 O2 Delivery Room Air Room Air Room Air 01/22/21 01/22/21 01/22/21 08:00 08:00 08:15 Temp 37.0 Pulse 108 118 Resp 13 33 B/P (MAP) 124/84 Pulse Ox 86 O2 Delivery Room Air 01/21/21 23:59 Intake Total 1105 ml Output Total 3070 ml Balance -1965 ml Constitutional: other (Awake, alert, oriented to place and self) Respiratory: lungs clear to auscultation Cardiovascular: regular rate-rhythm; No JVD; S1 and S2 Gastrointestional: audible bowel sounds Extremities: no lower extremity edema bilateral Neurologic/Psychiatric: other (moves all limbs, cooperative and appropriate) Skin: No rash on exposed areas, No ulcerations on exposed areas Results/Procedures: Labs Laboratory Tests 01/21/21 11:25: Glucometer 78 01/21/21 17:06: Glucometer 80 01/21/21 22:42: Glucometer 76 01/22/21 05:00: White Blood Count 5.3, Red Blood Count 3.67L, Hemoglobin 11.3L, Hematocrit 34L, Mean Corpuscular Volume 93, Mean Corpuscular Hemoglobin 31, Mean Corpuscular Hemoglobin Concent 33, Red Cell Distribution Width 13.1, Platelet Count 222, Mean Platelet Volume 10.5, Immature Granulocyte % (Auto) 1, Neutrophils (%) (Auto) 60, Lymphocytes (%) (Auto) 21, Monocytes (%) (Auto) 17H, Eosinophils (%) (Auto) 1, Basophils (%) (Auto) 0, Neutrophils # (Auto) 3.2, Lymphocytes # (Auto) 1.1, Monocytes # (Auto) 0.9, Eosinophils # (Auto) 0.1, Basophils # (Auto) 0.0, Immature Granulocyte # (Auto) 0.1, Sodium Level 137, Potassium Level 3.7, Chlor madelaine Level 105, Carbon Dioxide Level 20L, Anion Gap 12, Blood Urea Nitrogen 3L, Creatinine 0.73, Estimat Glomerular Filtration Rate 115, BUN/Creatinine Ratio 4, Glucose Level 104, Calcium Level 8.3L, Corrected Calcium 9.0, Phosphorus Level 3.5, Magnesium Level 1.5L, Total Bilirubin 1.2H, Aspartate Amino Transf (AST/SGOT) 59H, Alanine Aminotransferase (ALT/SGPT) 28, Alkaline Phosphatase 95, Total Protein 6.1L, Albumin 3.1L Microbiology 01/16/21 MRSA Screen - Final, Complete MRSA not isolated Laboratory Tests 01/21/21 04:45 01/22/21 05:00 A/P: Assessment: Abnormal ECG: early repolarization - No evidence of acute UT: no progression of ECG, troponin normal, no wall motion abnormality on echo, LVEF normal - Echo on 01/17/21: LVEF 55-60%, no regional wall motion abnormality ETOH withdrawal with seizure requiring intubation - mangement per eICU services - extubated on 01-18-21 Long-standing h/o ETOH abuse - reported to drink 1/5 Vodka and approx 15 beers nightly Rhabodomyolysis - management per eICU Documented h/o Parkinson's Documented h/o seizures Electrolyte abnormalities - likely d/t chronic ETOH abuse Plan: Treatment of rhabdo per eICU services Replace electrolytes - management per medical services Management of ETOH WD per eICU/medical services Monitor lab closely AURELIA BENJAMIN Jan 22, 2021 08:56
[2021-01-22] MEDS ORDERED: SALINE NASAL SPRAY (OCEAN) 45 ML BTL PRN (10:00)
[2021-01-22] MEDS ORDERED: LORATADINE (CLARITIN) 10 MG TAB PO NR (10:15)
[2021-01-22] MEDS ORDERED: CYCLOBENZAPRINE 10 MG (FLEXERIL) TAB PO PRN (10:15)
[2021-01-22] MEDS: ENOXAPARIN 40 MG/0.4 ML (LOVENOX) SYR SC SCH (11:05)
--- NOTE | 2021-01-22 11:56 | Tele-ICU Progress Note ---
Subjective Date Seen by a Provider: Jan 22, 2021 Time Seen by a Provider: 10:00 Sepsis Event Evaluation Height, Weight, BMI Height: '" Weight: lbs. oz. kg; 27.61 BMI Method: Exam Exam Patient acknowledged, consented, and participated in this virtual visit which was conducted using real time audio/video Vital Signs Date Time Temp Pulse Resp B/P (MAP) Pulse Ox O2 Delivery O2 Flow Rate FiO2 01/22/21 11:30 37.1 01/22/21 11:00 92 19 147/108 99 Room Air 01/22/21 10:00 86 94/65 100 Room Air 01/22/21 09:45 96 Room Air 01/22/21 09:30 91 19 98 Room Air 01/22/21 09:15 96 20 100 Room Air 01/22/21 09:00 98 14 99 Room Air 01/22/21 08:45 95 13 100 Room Air 01/22/21 08:30 105 15 100 Room Air 01/22/21 08:15 118 33 86 01/22/21 08:00 37.0 01/22/21 08:00 108 13 124/84 Room Air 01/22/21 08:00 Room Air 01/22/21 07:45 21 Room Air 01/22/21 07:30 23 Room Air 01/22/21 07:15 19 Room Air 01/22/21 07:00 109 01/22/21 07:00 21 159/82 Room Air 01/22/21 06:55 97 Room Air 01/22/21 06:00 66 165/102 Room Air 01/22/21 05:00 62 159/110 Room Air 01/22/21 04:00 82 140/127 Room Air 01/22/21 04:00 Room Air 01/22/21 03:00 69 26 154/98 100 Room Air 01/22/21 02:04 98 Room Air 01/22/21 02:00 80 31 147/101 Room Air 01/22/21 01:00 77 21 154/111 89 Room Air 01/22/21 01:00 70 01/22/21 00:18 Room Air 01/22/21 00:00 86 24 132/103 Room Air 01/21/21 23:00 91 26 145/114 100 Room Air 01/21/21 22:00 94 17 147/96 98 Room Air 01/21/21 21:00 81 18 148/108 100 Room Air 01/21/21 20:39 100 Room Air 01/21/21 20:00 36.5 01/21/21 20:00 105 31 141/91 97 Room Air 01/21/21 19:36 107 20 127/85 96 Room Air 01/21/21 19:00 125 01/21/21 18:00 104 26 144/95 97 Room Air 01/21/21 17:00 96 17 149/95 98 Room Air 01/21/21 16:43 36.4 01/21/21 16:00 96 17 149/102 95 Room Air 01/21/21 15:48 100 Room Air 01/21/21 15:00 104 36 140/101 99 Room Air 01/21/21 14:00 108 123/81 92 Room Air 01/21/21 13:00 126 20 100 Room Air 01/21/21 12:50 93 01/21/21 12:00 90 12 156/106 100 Room Air I & O 01/22/21 06:59 Intake Total 3705 ml Output Total 6170 ml Balance -2465 ml Height & Weight Height: '" Weight: lbs. oz. kg; 27.61 BMI Method: General Appearance: No Apparent Distress HEENT: PERRL/EOMI, Pharynx Normal, Moist Mucous Membranes Respiratory: Chest Non Tender, Lungs Clear, Normal Breath Sounds, No Accessory Muscle Use, No Respiratory Distress, Accessory Muscle Use Cardiovascular: Regular Rate, Rhythm, No Edema, No Murmur Capillary Refill: Less Than 3 Seconds Peripheral Pulses: 1+ Dorsalis Pedis (R), 1+ Left Dors-Pedis (L) (See free text.) Gastrointestinal: normal bowel sounds, non tender, soft, other (PT HAS A VERY LARGE BRUISE TO LEFT UPPER QUADRANT--PT DOES NOT KNOW HOW IT OCCURRED OR WHEN) Extremity: No Calf Tenderness, No Pedal Edema Neurologic/Psychiatric: Alert, Oriented x3 Skin: Normal Color, Ecchymosis (left abdomen, and both knees) Results Lab Laboratory Tests 01/21/21 04:45 01/22/21 05:00 Assessment/Plan Assessment/Plan (Tele-ICU Physician , Progress Note ) Available chart/ vitals / labs / Images reviewed Video assessment done using teleICU camera, rest of exam as per RN Discussed with RN , EXAM PER RN Events overnight : Afebrile FiO2 - 21% I/O = neg Drips: Pressors: Consultants: Hospital course: 01/16 - intubated with Sz / eton withdrowal , rhabdo, PNA 01/17 - LEVO , AC 16 550 21 % +5 01/18 - AC 12 550 +5 21% PAP 18 , off bicarb gtt (01/18) Extubated A/P Acute resp failure in the context of seizure (very probable ETOH related (01/18) Extubated, on ra USHA, rhabdo - OFF bcarb gtt Seizures:- ? ETOH withdrowal , CTH neg 01/16 - cont keppra for now -ETOH abuse - d5/ thimaine/ folic acid/ mvi QTc prolongation 566- probably with tricyclics OD- improved Anemia - delutional Lines : RIGHT IJ 01/16 (Central Line Necessity Reviewed) Pedraza: + OG: Nutrition: start TF Analgesia: Anxiety/ delirium VTE Prophylaxis: lovenox Stress Ulcer Prophylaxis: ppi Glycemic Control: Plans in collaboration with bedside consultants and IM MDs. Discussed with RN to reach out if any questions or concerns A total of 20 minutes of critical care time was devoted to this patient today, required to treat and/or prevent further deterioration of critical care condition ( as above) . JEANNINE VILLALTA MD Jan 22, 2021 11:56
--- NOTE | 2021-01-22 14:04 | Progress Note - Hospitalist ---
NUNO MCGRATH 01/22/21 1404: Subjective HPI/CC On Admission Date Seen by Provider: Jan 22, 2021 Time Seen by Provider: 08:55 Subjective/Events-last exam Patient feels good today. Patients only complaint is that he feels that his sinuses are congested. Requesting some form of decongestant medication. Patient is walking. Feels like his balance is back. No tremors. Patient denies fever, nausea, vomiting, SOB, MACHADO, dizziness, constipation, diarrhea, dysuria, chest pain. Patient has plans of going to [employer] when he leaves the hospital. States his Mother has already been working out that plan for him. Review of Systems General: No Chills, No Night Sweats HEENT: No Head Aches; Sinus Congestion Pulmonary: No Dyspnea, No Cough Cardiovascular: No: Chest Pain, Palpitations, Lt Headedness Gastrointestinal: No: Nausea, Vomiting, Abdominal Pain, Diarrhea, Constipation Genitourinary: No Dysuria, No Incontinence Neurological: No: Weakness, Incoordination Objective Exam Vital Signs Vital Signs Date Time Temp Pulse Resp B/P (MAP) Pulse Ox O2 Delivery O2 Flow Rate FiO2 01/22/21 12:20 36.7 88 16 89/66 95 Room Air 01/20/21 15:28 21 01/18/21 16:00 21.00 Capillary Refill : Less Than 3 Seconds General Appearance: No Apparent Distress, WD/WN Respiratory: Chest Non Tender, Lungs Clear, Normal Breath Sounds, No Accessory Muscle Use, No Respiratory Distress Cardiovascular: Regular Rate, Rhythm, Normal Peripheral Pulses Rectal: Deferred Extremity: No Calf Tenderness, No Pedal Edema Neurologic/Psychiatric: Alert, Oriented x3, Normal Mood/Affect Skin: Normal Color, Warm/Dry Results/Procedures Lab Laboratory Tests 01/22/21 05:00 Patient resulted labs reviewed. Imaging: Reviewed Imaging Report Assessment/Plan Assessment and Plan Assess & Plan/Chief Complaint Assessment Aspiration pneumonia Acute respiratory failure, resolved Alcohol withdrawal with seizure Alcoholic hepatitis Alcohol induced pancytopenia Parkinson's disease GERD Sinus congestion Plan [facility] protocol - D/C ativan - D/C fluids - Adding keppra - D/C dextrose - continue MV - Contine thiamine - Continue folate Last dose of zosyn today Continue Parkinson medications Protonix Claritin Nasal saline MARIA ANTONIA WASHINGTON DO 01/23/21 0541: Subjective Subjective/Events-last exam Pt doing a lot better Had a seizure during alcohol withdrawal Keppra 1000mg will transition over to PO Decreasing liver enzymes Transferring to 4th floor Sinus congestion will be managed with Claritin and saline nasal spray [facility] will be where he wants to go for alcohol rehab Review of Systems General: Fatigue, Malaise Objective Exam General Appearance: No Apparent Distress, WD/WN, Chronically ill Respiratory: Lungs Clear, Normal Breath Sounds Cardiovascular: Regular Rate, Rhythm Neurologic/Psychiatric: Alert, Oriented x3 Assessment/Plan Assessment and Plan Assess & Plan/Chief Complaint Maintain Keppra Transfer to fourth floor Supervisory-Addendum Brief Verification & Attestation Participated in pt care: history, MDM, physical Personally performed: exam, history, MDM, supervision of care Care discussed with: Medical Student Procedures: n/a Results interpretation: Verified all documentation Verification and Attestation of Medical Student E/M Service A medical student performed and documented this service in my presence. I reviewed and verified all information documented by the medical student and made modifications to such information, when appropriate. I personally performed the physical exam and medical decision making. Maria Antonia Washington, Jan 23, 2021,05:40 NUNO MCGRATH Jan 22, 2021 14:04 MARIA ANTONIA WASHINGTON DO Jan 23, 2021 05:41
--- NOTE | 2021-01-22 16:02 | Progress Note - Cardiology ---
Cardiology SOAP Progress Note Subjective: No cp or palp or syncope No shortness of breath No n/v/d Some gen weakness and malaise Objective: I&O/Vital Signs 01/22/21 01/22/21 01/22/21 01/22/21 04:00 04:00 05:00 06:00 Pulse 82 62 66 B/P (MAP) 140/127 159/110 165/102 O2 Delivery Room Air Room Air Room Air Room Air 01/22/21 01/22/21 01/22/21 01/22/21 06:55 07:00 07:00 07:15 Pulse 109 Resp 21 19 B/P (MAP) 159/82 Pulse Ox 97 O2 Delivery Room Air Room Air Room Air 01/22/21 01/22/21 01/22/21 01/22/21 07:30 07:45 08:00 08:00 Pulse 108 Resp 23 21 13 B/P (MAP) 124/84 O2 Delivery Room Air Room Air Room Air Room Air 01/22/21 01/22/21 01/22/21 01/22/21 08:00 08:15 08:30 08:45 Temp 37.0 Pulse 118 105 95 Resp 33 15 13 Pulse Ox 86 100 100 O2 Delivery Room Air Room Air 01/22/21 01/22/21 01/22/21 01/22/21 09:00 09:15 09:30 09:45 Pulse 98 96 91 Resp 14 20 19 B/P (MAP) Pulse Ox 99 100 98 96 O2 Delivery Room Air Room Air Room Air Room Air 01/22/21 01/22/21 01/22/21 01/22/21 10:00 11:00 11:30 12:20 Temp 37.1 36.7 Pulse 86 92 88 Resp 19 16 B/P (MAP) 94/65 147/108 89/66 Pulse Ox 100 99 95 O2 Delivery Room Air Room Air Room Air 01/22/21 00:00 Intake Total 1105 ml Output Total 3070 ml Balance -1965 ml Constitutional: other (Awake, alert, oriented to place and self) Respiratory: lungs clear to auscultation Cardiovascular: regular rate-rhythm; No JVD; S1 and S2 Gastrointestional: audible bowel sounds Extremities: no lower extremity edema bilateral Neurologic/Psychiatric: other (moves all limbs, cooperative and appropriate) Skin: No rash on exposed areas, No ulcerations on exposed areas Results/Procedures: Labs Laboratory Tests 01/21/21 17:06: Glucometer 80 01/21/21 22:42: Glucometer 76 01/22/21 05:00: White Blood Count 5.3, Red Blood Count 3.67L, Hemoglobin 11.3L, Hematocrit 34L, Mean Corpuscular Volume 93, Mean Corpuscular Hemoglobin 31, Mean Corpuscular Hemoglobin Concent 33, Red Cell Distribution Width 13.1, Platelet Count 222, Mean Platelet Volume 10.5, Immature Granulocyte % (Auto) 1, Neutrophils (%) (Auto) 60, Lymphocytes (%) (Auto) 21, Monocytes (%) (Auto) 17H, Eosinophils (%) (Auto) 1, Basophils (%) (Auto) 0, Neutrophils # (Auto) 3.2, Lymphocytes # (Auto) 1.1, Monocytes # (Auto) 0.9, Eosinophils # (Auto) 0.1, Basophils # (Auto) 0.0, Immature Granulocyte # (Auto) 0.1, Sodium Level 137, Potassium Level 3.7, Chloride Level 105, Carbon Dioxide Level 20L, Anion Gap 12, Blood Urea Nitrogen 3L, Creatinine 0.73, Estimat Glomerular Filtration Rate 115, BUN/Creatinine Ratio 4, Glucose Level 104, Calcium Level 8.3L, Corrected Calcium 9.0, Phosphorus Level 3.5, Magnesium Level 1.5L, Total Bilirubin 1.2H, Aspartate Amino Transf (AST/SGOT) 59H, Alanine Aminotransferase (ALT/SGPT) 28, Alkaline Phosphatase 95, Total Protein 6.1L, Albumin 3.1L Microbiology 01/16/21 MRSA Screen - Final, Complete MRSA not isolated A/P: Assessment: Abnormal ECG: early repolarization - No evidence of acute [place]: no progression of ECG, troponin normal, no wall motion abnormality on echo, LVEF normal - Echo on 01/17/21: LVEF 55-60%, no regional wall motion abnormality ETOH withdrawal with seizure requiring intubation - mangement per eICU services - extubated on 01-18-21 Long-standing h/o ETOH abuse - reported to drink 1/5 Vodka and approx 15 beers nightly Rhabodomyolysis - management per eICU Documented h/o Parkinson's Documented h/o seizures Electrolyte abnormalities - likely d/t chronic ETOH abuse Plan: Treatment of rhabdo per eICU services Management of ETOH WD per eICU/medical services Monitor lab closely VIC WELLS MD FACP FACC CCDS Jan 22, 2021 16:02
[2021-01-22] MEDS ORDERED: diphenhydrAMINE 25 MG TAB (BENADRYL) PO ONE ×2 (22:30→22:31)
[2021-01-23] MEDS ORDERED: guaiFENesin/CODEINE (ROBITUSSIN AC) 10ML UDC ONE ×2 (01:18→08:02)
[2021-01-23] MEDS: guaiFENesin/CODEINE (ROBITUSSIN AC) 10ML UDC PO PRN ×2 (01:19→08:04)
[2021-01-23] MEDS: MULTIVIT W/MINERALS TAB (THERAGRAN M) PO SCH (05:08)
[2021-01-23] MEDS: THIAMINE 100 MG (VITAMIN B-1) TAB PO SCH (05:08)
[2021-01-23] MEDS: GABAPENTIN 100 MG (NEURONTIN) CAP PO SCH ×2 (05:08→14:12)
[2021-01-23 05:21] LABS: BASOPHILS % (AUTO) 0 % (0-10); EOSINOPHILS # (AUTO) 0.1 10^3/uL (0.0-0.3); EOSINOPHILS % (AUTO) 2 % (0-10); HEMATOCRIT 35 % (40-54); HEMOGLOBIN 11.7 g/dL (13.3-17.7); LYMPHOCYTES # (AUTO) 1.8 10^3/uL (1.0-4.0); LYMPHOCYTES % (AUTO) 24 % (12-44); MEAN CORPUSCULAR HEMOGLOBIN 31 pg (25-34); MEAN CORPUSCULAR HGB CONC 34 g/dL (32-36); MEAN CORPUSCULAR VOLUME 92 fL (80-99); MEAN PLATELET VOLUME 10.6 fL (9.0-12.2); MONOCYTES # (AUTO) 1.1 10^3/uL (0.0-1.0); MONOCYTES % (AUTO) 15 % (0-12); NEUTROPHILS # (AUTO) 4.4 10^3/uL (1.8-7.8); NEUTROPHILS % (AUTO) 59 % (42-75); PLATELET COUNT 279 10^3/uL (130-400); WHITE BLOOD COUNT 7.5 10^3/uL (4.3-11.0)
[2021-01-23 05:42] LABS: ALBUMIN 3.4 GM/DL (3.2-4.5); POTASSIUM 3.4 MMOL/L (3.6-5.0)
[2021-01-23 05:43] LABS: CALCIUM 9.1 MG/DL (8.5-10.1)
[2021-01-23 05:44] LABS: TOTAL PROTEIN 6.7 GM/DL (6.4-8.2)
[2021-01-23 05:46] LABS: BILIRUBIN,TOTAL 1.2 MG/DL (0.1-1.0)
[2021-01-23 05:48] LABS: CREATININE SERUM 0.72 MG/DL (0.60-1.30); PHOSPHORUS 3.9 MG/DL (2.3-4.7)
[2021-01-23 05:51] LABS: MAGNESIUM 1.6 MG/DL (1.6-2.4)
[2021-01-23] MEDS: SINEMET 25/250 (CARBIDOPA/LEVODOPA) TAB PO SCH ×2 (08:04→12:17)
[2021-01-23] MEDS ORDERED: PANTOPRAZOLE 40 MG (PROTONIX) TAB PO SCH (09:00)
[2021-01-23] MEDS ORDERED: LORATADINE (CLARITIN) 10 MG TAB PO SCH (09:00)
[2021-01-23] MEDS: NICOTINE 14 MG (NICODERM) PATCH TD SCH (09:41)
[2021-01-23] MEDS: FOLIC ACID 1 MG TAB PO SCH (09:42)
[2021-01-23] MEDS ORDERED: CARB1TAB22 PO (10:20)
[2021-01-23] MEDS ORDERED: MULT-1137 PO (10:20)
[2021-01-23] MEDS ORDERED: LEVE10006 PO (10:20)
--- NOTE | 2021-01-23 10:21 | Discharge Summary ---
Discharge Summary Hospital Course Was the Problem List Reviewed?: Yes Problems/Dx: (1) Alcohol withdrawal seizure with delirium Status: Acute (2) Aspiration pneumonia Status: Acute (3) Alcoholic hepatitis Status: Acute Qualifiers: Qualified Codes: K70.10 - Alcoholic hepatitis without ascites (4) Pancytopenia Status: Acute Hospital Course Date of Admission: Jan 16, 2021 at 20:20 Admission Diagnosis : Family Physician/Provider: Benny Cary MD Date of Discharge: 01/23/21 Discharge Diagnosis: Alcohol withdrawal seizure, alcoholism, respiratory failure previous intubation Hospital Course: Hospital course: Pt had a lengthy hospital course for eight days after he was admitted for alcohol withdrawal seizure. He was maintained on the vent, ultimately was extubated with good results. He was maintained on Keppra his home dose, along with Carbidopa-Levodopa, managed by Neurology and he was set for discharge and he will admit to [facility] rehab tomorrow at 8:00 in the morning. Labs and Pending Lab Test: Laboratory Tests 01/23/21 05:10: White Blood Count 7.5, Red Blood Count 3.80L, Hemoglobin 11.7L, Hematocrit 35L, Mean Corpuscular Volume 92, Mean Corpuscular Hemoglobin 31, Mean Corpuscular Hemoglobin Concent 34, Red Cell Distribution Width 13.0, Platelet Count 279, Mean Platelet Volume 10.6, Immature Granulocyte % (Auto) 1, Neutrophils (%) (Auto) 59, Lymphocytes (%) (Auto) 24, Monocytes (%) (Auto) 15H, Eosinophils (%) (Auto) 2, Basophils (%) (Auto) 0, Neutrophils # (Auto) 4.4, Lymphocytes # (Auto) 1.8, Monocytes # (Auto) 1.1H, Eosinophils # (Auto) 0.1, Basophils # (Auto) 0.0, Immature Granulocyte # (Auto) 0.1, Sodium Level 134L, Potassium Level 3.4L, Chloride Level 103, Carbon Dioxide Level 20L, Anion Gap 11, Blood Urea Nitrogen 4L, Creatinine 0.72, Estimat Glomerular Filtration Rate 117, BUN/Creatinine Ratio 6, Glucose Level 99, Calcium Level 9.1, Corrected Calcium 9.6, Phosphorus Level 3.9, Magnesium Level 1.6, Total Bilirubin 1.2H, Aspartate Amino Transf (AST/SGOT) 70H, Alanine Aminotransferase (ALT/SGPT) 37, Alkaline Phosphatase 96, Total Protein 6.7, Albumin 3.4 Microbiology 01/16/21 MRSA Screen - Final, Complete MRSA not isolated Home Meds Active Tab-A-Tena Multivit with Iron (Multivitamin/Iron/Folic Acid) 1 Each Tablet 1 Ea PO DAILY@0700 90 Days Carbidopa-Levodopa 25-250 Tab (Carbidopa/Levodopa) 1 Each Tablet 1 Ea PO TIDWM 90 Days Levetiracetam 1,000 Mg Tablet 1,000 Mg PO BID 90 Days Reported Cyclobenzaprine HCl 10 Mg Tablet 5-10 Mg PO DAILY PRN Dextroamp-Amphet ER 20 mg Cap (Dextroamphetamine/Amphetamine) 20 Mg Cap.er.24h 20 Mg PO DAILY Assessment/Pt Instructions PCP in 1 week Discharge Planning: <30 minutes discharge planning Discharge Instructions Discharge Diet: No Restrictions Activity as Tolerated: Yes Discharge Physical Examination Vital Signs Vital Signs Date Time Temp Pulse Resp B/P (MAP) Pulse Ox O2 Delivery O2 Flow Rate FiO2 01/23/21 07:29 36.5 104 22 141/98 104 Room Air 01/20/21 15:28 21 01/18/21 16:00 21.00 General Appearance: No Apparent Distress, WD/WN, Chronically ill Allergies: Coded Allergies: No Known Drug Allergies (Unverified , 04/21/19) Discharge Summary Date of Admission Jan 16, 2021 at 20:20 Date of Discharge Discharge Date: Jan 23, 2021 Admission Diagnosis Alcohol withdrawal with seizure Discharge Diagnosis [facility] Transfer to fourth floor (1) Alcohol withdrawal seizure with delirium Status: Acute (2) Aspiration pneumonia Status: Acute (3) Alcoholic hepatitis Status: Acute Qualifiers: Qualified Codes: K70.10 - Alcoholic hepatitis without ascites (4) Pancytopenia Status: Acute JERRI WASHINGTON DO Jan 23, 2021 10:21
--- NOTE | 2021-01-23 11:24 | Progress Note ---
QUIQUE CROOK MED STUDENT 01/23/21 1124: Progress Note Mr. Adan is a 45 yo male w/ hx of parkinsons and alcohol abuse that came to the [facility] ER on 01/16 for Alcohol withdraw. He states he normally drinks a fifth of vodka a day and about 15 beers. His mother checks on him every day. He states that he had tried to recently stop drinking and that when she checked on him he was having shakes, agitation, N/V, and hallucinations. He became violent and combative in ER and had to be restrained. He was admitted into the ICU and intubated. He was kept on seizure meds and normal alcohol withdraw protocol. He was Extubated on 01/18 and continued to improve over the next couple of days. On 01/22 he was moved down to the 4th floor and the next day he was ready to be discharged. He had it set up to go to rehab at [facility] on the . He was discharged to home on the and will check into rehab tomorrow. His hospital course lasted for one week and did not have any significant complications. Supervisory-Addendum Brief Verification & Attestation Participated in pt care: history, physical Personally performed: exam Care discussed with: Medical Student Procedures: n/a n/a MARIA ANTONIA WASHINGTON DO 01/23/212031: Supervisory-Addendum Brief Verification & Attestation Participated in pt care: history, MDM, physical Personally performed: exam, history, MDM, supervision of care Care discussed with: Medical Student Procedures: n/a Results interpretation: Verified all documentation Verification and Attestation of Medical Student E/M Service A medical student performed and documented this service in my presence. I reviewed and verified all information documented by the medical student and made modifications to such information, when appropriate. I personally performed the physical exam and medical decision making. Maria Antonia Washington, Jan 23, 2021,20:32 QUIQUE CROOK MED STUDENT Jan 23, 2021 11:24 MARIA ANTONIA WASHINGTON DO Jan 23, 2021 20:32
[2021-01-23] MEDS: ENOXAPARIN 40 MG/0.4 ML (LOVENOX) SYR SC SCH (12:17)
--- NOTE | 2021-01-23 14:40 | Progress Note - Cardiology ---
Cardiology SOAP Progress Note Subjective: No cp or palp or syncope or shortness of breath No n/v/d Feels tired and weak, but improving Objective: I&O/Vital Signs 01/23/21 01/23/21 01/23/21 07:29 08:00 09:22 Temp 36.5 Pulse 104 Resp 22 B/P (MAP) 141/98 Pulse Ox 104 104 99 O2 Delivery Room Air Room Air Room Air O2 Flow Rate 0.00 01/23/21 00:00 Intake Total 1742 ml Balance 1742 ml Constitutional: other (Awake, alert, oriented to place and self) Respiratory: lungs clear to auscultation Cardiovascular: regular rate-rhythm; No JVD; S1 and S2 Gastrointestional: audible bowel sounds Extremities: no lower extremity edema bilateral Neurologic/Psychiatric: other (moves all limbs, cooperative and appropriate) Skin: No rash on exposed areas, No ulcerations on exposed areas Results/Procedures: Labs Laboratory Tests 01/23/21 05:10: White Blood Count 7.5, Red Blood Count 3.80L, Hemoglobin 11.7L, Hematocrit 35L, Mean Corpuscular Volume 92, Mean Corpuscular Hemoglobin 31, Mean Corpuscular Hemoglobin Concent 34, Red Cell Distribution Width 13.0, Platelet Count 279, Mean Platelet Volume 10.6, Immature Granulocyte % (Auto) 1, Neutrophils (%) ( Auto) 59, Lymphocytes (%) (Auto) 24, Monocytes (%) (Auto) 15H, Eosinophils (%) (Auto) 2, Basophils (%) (Auto) 0, Neutrophils # (Auto) 4.4, Lymphocytes # (Auto) 1.8, Monocytes # (Auto) 1.1H, Eosinophils # (Auto) 0.1, Basophils # (Auto) 0.0, Immature Granulocyte # (Auto) 0.1, Sodium Level 134L, Potassium Level 3.4L, Chloride Level 103, Carbon Dioxide Level 20L, Anion Gap 11, Blood Urea Nitrogen 4L, Creatinine 0.72, Estimat Glomerular Filtration Rate 117, BUN/Creatinine Ra jesse 6, Glucose Level 99, Calcium Level 9.1, Corrected Calcium 9.6, Phosphorus Level 3.9, Magnesium Level 1.6, Total Bilirubin 1.2H, Aspartate Amino Transf (AST/SGOT) 70H, Alanine Aminotransferase (ALT/SGPT) 37, Alkaline Phosphatase 96, Total Protein 6.7, Albumin 3.4 Microbiology 01/16/21 MRSA Screen - Final, Complete MRSA not isolated Laboratory Tests 01/22/21 05:00 01/23/21 05:10 A/P: Assessment: Abnormal ECG: early repolarization - No evidence of acute [place]: no progression of ECG, troponin normal, no wall motion abnormality on echo, LVEF normal - Echo on 01/17/21: LVEF 55-60%, no regional wall motion abnormality ETOH withdrawal with seizure requiring intubation - mangement per eICU services - extubated on 01-18-21 Long-standing h/o ETOH abuse - reported to drink 1/5 Vodka and approx 15 beers nightly Rhabodomyolysis - management per eICU Documented h/o Parkinson's Documented h/o seizures Electrolyte abnormalities - likely d/t chronic ETOH abuse Plan: Treatment of rhabdo per eICU services Management of ETOH WD per eICU/medical services Replenish lytes Monitor lab closely VIC WELLS MD FACP FAC CCDS Jan 23, 2021 14:40
[2021-01-23] MEDS ORDERED: KCL 20 MEQ TAB (K-DUR) PO ONE (14:45)
[2021-01-23] MEDS ORDERED: diphenhydrAMINE 25 MG TAB (BENADRYL) PO ONE (21:00)
== END 2021-01-23 17:05 | disposition home or self-care (01) | DRG 896 ==
LOC: EDUNIT# 17:01 → ER 17:04 → ICU 20:20 → 4TH 01-22 12:20
PROVIDERS: ADMIT Internal Medicine; ATTEND Internal Medicine
PROC: 5A1945Z Respiratory Ventilation, 24-96 Consecutive Hours (ICD-10-PCS; principal; 2021-01-16)
PROC: 0BH17EZ Insertion of Endotracheal Airway into Trachea, Via Natural or Artificial Opening (ICD-10-PCS; 2021-01-16)
DX: F10.131 Alcohol abuse with withdrawal delirium (principal); J69.0 Pneumonitis due to inhalation of food and vomit; J96.01 Acute respiratory failure with hypoxia; M62.82 Rhabdomyolysis; D61.818 Other pancytopenia; N17.9 Acute kidney failure, unspecified; E87.1 Hypo-osmolality and hyponatremia; R57.9 Shock, unspecified; E87.2 Acidosis; G20 Parkinson's disease; G40.909 Epilepsy, unspecified, not intractable, without status epilepticus; K70.10 Alcoholic hepatitis without ascites; K21.9 Gastro-esophageal reflux disease without esophagitis; D64.9 Anemia, unspecified; K76.0 Fatty (change of) liver, not elsewhere classified; E87.6 Hypokalemia; R44.1 Visual hallucinations; D69.59 Other secondary thrombocytopenia; F17.210 Nicotine dependence, cigarettes, uncomplicated; F90.9 Attention-deficit hyperactivity disorder, unspecified type; F41.9 Anxiety disorder, unspecified; F32.A Depression, unspecified; E83.39 Other disorders of phosphorus metabolism; R94.31 Abnormal electrocardiogram [ECG] [EKG]; Z20.822 Contact with and (suspected) exposure to COVID-19; Z79.899 Other long term (current) drug therapy; Y90.1 Blood alcohol level of 20-39 mg/100 ml
CPT/HCPCS: 31500; 36415; 36569; 70450; 71045; 71260; 72125; 74177; 76937; 80048; 80053; 80306; 80320; 80329; 81000; 82550; 82553; 82805; 82947; 83605; 83735; 83874; 84100; 84145; 84478; 84484; 85007; 85025; 85027; 85610; 85730; 87081; 87636; 93005; 93041; 93306; 94002; 94003; 94760; 94799; 96374; 96375; 96376; 99291